=== PATIENT | female | born 1965 | race African-American/Black ===

== ENCOUNTER 2016-11-24 11:03 | Inpatient (IN) | payer OTHER ==
[~2016-11-24] VITALS: Ht 188 cm; Wt 153.5 kg
[~2016-11-24 11:03] MED LIST: ALBU2.5V5 NEB; ALBU8.5H6 INH; AMLO10TA4 PO; ASPI-252 PO; ASPI-482 PO; ASPI81TA2 PO; ATORVASTATIN CA80 MG PO; Albuterol Sulfate NEB; CARV3.12 PO; CIPR500T6 PO; CLOP75TA27 PO; DIPH25CA58 PO; FAMO20TA5 PO; FLUO20CA8 PO; FLUT1DIS3 IH; FURO-68 PO; FURO40TA4 PO; GABA-587 PO; GABA400C PO; GABA600T2 PO; HYDR-2672 PO; Hydrocodone/Acetaminophen PO; INSU100I17 SQ; INSU100I27 SQ; INSU100V31 SQ; INSU100V8 SQ; INSU500V SQ; Insulin Detemir SQ; Ipratropium/Albuterol Sulfate NEB; Isosorbide Mononitrate PO; LEVO500T38 PO; LIPITOR80 MG PO; LORA0.5T PO; LORA10CA PO; LORA10TA3 PO; LOSA25TA4 PO; METH-38 PO; METH750T2 PO; METR500T PO; MINE120C TP; NITR0.4T6 SL; OXYC-250 PO; OXYC1TAB9 PO; Oxycodone Hcl/Acetaminophen PO; PANT40TA3 PO; PANT40TA5 PO; POTA20TA12 PO; POTA20TA82 PO; PRED20TA PO; PROM118S2 PO; SENN-37 PO; SENN1TAB7 PO; SENN8.6T3 PO; TERB250T8 PO; ZOLP5TAB PO
[2016-11-24] MEDS ORDERED: MORPHINE SULFATE 4 MG/ML DISP.SYRIN. IV/SQ PRN (11:30)
--- NOTE | 2016-11-24 11:31 | PHYS DOC ---
Past Medical History Past Medical History: CAD, CHF, COPD, Depression, Diabetes-Type II, DVT, High Cholesterol, Hypertension, Other Additional Past Medical Histor: NEUROPATHY Past Surgical History: Angioplasty, , Other Additional Past Surgical Histo: CARDIAC STENTS X4, left great toe amputation, R great & 2nd toe amputation Alcohol Use: Occasionally Drug Use: Marijuana Adult General Chief Complaint Chief Complaint: CHEST PAIN HPI HPI Patient is a 51 year old female who presents with intermittent left-sided chest pressure over the past 3 days. States she has had constant chest pressure since waking this morning at 6:30 AM. Pain radiates to her left arm. She took a sublingual nitroglycerin prior to arrival helped with her pain, but her pain persists. States this is similar symptoms to when she had a heart cath in the past. She denies diaphoresis, palpitations, dyspnea, nausea or vomiting, fever or chills, cough, hemoptysis, leg pain or swelling, orthopnea, abdominal pain. Review of Systems Review of Systems Constitutional: Denies fever or chills [] Eyes: Denies change in visual acuity, redness, or eye pain [] HENT: Denies nasal congestion or sore throat [] Respiratory: Denies cough or shortness of breath [] Cardiovascular: No additional information not addressed in HPI [] GI: Denies abdominal pain, nausea, vomiting, bloody stools or diarrhea [] : Denies dysuria or hematuria [] Musculoskeletal: Denies back pain or joint pain [] Integument: Denies rash or skin lesions [] Neurologic: Denies headache, focal weakness or sensory changes [] Endocrine: Denies polyuria or polydipsia [] Current Medications Current Medications Current Medications Medications (Trade) Dose Ordered Sig/Justin Start Time Stop Time Status Last Admin Dose Admin Morphine Sulfate 4 mg PRN Q15MIN PRN 11/24/16 11:30 11/25/16 11:29 11/24/16 12:57 4 MG Allergies Allergies Allergies Coded Allergies Type Severity Reaction Last Updated Verified Penicillins Allergy Severe tongue swelling 04/13/15 Yes latex Allergy Severe Hives 04/13/15 Yes prochlorperazine Allergy Severe tongue swelling 04/13/15 Yes iodine Adverse Reaction Intermediate "shiver" 04/13/15 Yes Physical Exam Physical Exam Constitutional: Well developed, well nourished, no acute distress, non-toxic appearance. [] HENT: Normocephalic, atraumatic, bilateral external ears normal, oropharynx moist, nose normal. [] Eyes: PERRLA, EOMI. [] Neck: Normal range of motion, supple. [] Cardiovascular:Heart rate regular rhythm [] Lungs & Thorax: Bilateral breath sounds clear to auscultation [] Abdomen: Bowel sounds normal, soft, no tenderness. [] Skin: Warm, dry, no erythema, no rash. [] Back: Normal ROM. [] Extremities: No tenderness, ROM intact, no edema. [] Neurologic: Alert and oriented X 3, normal motor function, normal sensory function, no focal deficits noted. [] Psychologic: Affect normal, judgement normal, mood normal. [] Current Patient Data Vital Signs Vital Signs Date Time Temp Pulse Resp B/P Pulse Ox O2 Delivery O2 Flow Rate FiO2 11/24/16 11:13 97.7 56 16 132/63 99 Room Air 97.7 Lab Values Laboratory Tests Test 11/24/16 11:30 Urine Opiates Screen Neg (NEG) Urine Methadone Screen Neg (NEG) Urine Barbiturates Neg (NEG) Urine Phencyclidine Screen Neg (NEG) Urine Amphetamine/Methamphetamine Neg (NEG) Urine Benzodiazepines Screen Neg (NEG) Urine Cocaine Screen Pos (NEG) Urine Cannabinoids Screen Neg (NEG) Urine Ethyl Alcohol Neg (NEG) EKG EKG EKG as interpreted by me as normal sinus rhythm, rate 51, no ST-T changes, normal intervals, no ectopy Radiology/Procedures Radiology/Procedures Chest xray as interpreted by me with no acute cardiopulmonary disease process Course & Med Decision Making Course & Med Decision Making Pertinent Labs and Imaging studies reviewed. (See chart for details) UDS with cocaine+. Laboratory evaluation otherwise unremarkable. Discussed case with Dr. Bird, who will admit. Cardiology consult placed. Dragon Disclaimer Dragon Disclaimer This electronic medical record was generated, in whole or in part, using a voice recognition dictation system. Departure Departure Impression: Primary Impression: Chest pain Disposition: ADMITTED INPATIENT Condition: STABLE Referrals: TOSHIA VARGAS MD (PCP) Problem Qualifiers Primary Impression: Chest pain Chest pain type: unspecified Qualified Code: R07.9 - Chest pain, unspecified Kings DANIEL MD Nov 24, 2016 11:31
[2016-11-24 11:47] LABS: BARBITURATES NEG (NEG); BENZODIAZEPINES NEG (NEG); CANNABINOIDS NEG (NEG); COCAINE POS (NEG); METHADONE NEG (NEG); OPIATES NEG (NEG); PHENCYCLIDINE NEG (NEG)
[2016-11-24 11:49] LABS: ETHANOL, URINE NEG (NEG)
--- NOTE | 2016-11-24 12:00 | EKG ---
[facility] [address] [place] [address] Test Date: 2016-11-24 Test Time: 11:14:49 Pat Name: JAXSON BROOKS Department: Room: Gender: F [employer]: : 1965 Requested By: Kings DANIEL Order Number: [id number] Reading MD: Jia Enamorado Measurements Intervals [place] Rate: 51 P: 45 [place]: 138 QRS: 34 QRSD: 106 T: 82 QT: 456 QTc: 422 Interpretive Statements SINUS RHYTHM T ABNORMALITY IN HIGH LATERAL LEADS RI6.01 Compared to ECG 09/28/2015 11:00:39 No significant changes Electronically Signed On 11-24-2016 20:00:41 CDT by Jia Enamorado
--- NOTE | 2016-11-24 12:15 | RAD ---
EXAM: Chest, 2 views.. HISTORY: Chest pain. COMPARISON: 09/28/2015. FINDINGS: Frontal and lateral views of the chest are obtained. There is no infiltrate, effusion or pneumothorax. There is stable mild enlargement of the cardiac silhouette.. IMPRESSION: No acute pulmonary finding.
[2016-11-24 12:50] LABS: BASO # 0.1 x10^3/uL (0.0-0.2); BASO % 1 % (0-3); EOS % 4 % (0-3); HEMATOCRIT 39.4 % (36.0-47.0); HEMOGLOBIN 12.7 g/dL (12.0-15.5); LYMPH # 2.5 x10^3/uL (1.0-4.8); LYMPH % 33 % (24-48); MEAN CORPUSCULAR HEMOGLOBIN 27 pg (25-35); MEAN CORPUSCULAR HGB CONC 32 g/dL (31-37); MEAN CORPUSCULAR VOLUME 84 fL (79-100); MONO % 5 % (0-9); NEUT % 57 % (31-73); PLATELET COUNT 219 x10^3/uL (140-400); RED CELL DISTRIBUTION WIDTH 14.4 % (11.5-14.5); WHITE BLOOD COUNT 7.4 x10^3/uL (4.0-11.0)
[2016-11-24 12:56] LABS: CALCIUM 9.3 mg/dL (8.5-10.1); GFR 70.5; POTASSIUM 3.8 mmol/L (3.5-5.1)
[2016-11-24] MEDS ORDERED: ONDANSETRON PF 4 MG/2 ML VIAL. IV PRN (13:15)
[2016-11-24] MEDS ORDERED: FENTANYL PF 100 MCG/2 ML VIAL. IV PRN (13:15)
[2016-11-24] MEDS ORDERED: NITROGLYCERIN SUBLINGUAL 0.4 MG BOTTLE OF 25. SL PRN ×2 (13:15→15:30)
[2016-11-24] MEDS ORDERED: ACETAMINOPHEN 325 MG TABLET. PO PRN (13:15)
[2016-11-24 13:23] VITALS: BP 130/74
[2016-11-24] MEDS ORDERED: DIPHENHYDRAMINE HCL 25 MG CAPSULE PO ONE (13:45)
--- NOTE | 2016-11-24 14:49 | PDOC2 ---
SHERRELL SUTTON RESIDENTIAL APPRAISER 11/24/16 1449: CARDIAC CONSULT DATE OF CONSULT Date of Consult DATE: 11/24/16 TIME: 14:31 REASON FOR CONSULT Reason for Consult: Chest pain REFERRING PHYSICIAN Referring Physician: Dr. Zuñiga SOURCE Source: Chart review, Patient HISTORY OF PRESENT ILLNESS HISTORY OF PRESENT ILLNESS This is a 51 yo female, with a h/o CAD s/p PCI/stents, CHF, HTN, HLP, DVT, and DM, who presented with complaints of chest pressure. Patient reports pain began Thursday afternoon while she was watching television. Located under left breast. Describes as heaviness. Radiated down her left arm, which was associated with left hand numbness and tingling. Also c/o left neck, jaw, and back pain. Associated with SOA and diaphoresis. Denies any palpitations, dizziness, orthopnea, and nausea/vomiting. Chest pain was intermittent over the weekend. Seems to come and go; no specific exacerbating factors. Pain improved with nitro. Reports pain is similar to previously experienced with CA. Diagnosed with LLE DVT this past July- with Xarelto. No cardiac workup since 2014. PAST MEDICAL HISTORY Cardiovascular: CAD (s/p KATLYN to RCA and LCx), CHF, HTN, Hyperlipidemia Pulmonary: Asthma, COPD CENTRAL NERVOUS SYSTEM: Periperal neuropathy GI: GERD Hepatobiliary: No pertinent hx Psych: Anxiety, Addictions (cocaine ), Depression Musculoskeletal: Osteoarthritis Infectious disease: No pertinent hx ENT: No pertinent hx Renal/: No pertinent hx Endocrine: Diabetes PAST SURGICAL HISTORY Past Surgical History: Other (PCI/stents ) FAMILY HISTORY Family History: Diabetes, Stroke SOCIAL HISTORY Smoke: No ALCOHOL: occassional Drugs: Cocaine (denies ) Lives: with Family CURRENT MEDICATIONS CURRENT MEDICATIONS Current Medications Medications (Trade) Dose Ordered Sig/Justin Route PRN Reason Start Time Stop Time Status Last Admin Dose Admin Morphine Sulfate 4 mg PRN Q15MIN PRN IV/SQ PAIN GREATER THAN 3/10 11/24/16 11:30 11/25/16 11:29 11/24/16 12:57 Diphenhydramine HCl (Benadryl) 25 mg 1X ONCE PO 11/24/16 13:45 11/24/16 13:46 DC 11/24/16 13:12 ALLERGIES ALLERGIES: Coded Allergies: Penicillins (Verified Allergy, Severe, tongue swelling, 04/13/15) latex (Verified Allergy, Severe, Hives, 04/13/15) prochlorperazine (Verified Allergy, Severe, tongue swelling, 04/13/15) iodine (Verified Adverse Reaction, Intermediate, "shiver", 04/13/15) ROS Review of System 14 point ROS conducted with pertinent positives noted above in HPI PHYSICAL EXAM General: Alert, Oriented X3, Cooperative, No acute distress HEENT: Atraumatic, Mucous membr. moist/pink Lungs: Clear to auscultation, Normal air movement Heart: Regular rate, Normal S1, Normal S2, Other (left chest slightly tender upon palpation, distant heart tones ) Abdomen: Soft, No tenderness, Other (obese ) Extremities: No cyanosis, Normal pulses, Other (trace LE edema ) Skin: No breakdown, No significant lesion Neuro: Normal speech, Sensation intact Psych/Mental Status: Mental status NL, Mood NL MUSCULOSKELETAL: Osteoarthritic changes both hands VITALS VITALS Vital Signs Date Time Temp Pulse Resp B/P Pulse Ox O2 Delivery O2 Flow Rate FiO2 11/24/16 13:23 98.1 51 20 130/74 98 Room Air 98.1 LABS Lab: Laboratory Tests Test 11/24/16 11:30 11/24/16 12:35 Urine Opiates Screen Neg (NEG) Urine Methadone Screen Neg (NEG) Urine Barbiturates Neg (NEG) Urine Phencyclidine Screen Neg (NEG) Urine Amphetamine/Methamphetamine Neg (NEG) Urine Benzodiazepines Screen Neg (NEG) Urine Cocaine Screen Pos (NEG) Urine Cannabinoids Screen Neg (NEG) Urine Ethyl Alcohol Neg (NEG) White Blood Count 7.4x10^3/uL (4.0-11.0) Red Blood Count 4.70x10^6/uL (3.50-5.40) Hemoglobin 12.7g/dL (12.0-15.5) Hematocrit 39.4% (36.0-47.0) Mean Corpuscular Volume 84fL (79-100) Mean Corpuscular Hemoglobin 27pg (25-35) Mean Corpuscular Hemoglobin Concent 32g/dL (31-37) Red Cell Distribution Width 14.4% (11.5-14.5) Platelet Count 219x10^3/uL (140-400) Neutrophils (%) (Auto) 57% (31-73) Lymphocytes (%) (Auto) 33% (24-48) Monocytes (%) (Auto) 5% (0-9) Eosinophils (%) (Auto) 4% (0-3) Basophils (%) (Auto) 1% (0-3) Neutrophils # (Auto) 4.2x10^3uL (1.8-7.7) Lymphocytes # (Auto) 2.5x10^3/uL (1.0-4.8) Monocytes # (Auto) 0.4x10^3/uL (0.0-1.1) Eosinophils # (Auto) 0.3x10^3/uL (0.0-0.7) Basophils # (Auto) 0.1x10^3/uL (0.0-0.2) Sodium Level 143mmol/L (136-145) Potassium Level 3.8mmol/L (3.5-5.1) Chloride Level 104mmol/L (98-107) Carbon Dioxide Level 30mmol/L (21-32) Anion Gap 9 (6-14) Blood Urea Nitrogen 13mg/dL (7-20) Creatinine 1.0mg/dL (0.6-1.0) Estimated GFR (Cockcroft-Gault) 70.5 Glucose Level 156mg/dL (70-99) Calcium Level 9.3mg/dL (8.5-10.1) Troponin I Quantitative < 0.017ng/mL (0.000-0.055) ED-Ase-R-Type Natriuretic Peptide 176pg/mL (0-124) ECHOCARDIOGRAM ECHOCARDIOGRAM <Conclusion> Low normal LV function with suggestion of prior inferior/posterior infarct. No significant valvular abnormalities. DATE: 07/09/151950 STRESS TEST STRESS TEST Conclusion 1. The patient's EKG doesn't change with stress in a manner that is suggestive but not diagnostic of ischemia. 2. Nuclear imaging shows an area of partially reversible ischemia in the inferior lateral wall. 3. Ventricular systolic function is normal with an ejection fraction of 59%. 4. Moderate risk Lexiscan nuclear stress test. DATE: 10/27/141830 HEART CATH HEART CATH Conclusion 1. Severe two-vessel coronary artery disease 2. Successful PCI/drug eluting stents placement to the right coronary and left circumflex arteries 3. Diaphragmatic wall hypokinesis with ejection fraction estimated at 55% 4. No significant mitral regurgitation or aortic stenosis Recommendations 1. Aspirin 325 mg daily 2. Plavix 75 mg daily for preferably one year 3. Cardiovascular risk factor modification DATE: 11/28/14 1123 ASSESSMENT/PLAN ASSESSMENT/PLAN 1. Chest pain, with typical and atypical features initial trop negative- continue with series obtain echo UDS + for cocaine; possible vasospasms? NPO after MN- will plan for MPI in am unless troponin elevation or symptomatology changes noted overnight. 2. CAD s/p PCI/KATLYN in proximal Cx and OM1 at [facility] in 2012 s/p PCI/KATLYN RCA and LCx 10/2014 continue secondary prevention No BB with cocaine use and bradycardia 3. Hypertension, essential controlled with meds 4. Hyperlipidemia check lipids statin therapy 5. IDDM management per PCP 6. Morbid obesity lifestyle modification 7. Substance abuse UDS + cocaine- patient denies use. discussed/encouraged cessation 8. Noncompliance multiple failed appointment f/u Problems: MACRINA CORRAL MD 11/25/16 1440: CARDIAC CONSULT ALLERGIES ALLERGIES: Coded Allergies: Penicillins (Verified Allergy, Severe, tongue swelling, 04/13/15) latex (Verified Allergy, Severe, Hives, 04/13/15) prochlorperazine (Verified Allergy, Severe, tongue swelling, 04/13/15) iodine (Verified Adverse Reaction, Intermediate, "shiver", 04/13/15) ASSESSMENT/PLAN ASSESSMENT/PLAN Patient seen and examined 11/24/16. Agree with SAUSAGE MIXER's assessment and plan. Chest pain with atypical features. Myocardial infarction ruled out. Plan for Lexiscan nuclear stress test to rule out ischemic etiology. Thank you for your consultation. Problems: SHERRELL SUTTON APRN Nov 24, 2016 14:49 MACRINA CORRAL MD Nov 25, 2016 14:40
[2016-11-24] MEDS ORDERED: ALPR2TAB5 PO (15:02)
[2016-11-24] MEDS ORDERED: DICL100G7 TP (15:02)
[2016-11-24] MEDS ORDERED: ALPR1TAB6 PO (15:02)
[2016-11-24] MEDS ORDERED: OXYM30MI NS (15:02)
[2016-11-24] MEDS ORDERED: HYDR-2672 PO (15:02)
[2016-11-24] MEDS ORDERED: PANT40TA5 PO (15:02)
[2016-11-24] MEDS ORDERED: ERGO80004 PO (15:02)
[2016-11-24] MEDS ORDERED: FAMO20TA5 PO (15:02)
[2016-11-24] MEDS ORDERED: RIVA20TA2 PO (15:02)
[2016-11-24] MEDS ORDERED: INSU100I17 SQ (15:02)
[2016-11-24] MEDS ORDERED: AMIT25TA PO (15:02)
[2016-11-24] MEDS ORDERED: ALBUTEROL SULFATE 2.5 MG/3 ML NEBU. NEB PRN (15:30)
[2016-11-24] MEDS ORDERED: ALBUTEROL SULFATE 8GM INHALER. INH PRN (15:30)
[2016-11-24] MEDS ORDERED: INSU100I13 SQ ×2 (15:49)
[2016-11-24] MEDS ORDERED: LURA40TA PO (15:52)
[2016-11-24] MEDS ORDERED: FLUT16SP NS (15:53)
--- NOTE | 2016-11-24 15:56 | ACF ---
Admission Forms Criteria CARDIOLOGY GRG Clinical Indications for Admission to Inpatient Care ( Place 'X' for any and all applicable criteria): Hospital admission is needed for appropriate care of the patient because of ANY ONE of the following (1): [ ] I. Hemodynamic instability as indicated by ALL of the following (1)(2)(3) (4)(5) [ ]a) Vital signs or other findings not as expected for chronic patient condition or baseline [ ]b) Instability indicated by ANY ONE of the following: [ ]i) Hypotension [ ]ii) Symptomatic Tachycardia unresponsive to treatment ( e.g., analgesia, fluids, sedation as indicated) [ ]iii) Inadequate perfusion indicated by ANY ONE of the following: [ ] 1) Lactic acidosis (> 2 mmol/L) [ ] 2) New abnormal capillary refill (> 3 seconds) [ ] 3) Reduced urine output [ ] 4) New altered mental status [ ]iv) Orthostatic vital sign changes unresponsive to treatment (e.g., fluids) [ ]v) IV inotropic or vasopressor medication required to maintain adequate blood pressure or perfusion [ ] II. Severe heart failure as indicated by ANY ONE of the following(17)(18) [ ]a) Respiratory distress [ ]b) Hypotension [ ]c) Anasarca (refractory to outpatient therapy) [ ]d) Cardiac arrhythmias of immediate concern [ ]e) Myocardial ischemia [ ] III. Cardiac arrhythmias or findings of immediate concern indicated by ANY ONE of the following (19)(20): [ ] a) Heart rhythms that are inherently dangerous or unstable indicated by ANY ONE of the following (21)(22)(23): [ ] i) Resuscitated ventricular fibrillation or cardiac arrest [ ] ii) Ventricular escape rhythm [ ] iii) Sustained ventricular tachycardia (30 seconds or more of ventricular rhythm at greater than 100 beats per minute) [ ] iv) Nonsustained ventricular tachycardia and ANY ONE of the following: [ ] 1) Suspected cardiac ischemia as cause or consequence of ventricular tachycardia [ ] 2) In setting of acute myocarditis [ ] b) Unstable cardiac conduction defects indicated by ANY ONE of the following(23)(24)(25) [ ] i) Type II second-degree atrioventricular block [ ]ii) Third-degree atrioventricular block [ ]iii) New-onset left bundle branch block with suspected myocardial ischemia [ ]c) Any heart rhythm and ANY ONE of the following (21)(22)(26)(27) (28) [ ] i) Continuous long-term ECG monitoring needed (e.g., initiation of drug requiring monitoring for more than 24 hours) [ ] ii) Patient has automatic implanted cardioverter defibrillator that is repeatedly firing, malfunctioning, or in need of immediate adjustment of settings beyond the scope of ambulatory or observation care [ ]d) Heart rhythms of concern due to ANY ONE of the following: [ ] i) Hypotension [ ] ii) Respiratory distress [ ] iii) Association with other significant symptoms (e.g., bradycardia with syncope or ongoing dizziness, supraventricular tachycardia with chest pain (14)(15)(17) [ ] IV. Monitoring for cardiac contusion beyond the scope of observation care needed [A](30)(31)(32) [ ] V. Surgical or device complication (e.g., valve replacement complication , pacemaker dysfunction) (35)(41)(44)(45)(46) [ ] . Inpatient palliative care needed. [B](49) Also use Inpatient Palliative Care Criteria [ ] VII. Nonbacterial thrombotic (marantic) endocarditis (36)(43)(47)(48) [X] VIII. Cardiology condition, symptom, or finding for which emergency and observation care has failed or are not considered appropriate. [ ] IX. Acute valvular disease requiring inpatient as indicated by ANY ONE of the following (41) [ ]a) Acute valvular regurgitation (42) [ ]b) Noninfectious valvulitis (43) [ ]c) Obstructive valve thrombosis [ ]d) Paravalvular leak [ ]e) Other significant valvular disorder remaining after emergency or observation level of care (as appropriate) [ ]X. Pericardial disease requiring inpatient treatment as indicated by ANY ONE of the following (33)(34)(35)(36)(37) [ ]a) Suspected tamponade (38)(39)(40) [ ]b) Hemopericardium [ ]c) Other significant pericardial disorder remaining after emergency or observation level of care (as appropriate) [ ] XI. Cardiac ischemia beyond scope of emergency and observation care. [ ] XII. Hypertension requiring inpatient treatment as indicated by ANY ONE of the following (6)(7)(8) [ ]a) SBP greater than 220 mm Hg or DBP greater than 120 mmHg despite treatment [ ]b) SBP greater than 140 mm Hg or DBP greater than 100 mm Hg with evidence of acute end organ damage as indicated by ANY ONE of the following [ ] i) Encephalopathy [ ] ii) Acute renal failure as indicated by new onset of ANY ONE of the following (9)(10)(11)(12)(13) [ ]1) 3-fold rise in serum creatinine from baseline [ ]2) Serum creatinine greater than 4 mg/dL ( 354 micromoles/L) with acute rise greater than 0.5 mg/dL (44.2 micromoles/L) [ ]3) Reduction of more than 75% in estimated glomerular filtration rate from baseline [ ]4) Estimated glomerular filtration rate less than 35 mL/min/1.73m2 (0.59 mL/sec/1.73m2) in child up to 18 years of age [ ]5) Cessation of urine output indicated by ALL of the following [ ]A. Adequate volume status [ ]B. Inadequate urine output as indicated by ANY ONE of the following [ ]a. Urine output less than 0.3 mL/kg/hr for 24 hours [ ]b. Anuria (urine output less than 0.1 mL/kg/hr) for 12 hours [ ] iii) Aortic dissection [ ] iv) Myocardial Ischemia [ ] v) Left ventricular heart failure [ ]vi) Retinal Hemorrhage [ ]vii) Other significant finding [ ]c) Hypertension in child requiring inpatient treatment as indicated by ALL of the following(14)(15)(16) [ ] i) Outpatient treatment not effective, not available, or not appropriate [ ]ii) SBP or DBP greater than 95th percentile for age [ ]iii) Evidence of acute end organ damage as indicated by ANY ONE of the following [ ]1) Altered mental status [ ]2) Acute renal failure as indicated by new onset of ANY ONE of the following(9)(10)(11)(12)(13) [ ]A. 3-fold rise in serum creatinine from baseline [ ]B. Serum creatinine greater than 4 mg/dL (354 micromoles/L) with acute rise greater than 0.5 mg/dL (44.2 micromoles/L) [ ]C. Reduction of more than 75% in estimated glomerular filtration rate from baseline [ ]D. Estimated glomerular filtration rate less than 35 mL/min/1.73m2 (0.59 mL/sec/1.73m2) in child up to 18 years of age [ ]E. Cessation of urine output indicated by ALL of the following [ ]a. Adequate volume status [ ]b. Inadequate urine output as indicated by ANY ONE of the following [ ]i) Urine output less than 0.3 mL/kg/hr for 24 hours [ ]ii) Anuria ( urine output less than 0.1 mL/kg/hr) for 12 hours [ ]3) Severe headache [ ]4) Visual disturbance [ ]5) Retinal hemorrhage [ ]6) Other significant finding [ ]XIII. Complications of transplanted heart indicated by ANY ONE of the following(61): [ ]a) Acute graft rejection requiring inpatient management (eg, intravenous immunosuppression)(62)(63) [ ]b) Acute graft heart failure indicated by ANY ONE of the following(64): [ ]i) Hemodynamic instability [ ]ii) Cardiac arrhythmias of immediate concern [ ]iii) Pulmonary edema that is very severe (eg, mechanical ventilation needed, imminent or likely, need for 100% oxygen to keep oxygen saturation above 90%) [ ]iv) Pulmonary edema that is persistent as indicated by ALL of the following: [ ]1) New need for oxygen therapy to keep oxygen saturation above 90% (or increased FiO2 need from baseline) [ ]2) Has not improved sufficiently with emergency department or observation care IV diuretics or other heart failure treatments[E] [ ]v) Altered mental status that is severe or persistent [ ]vi) Increased creatinine (new on laboratory test) with reduction of more than 50% in estimated glomerular filtration rate from baseline [ ]vii) Progressively (ongoing) rising creatinine (known from past laboratory test) with reduction of more than 25% in estimated glomerular filtration rate from baseline [ ]viii) Acute renal failure [ ]ix) Acute peripheral ischemia (eg, examination shows pulseless, cool, mottled, or cyanotic extremity) [ ]x) Pulmonary artery catheter monitoring needed [ ]xi) Other sign or symptom of heart failure requiring inpatient treatment (ie, too severe or not responsive to outpatient and observation care treatment) [ ]c) Infection requiring inpatient management (eg, Hemodynamic instability, need for intravenous antimicrobial treatment)(66)(67)(68)(69)(70) [ ]d) Cardiac allograft vasculopathy requiring inpatient management ( eg evidence of cardiac ischemia)(71) [ ]e) Other complication of transplanted heart (eg, stroke, severe pulmonary hypertension, severe valvular dysfunction) requiring inpatient management(72) The original [facility] content created by [facility] has been revised. The portions of the content which have been revised are identified through the use of italic text or in bold, and [facility] has neither reviewed nor approved the modified material. All other unmodified content is copyright [facility]. Please see references footnoted in the original [facility] edition 2016 Admission Criteria Met?: Yes ASHLEY RIBEIRO Nov 24, 2016 15:56
[2016-11-24] MEDS: ALPRAZOLAM 1 MG TABLET PO SCH (16:00)
[2016-11-24] MEDS: LOSARTAN POTASSIUM 25 MG TABLET. PO SCH (16:00)
[2016-11-24] MEDS ORDERED: DEXTROSE 50% 25 GM / 50ML DISP.SYRIN. IV PRN (16:15)
[2016-11-24] MEDS ORDERED: ALPRAZOLAM 1 MG TABLET PO PRN (16:15)
[2016-11-24] MEDS: DICLOFENAC SODIUM 1% TOPICAL GEL 100GM TUBE. TP SCH ×2 (17:00→22:29)
[2016-11-24] MEDS: RIVAROXABAN 10 MG TABLET. PO SCH (17:00)
[2016-11-24] MEDS ORDERED: DIPHENHYDRAMINE HCL 25 MG CAPSULE PO SCH (17:00)
[2016-11-24] MEDS ORDERED: POTASSIUM CHLORIDE 20 MEQ TABLET.ER. PO SCH (17:00)
[2016-11-24] MEDS: FUROSEMIDE 40 MG TABLET PO SCH (17:28)
[2016-11-24] MEDS: HYDROCODONE/APAP 10/325 TABLET. PO PRN ×2 (17:30→21:45)
[2016-11-24] MEDS: INSULIN ASPART 300 UNITS/3 ML INSULN.PEN SQ SCH ×2 (17:45→17:46)
[2016-11-24 19:15] VITALS: BP 139/69
[2016-11-24] MEDS: BUDESONIDE 0.5 MG/2 ML NEBU. NEB SCH (19:19)
[2016-11-24] MEDS: ALBUTEROL SULFATE 2.5 MG/3 ML NEBU. NEB SCH (19:19)
[2016-11-24 20:32] VITALS: BP 139/69
[2016-11-24] MEDS ORDERED: AMITRIPTYLINE HCL 25 MG TABLET. ONE (20:40)
[2016-11-24] MEDS ORDERED: NON FORMULARY ITEM (Fluticasone/Salmeterol (Advair 250-50 Diskus) 1 INH) IH SCH (21:00)
[2016-11-24] MEDS ORDERED: ALPRAZOLAM 1 MG TABLET PO SCH (21:00)
[2016-11-24] MEDS: LURASIDONE 40 MG TABLET. PO SCH (21:00)
[2016-11-24] MEDS ORDERED: INSULIN DETEMIR 300 UNITS/3 ML INSULN.PEN. SQ SCH ×2 (21:00)
[2016-11-24] MEDS ORDERED: GABAPENTIN PO SCH (21:00)
[2016-11-24] MEDS ORDERED: AMITRIPTYLINE HCL 25 MG TABLET PO SCH (21:00)
[2016-11-24] MEDS ORDERED: ATORVASTATIN CALCIUM 40 MG TABLET. PO SCH (21:00)
[2016-11-24] MEDS: FAMOTIDINE 20 MG TABLET. PO SCH (21:45)
[2016-11-24] MEDS: GABAPENTIN 400 MG CAPSULE. PO SCH (21:46)
[2016-11-24] MEDS: METHOCARBAMOL 750 MG TABLET PO SCH (21:47)
[2016-11-24] MEDS: ATORVASTATIN CALCIUM 40 MG TABLET. PO SCH (21:47)
--- NOTE | 2016-11-24 21:58 | HP ---
ADMIT DATE: 11/24/2016 CHIEF COMPLAINT: Chest pain. HISTORY OF PRESENT ILLNESS: The patient is a pleasant middle-aged female, who states she has 4 previous cardiac stents. She presented to the ER with chest pain rated 7/10, has been occurring for several days. She thinks there is her heart. She tried increasing her home meds, but that is not working. I discussed the case with the ER physician. We are going to admit the patient and consult Cardiology. PAST MEDICAL HISTORY: Coronary artery disease with 4 stents, CHF, COPD, depression, diabetes, hyperlipidemia, hypertension, DVT, neuropathy, left greater toe amputation, right second toe amputation and marijuana use. ALLERGIES: PENICILLIN, IODINE, PROCHLORPERAZINE AND LATEX. FAMILY HISTORY: Coronary artery disease. SOCIAL HISTORY: She does not drink, smoke or take drugs. MEDICATIONS: Reviewed, please refer to the MRAD. REVIEW OF SYSTEMS: GENERAL: No history of weight change, weakness or fevers. SKIN: No bruising, hair changes or rashes. EYES: No blurred, double or loss of vision. NOSE AND THROAT: No history of nosebleeds, hoarseness or sore throat. HEART: She complains of chest pain. LUNGS: Denies cough, hemoptysis, wheezing or shortness of breath. GASTROINTESTINAL: Denies changes in appetite, nausea, vomiting, diarrhea or constipation. GENITOURINARY: No history of frequency, urgency, hesitancy or nocturia. NEUROLOGIC: Denies history of numbness, tingling, tremor or weakness. PSYCHIATRIC: No history of panic, anxiety or depression. ENDOCRINE: No history of heat or cold intolerance, polyuria or polydipsia. EXTREMITIES: Denies muscle weakness, joint pain, pain on walking or stiffness. PHYSICAL EXAMINATION: VITAL SIGNS: Temperature afebrile, pulse 68, respirations 18 and blood pressure 139/69. GENERAL: She is alert, cooperative. HEART: Normal S1, S2. LUNGS: Clear. ABDOMEN: Soft, positive bowel sounds, a little obese. EXTREMITIES: Trace edema. SKIN: No rashes. PSYCHIATRIC: She is stable. VASCULAR: Good capillary refill. ENDOCRINE: No thyromegaly. LYMPHATICS: No cervical nodes. HEMATOPOIETIC: No bruising. LABORATORY DATA: Hematology normal. Electrolytes normal other than glucose of 181. Troponin is 0. Drug screen positive for cocaine. ASSESSMENT AND PLAN: Chest pain in a middle-aged female, who has known coronary artery disease with 4 previous stents, she was also cocaine positive. The patient has been admitted. We will check serial enzymes, serial EKGs. Consult cardiology. Suspect she might need a stress test, but it is hard to say because she is cocaine positive, but not sure if she has advanced progression of her disease or is the cocaine cause ____. We will await further cardiac input. PROGNOSIS: Guarded. SIMIN PECK DO DR: RAEGAN/sanjeev JOB#: [id number] / [id number]
[2016-11-24] MEDS: DIPHENHYDRAMINE HCL 25 MG CAPSULE PO PRN (22:05)
[2016-11-24 22:50] VITALS: BP 127/55
[2016-11-25] MEDS: HYDROCODONE/APAP 10/325 TABLET. PO PRN ×5 (01:48→21:13)
[2016-11-25 02:40] VITALS: BP 125/65
[2016-11-25 03:13] LABS: CHOLESTEROL/HDL RATIO 2.7
[2016-11-25] MEDS: ALBUTEROL SULFATE 2.5 MG/3 ML NEBU. NEB SCH ×4 (07:42→20:41)
[2016-11-25] MEDS: BUDESONIDE 0.5 MG/2 ML NEBU. NEB SCH ×2 (07:42→20:41)
[2016-11-25 07:55] VITALS: BP 130/59
[2016-11-25] MEDS: INSULIN ASPART 300 UNITS/3 ML INSULN.PEN SQ SCH ×6 (08:00→17:25)
[2016-11-25] MEDS ORDERED: INSULIN DETEMIR 300 UNITS/3 ML INSULN.PEN. SQ SCH (08:00)
[2016-11-25] MEDS: INSULIN DETEMIR 300 UNITS/3 ML INSULN.PEN. SQ SCH (08:00)
[2016-11-25] MEDS ORDERED: REGADENOSON 0.4 MG/5 ML DISP.SYRIN. IV ONE (08:30)
[2016-11-25] MEDS: FLUTICASONE 50MCG/NASAL SPRAY 16GM BOTTLE. NS SCH (09:00)
[2016-11-25] MEDS: DICLOFENAC SODIUM 1% TOPICAL GEL 100GM TUBE. TP SCH ×4 (09:00→21:00)
[2016-11-25] MEDS ORDERED: RIVAROXABAN 10 MG TABLET. PO SCH (09:00)
[2016-11-25] MEDS ORDERED: ISOSORBIDE MONONITRATE ER 30 MG TAB.ER.24H PO SCH (09:00)
[2016-11-25 10:09] VITALS: BP 137/64
--- NOTE | 2016-11-25 10:54 | CARD ---
APPROVED REPORT EXAM: Two-dimensional and M-mode echocardiogram with Doppler and color Doppler. Other Information Quality : Good INDICATION Chest Pain 2D DIMENSIONS RVDd3.0 (2.9-3.5cm)Left Atrium(2D)3.9 (1.6-4.0cm) IVSd1.5 (0.7-1.1cm)Aortic Root(2D)3.2 (2.0-3.7cm) LVDd6.0 (3.9-5.9cm)LVOT Diameter2.3 (1.8-2.4cm) PWd1.5 (0.7-1.1cm)LVDs4.0 (2.5-4.0cm) FS (%) 27.0 %SV51.3 ml LVEF(%)55.0 (>50%) M-Mode DIMENSIONS LVDd6.17 (4.0-5.6cm)FS (%) 34 % LVDs4.10 (2.0-3.8cm)ESV(Teich)74.2 ml LVEF(%)61 (>50%) Aortic Valve AoV Peak Diomedes.167.5cm/sAoV VTI34.2cm AO Peak GR.11.2mmHgLVOT Peak Diomedes.138.2cm/s AO Mean GR.6mmHgAVA (VMAX)3.37cm2 GIN (VTI)3.70cm2 Mitral Valve MV E Uiraicoi87.5cm/sMV DECEL [id number] MV A Lhosajrh932.1cm/sE/A Ratio0.8 Tricuspid Valve TR P. Evvlcjvb399if/sRAP JIUSPLJT8nnHc TR Peak Gr.53rpAeLXOJ97zgAj Pulmonary Vein S1 Nynxsizt11.7cm/sD2 Skwcjuaj61.6cm/s PVa qzlsegsf140odvd LEFT VENTRICLE The left ventricle is normal size. There is moderate concentric left ventricular hypertrophy. The lef t ventricular systolic function is normal. The Ejection Fraction is 55-60%. There is normal LV segmen heriberto wall motion. Transmitral Doppler flow pattern is Grade I-abnormal relaxation pattern. RIGHT VENTRICLE The right ventricle is normal size. The right ventricular systolic function is normal. ATRIA The left atrium size is normal. The right atrium size is normal. The interatrial septum is intact wit h no evidence for an atrial septal defect or patent foramen ovale as noted on 2-D or Doppler imaging. AORTIC VALVE The aortic valve is normal in structure and function. Doppler and Color Flow revealed no significant aortic regurgitation. There is no significant aortic valvular stenosis. MITRAL VALVE The mitral valve is normal in structure and function. There is no evidence of mitral valve prolapse. There is no mitral valve stenosis. Doppler and Color-flow revealed trace mitral regurgitation. TRICUSPID VALVE The tricuspid valve is normal in structure and function. Doppler and Color Flow revealed trace tricus pid regurgitation. The PA pressure was estimated at 28 mmHg. There is no tricuspid valve stenosis. PULMONIC VALVE The pulmonary valve is normal in structure and function. Doppler and Color Flow revealed mild pulmoni c valvular regurgitation. There is no pulmonic valvular stenosis. GREAT VESSELS The aortic root is normal in size. The ascending aorta is normal in size. The IVC is normal in size a nd collapses >50% with inspiration. PERICARDIAL EFFUSION There is no evidence of significant pericardial effusion. Critical Notification Critical Value: No <Conclusion> The left ventricular systolic function is normal. The Ejection Fraction is 55-60%. There is normal LV segmental wall motion. Transmitral Doppler flow pattern is Grade I-abnormal relaxation pattern. Trace mitral regurgitation. Trace tricuspid regurgitation. The PA pressure was estimated at 28 mmHg. There is no evidence of significant pericardial effusion.
--- NOTE | 2016-11-25 11:10 | PDOC ---
SHERRELL SUTTON [employer] CONTR[employer] ROOM OPERATOR 11/25/16 1110: CARDIO Progress Notes Date and Time Date of Service 11/25/16 Time of Evaluation 0915 Subjective Subjective: No shortness of breath, No Palpitations, Other (mild pain under left breast- worse with movement ) Vitals Vitals Vital Signs Date Time Temp Pulse Resp B/P Pulse Ox O2 Delivery O2 Flow Rate FiO2 11/25/16 10:09 98.1 58 20 137/64 99 Nasal Cannula 2.0 98.1 Weight Weight [ ] Input and Output Intake and Output Intake and Output 11/25/16 07:00 Intake Total 720 ml Output Total 1600 ml Balance -880 ml Intake Oral 720 ml Output Urine Total 1600 ml Laboratory Labs Laboratory Tests Test 11/24/16 11:30 11/24/16 12:35 11/24/16 17:36 11/24/16 19:00 Urine Opiates Screen Neg (NEG) Urine Methadone Screen Neg (NEG) Urine Barbiturates Neg (NEG) Urine Phencyclidine Screen Neg (NEG) Urine Amphetamine/Methamphetamine Neg (NEG) Urine Benzodiazepines Screen Neg (NEG) Urine Cocaine Screen Pos (NEG) Urine Cannabinoids Screen Neg (NEG) Urine Ethyl Alcohol Neg (NEG) White Blood Count 7.4x10^3/uL (4.0-11.0) Red Blood Count 4.70x10^6/uL (3.50-5.40) Hemoglobin 12.7g/dL (12.0-15.5) Hematocrit 39.4% (36.0-47.0) Mean Corpuscular Volume 84fL (79-100) Mean Corpuscular Hemoglobin 27pg (25-35) Mean Corpuscular Hemoglobin Concent 32g/dL (31-37) Red Cell Distribution Width 14.4% (11.5-14.5) Platelet Count 219x10^3/uL (140-400) Neutrophils (%) (Auto) 57% (31-73) Lymphocytes (%) (Auto) 33% (24-48) Monocytes (%) (Auto) 5% (0-9) Eosinophils (%) (Auto) 4% (0-3) Basophils (%) (Auto) 1% (0-3) Neutrophils # (Auto) 4.2x10^3uL (1.8-7.7) Lymphocytes # (Auto) 2.5x10^3/uL (1.0-4.8) Monocytes # (Auto) 0.4x10^3/uL (0.0-1.1) Eosinophils # (Auto) 0.3x10^3/uL (0.0-0.7) Basophils # (Auto) 0.1x10^3/uL (0.0-0.2) Sodium Level 143mmol/L (136-145) Potassium Level 3.8mmol/L (3.5-5.1) Chloride Level 104mmol/L (98-107) Carbon Dioxide Level 30mmol/L (21-32) Anion Gap 9 (6-14) Blood Urea Nitrogen 13mg/dL (7-20) Creatinine 1.0mg/dL (0.6-1.0) Estimated GFR (Cockcroft-Gault) 70.5 Glucose Level 156mg/dL (70-99) Calcium Level 9.3mg/dL (8.5-10.1) Troponin I Quantitative < 0.017ng/mL (0.000-0.055) < 0.017ng/mL (0.000-0.055) BZ-Yqa-J-Type Natriuretic Peptide 176pg/mL (0-124) Glucose (Fingerstick) 181mg/dL (70-99) Test 11/24/16 20:50 11/25/16 00:55 11/25/16 10:08 Glucose (Fingerstick) 149mg/dL (70-99) 114mg/dL (70-99) Troponin I Quantitative < 0.017ng/mL (0.000-0.055) Triglycerides Level 110mg/dL (0-150) Cholesterol Level 112mg/dL (0-200) LDL Cholesterol, Calculated 49mg/dL (0-100) VLDL Cholesterol, Calculated 22mg/dL (0-40) HDL Cholesterol 41mg/dL (40-60) Cholesterol/HDL Ratio 2.7 Physical Exam HEENT: Neck Supple W Full Motion Chest: Symmetric LUNGS: Clear to Auscultation Heart: S1S2, RRR Abdomen: Soft N/T, Other (obese ) Extremities: 2+ Dorsalis Pedis, No Edema, No Calf Tenderness Neurology: alert, oriented, follow commands Assessment Assessment 1. Chest pain, with typical and atypical features troponin series normal- AMI ruled out echo with normal LV function; EF 55-60% 2-day MPI underway to r/o reversible ischemia 2. CAD s/p PCI/KATLYN in proximal Cx and OM1 at [facility] in 2012 s/p PCI/KATLYN RCA and LCx 10/2014 continue secondary prevention No BB with cocaine use and bradycardia 3. Hypertension, essential controlled with meds 4. Hyperlipidemia LDL 49 statin therapy 5. IDDM management per PCP 6. Morbid obesity lifestyle modification 7. Substance abuse UDS + cocaine- patient denies use. discussed/encouraged cessation 8. Noncompliance MACRINA CORRAL MD 11/25/16 1442: CARDIO Progress Notes Assessment Assessment Patient seen and examined. Agree with DIRECTIONAL BORE OPERATOR's assessment and plan. 2-D echo showed normal left ventricle systolic function without any wall motion abnormalities. Lexiscan nuclear stress test to rule out ischemia (2 day protocol) in progress. SHERRELL SUTTON APRN Nov 25, 2016 11:10 MACRINA CORRAL MD Nov 25, 2016 14:42
[2016-11-25] MEDS ORDERED: ALPRAZOLAM 1 MG TABLET ONE (11:26)
--- NOTE | 2016-11-25 11:28 | PDOC ---
PROGRESS NOTES Chief Complaint Chief Complaint Chest pain History of Present Illness History of Present Illness No acute events overnight. Patient is seen while sitting up in bed eating breakfast. Family present. I asked pt if she was OK with discussing her UDS with family present. She wants them to stay in the room. She states she is feeling okay but continues to have slight chest pain. She denies shortness of breath. UDS was positive for cocaine, patient states the last time she used was over a month prior, she further admits that other individuals in her house were using cocaine and she believes that is why her urine was positive. Told her she should avoid friends that use drugs and she agrees. Vitals Vitals Vital Signs Date Time Temp Pulse Resp B/P Pulse Ox O2 Delivery O2 Flow Rate FiO2 11/25/16 10:09 98.1 58 20 137/64 99 Nasal Cannula 2.0 98.1 Physical Exam General: Alert, Oriented X3, Cooperative, No acute distress Heart: Regular rate, No murmurs, Other (left chest slightly tender upon palpation, distant heart tones ) Lungs: Clear, Other (no wheezing) Abdomen: Soft, No tenderness, Other (obese ) Extremities: No cyanosis, Normal pulses, Other (trace LE edema ) Skin: No breakdown, No significant lesion Labs LABS Laboratory Tests Test 11/24/16 11:30 11/24/16 12:35 11/24/16 17:36 11/24/16 19:00 Urine Opiates Screen Neg (NEG) Urine Methadone Screen Neg (NEG) Urine Barbiturates Neg (NEG) Urine Phencyclidine Screen Neg (NEG) Urine Amphetamine/Methamphetamine Neg (NEG) Urine Benzodiazepines Screen Neg (NEG) Urine Cocaine Screen Pos (NEG) Urine Cannabinoids Screen Neg (NEG) Urine Ethyl Alcohol Neg (NEG) White Blood Count 7.4x10^3/uL (4.0-11.0) Red Blood Count 4.70x10^6/uL (3.50-5.40) Hemoglobin 12.7g/dL (12.0-15.5) Hematocrit 39.4% (36.0-47.0) Mean Corpuscular Volume 84fL (79-100) Mean Corpuscular Hemoglobin 27pg (25-35) Mean Corpuscular Hemoglobin Concent 32g/dL (31-37) Red Cell Distribution Width 14.4% (11.5-14.5) Platelet Count 219x10^3/uL (140-400) Neutrophils (%) (Auto) 57% (31-73) Lymphocytes (%) (Auto) 33% (24-48) Monocytes (%) (Auto) 5% (0-9) Eosinophils (%) (Auto) 4% (0-3) Basophils (%) (Auto) 1% (0-3) Neutrophils # (Auto) 4.2x10^3uL (1.8-7.7) Lymphocytes # (Auto) 2.5x10^3/uL (1.0-4.8) Monocytes # (Auto) 0.4x10^3/uL (0.0-1.1) Eosinophils # (Auto) 0.3x10^3/uL (0.0-0.7) Basophils # (Auto) 0.1x10^3/uL (0.0-0.2) Sodium Level 143mmol/L (136-145) Potassium Level 3.8mmol/L (3.5-5.1) Chloride Level 104mmol/L (98-107) Carbon Dioxide Level 30mmol/L (21-32) Anion Gap 9 (6-14) Blood Urea Nitrogen 13mg/dL (7-20) Creatinine 1.0mg/dL (0.6-1.0) Estimated GFR (Cockcroft-Gault) 70.5 Glucose Level 156mg/dL (70-99) Calcium Level 9.3mg/dL (8.5-10.1) Troponin I Quantitative < 0.017ng/mL (0.000-0.055) < 0.017ng/mL (0.000-0.055) TI-Xgb-C-Type Natriuretic Peptide 176pg/mL (0-124) Glucose (Fingerstick) 181mg/dL (70-99) Test 11/24/16 20:50 11/25/16 00:55 11/25/16 10:08 Glucose (Fingerstick) 149mg/dL (70-99) 114mg/dL (70-99) Troponin I Quantitative < 0.017ng/mL (0.000-0.055) Triglycerides Level 110mg/dL (0-150) Cholesterol Level 112mg/dL (0-200) LDL Cholesterol, Calculated 49mg/dL (0-100) VLDL Cholesterol, Calculated 22mg/dL (0-40) HDL Cholesterol 41mg/dL (40-60) Cholesterol/HDL Ratio 2.7 Review of Systems Review of Systems Mild chest pain continues. Denies shortness of breath. Denies fever and chills. Assessment and Plan Assessmemt and Plan Problems Medical Problems: (1) Chest pain Status: Acute ASSESSMENT: Chest pain - CAD vs. vasospasm CAD - 4 previous stents CHF COPD HTN Diabetes Substance abuse PLAN: Cardiology is following, their recommendations are appreciated MPI in progress, awaiting results Continue insulin regimen and monitoring blood glucose Continue to stress drug cessation PT/OT Continue to monitor daily labs Problems: Comment Review of Relevant I have reviewed the following items crista (where applicable) has been applied. Labs Laboratory Tests Test 11/24/16 11:30 11/24/16 12:35 11/24/16 17:36 11/24/16 19:00 Urine Opiates Screen Neg (NEG) Urine Methadone Screen Neg (NEG) Urine Barbiturates Neg (NEG) Urine Phencyclidine Screen Neg (NEG) Urine Amphetamine/Methamphetamine Neg (NEG) Urine Benzodiazepines Screen Neg (NEG) Urine Cocaine Screen Pos (NEG) Urine Cannabinoids Screen Neg (NEG) Urine Ethyl Alcohol Neg (NEG) White Blood Count 7.4x10^3/uL (4.0-11.0) Red Blood Count 4.70x10^6/uL (3.50-5.40) Hemoglobin 12.7g/dL (12.0-15.5) Hematocrit 39.4% (36.0-47.0) Mean Corpuscular Volume 84fL (79-100) Mean Corpuscular Hemoglobin 27pg (25-35) Mean Corpuscular Hemoglobin Concent 32g/dL (31-37) Red Cell Distribution Width 14.4% (11.5-14.5) Platelet Count 219x10^3/uL (140-400) Neutrophils (%) (Auto) 57% (31-73) Lymphocytes (%) (Auto) 33% (24-48) Monocytes (%) (Auto) 5% (0-9) Eosinophils (%) (Auto) 4% (0-3) Basophils (%) (Auto) 1% (0-3) Neutrophils # (Auto) 4.2x10^3uL (1.8-7.7) Lymphocytes # (Auto) 2.5x10^3/uL (1.0-4.8) Monocytes # (Auto) 0.4x10^3/uL (0.0-1.1) Eosinophils # (Auto) 0.3x10^3/uL (0.0-0.7) Basophils # (Auto) 0.1x10^3/uL (0.0-0.2) Sodium Level 143mmol/L (136-145) Potassium Level 3.8mmol/L (3.5-5.1) Chloride Level 104mmol/L (98-107) Carbon Dioxide Level 30mmol/L (21-32) Anion Gap 9 (6-14) Blood Urea Nitrogen 13mg/dL (7-20) Creatinine 1.0mg/dL (0.6-1.0) Estimated GFR (Cockcroft-Gault) 70.5 Glucose Level 156mg/dL (70-99) Calcium Level 9.3mg/dL (8.5-10.1) Troponin I Quantitative < 0.017ng/mL (0.000-0.055) < 0.017ng/mL (0.000-0.055) VG-Fzd-N-Type Natriuretic Peptide 176pg/mL (0-124) Glucose (Fingerstick) 181mg/dL (70-99) Test 11/24/16 20:50 11/25/16 00:55 11/25/16 10:08 Glucose (Fingerstick) 149mg/dL (70-99) 114mg/dL (70-99) Troponin I Quantitative < 0.017ng/mL (0.000-0.055) Triglycerides Level 110mg/dL (0-150) Cholesterol Level 112mg/dL (0-200) LDL Cholesterol, Calculated 49mg/dL (0-100) VLDL Cholesterol, Calculated 22mg/dL (0-40) HDL Cholesterol 41mg/dL (40-60) Cholesterol/HDL Ratio 2.7 Laboratory Tests Test 11/24/16 11:30 11/24/16 12:35 11/24/16 17:36 11/24/16 19:00 Urine Opiates Screen Neg (NEG) Urine Methadone Screen Neg (NEG) Urine Barbiturates Neg (NEG) Urine Phencyclidine Screen Neg (NEG) Urine Amphetamine/Methamphetamine Neg (NEG) Urine Benzodiazepines Screen Neg (NEG) Urine Cocaine Screen Pos (NEG) Urine Cannabinoids Screen Neg (NEG) Urine Ethyl Alcohol Neg (NEG) White Blood Count 7.4x10^3/uL (4.0-11.0) Red Blood Count 4.70x10^6/uL (3.50-5.40) Hemoglobin 12.7g/dL (12.0-15.5) Hematocrit 39.4% (36.0-47.0) Mean Corpuscular Volume 84fL (79-100) Mean Corpuscular Hemoglobin 27pg (25-35) Mean Corpuscular Hemoglobin Concent 32g/dL (31-37) Red Cell Distribution Width 14.4% (11.5-14.5) Platelet Count 219x10^3/uL (140-400) Neutrophils (%) (Auto) 57% (31-73) Lymphocytes (%) (Auto) 33% (24-48) Monocytes (%) (Auto) 5% (0-9) Eosinophils (%) (Auto) 4% (0-3) Basophils (%) (Auto) 1% (0-3) Neutrophils # (Auto) 4.2x10^3uL (1.8-7.7) Lymphocytes # (Auto) 2.5x10^3/uL (1.0-4.8) Monocytes # (Auto) 0.4x10^3/uL (0.0-1.1) Eosinophils # (Auto) 0.3x10^3/uL (0.0-0.7) Basophils # (Auto) 0.1x10^3/uL (0.0-0.2) Sodium Level 143mmol/L (136-145) Potassium Level 3.8mmol/L (3.5-5.1) Chloride Level 104mmol/L (98-107) Carbon Dioxide Level 30mmol/L (21-32) Anion Gap 9 (6-14) Blood Urea Nitrogen 13mg/dL (7-20) Creatinine 1.0mg/dL (0.6-1.0) Estimated GFR (Cockcroft-Gault) 70.5 Glucose Level 156mg/dL (70-99) Calcium Level 9.3mg/dL (8.5-10.1) Troponin I Quantitative < 0.017ng/mL (0.000-0.055) < 0.017ng/mL (0.000-0.055) WM-Uwt-F-Type Natriuretic Peptide 176pg/mL (0-124) Glucose (Fingerstick) 181mg/dL (70-99) Test 11/24/16 20:50 11/25/16 00:55 11/25/16 10:08 Glucose (Fingerstick) 149mg/dL (70-99) 114mg/dL (70-99) Troponin I Quantitative < 0.017ng/mL (0.000-0.055) Triglycerides Level 110mg/dL (0-150) Cholesterol Level 112mg/dL (0-200) LDL Cholesterol, Calculated 49mg/dL (0-100) VLDL Cholesterol, Calculated 22mg/dL (0-40) HDL Cholesterol 41mg/dL (40-60) Cholesterol/HDL Ratio 2.7 Medications Current Medications Morphine Sulfate 4 mg PRN Q15MIN PRN IV/SQ PAIN GREATER THAN 3/10 Last administered on 11/24/16 12:57; Start 11/24/16 at 11:30; Stop 11/25/16 at 11:29 Diphenhydramine HCl (Benadryl) 25 mg 1X ONCE PO Last administered on 13:12; Start 11/24/16 at 13:45; Stop 11/24/16 at 13:46; Status DC Ondansetron HCl (Zofran) 4 mg PRN Q8HRS PRN IV NAUSEA/VOMITING; Start 11/24/16 at 13:15; Stop 11/25/16 at 13:14 Fentanyl Citrate (Fentanyl 2ml Vial) 50 mcg PRN Q2HR PRN IV PAIN; Start at 13:15; Stop 11/25/16 at 13:14 Acetaminophen (Tylenol) 650 mg PRN Q4HRS PRN PO FEVER; Start 11/24/16 at 13:15 ; Stop 11/25/16 at 13:14 Nitroglycerin (Nitrostat) 0.4 mg PRN Q5MIN PRN SL CHEST PAIN; Start 11/24/16 at 13:15; Stop 11/24/16 at 16:46; Status DC Albuterol Sulfate (Ventolin Hfa) 2 puff PRN Q4HRS PRN INH SHORTNESS OF BREATH; Start 11/24/16 at 15:30; Stop 11/24/16 at 15:57; Status DC Albuterol Sulfate (Ventolin Neb Soln) 2.5 mg PRN Q4HRS PRN NEB SHORTNESS OF BREATH; Start 11/24/16 at 15:30 Alprazolam (Xanax) 1 mg DAILY PO ; Start 11/24/16 at 16:00 Amitriptyline HCl (Elavil) 25 mg QHS PO Last administered on 11/24/16 21:47; Start 11/24/16 at 21:00 Aspirin (Ecotrin) 325 mg DAILYWBKFT PO ; Start 11/25/16 at 08:00 Diclofenac Sodium (Voltaren) 4 trell QID TP Last administered on 11/24/16 22:29 ; Start 11/24/16 at 17:00 Diphenhydramine HCl (Benadryl) 25 mg QID PO ; Start 11/24/16 at 17:00; Stop at 17:00; Status DC Famotidine (Pepcid) 20 mg HS PO Last administered on 11/24/16 21:45; Start at 21:00 Furosemide (Lasix) 40 mg BID92 PO Last administered on 11/24/16 17:28; Start 11/24/16 at 16:00 Acetaminophen/ Hydrocodone Bitart (Lortab 10/325) 1 tab PRN Q4HRS PRN PO PAIN Last administered on 11/25/16 06:41; Start 11/24/16 at 15:30 Insulin Aspart (Novolog) 40 units TIDAC SQ Last administered on 11/25/16 10:17 ; Start 11/24/16 at 16:30 Losartan Potassium (Cozaar) 25 mg DAILY PO ; Start 11/24/16 at 16:00 Methocarbamol (Robaxin) 750 mg QHS PO Last administered on 11/24/16 21:47; Start 11/24/16 at 21:00 Nitroglycerin (Nitrostat) 0.4 mg PRN Q5MIN PRN SL CHEST PAIN; Start 11/24/16 at 15:30 Pantoprazole Sodium (Protonix) 40 mg DAILYAC PO ; Start 11/25/16 at 07:30 Alprazolam (Xanax) 2 mg QHS PO ; Start 11/24/16 at 21:00; Status Cancel Atorvastatin Calcium (Lipitor) 80 mg QHS PO ; Start 11/24/16 at 21:00; Status Cancel Non-Formulary Medication 1 inh BID IH ; Start 11/24/16 at 21:00; Stop 11/24/16 at 21:00; Status DC Non-Formulary Medication 2 tab TID PO ; Start 11/24/16 at 21:00; Status UNV Cetirizine HCl (Zyrtec) 10 mg DAILY PO ; Start 11/25/16 at 09:00 Potassium Chloride (Klor-Con) 20 meq BIDWMEALS PO ; Start 11/24/16 at 17:00; Status Cancel Rivaroxaban (Xarelto) 20 mg DAILY PO ; Start 11/25/16 at 09:00; Status Cancel Isosorbide Mononitrate (Imdur) 30 mg DAILY PO ; Start 11/25/16 at 09:00; Status Cancel Insulin Detemir (Levemir) 70 units DAILYWBKFT SQ ; Start 11/25/16 at 08:00; Status Cancel Insulin Detemir (Levemir) 70 units QHS SQ Last administered on 11/24/16 22:28 ; Start 11/24/16 at 21:00; Stop 11/25/16 at 10:49; Status DC Fluticasone Propionate (Flonase) 2 spray DAILY NS ; Start 11/25/16 at 09:00 Lurasidone HCl (Latuda) 40 mg QHS PO ; Start 11/24/16 at 21:00 Diphenhydramine HCl (Benadryl) 25 mg PRN BID PRN PO ITCHING Last administered on 11/24/16 22:05; Start 11/24/16 at 17:00 Insulin Aspart (Novolog) 0-5 UNITS TIDWMEALS SQ Last administered on 11/24/16 17:46; Start 11/24/16 at 17:00 Dextrose 12.5 gm PRN Q15MIN PRN IV SEE COMMENTS; Start 11/24/16 at 16:15 Albuterol Sulfate (Ventolin Neb Soln) 2.5 mg QID NEB Last administered on 07:42; Start 11/24/16 at 17:00 Budesonide (Pulmicort) 0.5 mg BID NEB Last administered on 11/25/16 07:42; Start 11/24/16 at 21:00 Rivaroxaban (Xarelto) 20 mg DAILYWSUP PO ; Start 11/24/16 at 17:00 Isosorbide Mononitrate (Imdur) 30 mg DAILY PO ; Start 11/25/16 at 09:00 Potassium Chloride (Klor-Con) 20 meq DAILYWBKFT PO ; Start 11/25/16 at 08:00 Insulin Detemir (Levemir) 70 units QHS SQ ; Start 11/24/16 at 21:00; Stop at 21:00; Status DC Insulin Detemir (Levemir) 70 units DAILYWBKFT SQ ; Start 11/25/16 at 08:00 Alprazolam (Xanax) 2 mg PRN QHS PRN PO ANXIETY / AGITATION; Start 11/24/16 at 16:15 Atorvastatin Calcium (Lipitor) 80 mg QHS PO Last administered on 11/24/16 21: 47; Start 11/24/16 at 21:00 Gabapentin (Neurontin) 800 mg TID PO Last administered on 11/24/16 21:46; Start 11/24/16 at 21:00 Amitriptyline HCl (Elavil) 25 mg STK-MED ONCE .ROUTE ; Start 11/24/16 at 20:40; Stop 11/24/16 at 20:41; Status DC Regadenoson (Lexiscan) 0.4 mg 1X ONCE IV Last administered on 11/25/16 09:06 ; Start 11/25/16 at 08:30; Stop 11/25/16 at 08:31; Status DC Active Scripts Active [Oxycodone Hcl/Acetaminophen] 1 TAB Tablet 1 Tab PO Q4HRS [Isosorbide Mononitrate] 30 MG Tab.er.24h 30 Mg PO DAILY 30 Days Levemir Flextouch (Insulin Detemir) 300 Units/3 Ml Insuln.pen 140 Units SQ QHS 30 Days Novolog Flexpen (Insulin Aspart) 100 Unit/1 Ml Insuln.pen 50 Unit SQ TIDWMEALS 30 Days Senna (Sennosides) 8.6 Mg Tablet 17.2 Mg PO PRN DAILY PRN 30 Days Ambien (Zolpidem Tartrate) 5 Mg Tablet 1 Tab PO QHS Ecotrin (Aspirin) 325 Mg Tablet. 325 Mg PO DAILYWBKFT 30 Days Reported Fluticasone Propionate Nasal [place] (Fluticasone Propionate) 16 Gm [place].susp 2 [place] NS DAILY Latuda (Lurasidone Hcl) 40 Mg Tablet 1 Tab PO QHS Lantus Solostar (Insulin Glargine,Hum.rec.anlog) 100 Unit/1 Ml Insuln.pen 70 Unit SQ DAILYWBKFT Lantus Solostar (Insulin Glargine,Hum.rec.anlog) 100 Unit/1 Ml Insuln.pen 70 Unit SQ QHS Voltaren (Diclofenac Sodium) 100 Gm Gel..gram. 4 Gm TP QID Nasal [place] (Oxymetazoline Hcl) 30 Ml Mist 30 Ml NS Xarelto (Rivaroxaban) 20 Mg Tablet 20 Mg PO DAILY Pantoprazole Sodium 40 Mg Tablet.dr 1 Tab PO DAILY Hydrocodone-Apap 10-325 (Hydrocodone Bit/Acetaminophen) 1 Each Tablet 1 Tab PO Q4-6HRS PRN Amitriptyline Hcl 25 Mg Tablet 1 Tab PO QHS Alprazolam 2 Mg Tablet 1 Tab PO HS Alprazolam 1 Mg Tablet 1 Tab PO DAILY Ergocalciferol (Ergocalciferol (Vitamin D2)) 8,000 Unit/1 Ml Drops 50,000 Unit PO Famotidine 20 Mg Tablet 20 Mg PO HS Novolog Flexpen (Insulin Aspart) 100 Unit/1 Ml Insuln.pen 40 Unit SQ Albuterol Sulfate Neb Soln (Albuterol Sulfate) 2.5 Mg/3 Ml Vial.neb 2.5 Mg NEB PRN Q4HRS PRN Eucerin Creme (Mineral Oil/White Petrolatum) 120 Gm Cream..g. 1 Trell TP BID Robaxin-750 (Methocarbamol) 750 Mg Tablet 750 Mg PO QHS NITROGLYCERIN SubLingual (Nitroglycerin) 0.4 Mg Tab.subl 0.4 Mg SL PRN Q5MIN PRN Gabapentin 600 Mg Tablet 2 Tab PO TID Potassium Chloride 20 Meq Tablet.er 20 Meq PO BID Losartan Potassium 25 Mg Tablet 25 Mg PO DAILY Claritin (Loratadine) 10 Mg Capsule 10 Mg PO DAILY Lasix (Furosemide) 40 Mg Tablet 40 Mg PO BID Advair 250-50 Diskus (Fluticasone/Salmeterol) 1 Each Disk.w.dev 1 Inh IH BID Benadryl (Diphenhydramine Hcl) 25 Mg Capsule 25 Mg PO QID Lipitor (Atorvastatin Calcium) 80 Mg Tablet 1 Tab PO QHS Albuterol Sulfate Hfa Inhaler (Albuterol Sulfate) 8.5 Gm Hfa.aer.ad 2 Puff INH PRN Q4HRS PRN Vitals/I & O Vital Sign - Last 24 Hours 11/24/16 11/24/16 11/24/16 11/24/16 11:41 12:56 12:57 13:23 Temp 98.1 98.1 Pulse 57 54 51 Resp 15 25 20 B/P 181/77 140/65 130/74 Pulse Ox 98 O2 Delivery Room Air Room Air Room Air Room Air 11/24/16 11/24/16 11/24/16 11/24/16 13:27 14:56 17:30 19:15 Temp 98.1 98.1 Pulse 68 Resp 18 16 22 B/P 139/69 Pulse Ox 99 O2 Delivery Room Air Room Air Room Air 11/24/16 11/24/16 11/24/16 11/24/16 19:21 19:24 20:00 21:45 Resp 20 Pulse Ox 100 100 100 O2 Delivery Nasal Cannula Nasal Cannula Nasal Cannula Room Air O2 Flow Rate 2.0 2.0 2.0 2.0 11/24/16 11/24/16 11/25/16 11/25/16 22:50 22:50 01:48 02:40 Temp 98.3 97.9 98.3 97.9 Pulse 54 52 Resp 18 20 20 20 B/P 127/55 125/65 Pulse Ox 98 98 100 O2 Delivery Nasal Cannula Nasal Cannula Nasal Cannula O2 Flow Rate 2.0 2.0 2.0 11/25/16 11/25/16 11/25/16 11/25/16 06:41 07:40 07:43 07:55 Temp 97.8 97.8 Pulse 52 Resp 20 20 B/P 130/59 Pulse Ox 100 99 97 99 O2 Delivery Nasal Cannula Nasal Cannula Nasal Cannula Nasal Cannula O2 Flow Rate 2.0 2.0 2.0 2.0 11/25/16 11/25/16 08:00 10:09 Temp 98.1 98.1 Pulse 58 Resp 20 B/P 137/64 Pulse Ox 99 O2 Delivery Nasal Cannula Nasal Cannula O2 Flow Rate 2.0 2.0 Intake and Output 11/24/16 11/24/16 11/25/16 15:00 23:00 07:00 Intake Total 600 ml 120 ml Output Total 800 ml 800 ml Balance -200 ml -680 ml SIMIN PECK III DO Nov 25, 2016 11:28
[2016-11-25] MEDS: GABAPENTIN 400 MG CAPSULE. PO SCH ×3 (11:31→21:12)
[2016-11-25] MEDS: POTASSIUM CHLORIDE 20 MEQ TABLET.ER. PO SCH (11:31)
[2016-11-25] MEDS: ASPIRIN ENTERIC COATED 325 MG TABLET.DR. PO SCH (11:31)
[2016-11-25] MEDS: FUROSEMIDE 40 MG TABLET PO SCH ×2 (11:32→14:33)
[2016-11-25] MEDS: ALPRAZOLAM 1 MG TABLET PO SCH (11:33)
[2016-11-25] MEDS: LOSARTAN POTASSIUM 25 MG TABLET. PO SCH (11:33)
[2016-11-25] MEDS: PANTOPRAZOLE 40 MG TABLET. PO SCH (11:33)
[2016-11-25] MEDS: CETIRIZINE HCL 10 MG TABLET. PO SCH (11:33)
[2016-11-25] MEDS: ISOSORBIDE MONONITRATE ER 30 MG TAB.ER.24H PO SCH (11:36)
[2016-11-25] MEDS: DIPHENHYDRAMINE HCL 25 MG CAPSULE PO PRN ×2 (12:15→21:13)
[2016-11-25] MEDS ORDERED: ALPRAZOLAM 1 MG TABLET PO PRN (13:30)
[2016-11-25 14:37] VITALS: BP 113/54
[2016-11-25] MEDS: RIVAROXABAN 10 MG TABLET. PO SCH (17:19)
[2016-11-25 19:54] VITALS: BP 115/55
[2016-11-25] MEDS ORDERED: AMITRIPTYLINE HCL 25 MG TABLET. PO SCH (21:00)
[2016-11-25] MEDS: LURASIDONE 40 MG TABLET. PO SCH (21:00)
[2016-11-25] MEDS: METHOCARBAMOL 750 MG TABLET PO SCH (21:11)
[2016-11-25] MEDS: ATORVASTATIN CALCIUM 40 MG TABLET. PO SCH (21:12)
[2016-11-25] MEDS: FAMOTIDINE 20 MG TABLET. PO SCH (21:12)
[2016-11-25 23:02] VITALS: BP 112/52
[2016-11-26] MEDS: HYDROCODONE/APAP 10/325 TABLET. PO PRN ×4 (01:20→13:23)
[2016-11-26 03:30] VITALS: BP 107/62
[2016-11-26 05:26] LABS: CALCIUM 9.1 mg/dL (8.5-10.1); CREATININE 1.2 mg/dL (0.6-1.0); GFR 57.1; POTASSIUM 4.1 mmol/L (3.5-5.1)
[2016-11-26 05:27] LABS: BASO % 1 % (0-3); EOS % 4 % (0-3); HEMOGLOBIN 10.8 g/dL (12.0-15.5); LYMPH # 2.1 x10^3/uL (1.0-4.8); LYMPH % 32 % (24-48); MEAN CORPUSCULAR HEMOGLOBIN 27 pg (25-35); MEAN CORPUSCULAR HGB CONC 32 g/dL (31-37); MEAN CORPUSCULAR VOLUME 85 fL (79-100); MONO % 10 % (0-9); NEUT % 53 % (31-73); PLATELET COUNT 203 x10^3/uL (140-400); RED BLOOD COUNT 4.03 x10^6/uL (3.50-5.40); RED CELL DISTRIBUTION WIDTH 14.4 % (11.5-14.5); WHITE BLOOD COUNT 6.4 x10^3/uL (4.0-11.0)
[2016-11-26 07:00] VITALS: BP 128/65
[2016-11-26] MEDS: ALBUTEROL SULFATE 2.5 MG/3 ML NEBU. NEB SCH (07:50)
[2016-11-26] MEDS: ISOSORBIDE MONONITRATE ER 30 MG TAB.ER.24H PO SCH (08:28)
[2016-11-26] MEDS: POTASSIUM CHLORIDE 20 MEQ TABLET.ER. PO SCH (08:28)
[2016-11-26] MEDS: GABAPENTIN 400 MG CAPSULE. PO SCH ×2 (08:28→14:24)
[2016-11-26] MEDS: ASPIRIN ENTERIC COATED 325 MG TABLET.DR. PO SCH (08:28)
[2016-11-26] MEDS: PANTOPRAZOLE 40 MG TABLET. PO SCH (08:28)
[2016-11-26] MEDS: LOSARTAN POTASSIUM 25 MG TABLET. PO SCH (08:29)
[2016-11-26] MEDS: CETIRIZINE HCL 10 MG TABLET. PO SCH (08:29)
[2016-11-26] MEDS: INSULIN ASPART 300 UNITS/3 ML INSULN.PEN SQ SCH ×4 (08:34→12:27)
[2016-11-26] MEDS: INSULIN DETEMIR 300 UNITS/3 ML INSULN.PEN. SQ SCH (08:36)
[2016-11-26] MEDS: BUDESONIDE 0.5 MG/2 ML NEBU. NEB SCH (09:00)
[2016-11-26] MEDS: DICLOFENAC SODIUM 1% TOPICAL GEL 100GM TUBE. TP SCH ×2 (09:00→13:00)
[2016-11-26] MEDS: FLUTICASONE 50MCG/NASAL SPRAY 16GM BOTTLE. NS SCH (09:00)
[2016-11-26] MEDS ORDERED: ALPRAZOLAM 1 MG TABLET PO SCH (09:00)
[2016-11-26] MEDS: FUROSEMIDE 40 MG TABLET PO SCH ×2 (09:28→14:24)
[2016-11-26 11:18] VITALS: BP 126/64
--- NOTE | 2016-11-26 11:24 | PDOC ---
SHERRELL SUTTON [employer] 11/26/16 1124: CARDIO Progress Notes Date and Time Date of Service 11/26/16 Time of Evaluation 1030 Subjective Subjective: No shortness of breath, No Palpitations, Other (pain under left breast resolved ) Vitals Vitals Vital Signs Date Time Temp Pulse Resp B/P Pulse Ox O2 Delivery O2 Flow Rate FiO2 11/26/16 11:18 97.6 70 17 126/64 97 Room Air 97.6 11/26/16 09:29 2.0 Weight Weight [ ] Input and Output Intake and Output Intake and Output 11/26/16 07:00 Intake Total 700 ml Output Total 1100 ml Balance -400 ml Intake Oral 700 ml Output Urine Total 1100 ml # Voids 3 Laboratory Labs Laboratory Tests Test 11/25/16 20:59 11/26/16 04:55 Glucose (Fingerstick) 179mg/dL (70-99) White Blood Count 6.4x10^3/uL (4.0-11.0) Red Blood Count 4.03x10^6/uL (3.50-5.40) Hemoglobin 10.8g/dL (12.0-15.5) Hematocrit 34.0% (36.0-47.0) Mean Corpuscular Volume 85fL (79-100) Mean Corpuscular Hemoglobin 27pg (25-35) Mean Corpuscular Hemoglobin Concent 32g/dL (31-37) Red Cell Distribution Width 14.4% (11.5-14.5) Platelet Count 203x10^3/uL (140-400) Neutrophils (%) (Auto) 53% (31-73) Lymphocytes (%) (Auto) 32% (24-48) Monocytes (%) (Auto) 10% (0-9) Eosinophils (%) (Auto) 4% (0-3) Basophils (%) (Auto) 1% (0-3) Neutrophils # (Auto) 3.4x10^3uL (1.8-7.7) Lymphocytes # (Auto) 2.1x10^3/uL (1.0-4.8) Monocytes # (Auto) 0.6x10^3/uL (0.0-1.1) Eosinophils # (Auto) 0.3x10^3/uL (0.0-0.7) Basophils # (Auto) 0.0x10^3/uL (0.0-0.2) Sodium Level 143mmol/L (136-145) Potassium Level 4.1mmol/L (3.5-5.1) Chloride Level 104mmol/L (98-107) Carbon Dioxide Level 34mmol/L (21-32) Anion Gap 5 (6-14) Blood Urea Nitrogen 16mg/dL (7-20) Creatinine 1.2mg/dL (0.6-1.0) Estimated GFR (Cockcroft-Gault) 57.1 Glucose Level 215mg/dL (70-99) Calcium Level 9.1mg/dL (8.5-10.1) Physical Exam HEENT: Neck Supple W Full Motion Chest: Symmetric LUNGS: Clear to Auscultation Heart: S1S2, RRR Abdomen: Soft N/T, Other (obese ) Extremities: 2+ Dorsalis Pedis, No Edema, No Calf Tenderness Neurology: alert, oriented, follow commands Assessment Assessment 1. Chest pain, atypical resting portion of MPI completed this morning may discharge from CV standpoint if no evidence of reversible ischemia noted 2. CAD s/p PCI/KATLYN in proximal Cx and OM1 at [facility] in 2012 s/p PCI/KATLYN RCA and LCx 10/2014 stable. continue secondary prevention 3. Hypertension, essential controlled continue with current therapy 4. Hyperlipidemia LDL 49 statin 5. IDDM management per PCP 6. Morbid obesity lifestyle modification 7. Substance abuse UDS + cocaine MACRINA CORRAL MD 11/26/16 1524: CARDIO Progress Notes Assessment Assessment Patient seen and examined. Agree with [employer]'s assessment and plan. Lexiscan nuclear stress test did not show any significant ischemia. Chest pain noncardiac. Okay for discharge from cardiac standpoint. SHERRELL SUTTON APRN Nov 26, 2016 11:24 MACRINA CORRAL MD Nov 26, 2016 15:24
--- NOTE | 2016-11-26 12:43 | PDOC ---
PROGRESS NOTES Chief Complaint Chief Complaint Chest pain History of Present Illness History of Present Illness No acute events overnight. Patient is doing well this morning and states that she feels much better. She does comment that she would like an ultrasound of her leg to assess clearance of a previous blood clot. She was placed on Xarelto 2-3 months prior and wishes to discontinue so she is able to have dental work. She was advised that following a first blood clot, most patients need to stay on anticoagulation for at least 6 months. Her MPI is in progress. Vitals Vitals Vital Signs Date Time Temp Pulse Resp B/P Pulse Ox O2 Delivery O2 Flow Rate FiO2 11/26/16 11:23 98 Nasal Cannula 2.0 11/26/16 11:18 97.6 70 17 126/64 97.6 Physical Exam General: Alert, Oriented X3, Cooperative, No acute distress Heart: Regular rate, No murmurs, Other (left chest slightly tender upon palpation, distant heart tones ) Lungs: Clear, Other (no wheezing) Abdomen: Soft, No tenderness, Other (obese ) Extremities: No cyanosis, Normal pulses, Other (trace LE edema ) Skin: No rashes, No significant lesion Labs LABS Laboratory Tests Test 11/25/16 20:59 11/26/16 04:55 Glucose (Fingerstick) 179mg/dL (70-99) White Blood Count 6.4x10^3/uL (4.0-11.0) Red Blood Count 4.03x10^6/uL (3.50-5.40) Hemoglobin 10.8g/dL (12.0-15.5) Hematocrit 34.0% (36.0-47.0) Mean Corpuscular Volume 85fL (79-100) Mean Corpuscular Hemoglobin 27pg (25-35) Mean Corpuscular Hemoglobin Concent 32g/dL (31-37) Red Cell Distribution Width 14.4% (11.5-14.5) Platelet Count 203x10^3/uL (140-400) Neutrophils (%) (Auto) 53% (31-73) Lymphocytes (%) (Auto) 32% (24-48) Monocytes (%) (Auto) 10% (0-9) Eosinophils (%) (Auto) 4% (0-3) Basophils (%) (Auto) 1% (0-3) Neutrophils # (Auto) 3.4x10^3uL (1.8-7.7) Lymphocytes # (Auto) 2.1x10^3/uL (1.0-4.8) Monocytes # (Auto) 0.6x10^3/uL (0.0-1.1) Eosinophils # (Auto) 0.3x10^3/uL (0.0-0.7) Basophils # (Auto) 0.0x10^3/uL (0.0-0.2) Sodium Level 143mmol/L (136-145) Potassium Level 4.1mmol/L (3.5-5.1) Chloride Level 104mmol/L (98-107) Carbon Dioxide Level 34mmol/L (21-32) Anion Gap 5 (6-14) Blood Urea Nitrogen 16mg/dL (7-20) Creatinine 1.2mg/dL (0.6-1.0) Estimated GFR (Cockcroft-Gault) 57.1 Glucose Level 215mg/dL (70-99) Calcium Level 9.1mg/dL (8.5-10.1) Review of Systems Review of Systems Denies current chest pain and shortness of breath. Denies fever and chills. Assessment and Plan Assessmemt and Plan Problems Medical Problems: (1) Chest pain Status: Acute ASSESSMENT: Chest pain - CAD vs. vasospasm CAD - 4 previous stents CHF COPD HTN Diabetes Substance abuse PLAN: LE Doppler to assess for clearance of prior blood clot Cardiology is following, their recommendations are appreciated MPI in progress, awaiting results, if negative cardiology clears for discharge Continue insulin regimen and monitoring blood glucose Continue to stress drug cessation PT/OT Continue to monitor daily labs Probable discharge today if MPI is negative. Problems: Comment Review of Relevant I have reviewed the following items crista (where applicable) has been applied. Labs Laboratory Tests Test 11/24/16 17:36 11/24/16 19:00 11/24/16 20:50 11/25/16 00:55 Glucose (Fingerstick) 181mg/dL (70-99) 149mg/dL (70-99) Troponin I Quantitative < 0.017ng/mL (0.000-0.055) < 0.017ng/mL (0.000-0.055) Triglycerides Level 110mg/dL (0-150) Cholesterol Level 112mg/dL (0-200) LDL Cholesterol, Calculated 49mg/dL (0-100) VLDL Cholesterol, Calculated 22mg/dL (0-40) HDL Cholesterol 41mg/dL (40-60) Cholesterol/HDL Ratio 2.7 Test 11/25/16 10:08 11/25/16 20:59 11/26/16 04:55 Glucose (Fingerstick) 114mg/dL (70-99) 179mg/dL (70-99) White Blood Count 6.4x10^3/uL (4.0-11.0) Red Blood Count 4.03x10^6/uL (3.50-5.40) Hemoglobin 10.8g/dL (12.0-15.5) Hematocrit 34.0% (36.0-47.0) Mean Corpuscular Volume 85fL (79-100) Mean Corpuscular Hemoglobin 27pg (25-35) Mean Corpuscular Hemoglobin Concent 32g/dL (31-37) Red Cell Distribution Width 14.4% (11.5-14.5) Platelet Count 203x10^3/uL (140-400) Neutrophils (%) (Auto) 53% (31-73) Lymphocytes (%) (Auto) 32% (24-48) Monocytes (%) (Auto) 10% (0-9) Eosinophils (%) (Auto) 4% (0-3) Basophils (%) (Auto) 1% (0-3) Neutrophils # (Auto) 3.4x10^3uL (1.8-7.7) Lymphocytes # (Auto) 2.1x10^3/uL (1.0-4.8) Monocytes # (Auto) 0.6x10^3/uL (0.0-1.1) Eosinophils # (Auto) 0.3x10^3/uL (0.0-0.7) Basophils # (Auto) 0.0x10^3/uL (0.0-0.2) Sodium Level 143mmol/L (136-145) Potassium Level 4.1mmol/L (3.5-5.1) Chloride Level 104mmol/L (98-107) Carbon Dioxide Level 34mmol/L (21-32) Anion Gap 5 (6-14) Blood Urea Nitrogen 16mg/dL (7-20) Creatinine 1.2mg/dL (0.6-1.0) Estimated GFR (Cockcroft-Gault) 57.1 Glucose Level 215mg/dL (70-99) Calcium Level 9.1mg/dL (8.5-10.1) Laboratory Tests Test 11/25/16 20:59 11/26/16 04:55 Glucose (Fingerstick) 179mg/dL (70-99) White Blood Count 6.4x10^3/uL (4.0-11.0) Red Blood Count 4.03x10^6/uL (3.50-5.40) Hemoglobin 10.8g/dL (12.0-15.5) Hematocrit 34.0% (36.0-47.0) Mean Corpuscular Volume 85fL (79-100) Mean Corpuscular Hemoglobin 27pg (25-35) Mean Corpuscular Hemoglobin Concent 32g/dL (31-37) Red Cell Distribution Width 14.4% (11.5-14.5) Platelet Count 203x10^3/uL (140-400) Neutrophils (%) (Auto) 53% (31-73) Lymphocytes (%) (Auto) 32% (24-48) Monocytes (%) (Auto) 10% (0-9) Eosinophils (%) (Auto) 4% (0-3) Basophils (%) (Auto) 1% (0-3) Neutrophils # (Auto) 3.4x10^3uL (1.8-7.7) Lymphocytes # (Auto) 2.1x10^3/uL (1.0-4.8) Monocytes # (Auto) 0.6x10^3/uL (0.0-1.1) Eosinophils # (Auto) 0.3x10^3/uL (0.0-0.7) Basophils # (Auto) 0.0x10^3/uL (0.0-0.2) Sodium Level 143mmol/L (136-145) Potassium Level 4.1mmol/L (3.5-5.1) Chloride Level 104mmol/L (98-107) Carbon Dioxide Level 34mmol/L (21-32) Anion Gap 5 (6-14) Blood Urea Nitrogen 16mg/dL (7-20) Creatinine 1.2mg/dL (0.6-1.0) Estimated GFR (Cockcroft-Gault) 57.1 Glucose Level 215mg/dL (70-99) Calcium Level 9.1mg/dL (8.5-10.1) Medications Current Medications Morphine Sulfate 4 mg PRN Q15MIN PRN IV/SQ PAIN GREATER THAN 3/10 Last administered on 11/24/16 12:57; Start 11/24/16 at 11:30; Stop 11/25/16 at 11:29 ; Status DC Diphenhydramine HCl (Benadryl) 25 mg 1X ONCE PO Last administered on 13:12; Start 11/24/16 at 13:45; Stop 11/24/16 at 13:46; Status DC Ondansetron HCl (Zofran) 4 mg PRN Q8HRS PRN IV NAUSEA/VOMITING; Start 11/24/16 at 13:15; Stop 11/25/16 at 13:14; Status DC Fentanyl Citrate (Fentanyl 2ml Vial) 50 mcg PRN Q2HR PRN IV PAIN; Start at 13:15; Stop 11/25/16 at 13:14; Status DC Acetaminophen (Tylenol) 650 mg PRN Q4HRS PRN PO FEVER; Start 11/24/16 at 13:15 ; Stop 11/25/16 at 13:14; Status DC Nitroglycerin (Nitrostat) 0.4 mg PRN Q5MIN PRN SL CHEST PAIN; Start 11/24/16 at 13:15; Stop 11/24/16 at 16:46; Status DC Albuterol Sulfate (Ventolin Hfa) 2 puff PRN Q4HRS PRN INH SHORTNESS OF BREATH; Start 11/24/16 at 15:30; Stop 11/24/16 at 15:57; Status DC Albuterol Sulfate (Ventolin Neb Soln) 2.5 mg PRN Q4HRS PRN NEB SHORTNESS OF BREATH; Start 11/24/16 at 15:30 Alprazolam (Xanax) 1 mg DAILY PO Last administered on 11/25/16 11:33; Start at 16:00; Stop 11/25/16 at 13:22; Status DC Amitriptyline HCl (Elavil) 25 mg QHS PO Last administered on 11/24/16 21:47; Start 11/24/16 at 21:00; Stop 11/25/16 at 13:28; Status DC Aspirin (Ecotrin) 325 mg DAILYWBKFT PO Last administered on 11/26/16 08:28; Start 11/25/16 at 08:00 Diclofenac Sodium (Voltaren) 4 trell QID TP Last administered on 11/24/16 22:29 ; Start 11/24/16 at 17:00 Diphenhydramine HCl (Benadryl) 25 mg QID PO ; Start 11/24/16 at 17:00; Stop at 17:00; Status DC Famotidine (Pepcid) 20 mg HS PO Last administered on 11/25/16 21:12; Start at 21:00 Furosemide (Lasix) 40 mg BID92 PO Last administered on 11/26/16 09:28; Start 11/24/16 at 16:00 Acetaminophen/ Hydrocodone Bitart (Lortab 10/325) 1 tab PRN Q4HRS PRN PO PAIN Last administered on 11/26/16 09:29; Start 11/24/16 at 15:30 Insulin Aspart (Novolog) 40 units TIDAC SQ Last administered on 11/26/16 12:26 ; Start 11/24/16 at 16:30 Losartan Potassium (Cozaar) 25 mg DAILY PO Last administered on 11/26/16 08:29 ; Start 11/24/16 at 16:00 Methocarbamol (Robaxin) 750 mg QHS PO Last administered on 11/25/16 21:11; Start 11/24/16 at 21:00 Nitroglycerin (Nitrostat) 0.4 mg PRN Q5MIN PRN SL CHEST PAIN; Start 11/24/16 at 15:30 Pantoprazole Sodium (Protonix) 40 mg DAILYAC PO Last administered on 11/26/16 08:28; Start 11/25/16 at 07:30 Alprazolam (Xanax) 2 mg QHS PO ; Start 11/24/16 at 21:00; Status Cancel Atorvastatin Calcium (Lipitor) 80 mg QHS PO ; Start 11/24/16 at 21:00; Status Cancel Non-Formulary Medication 1 inh BID IH ; Start 11/24/16 at 21:00; Stop 11/24/16 at 21:00; Status DC Non-Formulary Medication 2 tab TID PO ; Start 11/24/16 at 21:00; Status UNV Cetirizine HCl (Zyrtec) 10 mg DAILY PO Last administered on 11/26/16 08:29; Start 11/25/16 at 09:00 Potassium Chloride (Klor-Con) 20 meq BIDWMEALS PO ; Start 11/24/16 at 17:00; Status Cancel Rivaroxaban (Xarelto) 20 mg DAILY PO ; Start 11/25/16 at 09:00; Status Cancel Isosorbide Mononitrate (Imdur) 30 mg DAILY PO ; Start 11/25/16 at 09:00; Status Cancel Insulin Detemir (Levemir) 70 units DAILYWBKFT SQ ; Start 11/25/16 at 08:00; Status Cancel Insulin Detemir (Levemir) 70 units QHS SQ Last administered on 11/24/16 22:28 ; Start 11/24/16 at 21:00; Stop 11/25/16 at 10:49; Status DC Fluticasone Propionate (Flonase) 2 spray DAILY NS ; Start 11/25/16 at 09:00 Lurasidone HCl (Latuda) 40 mg QHS PO ; Start 11/24/16 at 21:00 Diphenhydramine HCl (Benadryl) 25 mg PRN BID PRN PO ITCHING Last administered on 11/25/16 21:13; Start 11/24/16 at 17:00 Insulin Aspart (Novolog) 0-5 UNITS TIDWMEALS SQ Last administered on 11/26/16 12:27; Start 11/24/16 at 17:00 Dextrose 12.5 gm PRN Q15MIN PRN IV SEE COMMENTS; Start 11/24/16 at 16:15 Albuterol Sulfate (Ventolin Neb Soln) 2.5 mg QID NEB Last administered on 07:50; Start 11/24/16 at 17:00 Budesonide (Pulmicort) 0.5 mg BID NEB Last administered on 11/25/16 20:41; Start 11/24/16 at 21:00 Rivaroxaban (Xarelto) 20 mg DAILYWSUP PO Last administered on 11/25/16 17:19; Start 11/24/16 at 17:00 Isosorbide Mononitrate (Imdur) 30 mg DAILY PO Last administered on 11/26/16 08 :28; Start 11/25/16 at 09:00 Potassium Chloride (Klor-Con) 20 meq DAILYWBKFT PO Last administered on 08:28; Start 11/25/16 at 08:00 Insulin Detemir (Levemir) 70 units QHS SQ ; Start 11/24/16 at 21:00; Stop at 21:00; Status DC Insulin Detemir (Levemir) 70 units DAILYWBKFT SQ Last administered on 08:36; Start 11/25/16 at 08:00 Alprazolam (Xanax) 2 mg PRN QHS PRN PO ANXIETY / AGITATION; Start 11/24/16 at 16:15; Stop 11/25/16 at 13:23; Status DC Atorvastatin Calcium (Lipitor) 80 mg QHS PO Last administered on 11/25/16 21: 12; Start 11/24/16 at 21:00 Gabapentin (Neurontin) 800 mg TID PO Last administered on 11/26/16 08:28; Start 11/24/16 at 21:00 Amitriptyline HCl (Elavil) 25 mg STK-MED ONCE .ROUTE ; Start 11/24/16 at 20:40; Stop 11/24/16 at 20:41; Status DC Regadenoson (Lexiscan) 0.4 mg 1X ONCE IV Last administered on 11/25/16 09:06 ; Start 11/25/16 at 08:30; Stop 11/25/16 at 08:31; Status DC Alprazolam (Xanax) 1 mg STK-MED ONCE .ROUTE ; Start 11/25/16 at 11:26; Stop at 11:27; Status DC Alprazolam (Xanax) 1 mg DAILY PO Last administered on 11/26/16 09:29; Start at 09:00 Alprazolam (Xanax) 2 mg PRN QHS PRN PO ANXIETY / AGITATION; Start 11/25/16 at 13:30 Amitriptyline HCl (Elavil) 25 mg QHS PO Last administered on 11/25/16t 21:12; Start 11/25/16 at 21:00 Active Scripts Active [Oxycodone Hcl/Acetaminophen] 1 TAB Tablet 1 Tab PO Q4HRS [Isosorbide Mononitrate] 30 MG Tab.er.24h 30 Mg PO DAILY 30 Days Levemir Flextouch (Insulin Detemir) 300 Units/3 Ml Insuln.pen 140 Units SQ QHS 30 Days Novolog Flexpen (Insulin Aspart) 100 Unit/1 Ml Insuln.pen 50 Unit SQ TIDWMEALS 30 Days Senna (Sennosides) 8.6 Mg Tablet 17.2 Mg PO PRN DAILY PRN 30 Days Ambien (Zolpidem Tartrate) 5 Mg Tablet 1 Tab PO QHS Ecotrin (Aspirin) 325 Mg Tablet.dr 325 Mg PO DAILYWBKFT 30 Days Reported Fluticasone Propionate Nasal [place] (Fluticasone Propionate) 16 Gm [place].susp 2 [place] NS DAILY Latuda (Lurasidone Hcl) 40 Mg Tablet 1 Tab PO QHS Lantus Solostar (Insulin Glargine,Hum.rec.anlog) 100 Unit/1 Ml Insuln.pen 70 Unit SQ DAILYWBKFT Lantus Solostar (Insulin Glargine,Hum.rec.anlog) 100 Unit/1 Ml Insuln.pen 70 Unit SQ QHS Voltaren (Diclofenac Sodium) 100 Gm Gel..gram. 4 Gm TP QID Nasal [place] (Oxymetazoline Hcl) 30 Ml Mist 30 Ml NS Xarelto (Rivaroxaban) 20 Mg Tablet 20 Mg PO DAILY Pantoprazole Sodium 40 Mg Tablet. 1 Tab PO DAILY Hydrocodone-Apap 10-325 (Hydrocodone Bit/Acetaminophen) 1 Each Tablet 1 Tab PO Q4-6HRS PRN Amitriptyline Hcl 25 Mg Tablet 1 Tab PO QHS Alprazolam 2 Mg Tablet 1 Tab PO HS Alprazolam 1 Mg Tablet 1 Tab PO DAILY Ergocalciferol (Ergocalciferol (Vitamin D2)) 8,000 Unit/1 Ml Drops 50,000 Unit PO Famotidine 20 Mg Tablet 20 Mg PO HS Novolog Flexpen (Insulin Aspart) 100 Unit/1 Ml Insuln.pen 40 Unit SQ Albuterol Sulfate Neb Soln (Albuterol Sulfate) 2.5 Mg/3 Ml Vial.neb 2.5 Mg NEB PRN Q4HRS PRN Eucerin Creme (Mineral Oil/White Petrolatum) 120 Gm Cream..g. 1 Trell TP BID Robaxin-750 (Methocarbamol) 750 Mg Tablet 750 Mg PO QHS NITROGLYCERIN SubLingual (Nitroglycerin) 0.4 Mg Tab.subl 0.4 Mg SL PRN Q5MIN PRN Gabapentin 600 Mg Tablet 2 Tab PO TID Potassium Chloride 20 Meq Tablet.er 20 Meq PO BID Losartan Potassium 25 Mg Tablet 25 Mg PO DAILY Claritin (Loratadine) 10 Mg Capsule 10 Mg PO DAILY Lasix (Furosemide) 40 Mg Tablet 40 Mg PO BID Advair 250-50 Diskus (Fluticasone/Salmeterol) 1 Each Disk.w.dev 1 Inh IH BID Benadryl (Diphenhydramine Hcl) 25 Mg Capsule 25 Mg PO QID Lipitor (Atorvastatin Calcium) 80 Mg Tablet 1 Tab PO QHS Albuterol Sulfate Hfa Inhaler (Albuterol Sulfate) 8.5 Gm Hfa.aer.ad 2 Puff INH PRN Q4HRS PRN Vitals/I & O Vital Sign - Last 24 Hours 11/25/16 11/25/16 11/25/16 11/25/16 14:37 16:24 19:54 20:20 Temp 97.4 98.7 97.4 98.7 Pulse 67 67 Resp 20 18 B/P 113/54 115/55 Pulse Ox 98 98 96 O2 Delivery Nasal Cannula Nasal Cannula Nasal Cannula Nasal Cannula O2 Flow Rate 2.0 2.0 2.0 2.0 11/25/16 11/25/16 11/25/16 11/26/16 20:41 21:13 23:02 01:20 Temp 98.4 98.4 Pulse 63 Resp 20 16 20 B/P 112/52 Pulse Ox 98 98 95 95 O2 Delivery Nasal Cannula Nasal Cannula Nasal Cannula Nasal Cannula O2 Flow Rate 2.0 2.0 2.0 2.0 11/26/16 11/26/16 11/26/16 11/26/16 03:30 05:29 06:30 07:00 Temp 97.4 97.5 97.4 97.5 Pulse 53 54 Resp 16 20 20 17 B/P 107/62 128/65 Pulse Ox 96 96 100 O2 Delivery Nasal Cannula Nasal Cannula Nasal Cannula O2 Flow Rate 2.0 2.0 11/26/16 11/26/16 11/26/16 11/26/16 07:51 08:00 08:28 08:29 Pulse 54 54 B/P 128/65 128/65 Pulse Ox 98 O2 Delivery Nasal Cannula Nasal Cannula O2 Flow Rate 2.0 2.0 11/26/16 11/26/16 11/26/16 11/26/16 09:29 10:28 11:18 11:23 Temp 97.6 97.6 Pulse 70 Resp 17 B/P 126/64 Pulse Ox 98 98 97 98 O2 Delivery Nasal Cannula Nasal Cannula Room Air Nasal Cannula O2 Flow Rate 2.0 2.0 2.0 Intake and Output 11/25/16 11/25/16 11/26/16 15:00 23:00 07:00 Intake Total 700 ml Output Total 1100 ml Balance -1100 ml 700 ml SIMIN EPCK III DO Nov 26, 2016 12:43
--- NOTE | 2016-11-26 13:58 | RAD ---
Indication leg pain. Grayscale color Doppler and spectral imaging was performed. Examination was targeted to the veins of the left lower extremity. The common femoral, femoral and popliteal vessels demonstrate normal flow compressibility and augmentation. No thrombus is seen. The visualized calf veins appeared unremarkable. Note was made of a fluid collection in the left popliteal space measuring approximately 5 cm in greatest dimension most compatible with a Andrade's cyst. IMPRESSION: Negative study for DVT. Andrade's cyst
[2016-11-26 14:48] VITALS: BP 126/70
--- NOTE | 2016-11-26 15:23 | RAD ---
APPROVED REPORT Test Type: Pharmacological Stress Nurse/Tech: jeff lozada Test Indications: chest pain Cardiac History: CAD, CHF, CARDIAC STENTS, HTN, SEE EHR Medications: SEE EHR Medical History: DIABETES, SEE EHR Resting ECG: SINUS SB Resting Heart Rate: 56 bpm Resting Blood Pressure: 115/59mmHg Pretest Chest Pain: No chest pain Nurse/Tech Notes LUNG SOUNDS CLEAR, S1S2 WNL. Consent: The procedure was explained to the patient in lay terms. Informed consent was witnessed. Vikash eout was entered into vivit. History and Stress Test performed by JACKELYN Landon Pharm. Details Pharmacologic stress testing was performed using 0.4mg per 5ml of regadenoson given intravenously ove r 7-10 seconds. Stress Symptoms NONE STATED. POST EXERCISE Reason for Termination: Infusion complete Max HR: 88 bpm Max Blood Pressure: 119/59mmHg Chest Pain: No. Arrhythmia: No. ST Change: No. INTERPRETATION Stress EKG Conclusion: Baseline EKG showed sinus rhythm. No ischemic changes at peak stress. No arr hythmias. Imaging Protocol IMAGE PROTOCOL: Stress Tc-99m/rest Tc-99m 2 days Rest: Stress: Viability: Radiopharm.Tc99m [id number] Sestamibi [id number] 34mCi Duration 10min. 10min. Img Date 11/26/2016 11/25/2016 Inj-Img [id number]. 60min. Rest Admin Site:IV - Left ForearmAdministrator:JACKELYN Landon Stress Admin Site: IV - Left ForearmAdministrator: JACKELYN Landon STRESS DATA End Diast. Vol.200.5mlAv. Heart Rate64.0bpm End Syst. Vol.84.5mlCO Index BSA0.0L/min Myocardial Nvoz554.0gEject. Gmwpmkyd79.0% Stress Rates Pk. Fill Rate2.18EDV/secLVtime Pk. Fill 255.97msec Pk. Empty Rate2.98ESV/secLVtime Pk. Kqvyp046.13msec 09/02 Pk. Fill0.98EDV/sec Stress Scores Regional WT0.00Summed WT6.00 Regional WM0.00Summed WM0.50 Study quality was good. Left Ventricular size was Normal at Rest and Stress. Lung uptake was Normal. Left Ventricular ejection fraction is 57%. The rest and stress images show normal perfusion, normal contraction and thickening. LV Perf. Quant 17 Seg. SSS7.50 17 Seg. SRS8.00 17 Seg. SDS2.00 Stress Defect Extent (% LAD)9.35Rest Defect Extent (% LAD)3.80Rev. Defect Extent (% LAD)0.00 Stress Defect Extent (% LCX) 8.15Rest Defect Extent (% LCX)13.80Rev. Defect Extent (% LCX)0.00 Stress Defect Extent (% RCA)35.55Rest Defect Extent (% RCA)22.20Rev. Defect Extent (% RCA)3.35 Stress Defect Extent (% PORFIRIO)15.65Rest Defect Extent (% PORFIRIO)12.00Rev. Defect Extent (% PORFIRIO)0.65 Conclusion 1. Regadenoson cardioisotope stress test did not show any evidence of ischemia or infarct. 2. Normal left ventricular systolic function with ejection fraction calculated at 57%. 3. Low risk for cardiac events.
== END 2016-11-26 16:45 | disposition home or self-care (01) | DRG 315 ==
LOC: ER 11:03 → 2 NORTH 11:30
PROVIDERS: ADMIT Internal Medicine; ATTEND Internal Medicine
DX: I27.81 Cor pulmonale (chronic) (principal); Z68.41 Body mass index [BMI] 40.0-44.9, adult; E11.40 Type 2 diabetes mellitus with diabetic neuropathy, unspecified; E66.01 Morbid (severe) obesity due to excess calories; E78.00 Pure hypercholesterolemia, unspecified; E78.5 Hyperlipidemia, unspecified; F14.10 Cocaine abuse, uncomplicated; I11.0 Hypertensive heart disease with heart failure; I25.10 Atherosclerotic heart disease of native coronary artery without angina pectoris; I50.9 Heart failure, unspecified; J44.9 Chronic obstructive pulmonary disease, unspecified; J45.909 Unspecified asthma, uncomplicated; K21.9 Gastro-esophageal reflux disease without esophagitis; Z79.4 Long term (current) use of insulin; Z82.3 Family history of stroke; Z82.49 Family history of ischemic heart disease and other diseases of the circulatory system; Z83.3 Family history of diabetes mellitus; Z91.19 Patient's noncompliance with other medical treatment and regimen; Z88.0 Allergy status to penicillin; Z88.8 Allergy status to other drugs, medicaments and biological substances; Z91.041 Radiographic dye allergy status; Z91.040 Latex allergy status; Z95.5 Presence of coronary angioplasty implant and graft; Z79.899 Other long term (current) drug therapy
CPT/HCPCS: 36415; 71020; 78452; 80048; 80061; 82947; 83880; 84484; 85027; 93005; 93017; 93306; 93971; 94250; 94640; 94760; 96374; 96375; 96376; A9500; G0481; J1815; J2270; J2785; Q0163; 99285-25

== ENCOUNTER 2016-12-08 07:35 | Inpatient (IN) | payer OTHER ==
[~2016-12-08] VITALS: Ht 182.9 cm; Wt 158.8 kg
[~2016-12-08 07:35] MED LIST changes: +ALPR1TAB6 PO; +ALPR2TAB5 PO; +AMIT25TA PO; +DICL100G7 TP; +ERGO80004 PO; +FLUT16SP NS; +INSU100I13 SQ; +LURA40TA PO; +OXYM30MI NS; +RIVA20TA2 PO
[2016-12-08] MEDS ORDERED: ASPIRIN CHEWABLE 81 MG TABLET. PO ONE (08:30)
--- NOTE | 2016-12-08 08:38 | RAD ---
Portable chest, 12/08/2016: History: Right-sided chest pain Comparison is made to a study from 11/24/2016. The heart is enlarged. The pulmonary vascularity is normal. No pulmonary infiltrates are seen. There is no evidence of pleural fluid. IMPRESSION: 1. Cardiomegaly. 2. No acute abnormality is detected.
--- NOTE | 2016-12-08 08:39 | EKG ---
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
[2016-12-08 08:59] LABS: BASO % 0 % (0-3); EOS % 3 % (0-3); HEMATOCRIT 34.9 % (36.0-47.0); HEMOGLOBIN 11.3 g/dL (12.0-15.5); LYMPH % 31 % (24-48); MEAN CORPUSCULAR HEMOGLOBIN 27 pg (25-35); MEAN CORPUSCULAR HGB CONC 32 g/dL (31-37); MEAN CORPUSCULAR VOLUME 83 fL (79-100); MONO % 9 % (0-9); NEUT % 57 % (31-73); PLATELET COUNT 213 x10^3/uL (140-400); RED BLOOD COUNT 4.18 x10^6/uL (3.50-5.40); RED CELL DISTRIBUTION WIDTH 14.3 % (11.5-14.5); WHITE BLOOD COUNT 6.5 x10^3/uL (4.0-11.0)
--- NOTE | 2016-12-08 09:06 | ED.ADGEN ---
Past Medical History Past Medical History: CAD, CHF, COPD, Depression, Diabetes-Type II, DVT, High Cholesterol, Hypertension, Other Additional Past Medical Histor: NEUROPATHY Past Surgical History: Angioplasty, , Other Additional Past Surgical Histo: CARDIAC STENTS X4, left great toe amputation, R great & 2nd toe amputation Additional Information: quit smoking 1.5 years ago Alcohol Use: Occasionally Drug Use: Marijuana Adult General Chief Complaint Chief Complaint: CHEST PAIN HPI HPI Patient is a 51 year old woman, history of obesity, hypertension, hyperlipidemia, type 2 diabetes mellitus, CAD status post stent placement, CHF, DVT lower extremity diagnosed in October of this year, currently on Xarelto, who presents the emergency department with a complaint of lower leg swelling, increasing shortness of breath, and chest pain underneath her left breast that began today. Patient is swelling in her legs and increasing shortness breath has been occurring over the past several days. She states that she has been compliant with her medications, including her diuretics. She denies any new injuries, any missed doses of medication, any sick contacts or exposures, any cough, any fevers, chills, any GI or complaints. States she is feeling slightly lightheaded as well with ambulation. Denies any weakness, numbness or tingling, any injuries. Review of Systems Review of Systems Constitutional: Denies fever or chills. [] Eyes: Denies change in visual acuity. [] HENT: Denies nasal congestion or sore throat. [] Respiratory: Denies cough, complaining of shortness of breath. [] Cardiovascular: Pain under the left breast, edema in the lower extremities. GI: Denies abdominal pain, nausea, vomiting, bloody stools or diarrhea. [] : Denies dysuria. [] Musculoskeletal: Denies back pain or joint pain. [] Integument: Denies rash. [] Neurologic: Denies headache, focal weakness or sensory changes. [] Endocrine: Denies polyuria or polydipsia. [] Lymphatic: Denies swollen glands. [] Psychiatric: Denies depression or anxiety. [] Current Medications Current Medications Current Medications Medications (Trade) Dose Ordered Sig/Justin Start Time Stop Time Status Last Admin Dose Admin Aspirin (Children'S Aspirin) 324 mg 1X ONCE 12/08/16 08:30 12/08/16 08:31 DC 12/08/16 09:03 324 MG Fentanyl Citrate (Fentanyl 2ml Vial) 25 mcg PRN Q15MIN PRN 12/08/16 08:15 12/09/16 08:14 12/08/16 13:05 25 MCG Nitroglycerin (Nitrostat) 0.4 mg PRN Q5MIN PRN 12/08/16 08:15 12/09/16 08:14 12/08/16 10:20 0.4 MG Allergies Allergies Allergies Coded Allergies Type Severity Reaction Last Updated Verified Penicillins Allergy Severe tongue swelling 04/13/15 Yes latex Allergy Severe Hives 04/13/15 Yes prochlorperazine Allergy Severe tongue swelling 04/13/15 Yes iodine Adverse Reaction Intermediate "shiver" 04/13/15 Yes Physical Exam Physical Exam Constitutional: Well developed, well nourished, no acute distress, non-toxic appearance. [] HENT: Normocephalic, atraumatic, bilateral external ears normal, oropharynx moist, no oral exudates, nose normal. [] Eyes: PERRLA, EOMI, conjunctiva normal, no discharge. [] Neck: Normal range of motion, no tenderness, supple, no stridor. [] Cardiovascular:Heart rate regular rhythm, no murmur, S1, S2, no rubs or gallops. [] Lungs & Thorax: Diminished breath sounds at bases bilaterally, no wheezing, no rhonchi, no rales. Abdomen: Bowel sounds normal, soft, no tenderness, no masses, no pulsatile masses. [] Skin: Warm, dry, no erythema, no rash. [] Back: No tenderness, no CVA tenderness. [] Extremities: No tenderness, no cyanosis, no clubbing, ROM intact, plus edema bilaterally in the lower extremities. Patient states that she has DVT in the left upper thigh, no abnormalities identified externally, no signs of cellulitis or other concerning findings. Neurologic: Alert and oriented X 3, normal motor function, normal sensory function, no focal deficits noted. [] Psychologic: Affect normal, judgement normal, mood normal. [] Current Patient Data Vital Signs Vital Signs Date Time Temp Pulse Resp B/P Pulse Ox O2 Delivery O2 Flow Rate FiO2 12/08/16 13:05 16 97 Nasal Cannula 1.0 12/08/16 12:51 55 149/72 12/08/16 07:45 98.7 98.7 Lab Values Laboratory Tests Test 12/08/16 08:45 White Blood Count 6.5x10^3/uL (4.0-11.0) Red Blood Count 4.18x10^6/uL (3.50-5.40) Hemoglobin 11.3g/dL (12.0-15.5) L Hematocrit 34.9% (36.0-47.0) L Mean Corpuscular Volume 83fL (79-100) Mean Corpuscular Hemoglobin 27pg (25-35) Mean Corpuscular Hemoglobin Concent 32g/dL (31-37) Red Cell Distribution Width 14.3% (11.5-14.5) Platelet Count 213x10^3/uL (140-400) Neutrophils (%) (Auto) 57% (31-73) Lymphocytes (%) (Auto) 31% (24-48) Monocytes (%) (Auto) 9% (0-9) Eosinophils (%) (Auto) 3% (0-3) Basophils (%) (Auto) 0% (0-3) Neutrophils # (Auto) 3.7x10^3uL (1.8-7.7) Lymphocytes # (Auto) 2.0x10^3/uL (1.0-4.8) Monocytes # (Auto) 0.6x10^3/uL (0.0-1.1) Eosinophils # (Auto) 0.2x10^3/uL (0.0-0.7) Basophils # (Auto) 0.0x10^3/uL (0.0-0.2) Prothrombin Time 15.4SEC (11.7-14.0) H Prothrombin Time INR 1.3 (0.8-1.1) H Sodium Level 141mmol/L (136-145) Potassium Level 4.2mmol/L (3.5-5.1) Chloride Level 104mmol/L (98-107) Carbon Dioxide Level 31mmol/L (21-32) Anion Gap 6 (6-14) Blood Urea Nitrogen 26mg/dL (7-20) H Creatinine 1.4mg/dL (0.6-1.0) H Estimated GFR (Cockcroft-Gault) 47.8 BUN/Creatinine Ratio 19 (6-20) Glucose Level 286mg/dL (70-99) H Calcium Level 9.0mg/dL (8.5-10.1) Total Bilirubin 0.3mg/dL (0.2-1.0) Aspartate Amino Transferase (AST) 8U/L (15-37) L Alanine Aminotransferase (ALT) 17U/L (14-59) Alkaline Phosphatase 60U/L (46-116) Troponin I Quantitative < 0.017ng/mL (0.000-0.055) RG-Ice-U-Type Natriuretic Peptide 28pg/mL (0-124) Total Protein 7.0g/dL (6.4-8.2) Albumin 3.4g/dL (3.4-5.0) Albumin/Globulin Ratio 0.9 (1.0-1.7) L Lipase 120U/L (73-393) Laboratory Tests 12/08/16 08:45 Laboratory Tests 12/08/16 08:45 EKG EKG EC: Sinus rhythm, heart rate 79 bpm, QTC of 451, [place] 142, QRS of 100, no ST elevations or depressions, mild baseline artifact noted, abnormal ECG, does not meet STEMI criteria. As interpreted by me. [] Radiology/Procedures Radiology/Procedures [] [facility] [address] [place] [address] IMAGING REPORT Signed PATIENT: JAXSON BROOKS ACCOUNT: [id number] : 1965 LOCATION: ER AGE: 51 SEX: F EXAM STATUS: PRE ER ORD. PHYSICIAN: IDALIA MOY DO REASON: CP PROCEDURE: PORTABLE CHEST 1V Portable chest, 12/08/2016: History: Right-sided chest pain Comparison is made to a study from 11/24/2016. The heart is enlarged. The pulmonary vascularity is normal. No pulmonary infiltrates are seen. There is no evidence of pleural fluid. IMPRESSION: 1. Cardiomegaly. 2. No acute abnormality is detected. DICTATED and SIGNED BY: SRINATH SALINAS MD DATE: 12/08/16 0835 CC: IDALIA MOY DO; FRANCA BLACKWOOD MD ~ Course & Med Decision Making Course & Med Decision Making Pertinent Labs and Imaging studies reviewed. (See chart for details) She was recently admitted and evaluated for chest pain at [facility] in October. With patient's recent history of DVT diagnosis, on Xarelto, with allergy to IV contrast, will proceed with a V/Q study to determine if PE is causing her symptoms today, along with laboratory studies and x-ray. Patient' s other laboratory studies were unremarkable, patient is resting comfortably awaiting V/Q results, some delay in obtaining study due to scheduling. VQ does not reveal any evidence of acutely concerning findings, no evidence of pulmonary emboli. I did discuss this with patient, although her laboratory studies and imaging not reveal any concerning findings, patient states that she still feels "terrible", although pain is resolved at this time. I did discuss findings as above with Dr. Bird of internal medicine, patient has a complicated history, and a extensive cardiac history, will admit to a medical telemetry bed for continued monitoring and evaluation with cardiology, return to the patient requires an inpatient stress test. Patient does have a history of cocaine use, denies use recently, UDS was added to the patient's studies. Patient was accepted to his service as a full admission to the medical telemetry floor, with cardiology consultation entered, bridge orders per discussion. Dragon Disclaimer Dragon Disclaimer This electronic medical record was generated, in whole or in part, using a voice recognition dictation system. Departure Impression: Primary Impression: Chest pain Disposition: ADMITTED INPATIENT Admitting Physician: Jona Rodriguez Condition: IMPROVED IDALIA MOY DO Dec 08, 2016 09:06
[2016-12-08] MEDS: NITROGLYCERIN SUBLINGUAL 0.4 MG BOTTLE OF 25. SL PRN ×3 (09:08→10:20)
[2016-12-08 09:12] LABS: CREATININE 1.4 mg/dL (0.6-1.0); GFR 47.8; POTASSIUM 4.2 mmol/L (3.5-5.1)
[2016-12-08 09:13] LABS: INR 1.3 (0.8-1.1); PROTHROMBIN TIME PATIENT 15.4 SEC (11.7-14.0)
[2016-12-08 09:15] LABS: ALBUMIN 3.4 g/dL (3.4-5.0); ALBUMIN/GLOBULIN RATIO 0.9 (1.0-1.7); TOTAL BILIRUBIN 0.3 mg/dL (0.2-1.0)
[2016-12-08] MEDS: FENTANYL PF 100 MCG/2 ML VIAL. IV PRN ×3 (10:27→13:05)
--- NOTE | 2016-12-08 14:11 | RAD ---
Ventilation/perfusion lung scan, 12/08/2016: History: Shortness of breath history of DVT The ventilation study was performed utilizing 16 mCi of xenon-133. Activity within the lungs is minimally heterogeneous. There is mild patchy retention of activity in both lungs on the washout phase suggesting some degree of obstructive pulmonary disease. Perfusion imaging was performed utilizing 5.5 mCi of technetium 99m MAA. A similar pattern of activity is present in the lungs. No segmental or unmatched perfusion defects are seen. IMPRESSION: There are no VQ findings to suggest pulmonary emboli.
[2016-12-08 16:28] VITALS: BP 146/67
[2016-12-08] MEDS ORDERED: FENTANYL PF 100 MCG/2 ML VIAL. IV PRN (16:45)
--- NOTE | 2016-12-08 17:46 | ACF ---
Admission Forms Criteria TELEMETRY CARE Telemetry Admission Guidelines (Place 'X' for any and all applicable criteria): Admission to telemetry [A] may be indicated for ANY ONE of the following(1)(2)(3 )(4)(5): [X]I. Cardiac disease, including ANY ONE of the following (9)(10)(11)(12)(13 ): [ ]a) Postacute SC [ ]b) Low-risk patients with ST-segment elevation SC who have undergone successful percutaneous coronary intervention [X]c) Unstable angina [ ]d) Suspected SC (until it is ruled out) [ ]e) Post cardiac surgery (first 48 to 72 hours unless complications occur) [ ]f) Acute arrhythmias (including significant tachycardia or bradycardia) [B] [ ]g) Firing of an implantable cardioverter defibrillator [C] [ ]h) Suspected pacemaker or implantable cardioverter defibrillator malfunction (10) [ ]i) New administration or adjustment of an antiarrhythmic drug [D ] [ ]j) Child admitted for acute congestive heart failure [ ]j) Long QT syndrome [ ]k) Advanced heart block (eg, second-degree Mobitz type II, third- degree heart block) [ ]l) Acute myocarditis or pericarditis [ ]m) Short-term (ambulatory or inpatient) monitoring after a cardiac procedure as indicated by ANY ONE of the following [E]: [ ]i) Electrophysiologic studies [ ]ii) Percutaneous coronary intervention with stent placement [ ]iii) Pacemaker placement with cardiac conduction defect [ ]iv) Implantable cardiac defibrillator placement [ ]II. Drug overdose or poisoning with substance that causes arrhythmias or QT prolongation (eg, phenothiazines, sympathomimetic agents, cyclic antidepressants, digitalis, antiarrhythmic drugs)(15) [ ]III. Short-term (ambulatory or inpatient) monitoring after therapeutic or diagnostic procedure requiring conscious sedation or anesthesia (eg, endoscopy, elective cardioversion) [ ]IV. Acute cerebrovascular even[F](18) [ ]V. Massive blood transfusion (eg, at least 10 units of packed red blood cells in 24 hours) [ ]. Variceal bleeding after endoscopy, sclerotherapy, or IV vasopressin [ ]VII. Uncorrected electrolyte abnormalities associated with an increased risk of dangerous arrhythmia [G]; examples include [ ]a) Hyperkalemia with attributable ECG changes [ ]b) Potassium greater than 6.5 mmol/L (mEq/L) in a patient without history of chronic renal disease [ ]c) Prolonged QT attributed to hypokalemia, hypomagnesemia, or hypocalcemia [ ]VIII.Unexplained syncope or other neurologic event suspected of being due to arrhythmia due to a finding that increases risk; examples include(19)(20)(21): [ ]a) High-risk ECG findings (eg, bifascicular block, bradycardia, abnormal QT interval, ventricular pre- excitation) [ ]b) History of previous syncope due to arrhythmia [ ]c) Abnormal ventricular function (eg, reduced ejection fraction ) [ ]d) Exertional or supine syncope [ ]e) Concerning syncope characteristics (eg, sudden loss of consciousness without prodrome) [ ]f) Family history of sudden [ ]g) Use of arrhythmogenic medication [ ]h) Suspected cardiac ischemia [ ]i) Known channelopathy (eg, long QT syndrome, Brugada syndrome, or catecholaminergic paroxysmal ventricular tachycardia) [ ]j) Known structural heart disease (eg, hypertrophic cardiomyopathy , severe valvular disease) [ ]k) Palpitations preceding syncope The original [employer] content created by [employer] has been revised. The portions of the content which have been revised are identified through the use of italic text or in bold, and [employer] has neither reviewed nor approved the modified material. All other unmodified content is copyright [employer]. Please see references footnoted in the original [employer] edition 2016 Admission Criteria Met?: Yes ASHLEY RIBEIRO Dec 08, 2016 17:46
[2016-12-08 19:35] VITALS: BP 124/73
[2016-12-08] MEDS ORDERED: ALBUTEROL SULFATE 8GM INHALER. INH PRN (20:00)
[2016-12-08] MEDS ORDERED: SENNOSIDES 8.6 MG TABLET PO PRN (20:00)
[2016-12-08] MEDS ORDERED: ALBUTEROL SULFATE 2.5 MG/3 ML NEBU. NEB PRN (20:00)
[2016-12-08] MEDS ORDERED: NITROGLYCERIN SUBLINGUAL 0.4 MG BOTTLE OF 25. SL PRN (20:00)
[2016-12-08] MEDS ORDERED: OXYCODONE/APAP 10/325 TABLET. PO SCH (20:30)
[2016-12-08] MEDS ORDERED: NON FORMULARY ITEM (Fluticasone/Salmeterol (Advair 250-50 Diskus) 1 INH) IH SCH (21:00)
[2016-12-08] MEDS ORDERED: FAMOTIDINE 20 MG TABLET. PO SCH (21:00)
[2016-12-08] MEDS ORDERED: ZOLPIDEM 5 MG TABLET. PO SCH (21:00)
[2016-12-08] MEDS ORDERED: AMITRIPTYLINE HCL 25 MG TABLET. PO SCH (21:00)
[2016-12-08] MEDS ORDERED: ALPRAZOLAM 1 MG TABLET PO SCH (21:00)
[2016-12-08] MEDS ORDERED: INSULIN DETEMIR 300 UNITS/3 ML INSULN.PEN. SQ SCH ×2 (21:00)
[2016-12-08] MEDS: DICLOFENAC SODIUM 1% TOPICAL GEL 100GM TUBE. TP SCH (21:00)
[2016-12-08] MEDS ORDERED: LURASIDONE 40 MG TABLET. PO SCH (21:00)
[2016-12-08] MEDS: BUDESONIDE 0.5 MG/2 ML NEBU. NEB SCH (21:00)
[2016-12-08] MEDS ORDERED: METHOCARBAMOL 750 MG TABLET PO SCH (21:00)
[2016-12-08] MEDS ORDERED: ATORVASTATIN CALCIUM 40 MG TABLET. PO SCH (21:00)
[2016-12-08] MEDS: MINERAL OIL/PETROLATUM TOPICAL CREAM 113GM JAR. TP SCH (21:14)
[2016-12-08] MEDS: DIPHENHYDRAMINE HCL 25 MG CAPSULE PO SCH (21:23)
[2016-12-08] MEDS: GABAPENTIN 400 MG CAPSULE. PO SCH (21:37)
[2016-12-08] MEDS: ALBUTEROL SULFATE 2.5 MG/3 ML NEBU. NEB SCH (23:15)
[2016-12-08 23:20] VITALS: BP 130/77
--- NOTE | 2016-12-09 00:11 | HP ---
ADMIT DATE: 12/08/2016 CHIEF COMPLAINT: Chest pain. HISTORY OF PRESENT ILLNESS: The patient is a pleasant 51-year-old female well known to our service. She has a lot of medical issues including morbid obesity. She presents today with chest pain that has been occurring off and on for a couple of days. She had some associated shortness of breath. It was left breast. We checked her for pulmonary embolism. The imaging was negative; however, to be safe we are going to admit the patient and consult Cardiology. PAST MEDICAL HISTORY: Known coronary artery disease, CHF, COPD, depression, diabetes, hyperlipidemia, previous DVTs, hypertension, neuropathy, , cardiac stents x 4, left first toe and right first and second toe amputations. ALLERGIES: PENICILLIN, LATEX, IODINE AND PHENERGAN. FAMILY HISTORY: Coronary artery disease. SOCIAL HISTORY: She does not drink, smoke or take drugs. MEDICATIONS: Reviewed, please refer to the MRAD. REVIEW OF SYSTEMS: GENERAL: No history of weight change, weakness or fevers. SKIN: No bruising, hair changes or rashes. EYES: No blurred, double or loss of vision. NOSE AND THROAT: No history of nosebleeds, hoarseness or sore throat. HEART: She complains of chest pain. LUNGS: Denies cough, hemoptysis, wheezing or shortness of breath. GASTROINTESTINAL: Denies changes in appetite, nausea, vomiting, diarrhea or constipation. GENITOURINARY: No history of frequency, urgency, hesitancy or nocturia. NEUROLOGIC: Denies history of numbness, tingling, tremor or weakness. PSYCHIATRIC: No history of panic, anxiety or depression. ENDOCRINE: No history of heat or cold intolerance, polyuria or polydipsia. EXTREMITIES: Denies muscle weakness, joint pain, pain on walking or stiffness. PHYSICAL EXAMINATION: VITAL SIGNS: Temperature afebrile, pulse 62, respirations 14, blood pressure 124/73. GENERAL: She is alert, cooperative. HEART: Normal S1, S2. LUNGS: Clear. ABDOMEN: Soft, positive bowel sounds, obese. EXTREMITIES: 2+ edema. SKIN: No rashes. PSYCHIATRIC: She is anxious. VASCULAR: Good capillary refill. ENDOCRINE: No thyromegaly. LYMPHATICS: No cervical nodes. HEMATOPOIETIC: No bruising. LABORATORY DATA: White count 6, hemoglobin 11, platelets 213. Electrolytes: Sodium 141, potassium 4.2, chloride 104, bicarbonate 31, BUN 26, creatinine 1.4, glucose 286. Troponin is 0. ASSESSMENT AND PLAN: Chest pain with known coronary artery disease. The patient has been admitted. We will check serial enzymes, serial EKGs. Consult Cardiology, cardiac monitoring, daily aspirin, resume home medicines. SIMIN PECK DO DR: RAEGAN/sanjeev JOB#: [id number] / [id number]
[2016-12-09 03:10] VITALS: BP 158/71
[2016-12-09] MEDS: HYDROCODONE/APAP 10/325 TABLET. PO PRN ×2 (06:18→12:09)
[2016-12-09] MEDS: ALBUTEROL SULFATE 2.5 MG/3 ML NEBU. NEB SCH (06:38)
[2016-12-09] MEDS: BUDESONIDE 0.5 MG/2 ML NEBU. NEB SCH (06:39)
[2016-12-09 07:00] VITALS: BP 145/65
[2016-12-09] MEDS ORDERED: PANTOPRAZOLE 40 MG TABLET.DR. PO SCH (07:30)
[2016-12-09] MEDS ORDERED: INSULIN DETEMIR 300 UNITS/3 ML INSULN.PEN. SQ SCH (08:00)
[2016-12-09] MEDS ORDERED: ASPIRIN ENTERIC COATED 325 MG TABLET.DR. PO SCH (08:00)
[2016-12-09] MEDS ORDERED: POTASSIUM CHLORIDE 20 MEQ TABLET.ER. PO SCH (08:00)
[2016-12-09] MEDS ORDERED: ALPRAZOLAM 1 MG TABLET PO SCH (09:00)
[2016-12-09] MEDS ORDERED: LOSARTAN POTASSIUM 25 MG TABLET. PO SCH (09:00)
[2016-12-09] MEDS ORDERED: ISOSORBIDE MONONITRATE ER 30 MG TAB.ER.24H PO SCH (09:00)
[2016-12-09] MEDS ORDERED: OXYCODONE/APAP 10/325 TABLET. PO SCH (09:00)
[2016-12-09] MEDS: DICLOFENAC SODIUM 1% TOPICAL GEL 100GM TUBE. TP SCH (09:00)
[2016-12-09] MEDS ORDERED: FLUTICASONE 50MCG/NASAL SPRAY 16GM BOTTLE. NS SCH (09:00)
[2016-12-09] MEDS ORDERED: FUROSEMIDE 40 MG TABLET. PO SCH (09:00)
[2016-12-09] MEDS ORDERED: CETIRIZINE HCL 10 MG TABLET. PO SCH (09:00)
[2016-12-09] MEDS: MINERAL OIL/PETROLATUM TOPICAL CREAM 113GM JAR. TP SCH (09:00)
[2016-12-09] MEDS: DIPHENHYDRAMINE HCL 25 MG CAPSULE PO SCH (09:14)
[2016-12-09] MEDS: GABAPENTIN 400 MG CAPSULE. PO SCH (09:14)
--- NOTE | 2016-12-09 09:18 | PDOC2 ---
CARDIAC CONSULT DATE OF CONSULT Date of Consult DATE: 12/09/16 TIME: 09:11 REASON FOR CONSULT Reason for Consult: Chest Pain REFERRING PHYSICIAN Referring Physician: Dr. Bird SOURCE Source: Chart review, Patient HISTORY OF PRESENT ILLNESS HISTORY OF PRESENT ILLNESS This is a 51 yo female who presented with complaints of lower extremity edema and chest pain. Pain began over the weekend. Located under her left breath. Describes as stabbing in nature. Comes and goes, lastly 5 mins in duration. No specific precipitating factors. Worse with certain movements and by applying pressure directly to the area. Improved with pain medications. Denies any associated dizziness, diaphoresis, palpitations, orthopnea, recent illness or nausea/vomiting. No further pain since admission. Reports LE edema also came over the weekend. Slept in her chair (which is unusual for her) with her feet dangling all weekend. Now that feet are up in bed, edema has resolved. Reports compliance with medications. PAST MEDICAL HISTORY Past Medical History Cardiovascular: CAD (s/p KATLYN to proximal Cx and OM1 at [facility] in 2012 and KATLYN to RCA and LCx 2014), CHF (diastolic), HTN, Hyperlipidemia Pulmonary: Asthma, COPD CENTRAL NERVOUS SYSTEM: Peripheral neuropathy GI: GERD Heme/Onc: DVT on Xarelto Hepatobiliary: No pertinent hx Psych: Anxiety, Addictions (cocaine ), Depression Musculoskeletal: Osteoarthritis Infectious disease: No pertinent hx ENT: No pertinent hx Renal/: No pertinent hx Endocrine: Diabetes PAST SURGICAL HISTORY Past Surgical History: Other (see PMH) FAMILY HISTORY Family History Diabetes, Stroke SOCIAL HISTORY Social History Smoke: No ALCOHOL: occassional Drugs: Cocaine (denies ) Lives: with Family CURRENT MEDICATIONS CURRENT MEDICATIONS Current Medications Medications (Trade) Dose Ordered Sig/Justin Route PRN Reason Start Time Stop Time Status Last Admin Dose Admin Fentanyl Citrate (Fentanyl 2ml Vial) 50 mcg PRN Q2HR PRN IV PAIN 12/08/16 16:45 12/08/16 18:06 Amitriptyline HCl (Elavil) 25 mg QHS PO 12/08/16 21:00 12/08/16 21:17 Diphenhydramine HCl (Benadryl) 25 mg QID PO 12/08/16 21:00 12/08/16 21:23 Alprazolam (Xanax) 2 mg QHS PO 12/08/16 21:00 12/08/16 21:15 Atorvastatin Calcium (Lipitor) 80 mg QHS PO 12/08/16 21:00 12/08/16 21:15 Famotidine (Pepcid) 20 mg HS PO 12/08/16 21:00 12/08/16 21:17 Acetaminophen/ Hydrocodone Bitart (Lortab 10/325) 1 tab PRN Q6HRS PRN PO PAIN 12/08/16 20:00 12/09/16 06:18 Methocarbamol (Robaxin) 750 mg QHS PO 12/08/16 21:00 12/08/16 21:22 Multi-Ingred Cream/Lotion/Oil/ Oint (Hydrocerin) 1 raz BID TP 12/08/16 21:00 12/08/16 21:14 Gabapentin (Neurontin) 1,200 mg TID PO 12/08/16 21:00 12/08/16 21:37 Oxycodone/ Acetaminophen (Percocet 10/325) 1 tab Q4HRS PO 12/08/16 20:30 12/08/16 21:41 DC 12/08/16 21:16 Insulin Detemir (Levemir) 70 units QHS SQ 12/08/16 21:00 12/08/16 21:22 Albuterol Sulfate (Ventolin Neb Soln) 2.5 mg Q6HRS NEB 12/09/16 00:00 12/09/16 06:38 Budesonide (Pulmicort) 0.5 mg RTBID NEB 12/08/16 21:00 12/09/16 06:39 ALLERGIES ALLERGIES: Coded Allergies: Penicillins (Verified Allergy, Severe, tongue swelling, 04/13/15) latex (Verified Allergy, Severe, Hives, 04/13/15) prochlorperazine (Verified Allergy, Severe, tongue swelling, 04/13/15) iodine (Verified Adverse Reaction, Intermediate, "shiver", 04/13/15) ROS Review of System 14 point ROS conducted with pertinent positives noted above in HPI PHYSICAL EXAM General: Alert, Oriented X3, Cooperative, No acute distress HEENT: Atraumatic, Mucous membr. moist/pink Lungs: Clear to auscultation, Normal air movement, Other (tenderness with palpation under left breast) Heart: Regular rate, Normal S1, Normal S2, No murmurs Abdomen: Soft Extremities: Normal pulses, Other (trace LE edema ) Skin: No breakdown, No significant lesion Neuro: Normal speech, Sensation intact Psych/Mental Status: Mental status NL, Mood NL MUSCULOSKELETAL: Osteoarthritic changes both hands VITALS VITALS Vital Signs Date Time Temp Pulse Resp B/P Pulse Ox O2 Delivery O2 Flow Rate FiO2 12/09/16 08:34 97 Room Air 1.0 12/09/16 07:00 97.4 58 18 145/65 97.4 LABS Lab: Laboratory Tests Test 12/08/16 17:18 12/08/16 20:56 12/09/16 08:35 Glucose (Fingerstick) 204mg/dL (70-99) 255mg/dL (70-99) 207mg/dL (70-99) ECHOCARDIOGRAM ECHOCARDIOGRAM <Conclusion> The left ventricular systolic function is normal. The Ejection Fraction is 55-60%. There is normal LV segmental wall motion. Transmitral Doppler flow pattern is Grade I-abnormal relaxation pattern. Trace mitral regurgitation. Trace tricuspid regurgitation. The PA pressure was estimated at 28 mmHg. There is no evidence of significant pericardial effusion. DATE: 11/25/16 1054 STRESS TEST STRESS TEST Conclusion 1. Regadenoson cardioisotope stress test did not show any evidence of ischemia or infarct. 2. Normal left ventricular systolic function with ejection fraction calculated at 57%. 3. Low risk for cardiac events. DATE: 11/26/16 1522 ASSESSMENT/PLAN ASSESSMENT/PLAN 1. Chest pain, atypical 2. LE edema 3. Chronic diastolic HF 4. CAD: PCI/KATLYN to proximal Cx and OM1 at [facility] in 2012 and PCI/KATLYN RCA and LCx 10/2014 5. Hypertension 6. Hyperlipidemia 7. IDDM 8. Morbid obesity 9. Substance abuse 10. Noncompliance Recommendations LE edema likely dependent secondary to prolonged sitting with feet dangling. Encouraged elevation Compensated from HF standpoint; no evidence of acute CHF Continue with routine oral diuresis. CP reproducible with palpation and most probably MSK in origin. Recent MPI with no evidence of reversible ischemia as above. Continue secondary prevention measures; no BB with bradycardia and h/o cocaine abuse May discharge from CV standpoint and f/u in our office in 4-6 weeks. Problems: SHERRELL SUTTON APRN Dec 09, 2016 09:18
[2016-12-09 10:30] VITALS: BP 145/65
[2016-12-09 12:24] LABS: BARBITURATES NEG (NEG); BENZODIAZEPINES NEG (NEG); CANNABINOIDS NEG (NEG); COCAINE NEG (NEG); ETHANOL, URINE NEG (NEG); METHADONE NEG (NEG); OPIATES NEG (NEG); PHENCYCLIDINE NEG (NEG)
[2016-12-09] MEDS ORDERED: RIVAROXABAN 10 MG TABLET. PO SCH (17:00)
== END 2016-12-09 12:55 | disposition home or self-care (01) | DRG 392 ==
LOC: ER 07:35 → 2 SOUTH 14:36
PROVIDERS: ADMIT Internal Medicine; ATTEND Internal Medicine
DX: K21.9 Gastro-esophageal reflux disease without esophagitis (principal); Z68.42 Body mass index [BMI] 45.0-49.9, adult; I50.32 Chronic diastolic (congestive) heart failure; R07.9 Chest pain, unspecified; E11.40 Type 2 diabetes mellitus with diabetic neuropathy, unspecified; E66.01 Morbid (severe) obesity due to excess calories; E78.00 Pure hypercholesterolemia, unspecified; E78.5 Hyperlipidemia, unspecified; I11.0 Hypertensive heart disease with heart failure; I25.10 Atherosclerotic heart disease of native coronary artery without angina pectoris; J44.9 Chronic obstructive pulmonary disease, unspecified; F12.90 Cannabis use, unspecified, uncomplicated; F32.9 Major depressive disorder, single episode, unspecified; F41.9 Anxiety disorder, unspecified; M19.90 Unspecified osteoarthritis, unspecified site; Z95.5 Presence of coronary angioplasty implant and graft; Z91.19 Patient's noncompliance with other medical treatment and regimen; Z86.718 Personal history of other venous thrombosis and embolism; Z83.3 Family history of diabetes mellitus; Z82.49 Family history of ischemic heart disease and other diseases of the circulatory system; Z82.3 Family history of stroke; Z79.4 Long term (current) use of insulin; Z91.040 Latex allergy status; Z91.041 Radiographic dye allergy status; Z88.8 Allergy status to other drugs, medicaments and biological substances; Z88.0 Allergy status to penicillin; Z89.412 Acquired absence of left great toe; Z89.411 Acquired absence of right great toe; Z87.891 Personal history of nicotine dependence
CPT/HCPCS: 36415; 71010; 78582; 80053; 82947; 83690; 83880; 84484; 85027; 85610; 93005; 94640; 96374; 96376; A9540; A9558; G0481; J1815; J3010; Q0163; 99285-25

== ENCOUNTER 2017-02-05 14:47 | Observation (INO) | payer OTHER ==
[~2017-02-05] VITALS: Ht 182.9 cm; Wt 131.3 kg
[~2017-02-05 14:47] MED LIST changes: +ASPI-630 PO; -ASPI81TA2 PO; -CLOP75TA27 PO; +CLOP75TA57 PO; +DICL100G18 TP; -DICL100G7 TP; -HYDR-2672 PO; +HYDR-2766 PO; -LEVO500T38 PO; +LEVO500T59 PO; +NITR0.4T22 SL; -NITR0.4T6 SL; -OXYC-250 PO; +OXYC-328 PO; +SENN-79 PO; -SENN8.6T3 PO
--- NOTE | 2017-02-05 14:56 | PHYS DOC ---
Past Medical History Past Medical History: CAD, CHF, COPD, Depression, Diabetes-Type II, DVT, High Cholesterol, Hypertension, Other Additional Past Medical Histor: NEUROPATHY Past Surgical History: Angioplasty, , Other Additional Past Surgical Histo: CARDIAC STENTS X4, left great toe amputation, R great & 2nd toe amputation Alcohol Use: Occasionally Drug Use: Marijuana Adult General Chief Complaint Chief Complaint: CHEST PAIN HPI HPI Patient is a 51 year old female who presents with history of obesity, hypertension, hyperlipidemia, type 2 diabetes mellitus, CAD status post stent placement, CHF, DVT lower extremity diagnosed in October of this year, who currently stopped taking Xarelto last week, who presents the emergency department with a complaint of lower leg pain, increasing shortness of breath, and chest pain that she describes as pressure underneath her sternum that radiates her back. She states nothing makes the pain better or worse. She denies any nausea or vomiting. She states the symptoms been going on for the last 3 days. They're constant however sometimes they do go away. Review of Systems Review of Systems Constitutional: Denies fever or chills [] Eyes: Denies change in visual acuity, redness, or eye pain [] HENT: Denies nasal congestion or sore throat [] Respiratory: Denies cough, positive for shortness of breath [] Cardiovascular: No additional information not addressed in HPI [] GI: Denies abdominal pain, nausea, vomiting, bloody stools or diarrhea [] : Denies dysuria or hematuria [] Musculoskeletal: Denies back pain or joint pain [] Integument: Denies rash or skin lesions [] Neurologic: Denies headache, focal weakness or sensory changes [] Endocrine: Denies polyuria or polydipsia [] Current Medications Current Medications Current Medications Medications (Trade) Dose Ordered Sig/Justin Start Time Stop Time Status Last Admin Dose Admin Albuterol Sulfate (Ventolin Neb Soln) 2.5 mg 1X ONCE 02/05/17 16:30 02/05/17 16:31 Cancel Fentanyl Citrate (Fentanyl 2ml Vial) 100 mcg STK-MED ONCE 02/05/17 17:05 02/05/17 17:06 DC Methylprednisolone Sodium Succinate (SOLU-Medrol 125MG VIAL) 125 mg 1X ONCE 02/05/17 16:30 02/05/17 16:31 Cancel Morphine Sulfate 2 mg PRN Q2HR PRN 02/05/17 18:30 02/06/17 18:29 Ondansetron HCl (Zofran) 4 mg PRN Q8HRS PRN 02/05/17 18:30 02/06/17 18:29 Allergies Allergies Allergies Coded Allergies Type Severity Reaction Last Updated Verified Penicillins Allergy Severe tongue swelling 04/13/15 Yes latex Allergy Severe Hives 04/13/15 Yes prochlorperazine Allergy Severe tongue swelling 04/13/15 Yes iodine Adverse Reaction Intermediate "shiver" 04/13/15 Yes Physical Exam Physical Exam Constitutional: Well developed, well nourished, no acute distress, non-toxic appearance. [] HENT: Normocephalic, atraumatic, bilateral external ears normal, oropharynx moist, no oral exudates, nose normal. [] Eyes: PERRLA, EOMI, conjunctiva normal, no discharge. [] Neck: Normal range of motion, no tenderness, supple, no stridor. [] Cardiovascular:Heart rate regular rhythm, no murmur [] Lungs & Thorax: Bilateral breath sounds clear to auscultation [] Abdomen: Bowel sounds normal, soft, no tenderness, no masses, no pulsatile masses. [] Skin: Warm, dry, no erythema, no rash. [] Back: No tenderness, no CVA tenderness. [] Extremities: No tenderness, no cyanosis, no clubbing, ROM intact, no edema. [] Neurologic: Alert and oriented X 3, normal motor function, normal sensory function, no focal deficits noted. [] Psychologic: Affect normal, judgement normal, mood normal. [] Current Patient Data Vital Signs Vital Signs Date Time Temp Pulse Resp B/P (MAP) Pulse Ox O2 Delivery O2 Flow Rate FiO2 02/05/17 17:22 59 20 153/111 (125) 98 Nasal Cannula 2.0 02/05/17 14:54 98.3 98.3 Lab Values Laboratory Tests Test 02/05/17 15:05 White Blood Count 7.4 x10^3/uL (4.0-11.0) Red Blood Count 4.41 x10^6/uL (3.50-5.40) Hemoglobin 12.1 g/dL (12.0-15.5) Hematocrit 36.9 % (36.0-47.0) Mean Corpuscular Volume 84 fL (79-100) Mean Corpuscular Hemoglobin 27 pg (25-35) Mean Corpuscular Hemoglobin Concent 33 g/dL (31-37) Red Cell Distribution Width 14.3 % (11.5-14.5) Platelet Count 183 x10^3/uL (140-400) Neutrophils (%) (Auto) 58 % (31-73) Lymphocytes (%) (Auto) 34 % (24-48) Monocytes (%) (Auto) 5 % (0-9) Eosinophils (%) (Auto) 2 % (0-3) Basophils (%) (Auto) 1 % (0-3) Neutrophils # (Auto) 4.3 x10^3uL (1.8-7.7) Lymphocytes # (Auto) 2.5 x10^3/uL (1.0-4.8) Monocytes # (Auto) 0.4 x10^3/uL (0.0-1.1) Eosinophils # (Auto) 0.1 x10^3/uL (0.0-0.7) Basophils # (Auto) 0.1 x10^3/uL (0.0-0.2) Prothrombin Time 12.9 SEC (11.7-14.0) Prothrombin Time INR 1.0 (0.8-1.1) D-Dimer (Soha) 0.31 ug/mlFEU (0.00-0.50) Sodium Level 141 mmol/L (136-145) Potassium Level 4.0 mmol/L (3.5-5.1) Chloride Level 104 mmol/L (98-107) Carbon Dioxide Level 30 mmol/L (21-32) Anion Gap 7 (6-14) Blood Urea Nitrogen 16 mg/dL (7-20) Creatinine 1.2 mg/dL (0.6-1.0) H Estimated GFR (Cockcroft-Gault) 57.1 Glucose Level 308 mg/dL (70-99) H Calcium Level 9.2 mg/dL (8.5-10.1) Magnesium Level 1.8 mg/dL (1.8-2.4) Total Bilirubin 0.3 mg/dL (0.2-1.0) Direct Bilirubin 0.1 mg/dL (0.0-0.2) Aspartate Amino Transferase (AST) 13 U/L (15-37) L Alanine Aminotransferase (ALT) 18 U/L (14-59) Alkaline Phosphatase 56 U/L (46-116) Creatine Kinase 91 U/L (26-192) Creatine Kinase MB (Mass) 0.9 ng/mL (0.0-3.6) Creatine Kinase MB Relative Index 1.0 % (0-4) Troponin I Quantitative 0.020 ng/mL (0.000-0.055) JT-Jsr-D-Type Natriuretic Peptide 141 pg/mL (0-124) H Total Protein 7.1 g/dL (6.4-8.2) Albumin 3.4 g/dL (3.4-5.0) Lipase 101 U/L (73-393) Thyroid Stimulating Hormone (TSH) 0.715 uIU/mL (0.358-3.74) Serum Test, Qualitative Negative (NEG) Laboratory Tests 02/05/17 15:05 Laboratory Tests 02/05/17 15:05 EKG EKG EKG shows sinus rhythm [address] elevations, there are T-wave inversions in leads 1, aVL, normal axis, QTC 452 ms, as interpreted by me. Radiology/Procedures Radiology/Procedures [address] [id number] IMAGING REPORT Signed PATIENT: JAXSON BROOKS ACCOUNT: [id number] : 1965 LOCATION: ER AGE: 51 SEX: F EXAM STATUS: REG ER ORD. PHYSICIAN: ASHLYN VERDIN MD REASON: pain PROCEDURE: VENOUS LOWER EXTREMITY RIGHT Right lower extremity venous ultrasound, 02/05/2017 : History: Right leg pain Duplex evaluation including grayscale, color flow and spectral Doppler analysis was performed. The femoral and popliteal veins show no filling defects to suggest DVT. The visualized deep veins in the right calf are unremarkable. IMPRESSION: There is no sonographic evidence of deep vein thrombosis in the right lower extremity DICTATED and SIGNED BY: SRINATH SALINAS MD DATE: 02/05/17 6345 CC: ASHLYN VERDIN MD; FRANCA BLACKWOOD MD ~ [address] [id number] IMAGING REPORT Signed PATIENT: JAXSON BROOKS ACCOUNT: [id number] : 1965 LOCATION: ER AGE: 51 SEX: F EXAM STATUS: REG ER ORD. PHYSICIAN: ASHLYN VERDIN MD REASON: chest pain PROCEDURE: PORTABLE CHEST 1V Portable chest, 02/05/2017: History: Chest pain, shortness of breath, previous stents Comparison is made to a study from 12/08/2016. The heart is mildly enlarged. The pulmonary vascularity is normal. No pulmonary infiltrates are seen. There is no evidence of pleural fluid. Mild spurring is present in the spine. IMPRESSION: 1. Mild cardiomegaly. 2. No acute abnormality is detected. DICTATED and SIGNED BY: SRINATH SALINAS MD DATE: 02/05/17 1544 CC: ASHLYN VERDIN MD; FRANCA BLACKWOOD MD ~ Impressions: Chest pain Course & Med Decision Making Course & Med Decision Making Pertinent Labs and Imaging studies reviewed. (See chart for details) Labs do not show any acute abnormalities or EKG is nonacute. Ultrasound the right lower extremities shows no DVT. We will add on CT angios since her pain does go to her back and to rule out dissection. Patient is being admitted to Dr. Rodriguez. Interim orders are written. Patient's in stable condition at this time. She is allergic to contrast but states she's had prep before and had a contrast study, 125 Solu-Medrol, 50 mg Benadryl, 40 mg Pepcid IV have been ordered so she can get her CT scan. Dragon Disclaimer Dragon Disclaimer This electronic medical record was generated, in whole or in part, using a voice recognition dictation system. Departure Departure Impression: Primary Impression: Chest pain Disposition: ADMITTED INPATIENT Admitting Physician: Jona Rodriguez Condition: STABLE Referrals: FRANCA BLACKWOOD MD (PCP) Problem Qualifiers Primary Impression: Chest pain Chest pain type: unspecified Qualified Codes: R07.9 - Chest pain, unspecified ASHLYN VERDIN MD Feb 05, 2017 14:56
[2017-02-05] MEDS ORDERED: MORPHINE SULFATE 4 MG/ML DISP.SYRIN. IV/SQ PRN ×2 (15:00→16:00)
[2017-02-05 15:18] LABS: BASO # 0.1 x10^3/uL (0.0-0.2); BASO % 1 % (0-3); EOS % 2 % (0-3); HEMATOCRIT 36.9 % (36.0-47.0); HEMOGLOBIN 12.1 g/dL (12.0-15.5); LYMPH # 2.5 x10^3/uL (1.0-4.8); LYMPH % 34 % (24-48); MEAN CORPUSCULAR HEMOGLOBIN 27 pg (25-35); MEAN CORPUSCULAR HGB CONC 33 g/dL (31-37); MEAN CORPUSCULAR VOLUME 84 fL (79-100); MONO % 5 % (0-9); NEUT % 58 % (31-73); PLATELET COUNT 183 x10^3/uL (140-400); RED BLOOD COUNT 4.41 x10^6/uL (3.50-5.40); RED CELL DISTRIBUTION WIDTH 14.3 % (11.5-14.5); WHITE BLOOD COUNT 7.4 x10^3/uL (4.0-11.0)
[2017-02-05 15:31] LABS: PROTHROMBIN TIME PATIENT 12.9 SEC (11.7-14.0)
--- NOTE | 2017-02-05 15:47 | RAD ---
Portable chest, 02/05/2017: History: Chest pain, shortness of breath, previous stents Comparison is made to a study from 12/08/2016. The heart is mildly enlarged. The pulmonary vascularity is normal. No pulmonary infiltrates are seen. There is no evidence of pleural fluid. Mild spurring is present in the spine. IMPRESSION: 1. Mild cardiomegaly. 2. No acute abnormality is detected.
[2017-02-05 15:53] LABS: NEG OBC SER NEG; POS OBC SER POS
[2017-02-05 15:58] LABS: CALCIUM 9.2 mg/dL (8.5-10.1); CREATININE 1.2 mg/dL (0.6-1.0); GFR 57.1
[2017-02-05 16:04] LABS: ALBUMIN 3.4 g/dL (3.4-5.0); DIRECT BILIRUBIN 0.1 mg/dL (0.0-0.2); MAGNESIUM 1.8 mg/dL (1.8-2.4); TOTAL BILIRUBIN 0.3 mg/dL (0.2-1.0); TOTAL PROTEIN 7.1 g/dL (6.4-8.2)
[2017-02-05 16:25] LABS: CKMB MASS 0.9 ng/mL (0.0-3.6)
--- NOTE | 2017-02-05 16:25 | EKG ---
[facility] [address] [place] [address] Test Date: 2017-02-05 Test Time: 14:56:43 Pat Name: JAXSON BROOKS Department: Room: Gender: F [employer]: : 1965 Requested By: ASHLYN VERDIN Order Number: [id number] Reading MD: Jia Enamorado Measurements Intervals Webb Rate: 75 P: 52 CA: 136 QRS: 23 QRSD: 102 T: 124 QT: 402 QTc: 452 Interpretive Statements SINUS RHYTHM ST & T ABNORMALITY, CONSIDER HIGH LATERAL ISCHEMIA ABNORMAL ECG Electronically Signed On 02-07-2017 19:07:08 CDT by Jia Enamorado
[2017-02-05] MEDS ORDERED: methylPREDNISolone SOD SUCC PF 125 MG/2 ML VIAL. IV ONE ×2 (16:30→18:45)
[2017-02-05] MEDS ORDERED: ALBUTEROL SULFATE 2.5 MG/3 ML NEBU. NEB ONE (16:30)
--- NOTE | 2017-02-05 16:39 | RAD ---
Right lower extremity venous ultrasound, 02/05/2017 : History: Right leg pain Duplex evaluation including grayscale, color flow and spectral Doppler analysis was performed. The femoral and popliteal veins show no filling defects to suggest DVT. The visualized deep veins in the right calf are unremarkable. IMPRESSION: There is no sonographic evidence of deep vein thrombosis in the right lower extremity
[2017-02-05] MEDS ORDERED: fentaNYL PF VIAL 100 MCG/2 ML VIAL ONE (17:05)
[2017-02-05] MEDS: fentaNYL PF VIAL 100 MCG/2 ML VIAL IV PRN ×2 (17:08→20:17)
[2017-02-05] MEDS ORDERED: ONDANSETRON PF 4 MG/2 ML VIAL. IV PRN (18:30)
[2017-02-05] MEDS ORDERED: MORPHINE SULFATE 2 MG/ML DISP.SYRIN. IV PRN (18:30)
[2017-02-05] MEDS ORDERED: IOHEXOL 350 MG/ML 100 ML VIAL. IV ONE (18:45)
[2017-02-05] MEDS ORDERED: FAMOTIDINE 20 MG/2 ML VIAL IVP ONE (18:45)
[2017-02-05] MEDS ORDERED: diphenhydrAMINE 50 MG/ML VIAL IVP ONE (18:45)
[2017-02-05] MEDS ORDERED: CONTRAST GIVEN MC PRN (18:45)
--- NOTE | 2017-02-05 19:33 | ACF ---
Admission Forms Criteria TELEMETRY CARE Telemetry Admission Guidelines (Place 'X' for any and all applicable criteria): Admission to telemetry [A] may be indicated for ANY ONE of the following(1)(2)(3 )(4)(5): [X]I. Cardiac disease, including ANY ONE of the following (9)(10)(11)(12)(13 ): [ ]a) Postacute DE [ ]b) Low-risk patients with ST-segment elevation DE who have undergone successful percutaneous coronary intervention [ ]c) Unstable angina [X]d) Suspected DE (until it is ruled out) [ ]e) Post cardiac surgery (first 48 to 72 hours unless complications occur) [ ]f) Acute arrhythmias (including significant tachycardia or bradycardia) [B] [ ]g) Firing of an implantable cardioverter defibrillator [C] [ ]h) Suspected pacemaker or implantable cardioverter defibrillator malfunction (10) [ ]i) New administration or adjustment of an antiarrhythmic drug [D ] [ ]j) Child admitted for acute congestive heart failure [ ]j) Long QT syndrome [ ]k) Advanced heart block (eg, second-degree Mobitz type II, third- degree heart block) [ ]l) Acute myocarditis or pericarditis [ ]m) Short-term (ambulatory or inpatient) monitoring after a cardiac procedure as indicated by ANY ONE of the following [E]: [ ]i) Electrophysiologic studies [ ]ii) Percutaneous coronary intervention with stent placement [ ]iii) Pacemaker placement with cardiac conduction defect [ ]iv) Implantable cardiac defibrillator placement [ ]II. Drug overdose or poisoning with substance that causes arrhythmias or QT prolongation (eg, phenothiazines, sympathomimetic agents, cyclic antidepressants, digitalis, antiarrhythmic drugs)(15) [ ]III. Short-term (ambulatory or inpatient) monitoring after therapeutic or diagnostic procedure requiring conscious sedation or anesthesia (eg, endoscopy, elective cardioversion) [ ]IV. Acute cerebrovascular even[F](18) [ ]V. Massive blood transfusion (eg, at least 10 units of packed red blood cells in 24 hours) [ ]. Variceal bleeding after endoscopy, sclerotherapy, or IV vasopressin [ ]VII. Uncorrected electrolyte abnormalities associated with an increased risk of dangerous arrhythmia [G]; examples include [ ]a) Hyperkalemia with attributable ECG changes [ ]b) Potassium greater than 6.5 mmol/L (mEq/L) in a patient without history of chronic renal disease [ ]c) Prolonged QT attributed to hypokalemia, hypomagnesemia, or hypocalcemia [ ]VIII.Unexplained syncope or other neurologic event suspected of being due to arrhythmia due to a finding that increases risk; examples include(19)(20)(21): [ ]a) High-risk ECG findings (eg, bifascicular block, bradycardia, abnormal QT interval, ventricular pre- excitation) [ ]b) History of previous syncope due to arrhythmia [ ]c) Abnormal ventricular function (eg, reduced ejection fraction ) [ ]d) Exertional or supine syncope [ ]e) Concerning syncope characteristics (eg, sudden loss of consciousness without prodrome) [ ]f) Family history of sudden [ ]g) Use of arrhythmogenic medication [ ]h) Suspected cardiac ischemia [ ]i) Known channelopathy (eg, long QT syndrome, Brugada syndrome, or catecholaminergic paroxysmal ventricular tachycardia) [ ]j) Known structural heart disease (eg, hypertrophic cardiomyopathy , severe valvular disease) [ ]k) Palpitations preceding syncope The original [employer] content created by [employer] has been revised. The portions of the content which have been revised are identified through the use of italic text or in bold, and [employer] has neither reviewed nor approved the modified material. All other unmodified content is copyright [employer]. Please see references footnoted in the original [employer] edition 2016 Admission Criteria Met?: Yes JERARDO HARDY Feb 05, 2017 19:33
--- NOTE | 2017-02-05 20:19 | RAD ---
CTA of the chest and abdomen and pelvis with and without contrast HISTORY: Chest pain. Dissection. TECHNIQUE: Noncontrast helical CT scanning of the chest and abdomen and pelvis was performed. After IV infusion of 70 cc of Omnipaque 300, helical CT scanning of the chest and abdomen and pelvis was performed. Multiplanar 2-D MIP reconstructions were generated. PQRS compliance Statement One or more of the following individualized dose reduction techniques were utilized for this study: 1. Automated exposure control 2. Adjustment of the mA and/or kV according to patient size 3. Use of iterative reconstruction technique COMPARISON: CT of the chest dated August 18, [address] study of the abdomen and pelvis dated December 13, 2014. CTA OF THE CHEST: No focal aneurysmal dilatation or intimal flap or dissection of the thoracic aorta is seen. The heart size is mildly enlarged. Calcified atheromatous disease of the coronary arteries is seen. No pericardial effusion is seen. No large stress lymphadenopathy is seen. The pulmonary arteries are not opacified in this study. No lung infiltrate or lung mass is seen. No pleural effusion or pneumothorax is evident. The proximal bronchial tree is patent. No osteolytic process is seen. IMPRESSION: No acute abnormality of the chest is noted. No thoracic aortic dissection is evident. CTA OF THE ABDOMEN AND PELVIS: No intimal flap or dissection or focal aneurysmal dilatation of the abdominal aorta is seen. Normal enhancement of the celiac artery and superior mesenteric artery and inferior mesenteric artery and both main renal arteries is seen. Normal enhancement of the iliac arteries is seen bilaterally. No enlarged abdominal or pelvic lymphadenopathy is seen. No uterine mass is seen. No dominant ovarian cyst or mass is evident. Urinary bladder wall is smooth. The appendix is normal. No obstructive bowel pattern is evident. No free air or free fluid or inflammatory change is seen. There is diffuse wall thickening of the stomach most likely due to incomplete distention since no GI contrast was administered. Certainly, gastritis cannot be excluded. The liver and spleen and pancreas and gallbladder are normal. No extra hepatic biliary ductal dilatation is seen. No adrenal mass is evident. Both kidneys are functioning. There is a left renal hypodense nodule measuring 31 mm. This could be seen on the previous studies but is better visualized today with IV contrast. It is slightly greater in size. It measures 60 Hounsfield units. This may represent a hyperdense cyst but recommend renal sonography for confirmation. No hydronephrosis or hydroureter is seen. The urinary bladder wall is smooth. No osteolytic process is seen. IMPRESSION: No abdominal aortic aneurysm or dissection is seen. Left renal nodule. Recommend outpatient renal sonography for further evaluation. Diffuse wall thickening of the stomach most likely due to incomplete distention. Gastritis cannot be excluded. Electronically signed by: Kevin Ng MD (02/05/2017 8:16 PM)
[2017-02-05 20:35] VITALS: BP 152/66
[2017-02-05] MEDS ORDERED: NITROGLYCERIN SUBLINGUAL 0.4 MG BOTTLE OF 25. SL PRN (21:45)
[2017-02-05] MEDS ORDERED: ALBUTEROL SULFATE 8GM INHALER. INH PRN (21:45)
[2017-02-05] MEDS ORDERED: SENNOSIDES 8.6 MG TABLET PO PRN (21:45)
[2017-02-05] MEDS ORDERED: ALBUTEROL SULFATE 2.5 MG/3 ML NEBU. NEB PRN (21:45)
[2017-02-05] MEDS ORDERED: FAMOTIDINE 20 MG TABLET. PO SCH (22:00)
[2017-02-05] MEDS ORDERED: LURASIDONE 40 MG TABLET. PO SCH (22:00)
[2017-02-05] MEDS ORDERED: ZOLPIDEM 5 MG TABLET. PO SCH ×2 (22:00)
[2017-02-05] MEDS ORDERED: ATORVASTATIN CALCIUM 40 MG TABLET. PO SCH (22:00)
[2017-02-05] MEDS ORDERED: INSULIN GLARGINE HUM REC ANLOG 70 UNIT SQ SCH (22:00)
[2017-02-05] MEDS ORDERED: METHOCARBAMOL 750 MG TABLET PO SCH (22:00)
[2017-02-05] MEDS ORDERED: AMITRIPTYLINE HCL 25 MG TABLET. PO SCH (22:00)
[2017-02-05 22:48] VITALS: BP 137/58
[2017-02-05] MEDS: HYDROcodone/APAP 10/325 1 TAB TABLET PO PRN (22:49)
[2017-02-05] MEDS: POTASSIUM CHLORIDE 20 MEQ TABLET.ER. PO SCH (22:50)
[2017-02-05] MEDS: diphenhydrAMINE HCL 25 MG CAPSULE PO SCH (22:50)
[2017-02-05] MEDS: GABAPENTIN 300 MG CAPSULE. PO SCH (22:51)
[2017-02-05] MEDS: INSULIN DETEMIR 300 UNITS/3 ML INSULN.PEN. SQ SCH (22:56)
--- NOTE | 2017-02-05 23:52 | PDOC1 ---
History and Physical Past Medical History Cardiovascular: CAD, CHF, HTN, Hyperlipidemia Pulmonary: Asthma, COPD CENTRAL NERVOUS SYSTEM: Periperal neuropathy GI: GERD Heme/Onc: No pertinent hx Hepatobiliary: No pertinent hx Psych: Anxiety, Addictions, Depression Rheumatologic: No pertinent hx Infectious disease: No pertinent hx Renal/: No pertinent hx Endocrine: Diabetes Past Surgical History Past Surgical History: Other Family History Family History: Diabetes, Stroke Social History ALCOHOL: occassional Drugs: Cocaine Current Problem List Problem List Problems Medical Problems: (1) Chest pain Status: Acute Current Medications Current Medications Current Medications Medications (Trade) Dose Ordered Sig/Justin Start Time Stop Time Status Last Admin Dose Admin Acetaminophen/ Hydrocodone Bitart (Lortab 10/325) 1 tab PRN Q6HRS PRN 02/05/17 21:45 02/05/17 22:49 1 TAB Albuterol Sulfate (Ventolin Hfa) 2 puff PRN Q4HRS PRN 02/05/17 21:45 UNV Albuterol Sulfate (Ventolin Neb Soln) 2.5 mg RTQID 02/06/17 08:00 Alprazolam (Xanax) 1 mg DAILY 02/06/17 09:00 Amitriptyline HCl (Elavil) 25 mg QHS 02/05/17 22:00 02/05/17 22:50 25 MG Aspirin (Ecotrin) 325 mg DAILYWBKFT 02/06/17 08:00 Atorvastatin Calcium (Lipitor) 80 mg QHS 02/05/17 22:00 02/05/17 22:50 80 MG Budesonide (Pulmicort) 0.5 mg RTBID 02/06/17 08:00 Cetirizine HCl (ZyrTEC) 10 mg DAILY 02/06/17 09:00 Diclofenac Sodium (Voltaren) 4 raz QID 02/06/17 09:00 Diphenhydramine HCl (Benadryl) 25 mg QID 02/05/17 22:00 02/05/17 22:50 25 MG Famotidine (Pepcid) 20 mg HS 02/05/17 22:00 02/05/17 22:50 20 MG Fentanyl Citrate (Fentanyl 2ml Vial) 100 mcg STK-MED ONCE 02/05/17 17:05 02/05/17 17:06 DC Fluticasone Propionate (Flonase) 2 spray DAILY 02/06/17 09:00 Furosemide (Lasix) 40 mg [id number] 02/06/17 09:00 Gabapentin (Neurontin) 1,200 mg TID 02/05/17 23:00 02/05/17 22:51 1,200 MG Info (Anti-Coagulation Monitoring By Pharmacy) 1 each PRN DAILY PRN 02/05/17 22:15 Info (Do NOT chart on this entry -- for MONITORING) 1 each PRN DAILY PRN 02/05/17 18:45 02/07/17 18:44 Insulin Aspart (NovoLOG) 50 units TIDWMEALS 02/06/17 08:00 Insulin Detemir (Levemir) 70 units BID 02/05/17 23:00 02/05/17 22:56 70 UNITS Iohexol (Omnipaque 350 Mg/ml) 100 ml 1X ONCE 02/05/17 18:45 02/05/17 18:46 DC 02/05/17 19:12 100 ML Isosorbide Mononitrate (Imdur) 30 mg DAILY 02/06/17 09:00 Losartan Potassium (Cozaar) 25 mg DAILY 02/06/17 09:00 Lurasidone HCl (Latuda) 40 mg QHS 02/05/17 22:00 Methocarbamol (Robaxin) 750 mg QHS 02/05/17 22:00 02/05/17 22:50 750 MG Methylprednisolone Sodium Succinate (SOLU-Medrol 125MG VIAL) 125 mg 1X ONCE 02/05/17 18:45 02/05/17 18:46 DC 02/05/17 18:46 125 MG Morphine Sulfate 2 mg PRN Q2HR PRN 02/05/17 18:30 02/06/17 18:29 Multi-Ingred Cream/Lotion/Oil/ Oint (Hydrocerin) 1 raz BID 02/06/17 09:00 Nitroglycerin (Nitrostat) 0.4 mg PRN Q5MIN PRN 02/05/17 21:45 Non-Formulary Medication 70 unit QHS 02/05/17 22:00 02/05/17 22:04 DC Ondansetron HCl (Zofran) 4 mg PRN Q8HRS PRN 02/05/17 18:30 02/06/17 18:29 Pantoprazole Sodium (Protonix) 40 mg DAILYAC 02/06/17 07:30 Potassium Chloride (Klor-Con) 20 meq BID 02/05/17 22:00 02/05/17 22:50 20 MEQ Rivaroxaban (Xarelto) 20 mg DAILYWBKFT 02/06/17 08:00 Sennosides (Senna) 17.2 mg PRN DAILY PRN 02/05/17 21:45 Zolpidem Tartrate (Ambien) 5 mg QHS 02/05/17 22:00 02/05/17 22:51 5 MG Allergies Allergies Allergies Coded Allergies Type Severity Reaction Last Updated Verified Penicillins Allergy Severe tongue swelling 04/13/15 Yes latex Allergy Severe Hives 04/13/15 Yes prochlorperazine Allergy Severe tongue swelling 04/13/15 Yes iodine Adverse Reaction Intermediate "shiver" 04/13/15 Yes ROS Review of System CONSTITUTIONAL: No fever or chills EYES: No recent changes SKIN: No rash or itching CARDIOVASCULAR: chest pain, no syncope, palpitations, or edema RESPIRATORY: No SOB or cough GASTROINTESTINAL: No nausea, vomiting or abdominal pain NEUROLOGICAL: No headaches or weakness ENDOCRINE: No cold or heat intolerance GENITOURINARY: No urgency or frequency of urination MUSCULOSKELETAL: No back pain or joint pain LYMPHATICS: No enlarged lymph nodes PSYCHIATRIC: No anxiety or depression Physical Exam Physical Exam GEN.: No apparent distress. Alert and oriented. HEENT: Head is normocephalic, atraumatic NECK: Supple. LUNGS: Clear to auscultation. HEART: RRR, S1, S2 present. Peripheral pulses intact ABDOMEN: Soft, nontender. Positive bowel sounds. EXTREMITIES: Without any cyanosis. NEUROLOGIC: Normal speech, normal tone PSYCHIATRIC: Normal affect, normal mood. SKIN: No ulcerations Vitals Vitals Vital Signs Date Time Temp Pulse Resp B/P (MAP) Pulse Ox O2 Delivery O2 Flow Rate FiO2 02/05/17 23:35 Room Air 02/05/17 22:49 97 2.0 02/05/17 22:48 96.6 50 18 137/58 (84) 96.6 Labs Labs Laboratory Tests Test 02/05/17 15:05 02/05/17 21:07 White Blood Count 7.4 x10^3/uL (4.0-11.0) Red Blood Count 4.41 x10^6/uL (3.50-5.40) Hemoglobin 12.1 g/dL (12.0-15.5) Hematocrit 36.9 % (36.0-47.0) Mean Corpuscular Volume 84 fL (79-100) Mean Corpuscular Hemoglobin 27 pg (25-35) Mean Corpuscular Hemoglobin Concent 33 g/dL (31-37) Red Cell Distribution Width 14.3 % (11.5-14.5) Platelet Count 183 x10^3/uL (140-400) Neutrophils (%) (Auto) 58 % (31-73) Lymphocytes (%) (Auto) 34 % (24-48) Monocytes (%) (Auto) 5 % (0-9) Eosinophils (%) (Auto) 2 % (0-3) Basophils (%) (Auto) 1 % (0-3) Neutrophils # (Auto) 4.3 x10^3uL (1.8-7.7) Lymphocytes # (Auto) 2.5 x10^3/uL (1.0-4.8) Monocytes # (Auto) 0.4 x10^3/uL (0.0-1.1) Eosinophils # (Auto) 0.1 x10^3/uL (0.0-0.7) Basophils # (Auto) 0.1 x10^3/uL (0.0-0.2) Prothrombin Time 12.9 SEC (11.7-14.0) Prothromb Time International Ratio 1.0 (0.8-1.1) D-Dimer (Soha) 0.31 ug/mlFEU (0.00-0.50) Sodium Level 141 mmol/L (136-145) Potassium Level 4.0 mmol/L (3.5-5.1) Chloride Level 104 mmol/L (98-107) Carbon Dioxide Level 30 mmol/L (21-32) Anion Gap 7 (6-14) Blood Urea Nitrogen 16 mg/dL (7-20) Creatinine 1.2 mg/dL (0.6-1.0) Estimated GFR (Cockcroft-Gault) 57.1 Glucose Level 308 mg/dL (70-99) Calcium Level 9.2 mg/dL (8.5-10.1) Magnesium Level 1.8 mg/dL (1.8-2.4) Total Bilirubin 0.3 mg/dL (0.2-1.0) Direct Bilirubin 0.1 mg/dL (0.0-0.2) Aspartate Amino Transf (AST/SGOT) 13 U/L (15-37) Alanine Aminotransferase (ALT/SGPT) 18 U/L (14-59) Alkaline Phosphatase 56 U/L (46-116) Creatine Kinase 91 U/L (26-192) Creatine Kinase MB (Mass) 0.9 ng/mL (0.0-3.6) Creatine Kinase MB Relative Index 1.0 % (0-4) Troponin I Quantitative 0.020 ng/mL (0.000-0.055) WC-Knp-M-Type Natriuretic Peptide 141 pg/mL (0-124) Total Protein 7.1 g/dL (6.4-8.2) Albumin 3.4 g/dL (3.4-5.0) Lipase 101 U/L (73-393) Thyroid Stimulating Hormone (TSH) 0.715 uIU/mL (0.358-3.74) Serum Test, Qualitative Negative (NEG) Glucose (Fingerstick) 303 mg/dL (70-99) Laboratory Tests Test 02/05/17 15:05 02/05/17 21:07 White Blood Count 7.4 x10^3/uL (4.0-11.0) Red Blood Count 4.41 x10^6/uL (3.50-5.40) Hemoglobin 12.1 g/dL (12.0-15.5) Hematocrit 36.9 % (36.0-47.0) Mean Corpuscular Volume 84 fL (79-100) Mean Corpuscular Hemoglobin 27 pg (25-35) Mean Corpuscular Hemoglobin Concent 33 g/dL (31-37) Red Cell Distribution Width 14.3 % (11.5-14.5) Platelet Count 183 x10^3/uL (140-400) Neutrophils (%) (Auto) 58 % (31-73) Lymphocytes (%) (Auto) 34 % (24-48) Monocytes (%) (Auto) 5 % (0-9) Eosinophils (%) (Auto) 2 % (0-3) Basophils (%) (Auto) 1 % (0-3) Neutrophils # (Auto) 4.3 x10^3uL (1.8-7.7) Lymphocytes # (Auto) 2.5 x10^3/uL (1.0-4.8) Monocytes # (Auto) 0.4 x10^3/uL (0.0-1.1) Eosinophils # (Auto) 0.1 x10^3/uL (0.0-0.7) Basophils # (Auto) 0.1 x10^3/uL (0.0-0.2) Prothrombin Time 12.9 SEC (11.7-14.0) Prothromb Time International Ratio 1.0 (0.8-1.1) D-Dimer (Soha) 0.31 ug/mlFEU (0.00-0.50) Sodium Level 141 mmol/L (136-145) Potassium Level 4.0 mmol/L (3.5-5.1) Chloride Level 104 mmol/L (98-107) Carbon Dioxide Level 30 mmol/L (21-32) Anion Gap 7 (6-14) Blood Urea Nitrogen 16 mg/dL (7-20) Creatinine 1.2 mg/dL (0.6-1.0) Estimated GFR (Cockcroft-Gault) 57.1 Glucose Level 308 mg/dL (70-99) Calcium Level 9.2 mg/dL (8.5-10.1) Magnesium Level 1.8 mg/dL (1.8-2.4) Total Bilirubin 0.3 mg/dL (0.2-1.0) Direct Bilirubin 0.1 mg/dL (0.0-0.2) Aspartate Amino Transf (AST/SGOT) 13 U/L (15-37) Alanine Aminotransferase (ALT/SGPT) 18 U/L (14-59) Alkaline Phosphatase 56 U/L (46-116) Creatine Kinase 91 U/L (26-192) Creatine Kinase MB (Mass) 0.9 ng/mL (0.0-3.6) Creatine Kinase MB Relative Index 1.0 % (0-4) Troponin I Quantitative 0.020 ng/mL (0.000-0.055) MQ-Uhb-N-Type Natriuretic Peptide 141 pg/mL (0-124) Total Protein 7.1 g/dL (6.4-8.2) Albumin 3.4 g/dL (3.4-5.0) Lipase 101 U/L (73-393) Thyroid Stimulating Hormone (TSH) 0.715 uIU/mL (0.358-3.74) Serum Test, Qualitative Negative (NEG) Glucose (Fingerstick) 303 mg/dL (70-99) VTE Prophylaxis Ordered VTE Prophylaxis Devices: Yes VTE Pharmacological Prophylaxi: Yes LYSSA BRUSH MD Feb 05, 2017 23:52
[2017-02-06] MEDS: ANTI-COAG MONITOR BY PHARMACY. MC PRN ×2 (01:37→13:30)
--- NOTE | 2017-02-06 02:03 | HP ---
ADMIT DATE: 02/05/2017 CHIEF COMPLAINT: Chest pain. HISTORY OF PRESENT ILLNESS: A 51-year-old female patient with several comorbid conditions such as coronary artery disease, COPD, depression, type 2 diabetes mellitus, presented to the ER with complaints of chest pain. She has the chest pain for the last couple of days, but slowly progressively getting worse. It is just below her rib cage and flank radiating to back. The pain is intractable in nature. Denies any nausea, vomiting or radiation to any jaw pain or claudications. The patient was taking nearly 33 medications and she was diagnosed with PE in the past. For that, she took Xarelto for nearly 6 months and recently stopped taking it. PAST MEDICAL HISTORY: Coronary artery disease, CHF, COPD, depression, type 2 diabetes mellitus, DVT, hyperlipidemia, hypertension, neuropathy, angioplasty, , cardiac stents placed and left great toe amputation and right second toe amputation. PERSONAL HISTORY: No smoking, no alcohol. Occasionally takes marijuana. FAMILY HISTORY: Hypertension. REVIEW OF SYSTEMS AND PHYSICAL EXAMINATION: Please see my electronic H and P. LABORATORY FINDINGS: CBC within normal limits. Chemistry, first set of troponin 0.020 and proBNP 141, creatinine 1.2 and GFR 57, glucose 308, sodium 141, potassium is 4.0. D-dimer 0.31. IMAGING STUDIES: CT of the chest, abdomen and pelvis showed no acute aortic dissection, a left renal nodule noted, incidental finding. Lower extremity ultrasound, no sonographic evidence of DVT. Chest x-ray, mild cardiomegaly. EKG, personally reviewed, normal sinus rhythm without any ST-T wave changes, T-wave inversions in lead I and aVL. ASSESSMENT: 1. Chest pain. 2. Hypertension. 3. Hyperglycemia. 4. Morbid obesity. 5. History of peripheral artery disease. 6. History of coronary artery disease. 7. Polypharmacy. 8. Renal nodule. PLAN: 1. The patient, given her several comorbid conditions and acute symptoms, has been admitted to the hospital. We will get 2 more sets of troponin to rule out ACS. 2. Continue supplemental oxygen on an as needed basis. 3. Pain control with IV morphine. 4. Sliding scale insulin for hyperglycemia. 5. Home medications reviewed and reconciled. 6. Ultrasound of the renal to rule out any malignancy. The patient needs outpatient followup. 7. Cardiology consultation for further recommendations for ACS, possible stress test. 8. Protonix for questionable GERD or gastritis. LYSSA BRUSH MD DR: АНДРЕЙ/sanjeev JOB#: [id number] / [id number] ML
[2017-02-06 03:00] VITALS: BP 147/60
[2017-02-06] MEDS: HYDROcodone/APAP 10/325 1 TAB TABLET PO PRN ×3 (04:46→17:24)
[2017-02-06 06:39] LABS: BASO % 0 % (0-3); EOS % 0 % (0-3); HEMATOCRIT 36.9 % (36.0-47.0); HEMOGLOBIN 11.9 g/dL (12.0-15.5); LYMPH # 0.9 x10^3/uL (1.0-4.8); LYMPH % 12 % (24-48); MEAN CORPUSCULAR HEMOGLOBIN 27 pg (25-35); MEAN CORPUSCULAR HGB CONC 32 g/dL (31-37); MEAN CORPUSCULAR VOLUME 84 fL (79-100); MONO % 1 % (0-9); NEUT % 86 % (31-73); PLATELET COUNT 174 x10^3/uL (140-400); RED BLOOD COUNT 4.41 x10^6/uL (3.50-5.40); RED CELL DISTRIBUTION WIDTH 14.5 % (11.5-14.5)
[2017-02-06 06:45] LABS: CALCIUM 9.1 mg/dL (8.5-10.1); CREATININE 1.2 mg/dL (0.6-1.0); GFR 57.1; POTASSIUM 4.7 mmol/L (3.5-5.1)
[2017-02-06 07:00] VITALS: BP 156/85
[2017-02-06 07:27] LABS: PLT ESTIMATE ADEQUATE (ADEQUATE)
[2017-02-06] MEDS ORDERED: PANTOPRAZOLE 40 MG TABLET.DR. PO SCH ×2 (07:30)
[2017-02-06] MEDS: ALBUTEROL SULFATE 2.5 MG/3 ML NEBU. NEB SCH ×3 (07:47→16:25)
[2017-02-06] MEDS ORDERED: INSULIN ASPART 300 UNITS/3 ML INSULN.PEN SQ SCH (08:00)
[2017-02-06] MEDS ORDERED: ASPIRIN ENTERIC COATED 325 MG TABLET.DR. PO SCH (08:00)
[2017-02-06] MEDS ORDERED: RIVAROXABAN 10 MG TABLET. PO SCH (08:00)
[2017-02-06] MEDS ORDERED: BUDESONIDE 0.5 MG/2 ML NEBU. NEB SCH (08:00)
[2017-02-06] MEDS ORDERED: ISOSORBIDE MONONITRATE ER 30 MG TAB.ER.24H PO SCH (09:00)
[2017-02-06] MEDS ORDERED: LOSARTAN POTASSIUM 25 MG TABLET. PO SCH (09:00)
[2017-02-06] MEDS ORDERED: CETIRIZINE HCL 10 MG TABLET. PO SCH (09:00)
[2017-02-06] MEDS ORDERED: NON FORMULARY ITEM (Fluticasone/Salmeterol (Advair 250-50 Diskus) 1 INH) IH SCH (09:00)
[2017-02-06] MEDS ORDERED: ALPRAZolam 1 MG TABLET PO SCH (09:00)
[2017-02-06] MEDS ORDERED: MINERAL OIL/PETROLATUM TOPICAL CREAM 113GM JAR. TP SCH (09:00)
[2017-02-06] MEDS ORDERED: FLUTICASONE 50MCG/NASAL SPRAY 16GM BOTTLE. NS SCH (09:00)
[2017-02-06] MEDS: diphenhydrAMINE HCL 25 MG CAPSULE PO SCH ×3 (09:30→17:00)
[2017-02-06] MEDS: FUROSEMIDE 40 MG TABLET. PO SCH ×2 (09:32→17:25)
[2017-02-06] MEDS: POTASSIUM CHLORIDE 20 MEQ TABLET.ER. PO SCH (09:32)
[2017-02-06] MEDS: GABAPENTIN 300 MG CAPSULE. PO SCH ×2 (09:32→14:30)
[2017-02-06] MEDS: DICLOFENAC SODIUM 1% TOPICAL GEL 100GM TUBE. TP SCH ×3 (09:34→16:50)
[2017-02-06] MEDS: INSULIN ASPART 300 UNITS/3 ML INSULN.PEN SQ SCH ×3 (09:42→17:00)
[2017-02-06] MEDS: INSULIN DETEMIR 300 UNITS/3 ML INSULN.PEN. SQ SCH (10:22)
[2017-02-06 10:49] VITALS: BP 162/67
--- NOTE | 2017-02-06 11:04 | RAD ---
Renal ultrasound, 02/06/2017: History: Abnormal CT The right kidney measures 14.0 cm in length while the left kidney measures 14.2 cm. There is a 2.7 cm parapelvic renal cyst on the left. This corresponds in location to the lesion seen on the recent CTA study. No other renal mass is evident. There is no evidence of hydronephrosis. The partially filled urinary bladder is unremarkable. IMPRESSION: 1. Left renal cyst. 2. The kidneys are otherwise unremarkable.
[2017-02-06 15:00] VITALS: BP 124/62
[2017-02-06] MEDS ORDERED: METR500T PO (17:24)
[2017-02-06] MEDS ORDERED: HYDR-971 PO (17:41)
[2017-02-06] MEDS ORDERED: INSULIN GLARGINE HUM REC ANLOG 70 UNIT SQ SCH (21:00)
--- NOTE | 2017-02-07 05:26 | DS ---
DATE OF DISCHARGE: 02/06/2017 CHIEF COMPLAINT: Chest pain. HOSPITAL COURSE: The patient is a 51-year-old morbidly obese -[place] woman with past medical history of CAD, COPD and depression, who presented to the Emergency Room with chest pain for a couple of days. She had been previously admitted to the hospital in 10/2016 and had a complete cardiac workup including a stress test and echo and had been found negative in all testing. Nevertheless, she was admitted and ACS was ruled out with serial enzymes. The pain was attributed to reflux disease for which she is actually on both H2 blockers and PPI. As pain was significantly improved, the patient was discharged on 02/06/2017. The patient relates that she actually has stopped her Xarelto because of planned dental visit for a cavity. She, however, states that her appointment will not be until 02/27/2017. She was therefore advised to restart her Xarelto and stop it on 02/21/2017. To assure that no abscess will form prior to surgery, a prescription for Flagyl was given as SHE IS ALLERGIC TO PENICILLIN. PHYSICAL EXAMINATION: VITAL SIGNS: From today show a blood pressure of 124/62, heart rate at 55, respiratory rate at 17. She is afebrile. GENERAL: This is a 51-year-old morbidly obese -[place] woman, alert and oriented, in no acute distress. HEENT: Shows no scleral icterus. NECK: Supple. LUNGS: Clear to auscultation bilaterally. HEART: Has regular rate and rhythm. ABDOMEN: Obese. Positive bowel sounds. EXTREMITIES: Show no edema. DISCHARGE DIAGNOSES: Chest pain, reflux disease. DISCHARGE DISPOSITION: To home. DISCHARGE CONDITION: Improved. DISCHARGE MEDICATIONS: Please refer to MAR. DISCHARGE INSTRUCTIONS: The patient will follow up with her PCP on Thursday as previously arranged. IAN BUTLER MD DR: PEGGY/nts JOB#: [id number] / [id number] FRANCA Leo MD
== END 2017-02-06 18:20 | disposition home or self-care (01) ==
LOC: ER 14:47 → 5 NORTH 17:00
PROVIDERS: ADMIT Internal Medicine; ATTEND Internal Medicine
DX: R07.9 Chest pain, unspecified (principal); K21.9 Gastro-esophageal reflux disease without esophagitis; E11.65 Type 2 diabetes mellitus with hyperglycemia; E66.01 Morbid (severe) obesity due to excess calories; E78.00 Pure hypercholesterolemia, unspecified; E78.5 Hyperlipidemia, unspecified; F32.9 Major depressive disorder, single episode, unspecified; I50.9 Heart failure, unspecified; I11.0 Hypertensive heart disease with heart failure; I25.10 Atherosclerotic heart disease of native coronary artery without angina pectoris; J44.9 Chronic obstructive pulmonary disease, unspecified; Z79.01 Long term (current) use of anticoagulants; Z82.3 Family history of stroke; Z82.49 Family history of ischemic heart disease and other diseases of the circulatory system; Z83.3 Family history of diabetes mellitus; Z86.711 Personal history of pulmonary embolism; Z88.0 Allergy status to penicillin; Z95.5 Presence of coronary angioplasty implant and graft
CPT/HCPCS: 36415; 71010; 71275; 74174; 76770; 80048; 80076; 82553; 82962; 83690; 83735; 83880; 84443; 84484; 84703; 85007; 85027; 85379; 85610; 93005; 93971; 94250; 94640; 94760; 96372; 96374; 96375; 96376; 99285; G0378; J1200; J1815; J2270; J2930; J3010; Q0163; Q9967; S0028; G0379

== ENCOUNTER 2017-02-23 11:48 | Emergency (ER) | payer OTHER ==
[~2017-02-23] VITALS: Ht 182.9 cm; Wt 149.7 kg
[~2017-02-23 11:48] MED LIST changes: +HYDR-971 PO
[2017-02-23] MEDS ORDERED: IV NORMAL SALINE 1000ML BAG 1,000 ML IV SCH (13:05)
[2017-02-23] MEDS ORDERED: MORPHINE SULFATE 4 MG/ML DISP.SYRIN. IV/SQ PRN (13:15)
[2017-02-23] MEDS ORDERED: ONDANSETRON PF 4 MG/2 ML VIAL. IV ONE (13:15)
[2017-02-23 13:27] LABS: BASO # 0.1 x10^3/uL (0.0-0.2); BASO % 1 % (0-3); EOS % 2 % (0-3); HEMATOCRIT 37.1 % (36.0-47.0); HEMOGLOBIN 12.1 g/dL (12.0-15.5); LYMPH # 2.1 x10^3/uL (1.0-4.8); LYMPH % 29 % (24-48); MEAN CORPUSCULAR HEMOGLOBIN 27 pg (25-35); MEAN CORPUSCULAR HGB CONC 33 g/dL (31-37); MEAN CORPUSCULAR VOLUME 84 fL (79-100); MONO % 6 % (0-9); NEUT % 62 % (31-73); PLATELET COUNT 199 x10^3/uL (140-400); RED BLOOD COUNT 4.42 x10^6/uL (3.50-5.40); RED CELL DISTRIBUTION WIDTH 14.5 % (11.5-14.5); WHITE BLOOD COUNT 7.1 x10^3/uL (4.0-11.0)
[2017-02-23 13:40] LABS: CREATININE 1.2 mg/dL (0.6-1.0); GFR 57.1
[2017-02-23 13:42] LABS: INR 1.2 (0.8-1.1); PROTHROMBIN TIME PATIENT 14.4 SEC (11.7-14.0)
[2017-02-23 13:47] LABS: ALBUMIN 3.4 g/dL (3.4-5.0); DIRECT BILIRUBIN 0.1 mg/dL (0.0-0.2); TOTAL BILIRUBIN 0.4 mg/dL (0.2-1.0); TOTAL PROTEIN 6.7 g/dL (6.4-8.2)
[2017-02-23 13:51] LABS: CKMB MASS 0.5 ng/mL (0.0-3.6); CREATINE KINASE 65 U/L (26-192)
--- NOTE | 2017-02-23 14:03 | PHYS DOC ---
Past Medical History Past Medical History: CAD, CHF, Depression, Diabetes-Type II, DVT, High Cholesterol, Hypertension, Other Additional Past Medical Histor: NEUROPATHY Past Surgical History: Angioplasty, , Other Additional Past Surgical Histo: CARDIAC STENTS X4, left great toe amputation, R great & 2nd toe amputation Alcohol Use: Occasionally Drug Use: Marijuana Adult General Chief Complaint Chief Complaint: ABDOMINAL PAIN HPI HPI Patient is a 51 year old female who presents with history of obesity, hypertension, hyperlipidemia, type 2 diabetes mellitus, CAD status post stent placement, CHF, DVT lower extremity diagnosed in October of this year, he's been complaining about abdominal discomfort for the last 6 weeks. She states it comes on when she eats pasta specifically and other foods as well. She describes it as a diffuse abdominal pain but more in the suprapubic area and it resolves after about 30 minutes. She states she's been eating less because of this. She does have some loose stool she states his been going on for 6 weeks as well as about 3 loose stools a day. She states she's been diagnosed with GERD in the past but this is not her GERD symptoms. She states she is unsure she's lost any weight and she's not been weighing herself. She states she's never seen a GI doctor. Review of Systems Review of Systems Constitutional: Denies fever or chills [] Eyes: Denies change in visual acuity, redness, or eye pain [] HENT: Denies nasal congestion or sore throat [] Respiratory: Denies cough or shortness of breath [] Cardiovascular: No additional information not addressed in HPI [] GI: Denies nausea, vomiting, bloody stools, positive for intermittent diarrhea and abdominal pain, : Denies dysuria or hematuria [] Musculoskeletal: Denies back pain or joint pain [] Integument: Denies rash or skin lesions [] Neurologic: Denies headache, focal weakness or sensory changes [] Endocrine: Denies polyuria or polydipsia [] Current Medications Current Medications Current Medications Medications (Trade) Dose Ordered Sig/Justin Start Time Stop Time Status Last Admin Dose Admin Info (Do NOT chart on this entry -- for MONITORING) 1 each PRN DAILY PRN 02/23/17 14:30 02/25/17 14:29 Iohexol (Omnipaque 300 Mg/ml) 75 ml 1X ONCE 02/23/17 14:15 02/23/17 14:16 DC Morphine Sulfate 4 mg PRN Q15MIN PRN 02/23/17 13:15 02/24/17 13:14 02/23/17 14:12 4 MG Ondansetron HCl (Zofran) 4 mg 1X ONCE 02/23/17 13:15 02/23/17 13:16 DC 02/23/17 14:11 4 MG Sodium Chloride 1,000 ml @ 1,000 mls/hr Q1H 02/23/17 13:05 02/23/17 14:04 DC 02/23/17 14:09 1,000 MLS/HR Allergies Allergies Allergies Coded Allergies Type Severity Reaction Last Updated Verified Penicillins Allergy Severe tongue swelling 04/13/15 Yes latex Allergy Severe Hives 04/13/15 Yes prochlorperazine Allergy Severe tongue swelling 04/13/15 Yes iodine Adverse Reaction Intermediate "shiver" 04/13/15 Yes Physical Exam Physical Exam Constitutional: Well developed, well nourished, no acute distress, non-toxic appearance. [] HENT: Normocephalic, atraumatic, bilateral external ears normal, oropharynx moist, no oral exudates, nose normal. [] Eyes: PERRLA, EOMI, conjunctiva normal, no discharge. [] Neck: Normal range of motion, no tenderness, supple, no stridor. [] Cardiovascular:Heart rate regular rhythm, no murmur [] Lungs & Thorax: Bilateral breath sounds clear to auscultation [] Abdomen: Bowel sounds normal, soft, no tenderness, no masses, no pulsatile masses. [] Skin: Warm, dry, no erythema, no rash. [] Back: No tenderness, no CVA tenderness. [] Extremities: No tenderness, no cyanosis, no clubbing, ROM intact, no edema. [] Neurologic: Alert and oriented X 3, normal motor function, normal sensory function, no focal deficits noted. [] Psychologic: Affect normal, judgement normal, mood normal. [] Current Patient Data Vital Signs Vital Signs Date Time Temp Pulse Resp B/P (MAP) Pulse Ox O2 Delivery O2 Flow Rate FiO2 02/23/17 14:12 20 99 Room Air 02/23/17 11:53 97.3 62 155/74 (101) 97.3 Lab Values Laboratory Tests Test 02/23/17 13:16 White Blood Count 7.1 x10^3/uL (4.0-11.0) Red Blood Count 4.42 x10^6/uL (3.50-5.40) Hemoglobin 12.1 g/dL (12.0-15.5) Hematocrit 37.1 % (36.0-47.0) Mean Corpuscular Volume 84 fL (79-100) Mean Corpuscular Hemoglobin 27 pg (25-35) Mean Corpuscular Hemoglobin Concent 33 g/dL (31-37) Red Cell Distribution Width 14.5 % (11.5-14.5) Platelet Count 199 x10^3/uL (140-400) Neutrophils (%) (Auto) 62 % (31-73) Lymphocytes (%) (Auto) 29 % (24-48) Monocytes (%) (Auto) 6 % (0-9) Eosinophils (%) (Auto) 2 % (0-3) Basophils (%) (Auto) 1 % (0-3) Neutrophils # (Auto) 4.4 x10^3uL (1.8-7.7) Lymphocytes # (Auto) 2.1 x10^3/uL (1.0-4.8) Monocytes # (Auto) 0.4 x10^3/uL (0.0-1.1) Eosinophils # (Auto) 0.1 x10^3/uL (0.0-0.7) Basophils # (Auto) 0.1 x10^3/uL (0.0-0.2) Prothrombin Time 14.4 SEC (11.7-14.0) H Prothrombin Time INR 1.2 (0.8-1.1) H PTT 29 SEC (24-38) Sodium Level 141 mmol/L (136-145) Potassium Level 4.0 mmol/L (3.5-5.1) Chloride Level 103 mmol/L (98-107) Carbon Dioxide Level 31 mmol/L (21-32) Anion Gap 7 (6-14) Blood Urea Nitrogen 16 mg/dL (7-20) Creatinine 1.2 mg/dL (0.6-1.0) H Estimated GFR (Cockcroft-Gault) 57.1 Glucose Level 353 mg/dL (70-99) H Calcium Level 9.0 mg/dL (8.5-10.1) Total Bilirubin 0.4 mg/dL (0.2-1.0) Direct Bilirubin 0.1 mg/dL (0.0-0.2) Aspartate Amino Transferase (AST) 12 U/L (15-37) L Alanine Aminotransferase (ALT) 18 U/L (14-59) Alkaline Phosphatase 56 U/L (46-116) Creatine Kinase 65 U/L (26-192) Creatine Kinase MB (Mass) 0.5 ng/mL (0.0-3.6) Creatine Kinase MB Relative Index % (0-4) Troponin I Quantitative < 0.017 ng/mL (0.000-0.055) Total Protein 6.7 g/dL (6.4-8.2) Albumin 3.4 g/dL (3.4-5.0) Lipase 97 U/L (73-393) Laboratory Tests 02/23/17 13:16 Laboratory Tests 02/23/17 13:16 EKG EKG EKG shows sinus rhythm rate of [address] elevations or T-wave inversions, normal axis, QTC 430 ms, as interpreted by me. Radiology/Procedures Radiology/Procedures [] Course & Med Decision Making Course & Med Decision Making Pertinent Labs and Imaging studies reviewed. (See chart for details) She is in a CT scan within the last 10 days of her chest abdomen pelvis did not show any acute abnormalities. Her symptoms are suspicious for gluten allergy or and sensitivity. She is instructed to keep track of her diet and try to avoid gluten. She is to follow-up with Dr. Verma. Is also being discharged with Bentyl as struck to it. Return precautions given she is agreeable and being discharged in stable condition this time. Dragon Disclaimer Dragon Disclaimer This electronic medical record was generated, in whole or in part, using a voice recognition dictation system. Departure Departure Impression: Primary Impression: Abdominal pain Disposition: 01 HOME, SELF-CARE Referrals: FRANCA BLACKWOOD MD (PCP) BRIGIDO HILL MD Patient Instructions: Abdominal Pain Additional Instructions: You had a CAT scan of your abdomen pelvis within the last 10 days it did not show any abnormalities. Your blood work here also did not show any acute abnormalities. Your being discharged home and he should try to avoid gluten or wheat products. You can also take Bentyl as directed for abdominal pain. You will need to follow-up with Dr. Verma. Please call his office and schedule appointment. If your pain gets worse, it's become severe, you have fevers, uncontrolled diarrhea or other concerns please return back to emergency department. Scripts Dicyclomine Hcl (BENTYL) 10 Mg Capsule 10 MG PO QID Y for PAIN, #20 TAB Prov: ASHLYN VERDIN MD 02/23/17 Problem Qualifiers Primary Impression: Abdominal pain Abdominal location: generalized Qualified Codes: R10.84 - Generalized abdominal pain ASHLYN VERDIN MD Feb 23, 2017 14:03
--- NOTE | 2017-02-23 14:08 | EKG ---
[address] [place] [address] Test Date: 2017-02-23 Test Time: 14:04:17 Pat Name: JAXSON BROOKS Department: Room: Gender: F Cylinder Checker: : 1965 Requested By: ASHLYN VERDIN Order Number: [id number] Reading MD: Jia Enamorado Measurements Intervals [place] Rate: 51 P: 53 OR: 144 QRS: 36 QRSD: 106 T: 88 QT: 472 QTc: 437 Interpretive Statements SINUS RHYTHM NORMAL EKG Electronically Signed On 02-23-2017 21:09:29 CDT by Jia Enamorado
[2017-02-23] MEDS ORDERED: IOHEXOL 300 MG/ML 75 ML VIAL IV ONE (14:15)
[2017-02-23] MEDS ORDERED: CONTRAST GIVEN MC PRN (14:30)
[2017-02-23 15:22] VITALS: BP 155/74
[2017-02-23] MEDS ORDERED: DICY10CA53 PO (15:36)
[2017-02-23] MEDS ORDERED: DICYCLOMINE HCL 10 MG CAPSULE PO ONE (16:00)
== END 2017-02-23 15:55 | disposition home or self-care (01) ==
LOC: ER 11:48
DX: R10.84 Generalized abdominal pain (principal); E66.9 Obesity, unspecified; E78.00 Pure hypercholesterolemia, unspecified; F32.9 Major depressive disorder, single episode, unspecified; I11.0 Hypertensive heart disease with heart failure; I25.10 Atherosclerotic heart disease of native coronary artery without angina pectoris; K21.9 Gastro-esophageal reflux disease without esophagitis; Z95.5 Presence of coronary angioplasty implant and graft; G62.9 Polyneuropathy, unspecified; I50.9 Heart failure, unspecified; E11.40 Type 2 diabetes mellitus with diabetic neuropathy, unspecified; E78.5 Hyperlipidemia, unspecified; F12.10 Cannabis abuse, uncomplicated; Z68.41 Body mass index [BMI] 40.0-44.9, adult; Z89.412 Acquired absence of left great toe; Z89.422 Acquired absence of other left toe(s); Z89.421 Acquired absence of other right toe(s); Z86.718 Personal history of other venous thrombosis and embolism; Z88.0 Allergy status to penicillin; Z91.040 Latex allergy status; Z88.8 Allergy status to other drugs, medicaments and biological substances; Z91.041 Radiographic dye allergy status
CPT/HCPCS: 36415; 80048; 80076; 82553; 83690; 84484; 85027; 85610; 85730; 93005; 96361; 96374; 96375; 99285; J2270; J2405; J7030

== ENCOUNTER 2017-06-06 12:40 | Inpatient (IN) | payer OTHER ==
[~2017-06-06] VITALS: Ht 182.9 cm; Wt 153.0 kg
[~2017-06-06 12:40] MED LIST changes: +DICY10CA53 PO
--- NOTE | 2017-06-06 12:43 | PHYS DOC ---
Past Medical History Past Medical History: CAD, CHF, Depression, Diabetes-Type II, DVT, High Cholesterol, Hypertension, Other Additional Past Medical Histor: NEUROPATHY Past Surgical History: Angioplasty, , Other Additional Past Surgical Histo: CARDIAC STENTS X4, left great toe amputation, R great & 2nd toe amputation Alcohol Use: Occasionally Drug Use: Marijuana Adult General Chief Complaint Chief Complaint: CHEST PAIN HPI HPI Patient is a 51 year old -Prydein[place] female who presents with chest pain. She states it started last night this been constant and she states it's a pressure sensation "like an elephant sitting on my chest". She states it goes down her left arm. She has a past history of cardiac stents, congestive heart failure, depression, DVT and is on Xeralto, hypertension and dyslipidemia. She states nothing she does makes the pain/pressure sensation better. She also feel short of breath. She tried to help bilateral breathing treatments this morning and it hasn't helped. She does take 81 mg aspirin daily. Review of Systems Review of Systems Constitutional: Denies fever or chills [] Eyes: Denies change in visual acuity, redness, or eye pain [] HENT: Denies nasal congestion or sore throat [] Respiratory: Denies cough or shortness of breath [] Cardiovascular: No additional information not addressed in HPI [] GI: Denies abdominal pain, nausea, vomiting, bloody stools or diarrhea [] : Denies dysuria or hematuria [] Musculoskeletal: Denies back pain or joint pain [] Integument: Denies rash or skin lesions [] Neurologic: Denies headache, focal weakness or sensory changes [] Endocrine: Denies polyuria or polydipsia [] Current Medications Current Medications Current Medications Medications (Trade) Dose Ordered Sig/[facility] Start Time Stop Time Status Last Admin Dose Admin Albuterol/ Ipratropium (Duoneb) 3 ml 1X ONCE 06/06/17 13:45 06/06/17 13:46 DC 06/06/17 13:52 3 ML Fentanyl Citrate (Fentanyl 2ml Vial) 25 mcg PRN Q15MIN PRN 06/06/17 13:30 06/07/17 13:29 06/06/17 14:17 25 MCG Nitroglycerin (Nitrostat) 0.4 mg PRN Q5MIN PRN 06/06/17 12:45 06/07/17 12:44 06/06/17 14:17 0.4 MG Allergies Allergies Allergies Coded Allergies Type Severity Reaction Last Updated Verified Penicillins Allergy Severe tongue swelling, HIVES, ANGIOEDEMA 06/06/17 Yes latex Allergy Severe Hives, N/V 06/06/17 Yes prochlorperazine Allergy Severe tongue swelling, ANGIOEDEMA 06/06/17 Yes iodine Allergy Intermediate "shiver", N/V 06/06/17 Yes doxycycline Allergy Unknown ITCHING 06/06/17 Yes Physical Exam Physical Exam Constitutional: Well developed, well nourished, no acute distress, non-toxic appearance. [] HENT: Normocephalic, atraumatic, bilateral external ears normal, oropharynx moist, no oral exudates, nose normal. [] Eyes: PERRLA, EOMI, conjunctiva normal, no discharge. [] Neck: Normal range of motion, no tenderness, supple, no stridor. [] Cardiovascular:Heart rate regular rhythm, no murmur [] Lungs & Thorax: Bilateral breath sounds clear to auscultation [] Abdomen: Bowel sounds normal, soft, no tenderness, no masses, no pulsatile masses. [] Skin: Warm, dry, no erythema, no rash. [] Back: No tenderness, no CVA tenderness. [] Extremities: No tenderness, no cyanosis, no clubbing, ROM intact, no edema. [] Neurologic: Alert and oriented X 3, normal motor function, normal sensory function, no focal deficits noted. [] Psychologic: Affect normal, judgement normal, mood normal. [] Current Patient Data Vital Signs Vital Signs Date Time Temp Pulse Resp B/P (MAP) Pulse Ox O2 Delivery O2 Flow Rate FiO2 06/06/17 14:17 18 94 Room Air 06/06/17 14:17 68 149/80 06/06/17 12:45 98.5 98.5 Lab Values Laboratory Tests Test 06/06/17 13:23 White Blood Count 7.3 x10^3/uL (4.0-11.0) Red Blood Count 4.17 x10^6/uL (3.50-5.40) Hemoglobin 11.3 g/dL (12.0-15.5) L Hematocrit 35.1 % (36.0-47.0) L Mean Corpuscular Volume 84 fL (79-100) Mean Corpuscular Hemoglobin 27 pg (25-35) Mean Corpuscular Hemoglobin Concent 32 g/dL (31-37) Red Cell Distribution Width 14.2 % (11.5-14.5) Platelet Count 218 x10^3/uL (140-400) Neutrophils (%) (Auto) 60 % (31-73) Lymphocytes (%) (Auto) 30 % (24-48) Monocytes (%) (Auto) 8 % (0-9) Eosinophils (%) (Auto) 2 % (0-3) Basophils (%) (Auto) 0 % (0-3) Neutrophils # (Auto) 4.4 x10^3uL (1.8-7.7) Lymphocytes # (Auto) 2.2 x10^3/uL (1.0-4.8) Monocytes # (Auto) 0.6 x10^3/uL (0.0-1.1) Eosinophils # (Auto) 0.2 x10^3/uL (0.0-0.7) Basophils # (Auto) 0.0 x10^3/uL (0.0-0.2) Sodium Level 142 mmol/L (136-145) Potassium Level 3.9 mmol/L (3.5-5.1) Chloride Level 105 mmol/L (98-107) Carbon Dioxide Level 31 mmol/L (21-32) Anion Gap 6 (6-14) Blood Urea Nitrogen 12 mg/dL (7-20) Creatinine 1.2 mg/dL (0.6-1.0) H Estimated GFR (Cockcroft-Gault) 57.1 Glucose Level 229 mg/dL (70-99) H Calcium Level 8.7 mg/dL (8.5-10.1) Magnesium Level 1.8 mg/dL (1.8-2.4) Total Bilirubin 0.3 mg/dL (0.2-1.0) Direct Bilirubin < 0.1 mg/dL (0.0-0.2) Aspartate Amino Transferase (AST) 8 U/L (15-37) L Alanine Aminotransferase (ALT) 18 U/L (14-59) Alkaline Phosphatase 63 U/L (46-116) Creatine Kinase 87 U/L (26-192) Creatine Kinase MB (Mass) 0.5 ng/mL (0.0-3.6) Creatine Kinase MB Relative Index 0.6 % (0-4) Troponin I Quantitative < 0.017 ng/mL (0.000-0.055) WG-Xhc-E-Type Natriuretic Peptide 144 pg/mL (0-124) H Total Protein 6.8 g/dL (6.4-8.2) Albumin 3.0 g/dL (3.4-5.0) L Lipase 135 U/L (73-393) Laboratory Tests 06/06/17 13:23 Laboratory Tests 06/06/17 13:23 EKG EKG EKG shows sinus rhythm with rate [address] elevations or concerning T-wave inversions, right axis deviation noted, QTC 463 ms, as interpreted by me. Radiology/Procedures Radiology/Procedures [facility] [address] [place] [address] IMAGING REPORT Signed PATIENT: JAXSON BROOKS ACCOUNT: [id number] : 1965 LOCATION: ER AGE: 51 SEX: F EXAM STATUS: PRE ER ORD. PHYSICIAN: ASHLYN VERDIN MD REASON: chest pain PROCEDURE: PORTABLE CHEST 1V Portable chest, 06/06/2017: History: Chest pain Comparison is made to a study from 02/05/2017. The heart is mildly enlarged. The pulmonary vascularity is at the upper limits of normal. No pulmonary infiltrates are seen. There is no evidence of pleural fluid. Moderate spurring is present in the spine. IMPRESSION: Mild cardiomegaly DICTATED and SIGNED BY: SRINATH SALINAS MD DATE: 06/06/17 1258 CC: ASHLYN VERDIN MD; FRANCA BLACKWOOD MD ~ Impressions: Chest pain COPD Congestive heart failure Depression Hypertension Coronary artery disease Dyslipidemia Course & Med Decision Making Course & Med Decision Making Pertinent Labs and Imaging studies reviewed. (See chart for details) Patient's labs, chest x-ray, EKG are nonacute. Her discomfort improved after a DuoNeb. We'll admit for rule out. Interim orders to the hospitalist has been written with her approval and consult for cardiology is been placed. Patient is anticoagulated on Xeralto, I do not believe she has a PE or other concerning symptoms. She is in stable condition at this time. Dragon Disclaimer Dragon Disclaimer This electronic medical record was generated, in whole or in part, using a voice recognition dictation system. Departure Departure Impression: Primary Impression: Chest pain Disposition: ADMITTED INPATIENT Admitting Physician: Negro Mena Condition: STABLE Referrals: FRANCA BLACKWOOD MD (PCP) Problem Qualifiers Primary Impression: Chest pain Chest pain type: other chest pain Qualified Codes: R07.89 - Other chest pain ASHLYN VERDIN MD Jun 06, 2017 12:43
--- NOTE | 2017-06-06 13:01 | RAD ---
Portable chest, 06/06/2017: History: Chest pain Comparison is made to a study from 02/05/2017. The heart is mildly enlarged. The pulmonary vascularity is at the upper limits of normal. No pulmonary infiltrates are seen. There is no evidence of pleural fluid. Moderate spurring is present in the spine. IMPRESSION: Mild cardiomegaly
[2017-06-06] MEDS: fentaNYL PF VIAL 100 MCG/2 ML VIAL IV PRN ×2 (13:24→14:17)
[2017-06-06] MEDS: NITROGLYCERIN SUBLINGUAL 0.4 MG BOTTLE OF 25. SL PRN ×2 (13:25→14:17)
[2017-06-06 13:31] LABS: BASO % 0 % (0-3); EOS % 2 % (0-3); HEMATOCRIT 35.1 % (36.0-47.0); HEMOGLOBIN 11.3 g/dL (12.0-15.5); LYMPH # 2.2 x10^3/uL (1.0-4.8); LYMPH % 30 % (24-48); MEAN CORPUSCULAR HEMOGLOBIN 27 pg (25-35); MEAN CORPUSCULAR HGB CONC 32 g/dL (31-37); MEAN CORPUSCULAR VOLUME 84 fL (79-100); MONO % 8 % (0-9); NEUT % 60 % (31-73); PLATELET COUNT 218 x10^3/uL (140-400); RED BLOOD COUNT 4.17 x10^6/uL (3.50-5.40); RED CELL DISTRIBUTION WIDTH 14.2 % (11.5-14.5); WHITE BLOOD COUNT 7.3 x10^3/uL (4.0-11.0)
[2017-06-06] MEDS ORDERED: IPRATRPIUM/ALBUTEROL 0.5/2.5MG 3 ML NEBU. NEB ONE (13:45)
[2017-06-06 13:51] LABS: ANION GAP 6 (6-14); BLOOD UREA NITROGEN 12 mg/dL (7-20); CALCIUM 8.7 mg/dL (8.5-10.1); CARBON DIOXIDE 31 mmol/L (21-32); CHLORIDE 105 mmol/L (98-107); CREATININE 1.2 mg/dL (0.6-1.0); GFR 57.1; GLUCOSE 229 mg/dL (70-99); POTASSIUM 3.9 mmol/L (3.5-5.1); SODIUM 142 mmol/L (136-145)
[2017-06-06 13:56] LABS: ALK PHOS 63 U/L (46-116); ALT (SGPT) 18 U/L (14-59); AST (SGOT) 8 U/L (15-37); DIRECT BILIRUBIN < 0.1 mg/dL (0.0-0.2); MAGNESIUM 1.8 mg/dL (1.8-2.4); TOTAL BILIRUBIN 0.3 mg/dL (0.2-1.0); TOTAL PROTEIN 6.8 g/dL (6.4-8.2)
[2017-06-06 14:03] LABS: CKMB MASS 0.5 ng/mL (0.0-3.6)
[2017-06-06] MEDS ORDERED: ONDANSETRON PF 4 MG/2 ML VIAL. IV PRN ×2 (16:15→17:30)
[2017-06-06] MEDS ORDERED: ASPIRIN 325 MG TABLET PO ONE (16:15)
[2017-06-06] MEDS ORDERED: hydrALAZINE 20 MG/ML VIAL. IVP PRN (17:30)
[2017-06-06] MEDS ORDERED: SENNOSIDES 8.6 MG TABLET PO PRN (17:30)
[2017-06-06] MEDS ORDERED: traMADol 50 MG TABLET PO PRN (17:30)
[2017-06-06] MEDS ORDERED: ACETAMINOPHEN 325 MG TABLET. PO PRN (17:30)
[2017-06-06] MEDS ORDERED: PNEUMOCOCCAL VAX SCREEN BY RX. MC PRN (17:30)
[2017-06-06] MEDS ORDERED: DOCUSATE SODIUM 100 MG CAPSULE. PO PRN (17:30)
[2017-06-06] MEDS ORDERED: NITROGLYCERIN SUBLINGUAL 0.4 MG BOTTLE OF 25. SL PRN (17:30)
[2017-06-06] MEDS ORDERED: HYDROcodone/APAP 5/325MG 1 TAB TABLET PO PRN (17:30)
[2017-06-06] MEDS ORDERED: MORPHINE SULFATE 2 MG/ML DISP.SYRIN. IV PRN (17:30)
[2017-06-06] MEDS ORDERED: ALBUTEROL SULFATE 8GM INHALER. INH PRN (17:30)
[2017-06-06] MEDS ORDERED: INFLUENZA VAX SCREEN BY RX. MC PRN (17:30)
--- NOTE | 2017-06-06 17:37 | PDOC1 ---
History and Physical Date of Admission Date of Admission 06/06/17 Identification/Chief Complaint Chief Complaint chest pain Problems: Source Source: Chart review, Patient History of Present Illness History of Present Illness HPI HPI Patient is a 51 year old -Tajik female who presents with chest pain since last night. Pt had h/o cath 2 times last time was 2014 with stents. She said she was lying in bed last night, with substernal chest pain, heavy, radiating to right shoulder, with diaphoresis, sob, and nausea, no vomiting. denies fever, chills, cough. has 2 days diarrhea, loose , 2 times daily. pt was here 10/2016, MPI neg. echo ok. came here again 01/2017 for same chest pain, nothing was done. in ER, CE, EKG no acute change. Past Medical History Cardiovascular: CAD, CHF, HTN, Hyperlipidemia Pulmonary: Asthma, COPD CENTRAL NERVOUS SYSTEM: Periperal neuropathy GI: GERD Heme/Onc: No pertinent hx Hepatobiliary: No pertinent hx Psych: Anxiety, Addictions, Depression Rheumatologic: No pertinent hx Infectious disease: No pertinent hx Renal/: No pertinent hx Endocrine: Diabetes Past Surgical History Past Surgical History: Other Family History Family History: Diabetes, Stroke Social History Smoke: No ALCOHOL: occassional Drugs: Cocaine Current Problem List Problem List Problems Medical Problems: (1) Chest pain Status: Acute Current Medications Current Medications Current Medications Medications (Trade) Dose Ordered Sig/[facility] Start Time Stop Time Status Last Admin Dose Admin Albuterol/ Ipratropium (Duoneb) 3 ml 1X ONCE 06/06/17 13:45 06/06/17 13:46 DC 06/06/17 13:52 3 ML Aspirin (Orlin Aspirin) 325 mg 1X ONCE 06/06/17 16:15 06/06/17 16:18 DC 06/06/17 16:37 325 MG Fentanyl Citrate (Fentanyl 2ml Vial) 25 mcg PRN Q15MIN PRN 06/06/17 13:30 06/07/17 13:29 06/06/17 14:17 25 MCG Info (Do NOT chart on this placeholder) 1 each PRN 1X PRN 06/06/17 17:30 UNV Nitroglycerin (Nitrostat) 0.4 mg PRN Q5MIN PRN 06/06/17 12:45 06/07/17 12:44 06/06/17 14:17 0.4 MG Ondansetron HCl (Zofran) 4 mg PRN Q8HRS PRN 06/06/17 16:15 06/07/17 16:14 Pneumococcal Polyvalent Vaccine (Do NOT chart on this placeholder) 1 each PRN 1X PRN 06/06/17 17:30 UNV Allergies Allergies Allergies Coded Allergies Type Severity Reaction Last Updated Verified Penicillins Allergy Severe tongue swelling, HIVES, ANGIOEDEMA 06/06/17 Yes latex Allergy Severe Hives, N/V 06/06/17 Yes prochlorperazine Allergy Severe tongue swelling, ANGIOEDEMA 06/06/17 Yes doxycycline Allergy Intermediate ITCHING 06/06/17 Yes gluten Allergy Intermediate 06/06/17 Yes iodine Allergy Intermediate "shiver", N/V 06/06/17 Yes ROS Review of System CONSTITUTIONAL: No fever or chills EYES: No recent changes SKIN: No rash or itching CARDIOVASCULAR: No chest pain, syncope, palpitations, or edema RESPIRATORY: No SOB or cough GASTROINTESTINAL: No nausea, vomiting or abdominal pain NEUROLOGICAL: No headaches or weakness ENDOCRINE: No cold or heat intolerance GENITOURINARY: No urgency or frequency of urination MUSCULOSKELETAL: No back pain or joint pain LYMPHATICS: No enlarged lymph nodes PSYCHIATRIC: No anxiety or depression Physical Exam Physical Exam GEN.: No apparent distress. Alert and oriented. HEENT: Head is normocephalic, atraumatic NECK: Supple. LUNGS: Clear to auscultation. HEART: RRR, S1, S2 present. Peripheral pulses intact ABDOMEN: Soft, nontender. Positive bowel sounds. EXTREMITIES: Without any cyanosis. NEUROLOGIC: Normal speech, normal tone PSYCHIATRIC: Normal affect, normal mood. SKIN: No ulcerations Vitals Vitals Vital Signs Date Time Temp Pulse Resp B/P (MAP) Pulse Ox O2 Delivery O2 Flow Rate FiO2 06/06/17 16:16 55 153/63 (93) 96 Room Air 06/06/17 15:19 17 06/06/17 12:45 98.5 98.5 Labs Labs Laboratory Tests Test 06/06/17 13:23 White Blood Count 7.3 x10^3/uL (4.0-11.0) Red Blood Count 4.17 x10^6/uL (3.50-5.40) Hemoglobin 11.3 g/dL (12.0-15.5) Hematocrit 35.1 % (36.0-47.0) Mean Corpuscular Volume 84 fL (79-100) Mean Corpuscular Hemoglobin 27 pg (25-35) Mean Corpuscular Hemoglobin Concent 32 g/dL (31-37) Red Cell Distribution Width 14.2 % (11.5-14.5) Platelet Count 218 x10^3/uL (140-400) Neutrophils (%) (Auto) 60 % (31-73) Lymphocytes (%) (Auto) 30 % (24-48) Monocytes (%) (Auto) 8 % (0-9) Eosinophils (%) (Auto) 2 % (0-3) Basophils (%) (Auto) 0 % (0-3) Neutrophils # (Auto) 4.4 x10^3uL (1.8-7.7) Lymphocytes # (Auto) 2.2 x10^3/uL (1.0-4.8) Monocytes # (Auto) 0.6 x10^3/uL (0.0-1.1) Eosinophils # (Auto) 0.2 x10^3/uL (0.0-0.7) Basophils # (Auto) 0.0 x10^3/uL (0.0-0.2) Sodium Level 142 mmol/L (136-145) Potassium Level 3.9 mmol/L (3.5-5.1) Chloride Level 105 mmol/L (98-107) Carbon Dioxide Level 31 mmol/L (21-32) Anion Gap 6 (6-14) Blood Urea Nitrogen 12 mg/dL (7-20) Creatinine 1.2 mg/dL (0.6-1.0) Estimated GFR (Cockcroft-Gault) 57.1 Glucose Level 229 mg/dL (70-99) Calcium Level 8.7 mg/dL (8.5-10.1) Magnesium Level 1.8 mg/dL (1.8-2.4) Total Bilirubin 0.3 mg/dL (0.2-1.0) Direct Bilirubin < 0.1 mg/dL (0.0-0.2) Aspartate Amino Transf (AST/SGOT) 8 U/L (15-37) Alanine Aminotransferase (ALT/SGPT) 18 U/L (14-59) Alkaline Phosphatase 63 U/L (46-116) Creatine Kinase 87 U/L (26-192) Creatine Kinase MB (Mass) 0.5 ng/mL (0.0-3.6) Creatine Kinase MB Relative Index 0.6 % (0-4) Troponin I Quantitative < 0.017 ng/mL (0.000-0.055) NZ-Vft-G-Type Natriuretic Peptide 144 pg/mL (0-124) Total Protein 6.8 g/dL (6.4-8.2) Albumin 3.0 g/dL (3.4-5.0) Lipase 135 U/L (73-393) Laboratory Tests Test 06/06/17 13:23 White Blood Count 7.3 x10^3/uL (4.0-11.0) Red Blood Count 4.17 x10^6/uL (3.50-5.40) Hemoglobin 11.3 g/dL (12.0-15.5) Hematocrit 35.1 % (36.0-47.0) Mean Corpuscular Volume 84 fL (79-100) Mean Corpuscular Hemoglobin 27 pg (25-35) Mean Corpuscular Hemoglobin Concent 32 g/dL (31-37) Red Cell Distribution Width 14.2 % (11.5-14.5) Platelet Count 218 x10^3/uL (140-400) Neutrophils (%) (Auto) 60 % (31-73) Lymphocytes (%) (Auto) 30 % (24-48) Monocytes (%) (Auto) 8 % (0-9) Eosinophils (%) (Auto) 2 % (0-3) Basophils (%) (Auto) 0 % (0-3) Neutrophils # (Auto) 4.4 x10^3uL (1.8-7.7) Lymphocytes # (Auto) 2.2 x10^3/uL (1.0-4.8) Monocytes # (Auto) 0.6 x10^3/uL (0.0-1.1) Eosinophils # (Auto) 0.2 x10^3/uL (0.0-0.7) Basophils # (Auto) 0.0 x10^3/uL (0.0-0.2) Sodium Level 142 mmol/L (136-145) Potassium Level 3.9 mmol/L (3.5-5.1) Chloride Level 105 mmol/L (98-107) Carbon Dioxide Level 31 mmol/L (21-32) Anion Gap 6 (6-14) Blood Urea Nitrogen 12 mg/dL (7-20) Creatinine 1.2 mg/dL (0.6-1.0) Estimated GFR (Cockcroft-Gault) 57.1 Glucose Level 229 mg/dL (70-99) Calcium Level 8.7 mg/dL (8.5-10.1) Magnesium Level 1.8 mg/dL (1.8-2.4) Total Bilirubin 0.3 mg/dL (0.2-1.0) Direct Bilirubin < 0.1 mg/dL (0.0-0.2) Aspartate Amino Transf (AST/SGOT) 8 U/L (15-37) Alanine Aminotransferase (ALT/SGPT) 18 U/L (14-59) Alkaline Phosphatase 63 U/L (46-116) Creatine Kinase 87 U/L (26-192) Creatine Kinase MB (Mass) 0.5 ng/mL (0.0-3.6) Creatine Kinase MB Relative Index 0.6 % (0-4) Troponin I Quantitative < 0.017 ng/mL (0.000-0.055) WB-Ktg-T-Type Natriuretic Peptide 144 pg/mL (0-124) Total Protein 6.8 g/dL (6.4-8.2) Albumin 3.0 g/dL (3.4-5.0) Lipase 135 U/L (73-393) VTE Prophylaxis Ordered VTE Prophylaxis Devices: Yes VTE Pharmacological Prophylaxi: No Assessment/Plan Assessment/Plan chest pain, need to rule out unstable angina, could 2/2 anxiety h/o CAD with pci GERD H/O MILD diastolic CHF, STABLE htn dm2 on insulin h/o DVT on xarelto htn hld morbid obesity BMI 44 left great toe amputation, R great & 2nd toe amputation h/o drug abuse with cocaine, marijuana ckd3 mild malnutrition leg neuropathy plan: card consult cycle CE drug tox cont home meds, need verity on high dose insulin, SSI on xarelto nitro prn KAREN VELASQUEZ MD Jun 06, 2017 17:37
[2017-06-06] MEDS ORDERED: ALBUTEROL SULFATE 2.5 MG/3 ML NEBU. NEB PRN (17:45)
[2017-06-06] MEDS ORDERED: DEXTROSE 50% 25 GM / 50ML DISP.SYRIN. IV PRN (17:45)
[2017-06-06] MEDS ORDERED: LURASIDONE 40 MG TABLET. PO SCH (18:00)
[2017-06-06] MEDS ORDERED: INSULIN ASPART 300 UNITS/3 ML INSULN.PEN SQ SCH (18:00)
[2017-06-06] MEDS ORDERED: RIVAROXABAN 10 MG TABLET. PO SCH (18:00)
[2017-06-06] MEDS ORDERED: FLU VACC QS2017-18 (36MOS+)/PF 0.5 ML SYRINGE. VAX IM ONE (18:00)
[2017-06-06] MEDS ORDERED: PNEUMOC CONJ VACC 23-VALENT 0.5 ML VIAL. VAX IM ONE (18:00)
[2017-06-06] MEDS ORDERED: ASPI-630 PO (18:02)
--- NOTE | 2017-06-06 18:03 | CONS ---
DATE OF CONSULTATION: 06/06/2017 REASON FOR CONSULTATION: Chest pain. HISTORY OF PRESENT ILLNESS: The patient is a pleasant 51-year-old woman who comes into the Emergency Department with chest pain. She reports that she had some chest pain yesterday evening prior to presentation and prior to that, she had been having some dyspnea. Her dyspnea did not resolve with her inhalers. She does have a prior history of coronary artery disease and states that this pain is similar to when she had her previous stents placed. She denies any stigmata of palpitations or syncope. She has not been hospitalized for any chest pain issues in the last month. She was admitted to the hospital in 11/2016 with similar complaints and at which time she had a normal stress test and was discharged in a stable condition. She usually follows with Dr. Veras of Cardiology. PAST MEDICAL HISTORY: 1. Coronary artery disease status post PCI to the proximal circumflex and obtuse marginal vessel in 2012 and KATLYN to the RCA and left circumflex in 2014. 2. Diastolic heart failure. 3. Hypertension. 4. Dyslipidemia. 5. Morbid obesity. 6. Asthma. 7. COPD. 8. GERD. 9. DVT, on Xarelto. PAST SURGICAL HISTORY: None. FAMILY HISTORY: Diabetes and stroke. SOCIAL HISTORY: No alcohol, tobacco or illicit drug use. CURRENT CARDIOVASCULAR MEDICATIONS: See medication administration record. ALLERGIES: IODINE, LATEX, PENICILLIN AND PROCHLORPERAZINE. REVIEW OF SYSTEMS: Negative for 10 out of 14 systems reviewed, unless otherwise mentioned above in HPI. PHYSICAL EXAMINATION: GENERAL: She is alert and oriented, no acute distress. HEAD AND NECK: Unremarkable. LUNGS: Mild end-expiratory wheezing. HEART: Regular rate and rhythm without any murmurs, rubs or gallops. ABDOMEN: Obese, nontender, nondistended. EXTREMITIES: No significant clubbing, cyanosis or edema. 2+ radial and dorsalis pedis pulses. SKIN: No breakdown. NEUROLOGIC: No focal deficits. PSYCHIATRIC: Normal mood and affect. MUSCULOSKELETAL: No significant trauma. DIAGNOSTIC STUDIES: Normal troponin. Echocardiogram dated 10/2016 and a stress test dated 10/2016 reveals normal LV function without any significant valvular abnormalities with preserved perfusion and no ischemia. IMPRESSION: 1. Recurrent atypical chest pain concerning for possible underlying restenosis. 2. Chronic diastolic heart failure, currently compensated. 3. Coronary artery disease. 4. Hypertension. RECOMMENDATIONS: 1. At this present time, given her recurrent admissions to the hospital with repeat chest pain, we will pursue a cardiac catheterization in light of her significant underlying high pretest probability. 2. Continue home medications. 3. check utox to rule out cocaine use, positive this past year. Thank you for this consultation. KARTHIKEYAN COREA MD DR: MICHAEL/sanjeev JOB#: [id number] / [id number]
[2017-06-06] MEDS: INSULIN ASPART 300 UNITS/3 ML INSULN.PEN SQ SCH (18:13)
[2017-06-06] MEDS: HYDROcodone/APAP 7.5/325MG 1 TAB TABLET PO PRN (18:14)
[2017-06-06] MEDS ORDERED: ALPR2TAB5 PO (18:21)
[2017-06-06] MEDS ORDERED: INSU100I13 SQ (18:27)
[2017-06-06] MEDS ORDERED: METH-38 PO (18:31)
[2017-06-06] MEDS ORDERED: LANS30CA PO (18:31)
[2017-06-06] MEDS ORDERED: IPRA3AMP NEB (18:38)
[2017-06-06] MEDS ORDERED: DIPH1TAB PO (18:38)
[2017-06-06] MEDS ORDERED: FAMO20TA5 PO (18:38)
[2017-06-06] MEDS ORDERED: SENN8.6T99 PO (18:38)
[2017-06-06] MEDS ORDERED: PROM6.25 PO (18:38)
[2017-06-06] MEDS ORDERED: FLUO20CA16 PO (18:38)
[2017-06-06] MEDS ORDERED: DIPH25CA58 PO (18:38)
[2017-06-06] MEDS ORDERED: OXYC-328 PO (18:40)
[2017-06-06] MEDS ORDERED: TICA90TA PO (18:40)
[2017-06-06] MEDS ORDERED: OXYC5CAP PO (18:41)
[2017-06-06 19:15] VITALS: BP 167/72
[2017-06-06] MEDS: BUDESONIDE 0.5 MG/2 ML NEBU. NEB SCH (19:15)
[2017-06-06] MEDS: ALBUTEROL SULFATE 2.5 MG/3 ML NEBU. NEB SCH (19:15)
[2017-06-06] MEDS: DICLOFENAC SODIUM 1% TOPICAL GEL 100GM TUBE. TP SCH (21:00)
[2017-06-06] MEDS ORDERED: NON FORMULARY ITEM (Fluticasone/Salmeterol (Advair 250-50 Diskus) 1 INH) IH SCH (21:00)
[2017-06-06] MEDS ORDERED: METHOCARBAMOL 750 MG TABLET PO SCH (21:00)
[2017-06-06] MEDS ORDERED: INSULIN DETEMIR 300 UNITS/3 ML INSULN.PEN. SQ SCH ×2 (21:00)
[2017-06-06] MEDS ORDERED: AMITRIPTYLINE HCL 25 MG TABLET. PO SCH (21:00)
[2017-06-06] MEDS: ZOLPIDEM 5 MG TABLET. PO SCH (22:26)
[2017-06-06] MEDS: GABAPENTIN 300 MG CAPSULE. PO SCH (22:27)
[2017-06-06] MEDS: DICYCLOMINE HCL 10 MG CAPSULE PO PRN (22:27)
[2017-06-06] MEDS: ATORVASTATIN CALCIUM 40 MG TABLET. PO SCH (22:27)
[2017-06-06] MEDS: METHOCARBAMOL 750 MG TABLET PO SCH (22:29)
[2017-06-06] MEDS: INSULIN DETEMIR 300 UNITS/3 ML INSULN.PEN. SQ SCH (22:41)
[2017-06-06 23:05] VITALS: BP 97/61
[2017-06-07] MEDS: HYDROcodone/APAP 7.5/325MG 1 TAB TABLET PO PRN ×4 (00:05→21:12)
[2017-06-07] MEDS: diphenhydrAMINE HCL 25 MG CAPSULE PO SCH ×4 (00:05→20:29)
[2017-06-07 03:45] VITALS: BP 126/69
[2017-06-07 06:09] LABS: BASO % 1 % (0-3); EOS % 2 % (0-3); HEMATOCRIT 33.6 % (36.0-47.0); HEMOGLOBIN 10.9 g/dL (12.0-15.5); LYMPH # 2.5 x10^3/uL (1.0-4.8); LYMPH % 35 % (24-48); MEAN CORPUSCULAR HEMOGLOBIN 27 pg (25-35); MEAN CORPUSCULAR HGB CONC 32 g/dL (31-37); MEAN CORPUSCULAR VOLUME 85 fL (79-100); MONO % 9 % (0-9); NEUT % 54 % (31-73); PLATELET COUNT 212 x10^3/uL (140-400); RED BLOOD COUNT 3.98 x10^6/uL (3.50-5.40); RED CELL DISTRIBUTION WIDTH 14.5 % (11.5-14.5); WHITE BLOOD COUNT 7.1 x10^3/uL (4.0-11.0)
[2017-06-07 06:32] LABS: CALCIUM 8.9 mg/dL (8.5-10.1); CREATININE 1.1 mg/dL (0.6-1.0); GFR 63.1; POTASSIUM 3.7 mmol/L (3.5-5.1)
[2017-06-07] MEDS: BUDESONIDE 0.5 MG/2 ML NEBU. NEB SCH ×2 (07:36→19:11)
[2017-06-07] MEDS: ALBUTEROL SULFATE 2.5 MG/3 ML NEBU. NEB SCH (07:36)
[2017-06-07 07:50] VITALS: BP 128/59
[2017-06-07] MEDS: FLUoxetine HCL 20 MG CAPSULE PO SCH (08:00)
[2017-06-07] MEDS ORDERED: INSULIN ASPART 300 UNITS/3 ML INSULN.PEN SQ SCH (08:00)
--- NOTE | 2017-06-07 08:34 | PDOC ---
Provider Note Provider Note No events overnight. plan for cath tomorrow. thanks KARTHIKEYAN COREA MD Jun 07, 2017 08:34
[2017-06-07] MEDS: CETIRIZINE HCL 10 MG TABLET. PO SCH (08:43)
[2017-06-07] MEDS: GABAPENTIN 300 MG CAPSULE. PO SCH ×2 (08:44→20:31)
[2017-06-07] MEDS: DICYCLOMINE HCL 10 MG CAPSULE PO PRN ×2 (08:44→20:29)
[2017-06-07] MEDS: FUROSEMIDE 40 MG TABLET. PO SCH ×2 (08:44→13:29)
[2017-06-07] MEDS: POTASSIUM CHLORIDE 20 MEQ TABLET.ER. PO SCH ×2 (08:44→17:40)
[2017-06-07] MEDS: LOSARTAN POTASSIUM 25 MG TABLET. PO SCH (08:45)
[2017-06-07] MEDS: PANTOPRAZOLE 40 MG TABLET.DR. PO SCH (08:45)
[2017-06-07] MEDS: ASPIRIN ENTERIC COATED 325 MG TABLET.DR. PO SCH (08:45)
[2017-06-07] MEDS: INSULIN ASPART 300 UNITS/3 ML INSULN.PEN SQ SCH ×6 (08:50→17:43)
[2017-06-07] MEDS: FLUTICASONE 50MCG/NASAL SPRAY 16GM BOTTLE. NS SCH (08:51)
[2017-06-07] MEDS: FAMOTIDINE 20 MG TABLET. PO SCH (08:52)
[2017-06-07] MEDS: ALPRAZolam 1 MG TABLET PO SCH (08:52)
[2017-06-07] MEDS: DICLOFENAC SODIUM 1% TOPICAL GEL 100GM TUBE. TP SCH ×4 (08:52→20:32)
[2017-06-07] MEDS ORDERED: NON FORMULARY ITEM (Lansoprazole 1 CAP) PO SCH (09:00)
[2017-06-07] MEDS ORDERED: ASPIRIN CHEWABLE 81 MG TABLET. PO SCH (09:00)
[2017-06-07 11:00] VITALS: BP 124/62
[2017-06-07] MEDS: PROMETHAZINE 6.25 MG/5 ML SYRUP. PO SCH ×3 (11:46→20:30)
--- NOTE | 2017-06-07 12:13 | EKG ---
[facility] [address] [place] [address] Test Date: 2017-06-06 Test Time: 12:50:19 Pat Name: JAXSON BROOKS Department: Room: Gender: F Patient Access Associate: : 1965 Requested By: ASHLYN VERDIN Order Number: [id number] Reading MD: Measurements Intervals [place] Rate: 64 P: 90 NV: 108 QRS: 110 QRSD: 138 T: 140 QT: 444 QTc: 463 Interpretive Statements SINUS RHYTHM RIGHTWARD AXIS LOW LIMB LEAD VOLTAGE NON SPECIFIC INTRAVENTRICULAR BLOCK ABNORMAL ECG RI6.01 No previous ECG available for comparison
[2017-06-07] MEDS: IPRATRPIUM/ALBUTEROL 0.5/2.5MG 3 ML NEBU. NEB SCH ×3 (12:43→19:11)
--- NOTE | 2017-06-07 13:57 | PDOC ---
PROGRESS NOTES Chief Complaint Chief Complaint chest pain, need to rule out unstable angina, could 2/2 anxiety h/o CAD with pci GERD H/O MILD diastolic CHF, STABLE htn dm2 on insulin h/o DVT on xarelto htn hld morbid obesity BMI 44 left great toe amputation, R great & 2nd toe amputation h/o drug abuse with cocaine, marijuana ckd3 mild malnutrition leg neuropathy bronchitis plan: card consulted, cath tmr cycle CE neg drug tox, pt refused cont home meds, need verity on high dose insulin, SSI on xarelto, hold for tmr cath nitro prn add doxy for now, on duoneb, albuterol History of Present Illness History of Present Illness ROS: NO fever, chills, sob cont chest pain, better CE neg c/o cough with sputum x2 days, require abx refused to give urine sample for urine drug Vitals Vitals Vital Signs Date Time Temp Pulse Resp B/P (MAP) Pulse Ox O2 Delivery O2 Flow Rate FiO2 06/07/17 13:29 Room Air 06/07/17 11:00 98.2 58 20 124/62 (82) 98 98.2 Physical Exam General: Alert, Oriented X3, Cooperative Heart: Regular rate, Normal S1, Normal S2 Lungs: Clear, Other Abdomen: Normal bowel sounds, Soft Extremities: No clubbing, No cyanosis Skin: No rashes, No breakdown Labs LABS Laboratory Tests Test 06/06/17 17:36 06/06/17 21:48 06/06/17 22:00 06/07/17 05:00 Glucose (Fingerstick) 188 mg/dL (70-99) 186 mg/dL (70-99) Troponin I Quantitative < 0.017 ng/mL (0.000-0.055) < 0.017 ng/mL (0.000-0.055) White Blood Count 7.1 x10^3/uL (4.0-11.0) Red Blood Count 3.98 x10^6/uL (3.50-5.40) Hemoglobin 10.9 g/dL (12.0-15.5) Hematocrit 33.6 % (36.0-47.0) Mean Corpuscular Volume 85 fL (79-100) Mean Corpuscular Hemoglobin 27 pg (25-35) Mean Corpuscular Hemoglobin Concent 32 g/dL (31-37) Red Cell Distribution Width 14.5 % (11.5-14.5) Platelet Count 212 x10^3/uL (140-400) Neutrophils (%) (Auto) 54 % (31-73) Lymphocytes (%) (Auto) 35 % (24-48) Monocytes (%) (Auto) 9 % (0-9) Eosinophils (%) (Auto) 2 % (0-3) Basophils (%) (Auto) 1 % (0-3) Neutrophils # (Auto) 3.8 x10^3uL (1.8-7.7) Lymphocytes # (Auto) 2.5 x10^3/uL (1.0-4.8) Monocytes # (Auto) 0.6 x10^3/uL (0.0-1.1) Eosinophils # (Auto) 0.2 x10^3/uL (0.0-0.7) Basophils # (Auto) 0.0 x10^3/uL (0.0-0.2) Sodium Level 142 mmol/L (136-145) Potassium Level 3.7 mmol/L (3.5-5.1) Chloride Level 103 mmol/L (98-107) Carbon Dioxide Level 30 mmol/L (21-32) Anion Gap 9 (6-14) Blood Urea Nitrogen 15 mg/dL (7-20) Creatinine 1.1 mg/dL (0.6-1.0) Estimated GFR (Cockcroft-Gault) 63.1 Glucose Level 174 mg/dL (70-99) Calcium Level 8.9 mg/dL (8.5-10.1) Test 06/07/17 07:55 06/07/17 11:42 Glucose (Fingerstick) 171 mg/dL (70-99) 222 mg/dL (70-99) Assessment and Plan Assessmemt and Plan Problems Medical Problems: (1) Chest pain Status: Acute Problems: Comment Review of Relevant I have reviewed the following items crista (where applicable) has been applied. Labs Laboratory Tests Test 06/06/17 13:23 06/06/17 17:36 06/06/17 21:48 06/06/17 22:00 White Blood Count 7.3 x10^3/uL (4.0-11.0) Red Blood Count 4.17 x10^6/uL (3.50-5.40) Hemoglobin 11.3 g/dL (12.0-15.5) Hematocrit 35.1 % (36.0-47.0) Mean Corpuscular Volume 84 fL (79-100) Mean Corpuscular Hemoglobin 27 pg (25-35) Mean Corpuscular Hemoglobin Concent 32 g/dL (31-37) Red Cell Distribution Width 14.2 % (11.5-14.5) Platelet Count 218 x10^3/uL (140-400) Neutrophils (%) (Auto) 60 % (31-73) Lymphocytes (%) (Auto) 30 % (24-48) Monocytes (%) (Auto) 8 % (0-9) Eosinophils (%) (Auto) 2 % (0-3) Basophils (%) (Auto) 0 % (0-3) Neutrophils # (Auto) 4.4 x10^3uL (1.8-7.7) Lymphocytes # (Auto) 2.2 x10^3/uL (1.0-4.8) Monocytes # (Auto) 0.6 x10^3/uL (0.0-1.1) Eosinophils # (Auto) 0.2 x10^3/uL (0.0-0.7) Basophils # (Auto) 0.0 x10^3/uL (0.0-0.2) Sodium Level 142 mmol/L (136-145) Potassium Level 3.9 mmol/L (3.5-5.1) Chloride Level 105 mmol/L (98-107) Carbon Dioxide Level 31 mmol/L (21-32) Anion Gap 6 (6-14) Blood Urea Nitrogen 12 mg/dL (7-20) Creatinine 1.2 mg/dL (0.6-1.0) Estimated GFR (Cockcroft-Gault) 57.1 Glucose Level 229 mg/dL (70-99) Calcium Level 8.7 mg/dL (8.5-10.1) Magnesium Level 1.8 mg/dL (1.8-2.4) Total Bilirubin 0.3 mg/dL (0.2-1.0) Direct Bilirubin < 0.1 mg/dL (0.0-0.2) Aspartate Amino Transf (AST/SGOT) 8 U/L (15-37) Alanine Aminotransferase (ALT/SGPT) 18 U/L (14-59) Alkaline Phosphatase 63 U/L (46-116) Creatine Kinase 87 U/L (26-192) Creatine Kinase MB (Mass) 0.5 ng/mL (0.0-3.6) Creatine Kinase MB Relative Index 0.6 % (0-4) Troponin I Quantitative < 0.017 ng/mL (0.000-0.055) < 0.017 ng/mL (0.000-0.055) GP-Hww-U-Type Natriuretic Peptide 144 pg/mL (0-124) Total Protein 6.8 g/dL (6.4-8.2) Albumin 3.0 g/dL (3.4-5.0) Lipase 135 U/L (73-393) Glucose (Fingerstick) 188 mg/dL (70-99) 186 mg/dL (70-99) Test 06/07/17 05:00 06/07/17 07:55 06/07/17 11:42 White Blood Count 7.1 x10^3/uL (4.0-11.0) Red Blood Count 3.98 x10^6/uL (3.50-5.40) Hemoglobin 10.9 g/dL (12.0-15.5) Hematocrit 33.6 % (36.0-47.0) Mean Corpuscular Volume 85 fL (79-100) Mean Corpuscular Hemoglobin 27 pg (25-35) Mean Corpuscular Hemoglobin Concent 32 g/dL (31-37) Red Cell Distribution Width 14.5 % (11.5-14.5) Platelet Count 212 x10^3/uL (140-400) Neutrophils (%) (Auto) 54 % (31-73) Lymphocytes (%) (Auto) 35 % (24-48) Monocytes (%) (Auto) 9 % (0-9) Eosinophils (%) (Auto) 2 % (0-3) Basophils (%) (Auto) 1 % (0-3) Neutrophils # (Auto) 3.8 x10^3uL (1.8-7.7) Lymphocytes # (Auto) 2.5 x10^3/uL (1.0-4.8) Monocytes # (Auto) 0.6 x10^3/uL (0.0-1.1) Eosinophils # (Auto) 0.2 x10^3/uL (0.0-0.7) Basophils # (Auto) 0.0 x10^3/uL (0.0-0.2) Sodium Level 142 mmol/L (136-145) Potassium Level 3.7 mmol/L (3.5-5.1) Chloride Level 103 mmol/L (98-107) Carbon Dioxide Level 30 mmol/L (21-32) Anion Gap 9 (6-14) Blood Urea Nitrogen 15 mg/dL (7-20) Creatinine 1.1 mg/dL (0.6-1.0) Estimated GFR (Cockcroft-Gault) 63.1 Glucose Level 174 mg/dL (70-99) Calcium Level 8.9 mg/dL (8.5-10.1) Troponin I Quantitative < 0.017 ng/mL (0.000-0.055) Glucose (Fingerstick) 171 mg/dL (70-99) 222 mg/dL (70-99) Laboratory Tests Test 06/06/17 17:36 06/06/17 21:48 06/06/17 22:00 06/07/17 05:00 Glucose (Fingerstick) 188 mg/dL (70-99) 186 mg/dL (70-99) Troponin I Quantitative < 0.017 ng/mL (0.000-0.055) < 0.017 ng/mL (0.000-0.055) White Blood Count 7.1 x10^3/uL (4.0-11.0) Red Blood Count 3.98 x10^6/uL (3.50-5.40) Hemoglobin 10.9 g/dL (12.0-15.5) Hematocrit 33.6 % (36.0-47.0) Mean Corpuscular Volume 85 fL (79-100) Mean Corpuscular Hemoglobin 27 pg (25-35) Mean Corpuscular Hemoglobin Concent 32 g/dL (31-37) Red Cell Distribution Width 14.5 % (11.5-14.5) Platelet Count 212 x10^3/uL (140-400) Neutrophils (%) (Auto) 54 % (31-73) Lymphocytes (%) (Auto) 35 % (24-48) Monocytes (%) (Auto) 9 % (0-9) Eosinophils (%) (Auto) 2 % (0-3) Basophils (%) (Auto) 1 % (0-3) Neutrophils # (Auto) 3.8 x10^3uL (1.8-7.7) Lymphocytes # (Auto) 2.5 x10^3/uL (1.0-4.8) Monocytes # (Auto) 0.6 x10^3/uL (0.0-1.1) Eosinophils # (Auto) 0.2 x10^3/uL (0.0-0.7) Basophils # (Auto) 0.0 x10^3/uL (0.0-0.2) Sodium Level 142 mmol/L (136-145) Potassium Level 3.7 mmol/L (3.5-5.1) Chloride Level 103 mmol/L (98-107) Carbon Dioxide Level 30 mmol/L (21-32) Anion Gap 9 (6-14) Blood Urea Nitrogen 15 mg/dL (7-20) Creatinine 1.1 mg/dL (0.6-1.0) Estimated GFR (Cockcroft-Gault) 63.1 Glucose Level 174 mg/dL (70-99) Calcium Level 8.9 mg/dL (8.5-10.1) Test 06/07/17 07:55 06/07/17 11:42 Glucose (Fingerstick) 171 mg/dL (70-99) 222 mg/dL (70-99) Medications Current Medications Nitroglycerin (Nitrostat) 0.4 mg PRN Q5MIN PRN SL CP RATING > 1/10 Last administered on 06/06/17 14:17; Start 06/06/17 at 12:45; Stop 06/07/17 at 12:44 ; Status DC Fentanyl Citrate (Fentanyl 2ml Vial) 25 mcg PRN Q15MIN PRN IV PAIN GREATER THAN 3/10 Last administered on 06/06/17 14:17; Start 06/06/17 at 13:30; Stop 06/07/17 at 13:29; Status DC Albuterol/ Ipratropium (Duoneb) 3 ml 1X ONCE NEB Last administered on 13:52; Start 06/06/17 at 13:45; Stop 06/06/17 at 13:46; Status DC Ondansetron HCl (Zofran) 4 mg PRN Q8HRS PRN IV NAUSEA/VOMITING; Start 06/06/17 at 16:15; Stop 06/07/17 at 16:14 Aspirin (Orlin Aspirin) 325 mg 1X ONCE PO Last administered on 06/06/17 16:37 ; Start 06/06/17 at 16:15; Stop 06/06/17 at 16:18; Status DC Info (Do NOT chart on this placeholder) 1 each PRN 1X PRN MC SEE COMMENTS; Start 06/06/17 at 17:30; Status UNV Pneumococcal Polyvalent Vaccine (Do NOT chart on this placeholder) 1 each PRN 1X PRN MC SEE COMMENTS; Start 06/06/17 at 17:30; Status UNV Influenza Virus Vaccine Quadrival (Fluarix Quad [id number] Syringe) 0.5 ml ONCE ONCE VAX IM ; Start 06/06/17 at 18:00; Stop 06/06/17 at 18:01; Status DC Pneumococcal Polyvalent Vaccine (Pneumovax 23) 0.5 ml ONCE ONCE VAX IM ; Start 06/06/17 at 18:00; Stop 06/06/17 at 18:01; Status DC Albuterol Sulfate (Ventolin Hfa) 2 puff PRN Q4HRS PRN INH SHORTNESS OF BREATH; Start 06/06/17 at 17:30; Status UNV Alprazolam (Xanax) 1 mg DAILY PO ; Start 06/07/17 at 09:00 Amitriptyline HCl (Elavil) 25 mg QHS PO ; Start 06/06/17 at 21:00; Stop at 21:00; Status DC Aspirin (Ecotrin) 325 mg DAILYWBKFT PO Last administered on 06/07/17 08:45; Start 06/07/17 at 08:00 Diclofenac Sodium (Voltaren) 1 raz QID TP ; Start 06/06/17 at 21:00 Dicyclomine HCl (Bentyl) 10 mg QID PRN PO PAIN Last administered on 06/07/17 08:44; Start 06/06/17 at 17:30 Fluticasone Propionate (Flonase) 2 spray DAILY NS ; Start 06/07/17 at 09:00 Furosemide (Lasix) 40 mg BID92 PO Last administered on 06/07/17 13:29; Start 06/07/17 at 09:00 Acetaminophen/ Hydrocodone Bitart (Lortab 5/325) 1 tab PRN Q8HRS PRN PO PAIN; Start 06/06/17 at 17:30; Stop 06/06/17 at 17:39; Status DC Insulin Aspart (NovoLOG) 40 units TIDWMEALS SQ ; Start 06/06/17 at 18:00; Status Cancel Insulin Aspart (NovoLOG) 50 units TIDWMEALS SQ ; Start 06/07/17 at 08:00; Stop 06/07/17 at 08:00; Status DC Losartan Potassium (Cozaar) 25 mg DAILY PO Last administered on 06/07/17 08:45 ; Start 06/07/17 at 09:00 Lurasidone HCl (Latuda) 40 mg DAILYWSUP PO ; Start 06/06/17 at 18:00; Stop 06/06 at 19:06; Status DC Methocarbamol (Robaxin) 750 mg QHS PO ; Start 06/06/17 at 21:00; Status Cancel Nitroglycerin (Nitrostat) 0.4 mg PRN Q5MIN PRN SL CHEST PAIN; Start 06/06/17 at 17:30 Pantoprazole Sodium (Protonix) 40 mg DAILYAC PO Last administered on 06/07/17 08:45; Start 06/07/17 at 07:30 Sennosides (Senna) 17.2 mg PRN DAILY PRN PO CONSTIPATION; Start 06/06/17 at 17: 30 Zolpidem Tartrate (Ambien) 5 mg QHS PO Last administered on 06/06/17 22:26; Start 06/06/17 at 21:00 Atorvastatin Calcium (Lipitor) 80 mg QHS PO Last administered on 06/06/17 22: 27; Start 06/06/17 at 21:00 Non-Formulary Medication 1 inh BID IH ; Start 06/06/17 at 21:00; Status UNV Gabapentin (Neurontin) 600 mg BID PO Last administered on 06/07/17 08:44; Start 06/06/17 at 21:00 Insulin Detemir (Levemir) 70 units QHS SQ ; Start 06/06/17 at 21:00; Stop at 21:00; Status DC Cetirizine HCl (ZyrTEC) 10 mg DAILY PO Last administered on 06/07/17 08:43; Start 06/07/17 at 09:00 Potassium Chloride (Klor-Con) 20 meq BIDWMEALS PO Last administered on 08:44; Start 06/07/17 at 08:00 Rivaroxaban (Xarelto) 20 mg DAILYWSUP PO ; Start 06/06/17 at 18:00; Stop at 06:45; Status DC Insulin Aspart (NovoLOG) 30 units TIDWMEALS SQ Last administered on 06/07/17 11:49; Start 06/06/17 at 18:00 Insulin Detemir (Levemir) 50 units QHS SQ ; Start 06/06/17 at 21:00; Stop at 21:00; Status DC Acetaminophen (Tylenol) 650 mg PRN Q6HRS PRN PO FEVER; Start 06/06/17 at 17:30 Ondansetron HCl (Zofran) 4 mg PRN Q6HRS PRN IV NAUSEA/VOMITING; Start 06/06/17 at 17:30 Morphine Sulfate 2 mg PRN Q2HR PRN IV PAIN; Start 06/06/17 at 17:30 Tramadol HCl (Ultram) 50 mg PRN Q6HRS PRN PO PAIN; Start 06/06/17 at 17:30 Hydralazine HCl (Apresoline) 10 mg PRN Q4HRS PRN IVP ELEVATED BP, SEE COMMENTS ; Start 06/06/17 at 17:30 Docusate Sodium (Colace) 100 mg PRN DAILY PRN PO CONSTIPATION; Start 06/06/17 at 17:30 Insulin Aspart (NovoLOG) 0-9 UNITS TIDWMEALS SQ Last administered on 06/07/17 11:50; Start 06/07/17 at 08:00 Dextrose (Dextrose 50%-Water Syringe) 12.5 gm PRN Q15MIN PRN IV SEE COMMENTS; Start 06/06/17 at 17:45 Acetaminophen/ Hydrocodone Bitart (Lortab 7.5/325) 1 tab PRN Q6HRS PRN PO PAIN Last administered on 06/07/17 13:29; Start 06/06/17 at 17:45 Budesonide (Pulmicort) 0.5 mg RTBID NEB Last administered on 06/07/17 07:36; Start 06/06/17 at 20:00 Albuterol Sulfate (Ventolin Neb Soln) 2.5 mg RTQID NEB Last administered on 07:36; Start 06/06/17 at 20:00; Stop 06/07/17 at 10:29; Status DC Albuterol Sulfate (Ventolin Neb Soln) 2.5 mg PRN Q6HRS PRN NEB SHORTNESS OF BREATH; Start 06/06/17 at 17:45 Aspirin (Children'S Aspirin) 81 mg DAILY PO ; Start 06/07/17 at 09:00; Status UNV Diphenhydramine HCl (Benadryl) 25 mg TID PO Last administered on 06/07/17 13: 29; Start 06/06/17 at 21:00 Famotidine (Pepcid) 20 mg DAILY PO ; Start 06/07/17 at 09:00 Fluoxetine HCl (PROzac) 40 mg DAILYWBKFT PO ; Start 06/07/17 at 08:00 Methocarbamol (Robaxin) 1,500 mg QHS PO Last administered on 06/06/17 22:29; Start 06/06/17 at 21:00 Insulin Detemir (Levemir) 60 units QHS SQ Last administered on 06/06/17 22:41 ; Start 06/06/17 at 21:00 Non-Formulary Medication 1 cap DAILY PO ; Start 06/07/17 at 09:00; Status UNV Albuterol/ Ipratropium (Duoneb) 3 ml RTQID NEB Last administered on 06/07/17 12:43; Start 06/07/17 at 12:00 Levofloxacin (Levaquin) 500 mg DAILY06 PO Last administered on 06/07/17 11:46 ; Start 06/07/17 at 11:00 Promethazine HCl (Phenergan) 6.25 mg QID PO Last administered on 06/07/17 11: 46; Start 06/07/17 at 13:00 Active Scripts Active Ambien (Zolpidem Tartrate) 5 Mg Tablet 1 Tab PO QHS Reported Oxycodone Hcl 5 Mg Capsule 1 Cap PO PRN TID PRN Percocet 10-325 Mg Tablet (Oxycodone/Acetaminophen) 1 Each Tablet 1 Tab PO PRN Q6HRS PRN Senokot (Sennosides) 8.6 Mg Tablet 1 Tab PO DAILY Prozac (Fluoxetine Hcl) 20 Mg Capsule 2 Cap PO DAILYWBKFT Famotidine 20 Mg Tablet 20 Mg PO DAILY Duoneb 0.5-3(2.5) Mg/3 Ml (Albuterol/Ipratropium) 3 Ml Ampul.neb 3 Ml NEB QID Lomotil Tablet (Diphenoxylate Hcl/Atropine) 1 Each Tablet 2 Tab PO QID Benadryl (Diphenhydramine Hcl) 25 Mg Capsule 1 Cap PO TID Promethazine Hcl 6.25 Mg/5 Ml Syrup 5 Ml PO QID Lansoprazole 30 Mg Capsule.dr 1 Cap PO DAILY Robaxin-750 (Methocarbamol) 750 Mg Tablet 2 Tab PO QHS Lantus Solostar (Insulin Glargine,Hum.rec.anlog) 100 Unit/1 Ml Insuln.pen 60 Unit SQ QHS Alprazolam 2 Mg Tablet 1 Tab PO BID Aspirin 81 Mg Tab.chew 1 Tab PO DAILY [place] 5-325 Tablet (Acetaminophen/Hydrocodone Bitart) 1 Each Tablet 1 Tab PO PRN Q8HRS PRN Fluticasone Propionate Nasal [place] (Fluticasone Propionate) 16 Gm [place].susp 2 [place] NS DAILY Xarelto (Rivaroxaban) 20 Mg Tablet 20 Mg PO DAILY Ergocalciferol (Ergocalciferol (Vitamin D2)) 8,000 Unit/1 Ml Drops 50,000 Unit PO Novolog Flexpen (Insulin Aspart) 100 Unit/1 Ml Insuln.pen 40 Unit SQ TIDWMEALS Albuterol Sulfate Neb Soln (Albuterol Sulfate) 2.5 Mg/3 Ml Vial.neb 2.5 Mg NEB PRN Q4HRS PRN Robaxin-750 (Methocarbamol) 750 Mg Tablet 750 Mg PO QHS NITROGLYCERIN SubLingual (Nitroglycerin) 0.4 Mg Tab.subl 0.4 Mg SL PRN Q5MIN PRN Gabapentin 600 Mg Tablet 2 Tab PO TID Potassium Chloride 20 Meq Tablet.er 20 Meq PO BID Losartan Potassium 25 Mg Tablet 25 Mg PO DAILY Claritin (Loratadine) 10 Mg Capsule 10 Mg PO DAILY Lasix (Furosemide) 40 Mg Tablet 40 Mg PO BID Advair 250-50 Diskus (Fluticasone/Salmeterol) 1 Each Disk.w.dev 1 Inh IH BID Lipitor (Atorvastatin Calcium) 80 Mg Tablet 1 Tab PO QHS Albuterol Sulfate Hfa Inhaler (Albuterol Sulfate) 8.5 Gm Hfa.aer.ad 2 Puff INH PRN Q4HRS PRN Vitals/I & O Vital Sign - Last 24 Hours 06/06/17 06/06/17 06/06/17 06/06/17 14:14 14:17 14:17 15:19 Pulse 56 68 52 Resp 17 18 17 B/P (MAP) 149/80 (103) 149/80 191/104 (133) Pulse Ox 95 94 96 O2 Delivery Room Air Room Air Room Air 06/06/17 06/06/17 06/06/17 06/06/17 16:16 18:14 19:14 19:15 Temp 98.5 98.5 Pulse 55 59 Resp 16 18 B/P (MAP) 153/63 (93) 167/72 (103) Pulse Ox 96 95 O2 Delivery Room Air Room Air Room Air Room Air 06/06/17 06/06/17 06/06/17 06/06/17 19:16 19:20 20:00 23:05 Temp 98.4 98.4 Pulse 53 Resp 20 22 B/P (MAP) 97/61 (73) Pulse Ox 98 98 95 O2 Delivery Room Air Room Air Room Air 06/07/17 06/07/17 06/07/17 06/07/17 00:05 03:45 06:08 07:08 Temp 98.4 98.4 Pulse 48 Resp 18 17 18 B/P (MAP) 126/69 (88) Pulse Ox 98 94 94 O2 Delivery Room Air Room Air Room Air Room Air 06/07/17 06/07/17 06/07/17 06/07/17 07:36 07:50 08:00 08:45 Temp 98.4 98.4 Pulse 54 54 Resp 20 B/P (MAP) 128/59 (82) 128/59 Pulse Ox 97 97 O2 Delivery Room Air Room Air Room Air 06/07/17 06/07/17 06/07/17 11:00 12:43 13:29 Temp 98.2 98.2 Pulse 58 Resp 20 B/P (MAP) 124/62 (82) Pulse Ox 98 O2 Delivery Room Air Room Air Room Air Intake and Output 06/07/17 06/07/17 06/08/17 15:00 23:00 07:00 Intake Total 720 ml Balance 720 ml KAREN VELASQUEZ MD Jun 07, 2017 13:57
[2017-06-07 15:06] VITALS: BP 135/63
[2017-06-07 19:00] VITALS: BP 128/61
[2017-06-07] MEDS: ATORVASTATIN CALCIUM 40 MG TABLET. PO SCH (20:29)
[2017-06-07] MEDS: ZOLPIDEM 5 MG TABLET. PO SCH (20:29)
[2017-06-07] MEDS: METHOCARBAMOL 750 MG TABLET PO SCH (20:30)
[2017-06-07] MEDS: INSULIN DETEMIR 300 UNITS/3 ML INSULN.PEN. SQ SCH (20:31)
[2017-06-07 22:45] VITALS: BP 126/56
[2017-06-08 02:45] VITALS: BP 134/53
[2017-06-08] MEDS: HYDROcodone/APAP 7.5/325MG 1 TAB TABLET PO PRN ×4 (02:56→21:53)
[2017-06-08 04:43] LABS: BASO % 1 % (0-3); EOS % 2 % (0-3); HEMATOCRIT 34.7 % (36.0-47.0); HEMOGLOBIN 11.1 g/dL (12.0-15.5); LYMPH # 2.5 x10^3/uL (1.0-4.8); LYMPH % 32 % (24-48); MEAN CORPUSCULAR HEMOGLOBIN 27 pg (25-35); MEAN CORPUSCULAR HGB CONC 32 g/dL (31-37); MEAN CORPUSCULAR VOLUME 85 fL (79-100); MONO % 9 % (0-9); NEUT % 57 % (31-73); PLATELET COUNT 219 x10^3/uL (140-400); RED BLOOD COUNT 4.08 x10^6/uL (3.50-5.40); RED CELL DISTRIBUTION WIDTH 14.4 % (11.5-14.5); WHITE BLOOD COUNT 7.9 x10^3/uL (4.0-11.0)
[2017-06-08 05:15] LABS: CREATININE 1.1 mg/dL (0.6-1.0); GFR 63.1; POTASSIUM 4.5 mmol/L (3.5-5.1)
[2017-06-08 07:00] VITALS: BP 174/72
[2017-06-08] MEDS: BUDESONIDE 0.5 MG/2 ML NEBU. NEB SCH ×2 (07:27→20:00)
[2017-06-08] MEDS: IPRATRPIUM/ALBUTEROL 0.5/2.5MG 3 ML NEBU. NEB SCH ×4 (07:27→20:00)
[2017-06-08] MEDS: FLUoxetine HCL 20 MG CAPSULE PO SCH (08:00)
[2017-06-08] MEDS: INSULIN ASPART 300 UNITS/3 ML INSULN.PEN SQ SCH ×7 (08:00→17:30)
[2017-06-08] MEDS: PROMETHAZINE 6.25 MG/5 ML SYRUP. PO SCH ×4 (09:00→21:42)
[2017-06-08] MEDS: DICLOFENAC SODIUM 1% TOPICAL GEL 100GM TUBE. TP SCH ×2 (09:00→12:46)
[2017-06-08] MEDS: ASPIRIN ENTERIC COATED 325 MG TABLET.DR. PO SCH (09:27)
[2017-06-08] MEDS: GABAPENTIN 300 MG CAPSULE. PO SCH ×2 (10:42→21:41)
[2017-06-08] MEDS: FLUTICASONE 50MCG/NASAL SPRAY 16GM BOTTLE. NS SCH (10:42)
[2017-06-08] MEDS: diphenhydrAMINE HCL 25 MG CAPSULE PO SCH ×3 (10:42→21:40)
[2017-06-08] MEDS: CETIRIZINE HCL 10 MG TABLET. PO SCH (10:43)
[2017-06-08] MEDS: LOSARTAN POTASSIUM 25 MG TABLET. PO SCH (10:44)
[2017-06-08] MEDS: FAMOTIDINE 20 MG TABLET. PO SCH (10:45)
[2017-06-08] MEDS: FUROSEMIDE 40 MG TABLET. PO SCH ×2 (10:45→14:43)
[2017-06-08] MEDS: ALPRAZolam 1 MG TABLET PO SCH (10:45)
[2017-06-08] MEDS: POTASSIUM CHLORIDE 20 MEQ TABLET.ER. PO SCH ×2 (10:45→17:27)
[2017-06-08] MEDS: PANTOPRAZOLE 40 MG TABLET.DR. PO SCH (10:46)
[2017-06-08 11:00] VITALS: BP 148/77
[2017-06-08] MEDS ORDERED: DIPHENOXYLATE/ATROPINE TABLET. PO SCH (13:00)
[2017-06-08 14:30] VITALS: BP 139/52
--- NOTE | 2017-06-08 14:35 | PDOC ---
PROGRESS NOTES Chief Complaint Chief Complaint chest pain, need to rule out unstable angina, could 2/2 anxiety h/o CAD with pci GERD H/O MILD diastolic CHF, STABLE htn dm2 on insulin h/o DVT on xarelto htn hld morbid obesity BMI 44 left great toe amputation, R great & 2nd toe amputation h/o drug abuse with cocaine, marijuana ckd3 mild malnutrition leg neuropathy bronchitis plan: card consulted, cath tmr cycle CE neg drug tox, pt refused cont home meds, need verity on high dose insulin, SSI on xarelto, hold for tmr cath nitro prn add doxy for now, on duoneb, albuterol History of Present Illness History of Present Illness ROS: NO fever, chills, sob cont chest pain, better CE neg c/o cough with sputum x2 days, require abx refused to give urine sample for urine drug Vitals Vitals Vital Signs Date Time Temp Pulse Resp B/P (MAP) Pulse Ox O2 Delivery O2 Flow Rate FiO2 06/08/17 14:30 98.8 65 18 139/52 (81) 95 Room Air 98.8 Physical Exam General: Alert, Oriented X3, Cooperative Heart: Regular rate, Normal S1, Normal S2 Lungs: Clear, Other Abdomen: Normal bowel sounds, Soft Extremities: No clubbing, No cyanosis Skin: No rashes, No breakdown Labs LABS Laboratory Tests Test 06/07/17 16:40 06/07/17 20:26 06/08/17 03:55 06/08/17 07:06 Glucose (Fingerstick) 142 mg/dL (70-99) 112 mg/dL (70-99) 169 mg/dL (70-99) White Blood Count 7.9 x10^3/uL (4.0-11.0) Red Blood Count 4.08 x10^6/uL (3.50-5.40) Hemoglobin 11.1 g/dL (12.0-15.5) Hematocrit 34.7 % (36.0-47.0) Mean Corpuscular Volume 85 fL (79-100) Mean Corpuscular Hemoglobin 27 pg (25-35) Mean Corpuscular Hemoglobin Concent 32 g/dL (31-37) Red Cell Distribution Width 14.4 % (11.5-14.5) Platelet Count 219 x10^3/uL (140-400) Neutrophils (%) (Auto) 57 % (31-73) Lymphocytes (%) (Auto) 32 % (24-48) Monocytes (%) (Auto) 9 % (0-9) Eosinophils (%) (Auto) 2 % (0-3) Basophils (%) (Auto) 1 % (0-3) Neutrophils # (Auto) 4.5 x10^3uL (1.8-7.7) Lymphocytes # (Auto) 2.5 x10^3/uL (1.0-4.8) Monocytes # (Auto) 0.7 x10^3/uL (0.0-1.1) Eosinophils # (Auto) 0.2 x10^3/uL (0.0-0.7) Basophils # (Auto) 0.0 x10^3/uL (0.0-0.2) Sodium Level 141 mmol/L (136-145) Potassium Level 4.5 mmol/L (3.5-5.1) Chloride Level 104 mmol/L (98-107) Carbon Dioxide Level 29 mmol/L (21-32) Anion Gap 8 (6-14) Blood Urea Nitrogen 17 mg/dL (7-20) Creatinine 1.1 mg/dL (0.6-1.0) Estimated GFR (Cockcroft-Gault) 63.1 Glucose Level 136 mg/dL (70-99) Calcium Level 9.0 mg/dL (8.5-10.1) Test 06/08/17 09:54 Glucose (Fingerstick) 170 mg/dL (70-99) Assessment and Plan Assessmemt and Plan Problems Medical Problems: (1) Chest pain Status: Acute Problems: Comment Review of Relevant I have reviewed the following items crista (where applicable) has been applied. Labs Laboratory Tests Test 06/06/17 17:36 06/06/17 21:48 06/06/17 22:00 06/07/17 05:00 Glucose (Fingerstick) 188 mg/dL (70-99) 186 mg/dL (70-99) Troponin I Quantitative < 0.017 ng/mL (0.000-0.055) < 0.017 ng/mL (0.000-0.055) White Blood Count 7.1 x10^3/uL (4.0-11.0) Red Blood Count 3.98 x10^6/uL (3.50-5.40) Hemoglobin 10.9 g/dL (12.0-15.5) Hematocrit 33.6 % (36.0-47.0) Mean Corpuscular Volume 85 fL (79-100) Mean Corpuscular Hemoglobin 27 pg (25-35) Mean Corpuscular Hemoglobin Concent 32 g/dL (31-37) Red Cell Distribution Width 14.5 % (11.5-14.5) Platelet Count 212 x10^3/uL (140-400) Neutrophils (%) (Auto) 54 % (31-73) Lymphocytes (%) (Auto) 35 % (24-48) Monocytes (%) (Auto) 9 % (0-9) Eosinophils (%) (Auto) 2 % (0-3) Basophils (%) (Auto) 1 % (0-3) Neutrophils # (Auto) 3.8 x10^3uL (1.8-7.7) Lymphocytes # (Auto) 2.5 x10^3/uL (1.0-4.8) Monocytes # (Auto) 0.6 x10^3/uL (0.0-1.1) Eosinophils # (Auto) 0.2 x10^3/uL (0.0-0.7) Basophils # (Auto) 0.0 x10^3/uL (0.0-0.2) Sodium Level 142 mmol/L (136-145) Potassium Level 3.7 mmol/L (3.5-5.1) Chloride Level 103 mmol/L (98-107) Carbon Dioxide Level 30 mmol/L (21-32) Anion Gap 9 (6-14) Blood Urea Nitrogen 15 mg/dL (7-20) Creatinine 1.1 mg/dL (0.6-1.0) Estimated GFR (Cockcroft-Gault) 63.1 Glucose Level 174 mg/dL (70-99) Calcium Level 8.9 mg/dL (8.5-10.1) Test 06/07/17 07:55 06/07/17 11:42 06/07/17 16:40 06/07/17 20:26 Glucose (Fingerstick) 171 mg/dL (70-99) 222 mg/dL (70-99) 142 mg/dL (70-99) 112 mg/dL (70-99) Test 06/08/17 03:55 06/08/17 07:06 06/08/17 09:54 White Blood Count 7.9 x10^3/uL (4.0-11.0) Red Blood Count 4.08 x10^6/uL (3.50-5.40) Hemoglobin 11.1 g/dL (12.0-15.5) Hematocrit 34.7 % (36.0-47.0) Mean Corpuscular Volume 85 fL (79-100) Mean Corpuscular Hemoglobin 27 pg (25-35) Mean Corpuscular Hemoglobin Concent 32 g/dL (31-37) Red Cell Distribution Width 14.4 % (11.5-14.5) Platelet Count 219 x10^3/uL (140-400) Neutrophils (%) (Auto) 57 % (31-73) Lymphocytes (%) (Auto) 32 % (24-48) Monocytes (%) (Auto) 9 % (0-9) Eosinophils (%) (Auto) 2 % (0-3) Basophils (%) (Auto) 1 % (0-3) Neutrophils # (Auto) 4.5 x10^3uL (1.8-7.7) Lymphocytes # (Auto) 2.5 x10^3/uL (1.0-4.8) Monocytes # (Auto) 0.7 x10^3/uL (0.0-1.1) Eosinophils # (Auto) 0.2 x10^3/uL (0.0-0.7) Basophils # (Auto) 0.0 x10^3/uL (0.0-0.2) Sodium Level 141 mmol/L (136-145) Potassium Level 4.5 mmol/L (3.5-5.1) Chloride Level 104 mmol/L (98-107) Carbon Dioxide Level 29 mmol/L (21-32) Anion Gap 8 (6-14) Blood Urea Nitrogen 17 mg/dL (7-20) Creatinine 1.1 mg/dL (0.6-1.0) Estimated GFR (Cockcroft-Gault) 63.1 Glucose Level 136 mg/dL (70-99) Calcium Level 9.0 mg/dL (8.5-10.1) Glucose (Fingerstick) 169 mg/dL (70-99) 170 mg/dL (70-99) Laboratory Tests Test 06/07/17 16:40 06/07/17 20:26 06/08/17 03:55 06/08/17 07:06 Glucose (Fingerstick) 142 mg/dL (70-99) 112 mg/dL (70-99) 169 mg/dL (70-99) White Blood Count 7.9 x10^3/uL (4.0-11.0) Red Blood Count 4.08 x10^6/uL (3.50-5.40) Hemoglobin 11.1 g/dL (12.0-15.5) Hematocrit 34.7 % (36.0-47.0) Mean Corpuscular Volume 85 fL (79-100) Mean Corpuscular Hemoglobin 27 pg (25-35) Mean Corpuscular Hemoglobin Concent 32 g/dL (31-37) Red Cell Distribution Width 14.4 % (11.5-14.5) Platelet Count 219 x10^3/uL (140-400) Neutrophils (%) (Auto) 57 % (31-73) Lymphocytes (%) (Auto) 32 % (24-48) Monocytes (%) (Auto) 9 % (0-9) Eosinophils (%) (Auto) 2 % (0-3) Basophils (%) (Auto) 1 % (0-3) Neutrophils # (Auto) 4.5 x10^3uL (1.8-7.7) Lymphocytes # (Auto) 2.5 x10^3/uL (1.0-4.8) Monocytes # (Auto) 0.7 x10^3/uL (0.0-1.1) Eosinophils # (Auto) 0.2 x10^3/uL (0.0-0.7) Basophils # (Auto) 0.0 x10^3/uL (0.0-0.2) Sodium Level 141 mmol/L (136-145) Potassium Level 4.5 mmol/L (3.5-5.1) Chloride Level 104 mmol/L (98-107) Carbon Dioxide Level 29 mmol/L (21-32) Anion Gap 8 (6-14) Blood Urea Nitrogen 17 mg/dL (7-20) Creatinine 1.1 mg/dL (0.6-1.0) Estimated GFR (Cockcroft-Gault) 63.1 Glucose Level 136 mg/dL (70-99) Calcium Level 9.0 mg/dL (8.5-10.1) Test 06/08/17 09:54 Glucose (Fingerstick) 170 mg/dL (70-99) Medications Current Medications Nitroglycerin (Nitrostat) 0.4 mg PRN Q5MIN PRN SL CP RATING > 1/10 Last administered on 06/06/17 14:17; Start 06/06/17 at 12:45; Stop 06/07/17 at 12:44 ; Status DC Fentanyl Citrate (Fentanyl 2ml Vial) 25 mcg PRN Q15MIN PRN IV PAIN GREATER THAN 3/10 Last administered on 06/06/17 14:17; Start 06/06/17 at 13:30; Stop 06/07/17 at 13:29; Status DC Albuterol/ Ipratropium (Duoneb) 3 ml 1X ONCE NEB Last administered on 13:52; Start 06/06/17 at 13:45; Stop 06/06/17 at 13:46; Status DC Ondansetron HCl (Zofran) 4 mg PRN Q8HRS PRN IV NAUSEA/VOMITING; Start 06/06/17 at 16:15; Stop 06/07/17 at 16:14; Status DC Aspirin (Orlin Aspirin) 325 mg 1X ONCE PO Last administered on 06/06/17 16:37 ; Start 06/06/17 at 16:15; Stop 06/06/17 at 16:18; Status DC Info (Do NOT chart on this placeholder) 1 each PRN 1X PRN MC SEE COMMENTS; Start 06/06/17 at 17:30; Status UNV Pneumococcal Polyvalent Vaccine (Do NOT chart on this placeholder) 1 each PRN 1X PRN MC SEE COMMENTS; Start 06/06/17 at 17:30; Status UNV Influenza Virus Vaccine Quadrival (Fluarix Quad [id number] Syringe) 0.5 ml ONCE ONCE VAX IM ; Start 06/06/17 at 18:00; Stop 06/06/17 at 18:01; Status DC Pneumococcal Polyvalent Vaccine (Pneumovax 23) 0.5 ml ONCE ONCE VAX IM ; Start 06/06/17 at 18:00; Stop 06/06/17 at 18:01; Status DC Albuterol Sulfate (Ventolin Hfa) 2 puff PRN Q4HRS PRN INH SHORTNESS OF BREATH; Start 06/06/17 at 17:30; Status UNV Alprazolam (Xanax) 1 mg DAILY PO Last administered on 06/08/17 10:45; Start 06/07/17 at 09:00 Amitriptyline HCl (Elavil) 25 mg QHS PO ; Start 06/06/17 at 21:00; Stop at 21:00; Status DC Aspirin (Ecotrin) 325 mg DAILYWBKFT PO Last administered on 06/08/17 09:27; Start 06/07/17 at 08:00 Diclofenac Sodium (Voltaren) 1 raz QID TP ; Start 06/06/17 at 21:00; Stop at 14:16; Status DC Dicyclomine HCl (Bentyl) 10 mg QID PRN PO PAIN Last administered on 06/07/17 20:29; Start 06/06/17 at 17:30 Fluticasone Propionate (Flonase) 2 spray DAILY NS ; Start 06/07/17 at 09:00 Furosemide (Lasix) 40 mg BID92 PO Last administered on 06/08/17 10:45; Start 06/07/17 at 09:00 Acetaminophen/ Hydrocodone Bitart (Lortab 5/325) 1 tab PRN Q8HRS PRN PO PAIN; Start 06/06/17 at 17:30; Stop 06/06/17 at 17:39; Status DC Insulin Aspart (NovoLOG) 40 units TIDWMEALS SQ ; Start 06/06/17 at 18:00; Status Cancel Insulin Aspart (NovoLOG) 50 units TIDWMEALS SQ ; Start 06/07/17 at 08:00; Stop 06/07/17 at 08:00; Status DC Losartan Potassium (Cozaar) 25 mg DAILY PO Last administered on 06/08/17 10:44 ; Start 06/07/17 at 09:00 Lurasidone HCl (Latuda) 40 mg DAILYWSUP PO ; Start 06/06/17 at 18:00; Stop 06/06 at 19:06; Status DC Methocarbamol (Robaxin) 750 mg QHS PO ; Start 06/06/17 at 21:00; Status Cancel Nitroglycerin (Nitrostat) 0.4 mg PRN Q5MIN PRN SL CHEST PAIN; Start 06/06/17 at 17:30 Pantoprazole Sodium (Protonix) 40 mg DAILYAC PO Last administered on 06/08/17 10:46; Start 06/07/17 at 07:30 Sennosides (Senna) 17.2 mg PRN DAILY PRN PO CONSTIPATION; Start 06/06/17 at 17: 30 Zolpidem Tartrate (Ambien) 5 mg QHS PO Last administered on 06/07/17 20:29; Start 06/06/17 at 21:00 Atorvastatin Calcium (Lipitor) 80 mg QHS PO Last administered on 06/07/17 20: 29; Start 06/06/17 at 21:00 Non-Formulary Medication 1 inh BID IH ; Start 06/06/17 at 21:00; Status UNV Gabapentin (Neurontin) 600 mg BID PO Last administered on 06/08/17 10:42; Start 06/06/17 at 21:00 Insulin Detemir (Levemir) 70 units QHS SQ ; Start 06/06/17 at 21:00; Stop at 21:00; Status DC Cetirizine HCl (ZyrTEC) 10 mg DAILY PO Last administered on 06/08/17 10:43; Start 06/07/17 at 09:00 Potassium Chloride (Klor-Con) 20 meq BIDWMEALS PO Last administered on 10:45; Start 06/07/17 at 08:00 Rivaroxaban (Xarelto) 20 mg DAILYWSUP PO ; Start 06/06/17 at 18:00; Stop at 06:45; Status DC Insulin Aspart (NovoLOG) 30 units TIDWMEALS SQ Last administered on 06/08/17 12:52; Start 06/06/17 at 18:00 Insulin Detemir (Levemir) 50 units QHS SQ ; Start 06/06/17 at 21:00; Stop at 21:00; Status DC Acetaminophen (Tylenol) 650 mg PRN Q6HRS PRN PO FEVER; Start 06/06/17 at 17:30 Ondansetron HCl (Zofran) 4 mg PRN Q6HRS PRN IV NAUSEA/VOMITING; Start 06/06/17 at 17:30 Morphine Sulfate 2 mg PRN Q2HR PRN IV PAIN; Start 06/06/17 at 17:30 Tramadol HCl (Ultram) 50 mg PRN Q6HRS PRN PO PAIN; Start 06/06/17 at 17:30 Hydralazine HCl (Apresoline) 10 mg PRN Q4HRS PRN IVP ELEVATED BP, SEE COMMENTS ; Start 06/06/17 at 17:30 Docusate Sodium (Colace) 100 mg PRN DAILY PRN PO CONSTIPATION; Start 06/06/17 at 17:30 Insulin Aspart (NovoLOG) 0-9 UNITS TIDWMEALS SQ Last administered on 06/08/17 12:53; Start 06/07/17 at 08:00 Dextrose (Dextrose 50%-Water Syringe) 12.5 gm PRN Q15MIN PRN IV SEE COMMENTS; Start 06/06/17 at 17:45 Acetaminophen/ Hydrocodone Bitart (Lortab 7.5/325) 1 tab PRN Q6HRS PRN PO PAIN Last administered on 06/08/17 09:27; Start 06/06/17 at 17:45 Budesonide (Pulmicort) 0.5 mg RTBID NEB Last administered on 06/08/17 07:27; Start 06/06/17 at 20:00 Albuterol Sulfate (Ventolin Neb Soln) 2.5 mg RTQID NEB Last administered on 07:36; Start 06/06/17 at 20:00; Stop 06/07/17 at 10:29; Status DC Albuterol Sulfate (Ventolin Neb Soln) 2.5 mg PRN Q6HRS PRN NEB SHORTNESS OF BREATH; Start 06/06/17 at 17:45 Aspirin (Children'S Aspirin) 81 mg DAILY PO ; Start 06/07/17 at 09:00; Status UNV Diphenhydramine HCl (Benadryl) 25 mg TID PO Last administered on 06/08/17 10: 42; Start 06/06/17 at 21:00 Famotidine (Pepcid) 20 mg DAILY PO Last administered on 06/08/17 10:45; Start 06/07/17 at 09:00 Fluoxetine HCl (PROzac) 40 mg DAILYWBKFT PO ; Start 06/07/17 at 08:00 Methocarbamol (Robaxin) 1,500 mg QHS PO Last administered on 06/07/17 20:30; Start 06/06/17 at 21:00 Insulin Detemir (Levemir) 60 units QHS SQ Last administered on 06/07/17 20:31 ; Start 06/06/17 at 21:00 Non-Formulary Medication 1 cap DAILY PO ; Start 06/07/17 at 09:00; Status UNV Albuterol/ Ipratropium (Duoneb) 3 ml RTQID NEB Last administered on 06/08/17 07:27; Start 06/07/17 at 12:00 Levofloxacin (Levaquin) 500 mg DAILY06 PO Last administered on 06/08/17 10:43 ; Start 06/07/17 at 11:00 Promethazine HCl (Phenergan) 6.25 mg QID PO Last administered on 06/07/17 20: 30; Start 06/07/17 at 13:00 Diphenoxylate HCl/ Atropine (Lomotil) 2 tab QID PO ; Start 06/08/17 at 13:00; Stop 06/08/17 at 14:16; Status DC Active Scripts Active Ambien (Zolpidem Tartrate) 5 Mg Tablet 1 Tab PO QHS Reported Oxycodone Hcl 5 Mg Capsule 1 Cap PO PRN TID PRN Percocet 10-325 Mg Tablet (Oxycodone/Acetaminophen) 1 Each Tablet 1 Tab PO PRN Q6HRS PRN Senokot (Sennosides) 8.6 Mg Tablet 1 Tab PO DAILY Prozac (Fluoxetine Hcl) 20 Mg Capsule 2 Cap PO DAILYWBKFT Famotidine 20 Mg Tablet 20 Mg PO DAILY Duoneb 0.5-3(2.5) Mg/3 Ml (Albuterol/Ipratropium) 3 Ml Ampul.neb 3 Ml NEB QID Lomotil Tablet (Diphenoxylate Hcl/Atropine) 1 Each Tablet 2 Tab PO QID Benadryl (Diphenhydramine Hcl) 25 Mg Capsule 1 Cap PO TID Promethazine Hcl 6.25 Mg/5 Ml Syrup 5 Ml PO QID Lansoprazole 30 Mg Capsule.dr 1 Cap PO DAILY Robaxin-750 (Methocarbamol) 750 Mg Tablet 2 Tab PO QHS Lantus Solostar (Insulin Glargine,Hum.rec.anlog) 100 Unit/1 Ml Insuln.pen 60 Unit SQ QHS Alprazolam 2 Mg Tablet 1 Tab PO BID Aspirin 81 Mg Tab.chew 1 Tab PO DAILY [place] 5-325 Tablet (Acetaminophen/Hydrocodone Bitart) 1 Each Tablet 1 Tab PO PRN Q8HRS PRN Fluticasone Propionate Nasal [place] (Fluticasone Propionate) 16 Gm [place].susp 2 [place] NS DAILY Xarelto (Rivaroxaban) 20 Mg Tablet 20 Mg PO DAILY Ergocalciferol (Ergocalciferol (Vitamin D2)) 8,000 Unit/1 Ml Drops 50,000 Unit PO Novolog Flexpen (Insulin Aspart) 100 Unit/1 Ml Insuln.pen 40 Unit SQ TIDWMEALS Albuterol Sulfate Neb Soln (Albuterol Sulfate) 2.5 Mg/3 Ml Vial.neb 2.5 Mg NEB PRN Q4HRS PRN Robaxin-750 (Methocarbamol) 750 Mg Tablet 750 Mg PO QHS NITROGLYCERIN SubLingual (Nitroglycerin) 0.4 Mg Tab.subl 0.4 Mg SL PRN Q5MIN PRN Gabapentin 600 Mg Tablet 2 Tab PO TID Potassium Chloride 20 Meq Tablet.er 20 Meq PO BID Losartan Potassium 25 Mg Tablet 25 Mg PO DAILY Claritin (Loratadine) 10 Mg Capsule 10 Mg PO DAILY Lasix (Furosemide) 40 Mg Tablet 40 Mg PO BID Advair 250-50 Diskus (Fluticasone/Salmeterol) 1 Each Disk.w.dev 1 Inh IH BID Lipitor (Atorvastatin Calcium) 80 Mg Tablet 1 Tab PO QHS Albuterol Sulfate Hfa Inhaler (Albuterol Sulfate) 8.5 Gm Hfa.aer.ad 2 Puff INH PRN Q4HRS PRN Vitals/I & O Vital Sign - Last 24 Hours 06/07/17 06/07/17 06/07/17 06/07/17 14:45 15:06 16:23 19:00 Temp 98.2 98.4 98.2 98.4 Pulse 62 61 Resp 20 18 B/P (MAP) 135/63 (87) 128/61 (83) Pulse Ox 98 96 96 95 O2 Delivery Room Air Room Air Room Air 06/07/17 06/07/17 06/07/17 06/08/17 19:44 21:12 22:45 02:45 Temp 98.6 98.4 98.6 98.4 Pulse 66 58 Resp 20 18 18 B/P (MAP) 126/56 (79) 134/53 (80) Pulse Ox 95 95 O2 Delivery Room Air Room Air Room Air Room Air 06/08/17 06/08/17 06/08/17 06/08/17 02:56 07:00 07:27 08:00 Temp 98.5 98.5 Pulse 87 Resp 18 18 B/P (MAP) 174/72 (106) Pulse Ox 95 97 O2 Delivery Room Air Room Air Room Air Room Air 06/08/17 06/08/17 06/08/17 06/08/17 09:27 10:27 10:44 11:00 Temp 98.5 98.5 Pulse 72 56 Resp 18 16 18 B/P (MAP) 179/74 148/77 (100) Pulse Ox 96 O2 Delivery Room Air Room Air Room Air 06/08/17 14:30 Temp 98.8 98.8 Pulse 65 Resp 18 B/P (MAP) 139/52 (81) Pulse Ox 95 O2 Delivery Room Air KAREN VELASQUEZ MD Jun 08, 2017 14:35
[2017-06-08] MEDS ORDERED: predniSONE 20 MG TABLET PO SCH (17:00)
[2017-06-08] MEDS: predniSONE 20 MG TABLET PO SCH (18:43)
[2017-06-08 19:10] VITALS: BP 121/63
[2017-06-08] MEDS ORDERED: FAMOTIDINE 20 MG TABLET. PO ONE (21:00)
[2017-06-08] MEDS: ZOLPIDEM 5 MG TABLET. PO SCH (21:39)
[2017-06-08] MEDS: DICYCLOMINE HCL 10 MG CAPSULE PO PRN (21:39)
[2017-06-08] MEDS: ATORVASTATIN CALCIUM 40 MG TABLET. PO SCH (21:41)
[2017-06-08] MEDS: METHOCARBAMOL 750 MG TABLET PO SCH (21:41)
[2017-06-08] MEDS: INSULIN DETEMIR 300 UNITS/3 ML INSULN.PEN. SQ SCH (21:46)
[2017-06-08 22:50] VITALS: BP 142/75
[2017-06-09] VITALS (13 sets, daily range): BP systolic 121–170; BP diastolic 63–92
[2017-06-09] MEDS: predniSONE 20 MG TABLET PO SCH ×2 (00:56→05:38)
[2017-06-09] MEDS: HYDROcodone/APAP 7.5/325MG 1 TAB TABLET PO PRN ×3 (04:14→23:10)
[2017-06-09] MEDS ORDERED: FAMOTIDINE 20 MG TABLET. PO PRN (06:00)
[2017-06-09] MEDS ORDERED: HEPARIN for ARTERIAL LINE 1,500 ML ONE (07:16)
[2017-06-09] MEDS ORDERED: LIDOCAINE 2% 20 ML VIAL. ONE (07:16)
[2017-06-09] MEDS ORDERED: IODIXANOL 320 MG/ML 100 ML VIAL. ONE (07:17)
[2017-06-09] MEDS: BUDESONIDE 0.5 MG/2 ML NEBU. NEB SCH ×2 (07:24→20:12)
[2017-06-09] MEDS: IPRATRPIUM/ALBUTEROL 0.5/2.5MG 3 ML NEBU. NEB SCH ×4 (07:24→20:12)
[2017-06-09] MEDS: FLUoxetine HCL 20 MG CAPSULE PO SCH ×2 (08:00→08:07)
[2017-06-09] MEDS: PANTOPRAZOLE 40 MG TABLET.DR. PO SCH (08:06)
[2017-06-09] MEDS: LOSARTAN POTASSIUM 25 MG TABLET. PO SCH (08:07)
[2017-06-09] MEDS: diphenhydrAMINE HCL 25 MG CAPSULE PO SCH ×3 (08:07→20:41)
[2017-06-09] MEDS: ASPIRIN ENTERIC COATED 325 MG TABLET.DR. PO SCH (08:07)
[2017-06-09] MEDS ORDERED: MIDAZOLAM HCL/PF 2 MG/2 ML VIAL. ONE ×2 (08:21→08:54)
[2017-06-09] MEDS ORDERED: HEPARIN for IV BOLUS 10,000 UNIT/10 ML VIAL. ONE (08:21)
[2017-06-09] MEDS ORDERED: NITROGLYCERIN 200 MCG/2 ML SYRINGE FOR CATH/VASC LAB. ONE (08:21)
[2017-06-09] MEDS ORDERED: VERAPAMIL 5 MG/2 ML VIAL. ONE (08:21)
[2017-06-09] MEDS ORDERED: fentaNYL PF VIAL 100 MCG/2 ML VIAL ONE ×2 (08:21→08:54)
--- NOTE | 2017-06-09 08:33 | PDOC ---
MODERATE SEDATION ASSESSMENT RISKS/ALTERNATIVES Risks/Alternatives Risks and alternatives of this type of sedation and procedure discussed with: RISK/ALTERNATIVES: Patient H & P ON CHART H & P H & P on chart and reviewed for co-morbid conditions and appropriate labs. H&P ON CHART: Yes STATUS PREG STATUS ASSESSED: N/A MEDS/ALLERGIES REVIEWED Meds/Allergies Reviewed Medications and Allergies including time and route of recently administered narcotics and sedatives. MEDS/ALLERGIES REVIEWED: Yes ASA RATING ASA RATING: II AIRWAY ASSESSMENT Airway Assessment Airway patency, oral function limitations, presence of caps, crowns, dentures, partials, and ability to extend neck assessed. AIRWAY ASSESSMENT: Yes MALLAMPATI SCORE MALLAMPATI SCORE: II PRE-SEDATION ASSESSMENT PRE-SEDATION ASSESSMENT: Yes KARTHIKEYAN COREA MD Jun 09, 2017 08:33
[2017-06-09] MEDS: CETIRIZINE HCL 10 MG TABLET. PO SCH (09:00)
[2017-06-09] MEDS: FLUTICASONE 50MCG/NASAL SPRAY 16GM BOTTLE. NS SCH (09:00)
[2017-06-09] MEDS ORDERED: IOHEXOL 300 MG/ML 100ML VIAL. ONE (09:10)
[2017-06-09] MEDS ORDERED: TIROFIBAN 12.5MG -0.9% NS 250 ML IV ONE (09:10)
[2017-06-09] MEDS ORDERED: CLOPIDOGREL BISULFATE 75 MG TABLET ONE (09:23)
[2017-06-09] MEDS ORDERED: MIDAZOLAM HCL/PF 2 MG/2 ML VIAL. IV ONE (09:30)
[2017-06-09] MEDS ORDERED: TIROFIBAN 12.5MG -0.9% NS 250 ML IV PRN (09:30)
[2017-06-09] MEDS ORDERED: LIDOCAINE 2% 20 ML VIAL. IJ ONE (09:30)
[2017-06-09] MEDS ORDERED: CLOPIDOGREL BISULFATE 75 MG TABLET PO ONE (09:30)
[2017-06-09] MEDS ORDERED: HEPARIN for IV BOLUS 10,000 UNIT/10 ML VIAL. IART ONE (09:30)
[2017-06-09] MEDS ORDERED: NITROGLYCERIN 200 MCG/2 ML SYRINGE FOR CATH/VASC LAB. IART ONE ×2 (09:30)
[2017-06-09] MEDS ORDERED: HEPARIN for IV BOLUS 10,000 UNIT/10 ML VIAL. IV ONE (09:30)
[2017-06-09] MEDS ORDERED: fentaNYL PF VIAL 100 MCG/2 ML VIAL IV ONE (09:30)
[2017-06-09] MEDS ORDERED: IOHEXOL 300 MG/ML 100ML VIAL. IART ONE (09:30)
[2017-06-09] MEDS ORDERED: VERAPAMIL 5 MG/2 ML VIAL. IART ONE (09:30)
[2017-06-09] MEDS ORDERED: IV NORMAL SALINE 1000ML BAG 1,000 ML IV ONE (09:45)
[2017-06-09] MEDS ORDERED: CONTRAST GIVEN MC PRN (09:45)
[2017-06-09] MEDS: GABAPENTIN 300 MG CAPSULE. PO SCH ×2 (10:36→20:40)
[2017-06-09] MEDS: ALPRAZolam 1 MG TABLET PO SCH (10:36)
[2017-06-09] MEDS: POTASSIUM CHLORIDE 20 MEQ TABLET.ER. PO SCH ×2 (10:36→17:00)
[2017-06-09] MEDS: FUROSEMIDE 40 MG TABLET. PO SCH ×2 (10:36→14:39)
[2017-06-09] MEDS: PROMETHAZINE 6.25 MG/5 ML SYRUP. PO SCH (10:37)
[2017-06-09] MEDS: INSULIN ASPART 300 UNITS/3 ML INSULN.PEN SQ SCH ×6 (10:41→17:39)
--- NOTE | 2017-06-09 12:36 | CARD ---
APPROVED REPORT Procedure(s) performed: Coros, LV,iFR RCA, KATLYN-PTCA dRCA, KATLYN mRCA Moderate Sedation: 74 min HISTORY The patient is a 51 year-old female with a history of : previous NH, previous CHF, diabetes mellitus with treatment, coronary artery disease, tobacco history() , hypertension, dyslipidemia. INDICATION The indication(s) include : unstable angina . PROCEDURE NARRATIVE The patient was brought electively to the cardiac catheterization lab. A timeout was performed confi rming the patient's name, date of , procedure, and site of procedure. All necessary personnel w ere wearing the appropriate protective equipment and radiation monitor devices. After explaining the risks and benefits of the procedure and alternatives, informed consent was obtained. (See nursing no solomon for medications administered). The right wrist was sterilely prepped and draped in the usual fas hion. The right wrist was infiltrated with 1 mL of 2% lidocaine for subcutaneous anesthesia. A 6 Fr [employer] Terumo glide sheath was inserted into the right radial artery without difficulty. Right and lef t coronary angiography was performed using a 6Fr TIG 4.0 catheter. HEMODYNAMICS: LVEDP 8 mm Hg No gradient on LV to aortic pullback. CORONARY ANGIOGRAPHY: LM: Large caliber vessel with normal angiographic appearance. LAD: Large caliber vessel with mild luminal irregularities. There is a patent proximal stent. D1: Moderate caliber vessel with normal angiographic appearance. LCx: Non-dominant vessel with a patent proximal stent. The distal vessel has mild luminal irregularit ies. OM1: Moderate caliber vessel with mild luminal irregularities. RCA: Large caliber dominant vessel with a patent proximal stent, mid 50% and distal 70% stenosis. RPDA is a small to moderate caliber vessel with normal angiographic appearance. INTERVENTIONAL TECHNIQUE: Heparin and tirofiban were used for anti-coagulation. Through a 6 [place] JR4 guide catheter a [employer] IFR wire was advanced to the distal RCA. After appropriate normalization there was significant press ure drop across the distal RCA stenosis and on pullback there was significant drop across the mid RCA stenosis. Therefore decision was made to perform PCI. The distal lesion was angioplastied with a 2.5 x 12 mm balloon and then stented with a 2.5 x 18 mm drug-eluting stent. The mid lesion was angioplas tied with a 2.5 mm balloon and then stented with a 2.5 x 15 mm drug-eluting stent. Post PCI angiograp hy revealed excellent stent expansion without any evidence of guider wire-related complications with BEVERLY-3 flow in the vessel. Left ventricular end diastolic pressure was obtained with a pigtail angela ter and pullback was performed. All catheter exchanges and advancements were performed over a guidew thad. At case completion the right radial sheath was removed and a Terumo radial band was applied wit h 15 ml of air. The patient tolerated the procedure well and there were no immediate complications. The patient received 600 mg of Plavix at case completion. Conclusion 1. Three-vessel coronary artery disease with patent stents in the LAD and left circumflex. 2. Patent stent noted in the proximal RCA with 2 notable lesions in the mid and distal RCA. 3. Successful PCI of the mid and distal RCA lesions with implantation of a 2.5 x 15 mm and 2.5 x 18 m m Xience drug-eluting stents. Recommendations ASA 81mg daily, Plavix 75mg daily and Xarelto 20mg daily for 1 month, then transition to [id number] d aily and Xarelto 20mg daily for 11 months. Cardiac rehab Aggressive medical therapy and risk factor modification.
--- NOTE | 2017-06-09 14:35 | PDOC ---
PROGRESS NOTES Chief Complaint Chief Complaint chest pain, 2/2 unstable angina 2/2 PCI with 2 stents at RCA h/o CAD with pci GERD H/O MILD diastolic CHF, STABLE htn dm2 on insulin h/o DVT on xarelto htn hld morbid obesity BMI 44 left great toe amputation, R great & 2nd toe amputation h/o drug abuse with cocaine, marijuana ckd3 mild malnutrition leg neuropathy bronchitis plan: card consulted cycle CE neg drug tox, pt refused cont home meds, need verity on high dose insulin, SSI on xarelto, cont asa, plavix x1 month. nitro prn add doxy for now, on duoneb, albuterol History of Present Illness History of Present Illness ROS: NO fever, chills, sob cont chest pain, better CE neg c/o cough with sputum x2 days, require abx refused to give urine sample for urine drug Vitals Vitals Vital Signs Date Time Temp Pulse Resp B/P (MAP) Pulse Ox O2 Delivery O2 Flow Rate FiO2 06/09/17 10:57 98.3 98 19 155/78 (103) 95 Room Air 98.3 06/09/17 09:54 2.0 Physical Exam General: Alert, Oriented X3, Cooperative Heart: Regular rate, Normal S1, Normal S2 Lungs: Clear, Other Abdomen: Normal bowel sounds, Soft Extremities: No clubbing, No cyanosis Skin: No rashes, No breakdown Labs LABS Laboratory Tests Test 06/08/17 16:13 06/08/17 21:04 06/09/17 07:59 06/09/17 11:48 Glucose (Fingerstick) 92 mg/dL (70-99) 116 mg/dL (70-99) 316 mg/dL (70-99) 371 mg/dL (70-99) Assessment and Plan Assessmemt and Plan Problems Medical Problems: (1) Chest pain Status: Acute Problems: Comment Review of Relevant I have reviewed the following items crista (where applicable) has been applied. Labs Laboratory Tests Test 06/07/17 16:40 06/07/17 20:26 06/08/17 03:55 06/08/17 07:06 Glucose (Fingerstick) 142 mg/dL (70-99) 112 mg/dL (70-99) 169 mg/dL (70-99) White Blood Count 7.9 x10^3/uL (4.0-11.0) Red Blood Count 4.08 x10^6/uL (3.50-5.40) Hemoglobin 11.1 g/dL (12.0-15.5) Hematocrit 34.7 % (36.0-47.0) Mean Corpuscular Volume 85 fL (79-100) Mean Corpuscular Hemoglobin 27 pg (25-35) Mean Corpuscular Hemoglobin Concent 32 g/dL (31-37) Red Cell Distribution Width 14.4 % (11.5-14.5) Platelet Count 219 x10^3/uL (140-400) Neutrophils (%) (Auto) 57 % (31-73) Lymphocytes (%) (Auto) 32 % (24-48) Monocytes (%) (Auto) 9 % (0-9) Eosinophils (%) (Auto) 2 % (0-3) Basophils (%) (Auto) 1 % (0-3) Neutrophils # (Auto) 4.5 x10^3uL (1.8-7.7) Lymphocytes # (Auto) 2.5 x10^3/uL (1.0-4.8) Monocytes # (Auto) 0.7 x10^3/uL (0.0-1.1) Eosinophils # (Auto) 0.2 x10^3/uL (0.0-0.7) Basophils # (Auto) 0.0 x10^3/uL (0.0-0.2) Sodium Level 141 mmol/L (136-145) Potassium Level 4.5 mmol/L (3.5-5.1) Chloride Level 104 mmol/L (98-107) Carbon Dioxide Level 29 mmol/L (21-32) Anion Gap 8 (6-14) Blood Urea Nitrogen 17 mg/dL (7-20) Creatinine 1.1 mg/dL (0.6-1.0) Estimated GFR (Cockcroft-Gault) 63.1 Glucose Level 136 mg/dL (70-99) Calcium Level 9.0 mg/dL (8.5-10.1) Test 06/08/17 09:54 06/08/17 16:13 06/08/17 21:04 06/09/17 07:59 Glucose (Fingerstick) 170 mg/dL (70-99) 92 mg/dL (70-99) 116 mg/dL (70-99) 316 mg/dL (70-99) Test 06/09/17 11:48 Glucose (Fingerstick) 371 mg/dL (70-99) Laboratory Tests Test 06/08/17 16:13 06/08/17 21:04 06/09/17 07:59 06/09/17 11:48 Glucose (Fingerstick) 92 mg/dL (70-99) 116 mg/dL (70-99) 316 mg/dL (70-99) 371 mg/dL (70-99) Medications Current Medications Nitroglycerin (Nitrostat) 0.4 mg PRN Q5MIN PRN SL CP RATING > 1/10 Last administered on 06/06/17 14:17; Start 06/06/17 at 12:45; Stop 06/07/17 at 12:44 ; Status DC Fentanyl Citrate (Fentanyl 2ml Vial) 25 mcg PRN Q15MIN PRN IV PAIN GREATER THAN 3/10 Last administered on 06/06/17 14:17; Start 06/06/17 at 13:30; Stop 06/07/17 at 13:29; Status DC Albuterol/ Ipratropium (Duoneb) 3 ml 1X ONCE NEB Last administered on 13:52; Start 06/06/17 at 13:45; Stop 06/06/17 at 13:46; Status DC Ondansetron HCl (Zofran) 4 mg PRN Q8HRS PRN IV NAUSEA/VOMITING; Start 06/06/17 at 16:15; Stop 06/07/17 at 16:14; Status DC Aspirin (Orlin Aspirin) 325 mg 1X ONCE PO Last administered on 06/06/17 16:37 ; Start 06/06/17 at 16:15; Stop 06/06/17 at 16:18; Status DC Info (Do NOT chart on this placeholder) 1 each PRN 1X PRN MC SEE COMMENTS; Start 06/06/17 at 17:30; Status UNV Pneumococcal Polyvalent Vaccine (Do NOT chart on this placeholder) 1 each PRN 1X PRN MC SEE COMMENTS; Start 06/06/17 at 17:30; Status UNV Influenza Virus Vaccine Quadrival (Fluarix Quad [id number] Syringe) 0.5 ml ONCE ONCE VAX IM ; Start 06/06/17 at 18:00; Stop 06/06/17 at 18:01; Status DC Pneumococcal Polyvalent Vaccine (Pneumovax 23) 0.5 ml ONCE ONCE VAX IM ; Start 06/06/17 at 18:00; Stop 06/06/17 at 18:01; Status DC Albuterol Sulfate (Ventolin Hfa) 2 puff PRN Q4HRS PRN INH SHORTNESS OF BREATH; Start 06/06/17 at 17:30; Status UNV Alprazolam (Xanax) 1 mg DAILY PO Last administered on 06/09/17 10:36; Start 06/07/17 at 09:00 Amitriptyline HCl (Elavil) 25 mg QHS PO ; Start 06/06/17 at 21:00; Stop at 21:00; Status DC Aspirin (Ecotrin) 325 mg DAILYWBKFT PO Last administered on 06/09/17 08:07; Start 06/07/17 at 08:00 Diclofenac Sodium (Voltaren) 1 raz QID TP ; Start 06/06/17 at 21:00; Stop at 14:16; Status DC Dicyclomine HCl (Bentyl) 10 mg QID PRN PO PAIN Last administered on 06/08/17 21:39; Start 06/06/17 at 17:30 Fluticasone Propionate (Flonase) 2 spray DAILY NS ; Start 06/07/17 at 09:00 Furosemide (Lasix) 40 mg BID92 PO Last administered on 06/09/17 10:36; Start 06/07/17 at 09:00 Acetaminophen/ Hydrocodone Bitart (Lortab 5/325) 1 tab PRN Q8HRS PRN PO PAIN; Start 06/06/17 at 17:30; Stop 06/06/17 at 17:39; Status DC Insulin Aspart (NovoLOG) 40 units TIDWMEALS SQ ; Start 06/06/17 at 18:00; Status Cancel Insulin Aspart (NovoLOG) 50 units TIDWMEALS SQ ; Start 06/07/17 at 08:00; Stop 06/07/17 at 08:00; Status DC Losartan Potassium (Cozaar) 25 mg DAILY PO Last administered on 06/09/17 08: 07; Start 06/07/17 at 09:00 Lurasidone HCl (Latuda) 40 mg DAILYWSUP PO ; Start 06/06/17 at 18:00; Stop 06/06 at 19:06; Status DC Methocarbamol (Robaxin) 750 mg QHS PO ; Start 06/06/17 at 21:00; Status Cancel Nitroglycerin (Nitrostat) 0.4 mg PRN Q5MIN PRN SL CHEST PAIN; Start 06/06/17 at 17:30 Pantoprazole Sodium (Protonix) 40 mg DAILYAC PO Last administered on 08:06; Start 06/07/17 at 07:30 Sennosides (Senna) 17.2 mg PRN DAILY PRN PO CONSTIPATION; Start 06/06/17 at 17: 30 Zolpidem Tartrate (Ambien) 5 mg QHS PO Last administered on 06/08/17 21:39; Start 06/06/17 at 21:00 Atorvastatin Calcium (Lipitor) 80 mg QHS PO Last administered on 06/08/17 21: 41; Start 06/06/17 at 21:00 Non-Formulary Medication 1 inh BID IH ; Start 06/06/17 at 21:00; Status UNV Gabapentin (Neurontin) 600 mg BID PO Last administered on 06/09/17 10:36; Start 06/06/17 at 21:00 Insulin Detemir (Levemir) 70 units QHS SQ ; Start 06/06/17 at 21:00; Stop at 21:00; Status DC Cetirizine HCl (ZyrTEC) 10 mg DAILY PO Last administered on 06/08/17 10:43; Start 06/07/17 at 09:00 Potassium Chloride (Klor-Con) 20 meq BIDWMEALS PO Last administered on 10:36; Start 06/07/17 at 08:00 Rivaroxaban (Xarelto) 20 mg DAILYWSUP PO ; Start 06/06/17 at 18:00; Stop at 06:45; Status DC Insulin Aspart (NovoLOG) 30 units TIDWMEALS SQ Last administered on 06/09/17 12:50; Start 06/06/17 at 18:00 Insulin Detemir (Levemir) 50 units QHS SQ ; Start 06/06/17 at 21:00; Stop at 21:00; Status DC Acetaminophen (Tylenol) 650 mg PRN Q6HRS PRN PO FEVER; Start 06/06/17 at 17:30 Ondansetron HCl (Zofran) 4 mg PRN Q6HRS PRN IV NAUSEA/VOMITING; Start 06/06/17 at 17:30 Morphine Sulfate 2 mg PRN Q2HR PRN IV PAIN; Start 06/06/17 at 17:30 Tramadol HCl (Ultram) 50 mg PRN Q6HRS PRN PO PAIN; Start 06/06/17 at 17:30 Hydralazine HCl (Apresoline) 10 mg PRN Q4HRS PRN IVP ELEVATED BP, SEE COMMENTS ; Start 06/06/17 at 17:30 Docusate Sodium (Colace) 100 mg PRN DAILY PRN PO CONSTIPATION; Start 06/06/17 at 17:30 Insulin Aspart (NovoLOG) 0-9 UNITS TIDWMEALS SQ Last administered on 12:52; Start 06/07/17 at 08:00 Dextrose (Dextrose 50%-Water Syringe) 12.5 gm PRN Q15MIN PRN IV SEE COMMENTS; Start 06/06/17 at 17:45 Acetaminophen/ Hydrocodone Bitart (Lortab 7.5/325) 1 tab PRN Q6HRS PRN PO PAIN Last administered on 06/09/17 04:14; Start 06/06/17 at 17:45 Budesonide (Pulmicort) 0.5 mg RTBID NEB Last administered on 06/09/17 07:24; Start 06/06/17 at 20:00 Albuterol Sulfate (Ventolin Neb Soln) 2.5 mg RTQID NEB Last administered on 07:36; Start 06/06/17 at 20:00; Stop 06/07/17 at 10:29; Status DC Albuterol Sulfate (Ventolin Neb Soln) 2.5 mg PRN Q6HRS PRN NEB SHORTNESS OF BREATH; Start 06/06/17 at 17:45 Aspirin (Children'S Aspirin) 81 mg DAILY PO ; Start 06/07/17 at 09:00; Status UNV Diphenhydramine HCl (Benadryl) 25 mg TID PO Last administered on 06/09/17 08: 07; Start 06/06/17 at 21:00 Famotidine (Pepcid) 20 mg DAILY PO Last administered on 06/08/17 10:45; Start 06/07/17 at 09:00; Stop 06/08/17 at 15:13; Status DC Fluoxetine HCl (PROzac) 40 mg DAILYWBKFT PO ; Start 06/07/17 at 08:00; Stop 06/16 at 08:13; Status DC Methocarbamol (Robaxin) 1,500 mg QHS PO Last administered on 06/08/17 21:41; Start 06/06/17 at 21:00 Insulin Detemir (Levemir) 60 units QHS SQ Last administered on 06/07/17 20:31 ; Start 06/06/17 at 21:00; Stop 06/08/17 at 14:37; Status DC Non-Formulary Medication 1 cap DAILY PO ; Start 06/07/17 at 09:00; Status UNV Albuterol/ Ipratropium (Duoneb) 3 ml RTQID NEB Last administered on 06/09/17 07:24; Start 06/07/17 at 12:00 Levofloxacin (Levaquin) 500 mg DAILY06 PO Last administered on 06/09/17 05:38 ; Start 06/07/17 at 11:00 Promethazine HCl (Phenergan) 6.25 mg QID PO Last administered on 06/09/17 10: 37; Start 06/07/17 at 13:00; Stop 06/09/17 at 11:52; Status DC Diphenoxylate HCl/ Atropine (Lomotil) 2 tab QID PO ; Start 06/08/17 at 13:00; Stop 06/08/17 at 14:16; Status DC Insulin Detemir (Levemir) 40 units QHS SQ Last administered on 06/08/17 21:46 ; Start 06/08/17 at 21:00 Prednisone (Prednisone) 50 mg Q6H PO ; Start 06/08/17 at 17:00; Stop 06/08/17 at 17:17; Status DC Famotidine (Pepcid) 20 mg 1X ONCE PO Last administered on 10/10/17at 00:56; Start 06/08/17 at 21:00; Stop 06/08/17 at 21:01; Status DC Famotidine (Pepcid) 20 mg OC PROC PRN PO PRE-PROCEDURE Last administered on 08:06; Start 06/09/17 at 06:00; Stop 06/10/17 at 05:59 Prednisone (Prednisone) 50 mg Q6H PO Last administered on 06/09/17 05:38; Start 06/08/17 at 19:00; Stop 06/09/17 at 07:01; Status DC Heparin Sodium/ Sodium Chloride 1,500 ml @ As Directed STK-MED ONCE .ROUTE ; Start 06/09/17 at 07:16; Stop 06/09/17 at 07:17; Status DC Lidocaine HCl 20 ml STK-MED ONCE .ROUTE ; Start 06/09/17 at 07:16; Stop at 07:17; Status DC Iodixanol (Visipaque 320) 100 ml STK-MED ONCE .ROUTE ; Start 06/09/17 at 07:17 ; Stop 06/09/17 at 07:18; Status DC Midazolam HCl (Versed) 2 mg STK-MED ONCE .ROUTE ; Start 06/09/17 at 08:21; Stop 06/09/17 at 08:22; Status DC Fentanyl Citrate (Fentanyl 2ml Vial) 100 mcg STK-MED ONCE .ROUTE ; Start at 08:21; Stop 06/09/17 at 08:22; Status DC Heparin Sodium (Porcine) (Heparin Sodium) 10,000 unit STK-MED ONCE .ROUTE ; Start 06/09/17 at 08:21; Stop 06/09/17 at 08:22; Status DC Verapamil HCl (Verapamil) 5 mg STK-MED ONCE .ROUTE ; Start 06/09/17 at 08:21; Stop 06/09/17 at 08:22; Status DC Nitroglycerin (Nitroglycerin) 200 mcg STK-MED ONCE .ROUTE ; Start 06/09/17 at 08:21; Stop 06/09/17 at 08:22; Status DC Midazolam HCl (Versed) 2 mg STK-MED ONCE .ROUTE ; Start 06/09/17 at 08:54; Stop 06/09/17 at 08:55; Status DC Fentanyl Citrate (Fentanyl 2ml Vial) 100 mcg STK-MED ONCE .ROUTE ; Start at 08:54; Stop 06/09/17 at 08:55; Status DC Iohexol (Omnipaque 300 Mg/ml) 100 ml STK-MED ONCE .ROUTE ; Start 06/09/17 at 09 :10; Stop 06/09/17 at 09:11; Status DC Tirofiban/Sodium Chloride 250 ml @ As Directed STK-MED ONCE IV ; Start at 09:10; Stop 06/09/17 at 09:11; Status DC Clopidogrel Bisulfate (Plavix) 75 mg STK-MED ONCE .ROUTE ; Start 06/09/17 at 09 :23; Stop 06/09/17 at 09:24; Status DC Nitroglycerin (Nitroglycerin) 200 mcg 1X ONCE IART Last administered on 09:51; Start 06/09/17 at 09:30; Stop 06/09/17 at 09:33; Status DC Verapamil HCl (Verapamil) 2.5 mg 1X ONCE IART Last administered on 06/09/17 09:52; Start 06/09/17 at 09:30; Stop 06/09/17 at 09:33; Status DC Heparin Sodium (Porcine) (Heparin Sodium) 2,500 unit 1X ONCE IART Last administered on 06/09/17 09:53; Start 06/09/17 at 09:30; Stop 06/09/17 at 09 :33; Status DC Heparin Sodium/ Sodium Chloride 1,000 unit 1X ONCE IART Last administered on 06/09/17 09:50; Start 06/09/17 at 09:30; Stop 06/09/17 at 09:33; Status DC Midazolam HCl (Versed) 3 mg 1X ONCE IV Last administered on 06/09/17 09:52; Start 06/09/17 at 09:30; Stop 06/09/17 at 09:33; Status DC Fentanyl Citrate (Fentanyl 2ml Vial) 150 mcg 1X ONCE IV Last administered on 06/09/17 09:52; Start 06/09/17 at 09:30; Stop 06/09/17 at 09:33; Status DC Iohexol (Omnipaque 300 Mg/ml) 100 ml 1X ONCE IART Last administered on 09:50; Start 06/09/17 at 09:30; Stop 06/09/17 at 09:33; Status DC Clopidogrel Bisulfate (Plavix) 600 mg 1X ONCE PO Last administered on 09:51; Start 06/09/17 at 09:30; Stop 06/09/17 at 09:33; Status DC Heparin Sodium (Porcine) (Heparin Sodium) 7,000 unit 1X ONCE IV Last administered on 06/09/17 09:53; Start 06/09/17 at 09:30; Stop 06/09/17 at 09 :33; Status DC Lidocaine HCl 1 ml 1X ONCE IJ Last administered on 06/09/17 09:50; Start at 09:30; Stop 06/09/17 at 09:33; Status DC Tirofiban/Sodium Chloride 250 ml @ 0 mls/hr CONT PRN IV PER PROTOCOL Last administered on 06/09/17 09:30; Start 06/09/17 at 09:30 Nitroglycerin (Nitroglycerin) 150 mcg 1X ONCE IART Last administered on 09:51; Start 06/09/17 at 09:30; Stop 06/09/17 at 09:33; Status DC Info (Do NOT chart on this entry -- for MONITORING) 1 each PRN DAILY PRN MC SEE COMMENTS; Start 06/09/17 at 09:45; Stop 06/11/17 at 09:44 Sodium Chloride 1,000 ml @ 100 mls/hr 1X ONCE IV Last administered on 09:45; Start 06/09/17 at 09:45; Stop 06/09/17 at 19:44 Promethazine HCl/ Codeine (Phenergan With Codeine) 5 ml PRN Q6HRS PRN PO COUGH ; Start 06/09/17 at 12:00 Active Scripts Active Ambien (Zolpidem Tartrate) 5 Mg Tablet 1 Tab PO QHS Reported Oxycodone Hcl 5 Mg Capsule 1 Cap PO PRN TID PRN Percocet 10-325 Mg Tablet (Oxycodone/Acetaminophen) 1 Each Tablet 1 Tab PO PRN Q6HRS PRN Senokot (Sennosides) 8.6 Mg Tablet 1 Tab PO DAILY Famotidine 20 Mg Tablet 20 Mg PO DAILY Duoneb 0.5-3(2.5) Mg/3 Ml (Albuterol/Ipratropium) 3 Ml Ampul.neb 3 Ml NEB QID Lomotil Tablet (Diphenoxylate Hcl/Atropine) 1 Each Tablet 2 Tab PO QID Benadryl (Diphenhydramine Hcl) 25 Mg Capsule 1 Cap PO TID Promethazine Hcl 6.25 Mg/5 Ml Syrup 5 Ml PO QID Lansoprazole 30 Mg Capsule.dr 1 Cap PO DAILY Robaxin-750 (Methocarbamol) 750 Mg Tablet 2 Tab PO QHS Lantus Solostar (Insulin Glargine,Hum.rec.anlog) 100 Unit/1 Ml Insuln.pen 60 Unit SQ QHS Alprazolam 2 Mg Tablet 1 Tab PO BID Aspirin 81 Mg Tab.chew 1 Tab PO DAILY [place] 5-325 Tablet (Acetaminophen/Hydrocodone Bitart) 1 Each Tablet 1 Tab PO PRN Q8HRS PRN Fluticasone Propionate Nasal [place] (Fluticasone Propionate) 16 Gm [place].susp 2 [place] NS DAILY Xarelto (Rivaroxaban) 20 Mg Tablet 20 Mg PO DAILY Ergocalciferol (Ergocalciferol (Vitamin D2)) 8,000 Unit/1 Ml Drops 50,000 Unit PO Novolog Flexpen (Insulin Aspart) 100 Unit/1 Ml Insuln.pen 40 Unit SQ TIDWMEALS Albuterol Sulfate Neb Soln (Albuterol Sulfate) 2.5 Mg/3 Ml Vial.neb 2.5 Mg NEB PRN Q4HRS PRN Robaxin-750 (Methocarbamol) 750 Mg Tablet 750 Mg PO QHS NITROGLYCERIN SubLingual (Nitroglycerin) 0.4 Mg Tab.subl 0.4 Mg SL PRN Q5MIN PRN Gabapentin 600 Mg Tablet 2 Tab PO TID Potassium Chloride 20 Meq Tablet.er 20 Meq PO BID Losartan Potassium 25 Mg Tablet 25 Mg PO DAILY Claritin (Loratadine) 10 Mg Capsule 10 Mg PO DAILY Lasix (Furosemide) 40 Mg Tablet 40 Mg PO BID Advair 250-50 Diskus (Fluticasone/Salmeterol) 1 Each Disk.w.dev 1 Inh IH BID Lipitor (Atorvastatin Calcium) 80 Mg Tablet 1 Tab PO QHS Albuterol Sulfate Hfa Inhaler (Albuterol Sulfate) 8.5 Gm Hfa.aer.ad 2 Puff INH PRN Q4HRS PRN Vitals/I & O Vital Sign - Last 24 Hours 06/08/17 06/08/17 06/08/17 06/08/17 15:48 16:48 17:11 19:10 Temp 98.6 98.6 Pulse 74 Resp 16 18 B/P (MAP) 121/63 (82) Pulse Ox 97 95 O2 Delivery Room Air Room Air Room Air 06/08/17 06/08/17 06/09/17 06/09/17 20:00 22:50 02:40 07:00 Temp 98.6 98.2 97.9 98.6 98.2 97.9 Pulse 55 61 71 Resp 18 18 20 B/P (MAP) 142/75 (97) 135/69 (91) 121/85 (97) Pulse Ox 95 92 92 O2 Delivery Room Air Room Air Room Air Room Air 06/09/17 06/09/17 06/09/17 06/09/17 07:26 08:00 08:07 09:52 Pulse 61 74 B/P (MAP) 135/69 Pulse Ox 60 O2 Delivery Room Air Room Air 06/09/17 06/09/17 06/09/17 06/09/17 09:52 09:54 10:00 10:15 Pulse 72 72 72 Resp 14 15 B/P (MAP) 144/80 (101) 161/92 (115) Pulse Ox 94 94 O2 Delivery Nasal Cannula Nasal Cannula Room Air Room Air O2 Flow Rate 2.0 2.0 06/09/17 06/09/17 06/09/17 10:30 10:45 10:57 Temp 98.3 98.3 Pulse 72 72 98 Resp 19 B/P (MAP) 170/80 (110) 155/78 (103) 155/78 (103) Pulse Ox 95 O2 Delivery Room Air Room Air Room Air KAREN VELASQUEZ MD Jun 09, 2017 14:35
[2017-06-09] MEDS: METHOCARBAMOL 750 MG TABLET PO SCH (20:41)
[2017-06-09] MEDS: ATORVASTATIN CALCIUM 40 MG TABLET. PO SCH (20:41)
[2017-06-09] MEDS: ZOLPIDEM 5 MG TABLET. PO SCH (20:41)
[2017-06-09] MEDS: INSULIN DETEMIR 300 UNITS/3 ML INSULN.PEN. SQ SCH (20:45)
[2017-06-09] MEDS: PROMETH/CODEINE 6.25/10MG 5 ML SYRUP. PO PRN (23:12)
[2017-06-10 03:00] VITALS: BP 104/65
[2017-06-10] MEDS: HYDROcodone/APAP 7.5/325MG 1 TAB TABLET PO PRN (05:26)
[2017-06-10] MEDS: PROMETH/CODEINE 6.25/10MG 5 ML SYRUP. PO PRN (05:26)
[2017-06-10 07:00] VITALS: BP 134/70
[2017-06-10] MEDS: BUDESONIDE 0.5 MG/2 ML NEBU. NEB SCH (07:31)
[2017-06-10] MEDS: IPRATRPIUM/ALBUTEROL 0.5/2.5MG 3 ML NEBU. NEB SCH ×2 (07:31→11:26)
[2017-06-10] MEDS ORDERED: ASPIRIN ENTERIC COATED 81 MG TABLET.DR. PO SCH (08:00)
[2017-06-10] MEDS ORDERED: CLOPIDOGREL BISULFATE 75 MG TABLET PO SCH (08:00)
[2017-06-10] MEDS: PANTOPRAZOLE 40 MG TABLET.DR. PO SCH (08:56)
[2017-06-10] MEDS: FUROSEMIDE 40 MG TABLET. PO SCH (08:57)
[2017-06-10] MEDS: POTASSIUM CHLORIDE 20 MEQ TABLET.ER. PO SCH (08:57)
[2017-06-10] MEDS: CETIRIZINE HCL 10 MG TABLET. PO SCH (08:57)
[2017-06-10] MEDS: diphenhydrAMINE HCL 25 MG CAPSULE PO SCH (08:57)
[2017-06-10] MEDS: GABAPENTIN 300 MG CAPSULE. PO SCH (08:58)
[2017-06-10] MEDS: LOSARTAN POTASSIUM 25 MG TABLET. PO SCH (08:58)
[2017-06-10] MEDS: ALPRAZolam 1 MG TABLET PO SCH (08:58)
[2017-06-10] MEDS: FLUTICASONE 50MCG/NASAL SPRAY 16GM BOTTLE. NS SCH (09:00)
[2017-06-10] MEDS: INSULIN ASPART 300 UNITS/3 ML INSULN.PEN SQ SCH ×4 (09:12→12:00)
[2017-06-10 11:00] VITALS: BP 140/72
[2017-06-10] MEDS ORDERED: LEVO500T59 PO (12:12)
[2017-06-10] MEDS ORDERED: CLOP75TA PO (12:12)
[2017-06-10] MEDS ORDERED: PROM118S2 PO (12:12)
--- NOTE | 2017-06-10 14:07 | PDOC3 ---
Discharge Summary [facility] Date of Admission: Jun 06, 2017 Discharge Date: Jun 10, 2017 Admitting Diagnosis chest pain, 2/2 unstable angina 2/2 PCI with 2 stents at RCA h/o CAD with pci GERD H/O MILD diastolic CHF, STABLE htn dm2 on insulin h/o DVT on xarelto htn hld morbid obesity BMI 44 left great toe amputation, R great & 2nd toe amputation h/o drug abuse with cocaine, marijuana ckd3 mild malnutrition leg neuropathy bronchitis Problems: Final Diagnosis CONSULTS card Procedures cath with PCI Brief Hospital Course Patient is a 51 year old -[place] female who presents with chest pain since last night. Pt had h/o cath 2 times last time was 2014 with stents. She said she was lying in bed last night, with substernal chest pain, heavy, radiating to right shoulder, with diaphoresis, sob, and nausea, no vomiting. denies fever, chills, cough. has 2 days diarrhea, loose , 2 times daily. pt was here 10/2016, MPI neg. echo ok. came here again 01/2017 for same chest pain , nothing was done. in ER, CE, EKG no acute change. given pt has been here frequently, card did cath and placed a stent at RCA. pt has no chest pain. dc home with asa, plavix, and xarelto x1m ,then off asa. dc time 35min General: Alert, Oriented X3, Cooperative Heart: Regular rate, Normal S1, Normal S2 Lungs: Clear, Other Abdomen: Normal bowel sounds, Soft Extremities: No clubbing, No cyanosis Skin: No rashes, No breakdown Patient History: Cancer confirmed (situation) 32 MOTHER (uterine CA) FH: CHF (congestive heart failure) 32 MOTHER grandmother FH: stroke 32 MOTHER FH: uterine cancer Family history: Diabetes mellitus (situation) 32 MOTHER Problems: Disposition home CONDITION AT DISCHARGE: Improved Diet regular, cardiac Scheduled Alprazolam (Alprazolam), 1 TAB PO BID, (Reported) Aspirin (Aspirin), 1 TAB PO DAILY, (Reported) Atorvastatin Calcium (Lipitor), 1 TAB PO QHS, (Reported) Clopidogrel Bisulfate (Clopidogrel), 75 MG PO DAILYWBKFT Diphenhydramine Hcl (Benadryl), 1 CAP PO TID, (Reported) Diphenoxylate Hcl/Atropine (Lomotil Tablet), 2 TAB PO QID, (Reported) Famotidine (Famotidine), 20 MG PO DAILY, (Reported) Fluticasone Propionate (Fluticasone Propionate Nasal [place]), 2 SPRAY NS DAILY, ( Reported) Fluticasone/Salmeterol (Advair 250-50 Diskus), 1 INH IH BID, (Reported) Furosemide (Lasix), 40 MG PO BID, (Reported) Gabapentin (Gabapentin), 2 TAB PO TID, (Reported) Insulin Aspart (Novolog Flexpen), 40 UNIT SQ TIDWMEALS, (Reported) Insulin Glargine,Hum.rec.anlog (Lantus Solostar), 60 UNIT SQ QHS, (Reported) Ipratropium/Albuterol Sulfate (Duoneb 0.5-3(2.5) Mg/3 Ml), 3 ML NEB QID, ( Reported) Lansoprazole (Lansoprazole), 1 CAP PO DAILY, (Reported) Levofloxacin (Levaquin), 500 MG PO DAILY06 Loratadine (Claritin), 10 MG PO DAILY, (Reported) Losartan Potassium (Losartan Potassium), 25 MG PO DAILY, (Reported) Methocarbamol (Robaxin-750), 750 MG PO QHS, (Reported) Methocarbamol (Robaxin-750), 2 TAB PO QHS, (Reported) Potassium Chloride (Potassium Chloride), 20 MEQ PO BID, (Reported) Promethazine Hcl (Promethazine Hcl), 5 ML PO QID, (Reported) Rivaroxaban (Xarelto), 20 MG PO DAILY, (Reported) Sennosides (Senokot), 1 TAB PO DAILY, (Reported) Zolpidem Tartrate (Ambien), 1 TAB PO QHS Scheduled PRN Albuterol Sulfate (Albuterol Sulfate Hfa Inhaler), 2 PUFF INH PRN Q4HRS PRN for SHORTNESS OF BREATH, (Reported) Albuterol Sulfate (Albuterol Sulfate Neb Soln), 2.5 MG NEB PRN Q4HRS PRN for SHORTNESS OF BREATH, (Reported) Hydrocodone/Apap 5-325 ([place] 5-325 Tablet), 1 TAB PO PRN Q8HRS PRN for PAIN, ( Reported) Nitroglycerin (NITROGLYCERIN SubLingual), 0.4 MG SL PRN Q5MIN PRN for CHEST PAIN , (Reported) Oxycodone Hcl (Oxycodone Hcl), 1 CAP PO PRN TID PRN for PAIN, (Reported) Oxycodone/Apap 10-325 (Percocet 10-325 Mg Tablet), 1 TAB PO PRN Q6HRS PRN for PAIN, (Reported) Promethazine Hcl/Codeine (Promethazine-Codeine Syrup), 5 ML PO PRN Q6HRS PRN for COUGH Miscellaneous Medications Ergocalciferol (Vitamin D2) (Ergocalciferol), 50,000 UNIT PO, (Reported) Discontinued Medications Fluoxetine Hcl (Prozac), 2 CAP PO DAILYWBKFT, (Reported) Follow Up card in 2 weeks KAREN VELASQUEZ MD Jun 10, 2017 14:07
[2017-06-10] MEDS ORDERED: INSULIN DETEMIR 300 UNITS/3 ML INSULN.PEN. SQ SCH (21:00)
== END 2017-06-10 12:50 | disposition home or self-care (01) | DRG 247 ==
LOC: ER 12:40 → 2 SOUTH 15:45
PROVIDERS: ADMIT Internal Medicine; ATTEND Internal Medicine
PROC: 027035Z Dilation of Coronary Artery, One Artery with Two Drug-eluting Intraluminal Devices, Percutaneous Approach (ICD-10-PCS; principal; 2017-06-09)
PROC: 4A023N7 Measurement of Cardiac Sampling and Pressure, Left Heart, Percutaneous Approach (ICD-10-PCS; 2017-06-09)
PROC: B2151ZZ Fluoroscopy of Left Heart using Low Osmolar Contrast (ICD-10-PCS; 2017-06-09)
PROC: B2111ZZ Fluoroscopy of Multiple Coronary Arteries using Low Osmolar Contrast (ICD-10-PCS; 2017-06-09)
DX: I25.110 Atherosclerotic heart disease of native coronary artery with unstable angina pectoris (principal); I13.0 Hypertensive heart and chronic kidney disease with heart failure and stage 1 through stage 4 chronic kidney disease, or unspecified chronic kidney disease; E11.22 Type 2 diabetes mellitus with diabetic chronic kidney disease; I50.32 Chronic diastolic (congestive) heart failure; E44.1 Mild protein-calorie malnutrition; Z68.41 Body mass index [BMI] 40.0-44.9, adult; J44.0 Chronic obstructive pulmonary disease with (acute) lower respiratory infection; E66.01 Morbid (severe) obesity due to excess calories; E78.00 Pure hypercholesterolemia, unspecified; E78.5 Hyperlipidemia, unspecified; G57.90 Unspecified mononeuropathy of unspecified lower limb; F32.9 Major depressive disorder, single episode, unspecified; J44.9 Chronic obstructive pulmonary disease, unspecified; F41.9 Anxiety disorder, unspecified; E11.42 Type 2 diabetes mellitus with diabetic polyneuropathy; K21.9 Gastro-esophageal reflux disease without esophagitis; N18.3 Chronic kidney disease, stage 3 (moderate); I25.2 Old myocardial infarction; Z79.4 Long term (current) use of insulin; Z86.718 Personal history of other venous thrombosis and embolism; Z89.411 Acquired absence of right great toe; Z89.412 Acquired absence of left great toe; Z95.5 Presence of coronary angioplasty implant and graft; Z80.49 Family history of malignant neoplasm of other genital organs; Z82.3 Family history of stroke; Z83.3 Family history of diabetes mellitus; Z88.0 Allergy status to penicillin; Z88.8 Allergy status to other drugs, medicaments and biological substances; Z91.040 Latex allergy status; J40 Bronchitis, not specified as acute or chronic
CPT/HCPCS: 36415; 71010; 80048; 80076; 82553; 82962; 83690; 83735; 83880; 84484; 85025; 90686; 90732; 92928; 93005; 93458; 93571; 94250; 94640; 94760; 96374; 96376; 99152; 99153; C1725; C1769; C1877; C1887; C1892; J1644; J1815; J2250; J3010; J3490; J7030; J7512; J7613; J7620; J7626; Q0163; Q9967; 99285-25; J2001; J3246

== ENCOUNTER 2017-07-17 11:45 | Inpatient (IN) | payer OTHER ==
[~2017-07-17] VITALS: Ht 182.9 cm; Wt 159.2 kg
[~2017-07-17 11:45] MED LIST changes: +CLOP75TA PO; +DIPH1TAB PO; +FLUO20CA16 PO; +IPRA3AMP NEB; +LANS30CA PO; +OXYC5CAP PO; +PROM6.25 PO; +SENN8.6T99 PO; +TICA90TA PO
[2017-07-17] MEDS ORDERED: ASPIRIN CHEWABLE 81 MG TABLET. PO ONE (12:15)
[2017-07-17 12:33] LABS: CALCIUM 9.6 mg/dL (8.5-10.1); CREATININE 1.1 mg/dL (0.6-1.0); GFR 63.1; POTASSIUM 4.1 mmol/L (3.5-5.1)
[2017-07-17 12:35] LABS: BASO % 0 % (0-3); EOS % 2 % (0-3); HEMATOCRIT 35.7 % (36.0-47.0); HEMOGLOBIN 11.7 g/dL (12.0-15.5); LYMPH # 2.2 x10^3/uL (1.0-4.8); LYMPH % 36 % (24-48); MEAN CORPUSCULAR HEMOGLOBIN 27 pg (25-35); MEAN CORPUSCULAR HGB CONC 33 g/dL (31-37); MEAN CORPUSCULAR VOLUME 84 fL (79-100); MONO % 8 % (0-9); NEUT % 53 % (31-73); PLATELET COUNT 209 x10^3/uL (140-400); RED BLOOD COUNT 4.27 x10^6/uL (3.50-5.40); RED CELL DISTRIBUTION WIDTH 14.5 % (11.5-14.5); WHITE BLOOD COUNT 6.1 x10^3/uL (4.0-11.0)
--- NOTE | 2017-07-17 12:35 | RAD ---
Portable chest, 07/17/2017: History: Chest pain Comparison is made to a study from 06/06/2017. The heart is mildly enlarged. The pulmonary vascularity is normal. No pulmonary infiltrates are seen. There is no evidence of pleural fluid. Moderate spurs are present in the spine. IMPRESSION: 1. Mild cardiomegaly. 2. No acute abnormality is detected.
[2017-07-17 12:39] LABS: ALBUMIN 3.6 g/dL (3.4-5.0); ALBUMIN/GLOBULIN RATIO 0.9 (1.0-1.7); TOTAL BILIRUBIN 0.3 mg/dL (0.2-1.0); TOTAL PROTEIN 7.4 g/dL (6.4-8.2)
[2017-07-17] MEDS ORDERED: NITROGLYCERIN OINT 1 GM PACKET. TP ONE (12:45)
--- NOTE | 2017-07-17 12:48 | EKG ---
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
--- NOTE | 2017-07-17 12:49 | PHYS DOC ---
Past Medical History Past Medical History: CAD, CHF, Depression, Diabetes-Type II, DVT, High Cholesterol, Hypertension, Other Additional Past Medical Histor: NEUROPATHY Past Surgical History: Angioplasty, , Other Additional Past Surgical Histo: CARDIAC STENTS X4, left great toe amputation, R great & 2nd toe amputation Alcohol Use: None Drug Use: Marijuana Adult General Chief Complaint Chief Complaint: CHEST PAIN HPI HPI 51-year-old female with a history of coronary artery disease and 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 Patient states she had mid chest pressure today prior to arrival associated with shortness of breath sweating and nausea and vomiting. Patient now feels improved and is asymptomatic at rest. No productive cough or fever. Pain is not worse with palpation or movement. Denies pleuritic pain. No other complaints Review of Systems Review of Systems Constitutional: Denies fever or chills [] Eyes: Denies change in visual acuity, redness, or eye pain [] HENT: Denies nasal congestion or sore throat [] Respiratory: Denies cough or shortness of breath [] Cardiovascular: No additional information not addressed in HPI [] GI: Denies abdominal pain, nausea, vomiting, bloody stools or diarrhea [] : Denies dysuria or hematuria [] Musculoskeletal: Denies back pain or joint pain [] Integument: Denies rash or skin lesions [] Neurologic: Denies headache, focal weakness or sensory changes [] Endocrine: Denies polyuria or polydipsia [] All other systems were reviewed and found to be within normal limits, except as documented in this note. Current Medications Current Medications Current Medications Medications (Trade) Dose Ordered Sig/Justin Start Time Stop Time Status Last Admin Dose Admin Aspirin (Children'S Aspirin) 324 mg 1X ONCE 07/17/17 12:15 07/17/17 12:19 DC 07/17/17 12:36 324 MG Nitroglycerin (Nitro-Bid Oint) 1 inch 1X ONCE 07/17/17 12:45 07/17/17 12:46 DC 07/17/17 12:48 1 INCH Allergies Allergies Allergies Coded Allergies Type Severity Reaction Last Updated Verified Penicillins Allergy Severe tongue swelling, HIVES, ANGIOEDEMA 06/06/17 Yes latex Allergy Severe Hives, N/V 06/06/17 Yes prochlorperazine Allergy Severe tongue swelling, ANGIOEDEMA 06/06/17 Yes doxycycline Allergy Intermediate ITCHING 06/06/17 Yes iodine Allergy Intermediate "shiver", N/V 06/06/17 Yes Physical Exam Physical Exam Well-appearing patient no acute distress alert and communicative cooperative and appropriate nontender chest wall no skin changes clear lungs regular rate and rhythm no tachycardia benign abdomen normal extremities nonfocal neuro Constitutional: Well developed, well nourished, no acute distress, non-toxic appearance. [] HENT: Normocephalic, atraumatic, bilateral external ears normal, oropharynx moist, no oral exudates, nose normal. [] Eyes: PERRLA, EOMI, conjunctiva normal, no discharge. [] Neck: Normal range of motion, no tenderness, supple, no stridor. [] Cardiovascular:Heart rate regular rhythm, no murmur [] Lungs & Thorax: Bilateral breath sounds clear to auscultation [] Abdomen: Bowel sounds normal, soft, no tenderness, no masses, no pulsatile masses. [] Skin: Warm, dry, no erythema, no rash. [] Back: No tenderness, no CVA tenderness. [] Extremities: No tenderness, no cyanosis, no clubbing, ROM intact, no edema. [] Neurologic: Alert and oriented X 3, normal motor function, normal sensory function, no focal deficits noted. [] Psychologic: Affect normal, judgement normal, mood normal. [] Current Patient Data Vital Signs Vital Signs Date Time Temp Pulse Resp B/P (MAP) Pulse Ox O2 Delivery O2 Flow Rate FiO2 07/17/17 13:30 52 20 154/67 (96) 100 Room Air 07/17/17 11:50 98.6 98.6 Lab Values Laboratory Tests Test 07/17/17 12:00 White Blood Count 6.1 x10^3/uL (4.0-11.0) Red Blood Count 4.27 x10^6/uL (3.50-5.40) Hemoglobin 11.7 g/dL (12.0-15.5) L Hematocrit 35.7 % (36.0-47.0) L Mean Corpuscular Volume 84 fL (79-100) Mean Corpuscular Hemoglobin 27 pg (25-35) Mean Corpuscular Hemoglobin Concent 33 g/dL (31-37) Red Cell Distribution Width 14.5 % (11.5-14.5) Platelet Count 209 x10^3/uL (140-400) Neutrophils (%) (Auto) 53 % (31-73) Lymphocytes (%) (Auto) 36 % (24-48) Monocytes (%) (Auto) 8 % (0-9) Eosinophils (%) (Auto) 2 % (0-3) Basophils (%) (Auto) 0 % (0-3) Neutrophils # (Auto) 3.2 x10^3uL (1.8-7.7) Lymphocytes # (Auto) 2.2 x10^3/uL (1.0-4.8) Monocytes # (Auto) 0.5 x10^3/uL (0.0-1.1) Eosinophils # (Auto) 0.1 x10^3/uL (0.0-0.7) Basophils # (Auto) 0.0 x10^3/uL (0.0-0.2) Sodium Level 143 mmol/L (136-145) Potassium Level 4.1 mmol/L (3.5-5.1) Chloride Level 105 mmol/L (98-107) Carbon Dioxide Level 30 mmol/L (21-32) Anion Gap 8 (6-14) Blood Urea Nitrogen 17 mg/dL (7-20) Creatinine 1.1 mg/dL (0.6-1.0) H Estimated GFR (Cockcroft-Gault) 63.1 BUN/Creatinine Ratio 15 (6-20) Glucose Level 127 mg/dL (70-99) H Calcium Level 9.6 mg/dL (8.5-10.1) Total Bilirubin 0.3 mg/dL (0.2-1.0) Aspartate Amino Transferase (AST) 11 U/L (15-37) L Alanine Aminotransferase (ALT) 17 U/L (14-59) Alkaline Phosphatase 56 U/L (46-116) Troponin I Quantitative < 0.017 ng/mL (0.000-0.055) Total Protein 7.4 g/dL (6.4-8.2) Albumin 3.6 g/dL (3.4-5.0) Albumin/Globulin Ratio 0.9 (1.0-1.7) L Laboratory Tests 07/17/17 12:00 Laboratory Tests 07/17/17 12:00 EKG EKG [] Radiology/Procedures Radiology/Procedures [] Course & Med Decision Making Course & Med Decision Making Pertinent Labs and Imaging studies reviewed. (See chart for details) Signs and symptoms consistent with chest pain a possible cardiac etiology in a 51-year-old obese female with an extensive cardiac history. She stable and well- appearing in the ED. Aspirin given. Full workup pending. Anticipate a telemetry admission for full cardiac evaluation and monitoring. [] Dragon Disclaimer Dragon Disclaimer This electronic medical record was generated, in whole or in part, using a voice recognition dictation system. Departure Departure Impression: Primary Impression: Chest pain Disposition: 09 ADMITTED INPATIENT Admitting Physician: Other Condition: STABLE (Tiera Calderón) Referrals: FRANCA BLACKWOOD MD (PCP) ROBEL KERN MD Jul 17, 2017 12:49
[2017-07-17] MEDS ORDERED: ONDANSETRON PF 4 MG/2 ML VIAL. IV PRN (14:45)
[2017-07-17 16:03] VITALS: BP 131/71
[2017-07-17 16:04] VITALS: BP 131/71
[2017-07-17] MEDS ORDERED: HYDR-2762 PO (16:29)
[2017-07-17] MEDS ORDERED: DICY10CA3 PO (16:29)
[2017-07-17] MEDS ORDERED: LURA40TA PO (16:29)
[2017-07-17] MEDS ORDERED: PANT40TA5 PO (16:29)
[2017-07-17] MEDS ORDERED: ISOS60TA2 PO (16:29)
[2017-07-17] MEDS ORDERED: HYDR453. TP (16:29)
[2017-07-17] MEDS ORDERED: AMIT25TA PO (16:29)
[2017-07-17] MEDS ORDERED: RANO10002 PO (16:29)
[2017-07-17] MEDS ORDERED: GABA-587 PO (16:29)
[2017-07-17 19:00] VITALS: BP 121/55
[2017-07-17] MEDS ORDERED: ALBUTEROL SULFATE 2.5 MG/3 ML NEBU. NEB PRN (19:15)
[2017-07-17] MEDS ORDERED: DEXTROSE 50% 25 GM / 50ML DISP.SYRIN. IV PRN (19:15)
[2017-07-17] MEDS ORDERED: NITROGLYCERIN SUBLINGUAL 0.4 MG BOTTLE OF 25. SL PRN (19:15)
[2017-07-17] MEDS ORDERED: ANTI-COAG MONITOR BY PHARMACY. MC PRN (19:30)
[2017-07-17] MEDS ORDERED: RIVAROXABAN 10 MG TABLET. PO SCH (19:30)
[2017-07-17] MEDS: ALPRAZolam 1 MG TABLET PO SCH (20:34)
[2017-07-17] MEDS: DICYCLOMINE HCL 10 MG CAPSULE PO SCH (20:35)
[2017-07-17] MEDS: GABAPENTIN 400 MG CAPSULE. PO SCH (20:35)
[2017-07-17] MEDS: HYDROcodone/APAP 7.5/325MG 1 TAB TABLET PO PRN (20:37)
[2017-07-17] MEDS: HYDROCORTISONE 1% TOPICAL CREAM 30GM TUBE. TP SCH (20:38)
[2017-07-17] MEDS ORDERED: NON FORMULARY ITEM (Fluticasone/Salmeterol (Advair 250-50 Diskus) 1 INH) IH SCH (21:00)
[2017-07-17] MEDS: BUDESONIDE 0.5 MG/2 ML NEBU. NEB SCH (21:00)
[2017-07-17] MEDS ORDERED: LURASIDONE 40 MG TABLET. PO SCH (21:00)
[2017-07-17] MEDS ORDERED: ATORVASTATIN CALCIUM 40 MG TABLET. PO SCH (21:00)
[2017-07-17] MEDS ORDERED: AMITRIPTYLINE HCL 25 MG TABLET. PO SCH (21:00)
[2017-07-17] MEDS ORDERED: INSULIN DETEMIR 300 UNITS/3 ML INSULN.PEN. SQ SCH (21:00)
[2017-07-17] MEDS: IPRATRPIUM/ALBUTEROL 0.5/2.5MG 3 ML NEBU. NEB SCH (21:00)
[2017-07-17] MEDS: diphenhydrAMINE HCL 25 MG CAPSULE PO PRN (21:04)
[2017-07-17] MEDS: RANOLAZINE 500 MG TAB.ER.12H PO SCH (21:05)
--- NOTE | 2017-07-17 22:15 | HP ---
ADMIT DATE: 07/17/2017 CHIEF COMPLAINT: Chest pain. HISTORY OF PRESENT ILLNESS: The patient is a 51-year-old morbidly obese -Faro[place] woman with significant heart history, stent placement x 2 in the past 4 weeks. She is typically followed by Dr. Veras at . She relates that she started having chest pain in her left chest radiating down into her left arm. She locates it below her breast. It is different from her typical anginal pain, which is more central and substernal. She, however, did experience some shortness of breath as well as some nausea, vomited once and started feeling better afterwards. She denies any shortness of breath, cough or fever ongoing. She relates that pain is worse when she moves her left arm. Not so much when she takes a deep breath. In the Emergency Room, labs were essentially benign. EKG did not show any acute changes, but with history, she was admitted for rule out ACS. PAST MEDICAL HISTORY: CAD status post multiple stent placements, most recently 2 caths with 1 stent each in the past month, previous 3 stents; CHF; diabetes type 2; hypertension; hypercholesterolemia; diabetic neuropathy; history of DVT; bilateral partial toe amputations. FAMILY HISTORY: Positive for heart disease, diabetes, hypertension in mother. SOCIAL HISTORY: Lives with her son. Denies tobacco, uses marijuana occasionally. ALLERGIES: PENICILLIN, DOXYCYCLINE, IODINE, LATEX, PROCHLORPERAZINE. MEDICATIONS: MAR reconciled with home medications. REVIEW OF SYSTEMS: Positive as per HPI. She also relates that she has vaginal itching with brownish discharge for a few days and a rash around her mouth, which is painful and with lip swelling, especially in the mornings. Rest of organ system review is negative. PHYSICAL EXAMINATION: VITAL SIGNS: Show a blood pressure of 121/55, heart rate of 54, respiratory rate at 17. She is afebrile. GENERAL: This is a morbidly obese -Faroese woman, alert and oriented, in no acute distress. HEENT: Shows no scleral icterus. Oral mucosa is pink and moist. Dentition is poor. NECK: Supple. LUNGS: Clear to auscultation. HEART: Has regular rate and rhythm. ABDOMEN: Obese, positive bowel sounds. EXTREMITIES: Show edema around the ankles bilaterally. SKIN: Has mild chronic venous stasis changes bilaterally. LABORATORY DATA: CBC with a WBC of 6.1, hemoglobin 11.7, platelets of 209. Chemistries with a BUN and creatinine of 17 and 1.1, normal electrolytes, normal LFTs, albumin at 3.6, glucose at 127 and 161. Initial troponin is negative. IMAGING STUDIES: Chest x-ray with mild cardiomegaly, no acute abnormality detected. ASSESSMENT AND PLAN: The patient is a 51-year-old -F[place] woman admitted with atypical chest pain. She, however, has a significant personal history. We will therefore admit her for rule out acute coronary syndrome by serial enzymes and EKG. Cardiology consult will be obtained in the morning if needed. We will continue her home medications for coronary artery disease/secondary prevention. Blood pressure currently is very well controlled. Diabetes likewise will be monitored. Home medications will be continued. Her complaint of vaginal symptoms is consistent with bacterial vaginosis. Unfortunately, unable to do a proper exam. We will place her on empiric Flagyl for this. She has a rash around her mouth, I do not think is infectious. We will start her on vitamin B complex. IAN BUTLER MD DR: PEGGY/nts JOB#: [id number] / [id number] ML
[2017-07-17] MEDS: metroNIDAZOLE 500 MG TABLET PO SCH (22:16)
[2017-07-17 23:00] VITALS: BP 130/50
[2017-07-18] MEDS: HYDROcodone/APAP 7.5/325MG 1 TAB TABLET PO PRN ×2 (02:49→08:47)
[2017-07-18 02:59] VITALS: BP 139/58
[2017-07-18 07:00] VITALS: BP 140/65
[2017-07-18] MEDS ORDERED: PANTOPRAZOLE 40 MG TABLET.DR. PO SCH (07:30)
[2017-07-18] MEDS: BUDESONIDE 0.5 MG/2 ML NEBU. NEB SCH (07:56)
[2017-07-18] MEDS: IPRATRPIUM/ALBUTEROL 0.5/2.5MG 3 ML NEBU. NEB SCH ×2 (07:56→11:51)
[2017-07-18] MEDS ORDERED: CLOPIDOGREL BISULFATE 75 MG TABLET PO SCH (08:00)
[2017-07-18] MEDS ORDERED: POTASSIUM CHLORIDE 20 MEQ TABLET.ER. PO SCH (08:00)
[2017-07-18] MEDS: ALPRAZolam 1 MG TABLET PO SCH (08:32)
[2017-07-18] MEDS: DICYCLOMINE HCL 10 MG CAPSULE PO SCH (08:33)
[2017-07-18] MEDS: GABAPENTIN 400 MG CAPSULE. PO SCH (08:33)
[2017-07-18] MEDS: RANOLAZINE 500 MG TAB.ER.12H PO SCH ×2 (08:34→08:54)
[2017-07-18] MEDS: metroNIDAZOLE 500 MG TABLET PO SCH (08:37)
[2017-07-18] MEDS: HYDROCORTISONE 1% TOPICAL CREAM 30GM TUBE. TP SCH (08:37)
[2017-07-18] MEDS: diphenhydrAMINE HCL 25 MG CAPSULE PO PRN (08:46)
[2017-07-18] MEDS: INSULIN ASPART 300 UNITS/3 ML INSULN.PEN SQ SCH ×4 (08:50→12:43)
[2017-07-18] MEDS ORDERED: LOSARTAN POTASSIUM 25 MG TABLET. PO SCH (09:00)
[2017-07-18] MEDS ORDERED: VITAMIN B12,B9,B6 COMPLEX 1 TABLET. PO SCH (09:00)
[2017-07-18] MEDS ORDERED: NON FORMULARY ITEM (Lansoprazole 1 CAP) PO SCH (09:00)
[2017-07-18] MEDS ORDERED: FLUTICASONE 50MCG/NASAL SPRAY 16GM BOTTLE. NS SCH (09:00)
[2017-07-18] MEDS ORDERED: FUROSEMIDE 40 MG TABLET. PO SCH (09:00)
[2017-07-18] MEDS ORDERED: CETIRIZINE HCL 10 MG TABLET. PO SCH (09:00)
[2017-07-18] MEDS ORDERED: ISOSORBIDE MONONITRATE ER 30 MG TAB.ER.24H PO SCH (09:00)
[2017-07-18] MEDS ORDERED: ASPIRIN CHEWABLE 81 MG TABLET. PO SCH (09:00)
[2017-07-18] MEDS ORDERED: FAMOTIDINE 20 MG TABLET. PO SCH (09:00)
[2017-07-18 11:24] VITALS: BP 96/54
--- NOTE | 2017-07-18 19:41 | DS ---
DATE OF DISCHARGE: 07/18/2017 CHIEF COMPLAINT: Chest wall pain. HOSPITAL COURSE: The patient is a 51-year-old morbidly obese woman with significant heart history including a recent stent placement, who presented to the Emergency Room with chest pain on her left. This was deemed initially to be chest wall pain, but given her recent history, she was admitted for rule out ACS. This was accomplished by serial enzymes and EKGs. She requested narcotics for her chest wall pain as well as pain wrapping around her middle abdomen like a belt which she had chronically. She does receive narcotics from her PCP and I referred her back to her for narcotic scripts. PHYSICAL EXAMINATION: VITAL SIGNS: Blood pressure of 139/58, heart rate of 53, respiratory rate at 18. No fever. GENERAL: Morbidly obese, alert and oriented, in no acute distress. LUNGS: Clear. HEART: Regular rate and rhythm. ABDOMEN: Positive bowel sounds, obese. EXTREMITIES: No edema. DISCHARGE DIAGNOSES: Chest wall pain. DISCHARGE DISPOSITION: To home. DISCHARGE CONDITION: Improved. DISCHARGE MEDICATIONS: Please refer to MAR. DISCHARGE INSTRUCTIONS: The patient will follow up with Dr. Franca Smiley as previously arranged. IAN BUTLER MD DR: UR/nts JOB#: [id number] / [id number] FRANCA Leo MD MTDD
== END 2017-07-18 14:00 | disposition home or self-care (01) | DRG 313 ==
LOC: ER 11:45 → 5 SOUTH 14:34
PROVIDERS: ADMIT Internal Medicine Hematology & Oncology; ATTEND Internal Medicine Hematology & Oncology
DX: R07.89 Other chest pain (principal); I25.119 Atherosclerotic heart disease of native coronary artery with unspecified angina pectoris; G62.9 Polyneuropathy, unspecified; E11.40 Type 2 diabetes mellitus with diabetic neuropathy, unspecified; E66.01 Morbid (severe) obesity due to excess calories; I50.9 Heart failure, unspecified; I11.0 Hypertensive heart disease with heart failure; Z68.42 Body mass index [BMI] 45.0-49.9, adult; F32.9 Major depressive disorder, single episode, unspecified; E78.00 Pure hypercholesterolemia, unspecified; N76.0 Acute vaginitis; Z82.49 Family history of ischemic heart disease and other diseases of the circulatory system; Z83.3 Family history of diabetes mellitus; Z86.718 Personal history of other venous thrombosis and embolism; Z89.412 Acquired absence of left great toe; Z89.411 Acquired absence of right great toe; Z95.5 Presence of coronary angioplasty implant and graft; Z88.0 Allergy status to penicillin; Z88.1 Allergy status to other antibiotic agents; Z91.041 Radiographic dye allergy status; Z91.040 Latex allergy status; Z98.891 History of uterine scar from previous surgery; Z79.899 Other long term (current) drug therapy
CPT/HCPCS: 36415; 71010; 80053; 82962; 84484; 85025; 93005; 94640; 94760; J1815; J7620; J7626; Q0163; 99285-25

== ENCOUNTER 2017-08-14 13:29 | Emergency (ER) | payer OTHER ==
[~2017-08-14] VITALS: Ht 182.9 cm; Wt 149.7 kg
[~2017-08-14 13:29] MED LIST changes: +DICY10CA3 PO; +HYDR-2762 PO; +HYDR453. TP; +ISOS60TA2 PO; +RANO10002 PO
[2017-08-14 13:30] VITALS: BP 156/80
[2017-08-14] MEDS ORDERED: ERYT1OIN6 OP (13:49)
[2017-08-14] MEDS ORDERED: TRAM-48 PO (13:49)
[2017-08-14] MEDS ORDERED: CLIN150C14 PO (13:49)
--- NOTE | 2017-08-14 13:50 | PHYS DOC ---
Past Medical History Past Medical History: CAD, CHF, Depression, Diabetes-Type II, DVT, High Cholesterol, Hypertension, Other Additional Past Medical Histor: NEUROPATHY Past Surgical History: Angioplasty, , Other Additional Past Surgical Histo: CARDIAC STENTS X4, left great toe amputation, R great & 2nd toe amputation Alcohol Use: None Drug Use: Marijuana Adult General Chief Complaint Chief Complaint: DENTAL PROBLEM HPI HPI Patient is a 51 year old female with history of hypertension, high cholesterol , diabetes type 2, who presents with right lower gum dental pain and swelling that began 2 days ago. Patient denies any fever or trismus. She is also complaining of a stye to the right lower eyelid that she noted yesterday. Patient denies any vision loss. She states she has an appointment with her dentist sometime next week. Review of Systems Review of Systems Constitutional: Denies fever or chills [] Eyes: Stye to the right lower eyelid. Denies change in visual acuity, redness, or eye pain [] HENT: right lower gum dental pain and swelling Musculoskeletal: Denies back pain or joint pain [] Integument: Denies rash or skin lesions [] Neurologic: Denies headache, focal weakness or sensory changes [] All other systems were reviewed and found to be within normal limits, except as documented in this note. Allergies Allergies Allergies Coded Allergies Type Severity Reaction Last Updated Verified Penicillins Allergy Severe tongue swelling, HIVES, ANGIOEDEMA 06/06/17 Yes latex Allergy Severe Hives, N/V 06/06/17 Yes prochlorperazine Allergy Severe tongue swelling, ANGIOEDEMA 06/06/17 Yes doxycycline Allergy Intermediate ITCHING 06/06/17 Yes iodine Allergy Intermediate "shiver", N/V 06/06/17 Yes Physical Exam Physical Exam Constitutional: Well developed, well nourished, no acute distress, non-toxic appearance. [] HENT: Normocephalic, atraumatic, bilateral external ears normal, oropharynx moist, no oral exudates, nose normal. [] Swelling noted on the right lower exterior jaw consistent with a small abscess. Patient is missing most of her molars on the right lower gum. Most of her teeth are decayed. Eyes: PERRLA, EOMI, conjunctiva normal, no discharge. Small external stye noted on the right mid lower eyelid. Skin: Warm, dry, no erythema, no rash. [] Back: No tenderness, no CVA tenderness. [] Extremities: No tenderness, no cyanosis, no clubbing, ROM intact, no edema. [] Neurologic: Alert and oriented X 3, normal motor function, normal sensory function, no focal deficits noted. [] Psychologic: Affect normal, judgement normal, mood normal. [] Current Patient Data Vital Signs Vital Signs Date Time Temp Pulse Resp B/P (MAP) Pulse Ox O2 Delivery O2 Flow Rate FiO2 08/14/17 13:30 98.7 72 16 96 Room Air 98.7 EKG EKG [] Radiology/Procedures Radiology/Procedures [] Course & Med Decision Making Course & Med Decision Making Pertinent Labs and Imaging studies reviewed. (See chart for details) Patient is a dental abscess. We'll be discharged with clindamycin and 14 tablets of Ultram as needed for pain. She was also discharged with erythromycin for the stye on the right lower eyelid. Warm compresses recommended to the area. Follow-up with dentist as well as commander internal affairs in 1-2 weeks. Dragon Disclaimer Dragon Disclaimer This electronic medical record was generated, in whole or in part, using a voice recognition dictation system. Departure Departure Impression: Primary Impression: Sty, external Additional Impressions: Dentalgia Dental abscess Disposition: 01 HOME, SELF-CARE Condition: STABLE Referrals: FRANCA BLACKWOOD MD (PCP) follow up in one week AG GUZMAN MD follow up in one week Patient Instructions: Dental Abscess, Sty Additional Instructions: You were seen for dental abscess as well as a stye to the right lower eyelid. Apply warm compresses to the stye two to three times days. Use the prescribed medications as ordered. Follow-up with your dentist as well as the provided commander internal affairs or your own eye doctor or primary care doctor in 1-2 weeks. Scripts Tramadol Hcl (ULTRAM) 50 Mg Tablet 1 TAB PO Q6HRS, #14 TAB Prov: INDIO ROMERO APRN 08/14/17 Clindamycin Hcl (CLINDAMYCIN HCL) 150 Mg Capsule 3 CAP PO TID, #90 CAP Prov: INDIO ROMERO TYPISTS SUPERVISOR 08/14/17 Erythromycin Base (Erythromycin) 1 Gm Oint...g. 1 APPLIC OP Q4HRS W/A, #1 MISC apply to the right eye for 7 days Prov: MUTUNGA,INDIO TYPISTS SUPERVISOR 08/14/17 Problem Qualifiers Primary Impression: Sty, external Laterality: right Eyelid: lower Qualified Codes: H00.012 - Hordeolum externum right lower eyelid INDIO ROMERO APRN Aug 14, 2017 13:50
== END 2017-08-14 13:56 | disposition home or self-care (01) ==
LOC: ER 13:29
DX: H00.012 Hordeolum externum right lower eyelid (principal); K04.7 Periapical abscess without sinus; I25.10 Atherosclerotic heart disease of native coronary artery without angina pectoris; I11.0 Hypertensive heart disease with heart failure; I50.9 Heart failure, unspecified; F32.9 Major depressive disorder, single episode, unspecified; E11.40 Type 2 diabetes mellitus with diabetic neuropathy, unspecified; E78.00 Pure hypercholesterolemia, unspecified; F12.10 Cannabis abuse, uncomplicated; Z89.412 Acquired absence of left great toe; Z89.411 Acquired absence of right great toe; Z88.0 Allergy status to penicillin; Z95.5 Presence of coronary angioplasty implant and graft; Z86.718 Personal history of other venous thrombosis and embolism; Z88.8 Allergy status to other drugs, medicaments and biological substances; Z91.040 Latex allergy status; Z88.1 Allergy status to other antibiotic agents; Z91.041 Radiographic dye allergy status
CPT/HCPCS: 99283

== ENCOUNTER 2017-10-03 09:15 | Emergency (ER) | payer OTHER ==
[2017-10-03] MEDS: ONDANSETRON PF 4 MG/2 ML VIAL. IV ×2 (09:50)
[2017-10-03] MEDS: fentaNYL PF VIAL 100 MCG/2 ML VIAL IV ×2 (09:53)
[2017-10-03] MEDS: FAMOTIDINE 20 MG/2 ML VIAL IVP ×2 (09:55)
[2017-10-03 09:59] LABS: ADD MAN DIFF? NO
[2017-10-03 10:12] LABS: ANION GAP 9 (6-14); BLOOD UREA NITROGEN 15 mg/dL (7-20); BUN/CREATININE RATIO 14 (6-20); CALCIUM 8.6 mg/dL (8.5-10.1); CARBON DIOXIDE 27 mmol/L (21-32); CHLORIDE 103 mmol/L (98-107); CREATININE 1.1 mg/dL (0.6-1.0); GFR 62.9; GLUCOSE 379 mg/dL (70-99); POTASSIUM 3.9 mmol/L (3.5-5.1); SODIUM 139 mmol/L (136-145)
[2017-10-03 10:17] LABS: ALBUMIN 2.9 g/dL (3.4-5.0); ALBUMIN/GLOBULIN RATIO 0.8 (1.0-1.7); ALK PHOS 55 U/L (46-116); ALT (SGPT) 13 U/L (14-59); AST (SGOT) 11 U/L (15-37); LIPASE 112 U/L (73-393); TOTAL BILIRUBIN 0.3 mg/dL (0.2-1.0); TOTAL PROTEIN 6.5 g/dL (6.4-8.2)
[2017-10-03 10:23] LABS: BASO % 0 % (0-3); EOS # 0.2 x10^3/uL (0.0-0.7); EOS % 3 % (0-3); HEMATOCRIT 35.1 % (36.0-47.0); HEMOGLOBIN 11.3 g/dL (12.0-15.5); LYMPH # 1.8 x10^3/uL (1.0-4.8); LYMPH % 30 % (24-48); MEAN CORPUSCULAR HEMOGLOBIN 28 pg (25-35); MEAN CORPUSCULAR HGB CONC 32 g/dL (31-37); MEAN CORPUSCULAR VOLUME 85 fL (79-100); MONO # 0.4 x10^3/uL (0.0-1.1); MONO % 7 % (0-9); NEUT # 3.7 x10^3uL (1.8-7.7); NEUT % 60 % (31-73); PLATELET COUNT 204 x10^3/uL (140-400); RED BLOOD COUNT 4.11 x10^6/uL (3.50-5.40); RED CELL DISTRIBUTION WIDTH 14.6 % (11.5-14.5); WHITE BLOOD COUNT 6.2 x10^3/uL (4.0-11.0)
[2017-10-03] MEDS: HYDROmorphone 2 MG/ML VIAL IV ×2 (11:05)
[2017-10-03] MEDS: diphenhydrAMINE 50 MG/ML VIAL IVP ×2 (11:06)
== END 2017-10-03 12:36 | disposition home or self-care (01) ==
LOC: ER 09:15
DX: R10.10 Upper abdominal pain, unspecified (principal); I25.10 Atherosclerotic heart disease of native coronary artery without angina pectoris; I11.0 Hypertensive heart disease with heart failure; I50.9 Heart failure, unspecified; F32.9 Major depressive disorder, single episode, unspecified; E11.40 Type 2 diabetes mellitus with diabetic neuropathy, unspecified; E78.00 Pure hypercholesterolemia, unspecified; F12.10 Cannabis abuse, uncomplicated; Z86.718 Personal history of other venous thrombosis and embolism; Z95.5 Presence of coronary angioplasty implant and graft; Z89.412 Acquired absence of left great toe; Z89.411 Acquired absence of right great toe; Z88.0 Allergy status to penicillin; Z91.040 Latex allergy status; Z91.041 Radiographic dye allergy status; Z88.1 Allergy status to other antibiotic agents; Z88.8 Allergy status to other drugs, medicaments and biological substances
CPT/HCPCS: 36415; 74176; 80053; 83690; 85025; 93971; 96374; 96375; 99285-25; J1170; J1200; J2405; J3010; S0028

== ENCOUNTER 2017-10-07 14:09 | Emergency (ER) | payer OTHER ==
[2017-10-07] MEDS ORDERED: CONTRAST GIVEN MC ×2 (15:00)
[2017-10-07] MEDS: IOHEXOL 300 MG/ML 100ML VIAL. IV ×2 (15:00)
[2017-10-07 15:13] LABS: ADD MAN DIFF? NO
[2017-10-07 15:16] LABS: BASO % 1 % (0-3); EOS # 0.1 x10^3/uL (0.0-0.7); EOS % 2 % (0-3); HEMATOCRIT 36.3 % (36.0-47.0); HEMOGLOBIN 11.7 g/dL (12.0-15.5); LYMPH # 0.9 x10^3/uL (1.0-4.8); LYMPH % 21 % (24-48); MEAN CORPUSCULAR HEMOGLOBIN 27 pg (25-35); MEAN CORPUSCULAR HGB CONC 32 g/dL (31-37); MEAN CORPUSCULAR VOLUME 85 fL (79-100); MONO # 0.7 x10^3/uL (0.0-1.1); MONO % 15 % (0-9); NEUT # 2.7 x10^3uL (1.8-7.7); NEUT % 62 % (31-73); PLATELET COUNT 191 x10^3/uL (140-400); RED BLOOD COUNT 4.29 x10^6/uL (3.50-5.40); RED CELL DISTRIBUTION WIDTH 14.7 % (11.5-14.5); WHITE BLOOD COUNT 4.4 x10^3/uL (4.0-11.0)
[2017-10-07] MEDS: diphenhydrAMINE 50 MG/ML VIAL IVP ×2 (15:21)
[2017-10-07] MEDS: methylPREDNISolone SOD SUCC PF 125 MG/2 ML VIAL. IV ×4 (15:21→18:45)
[2017-10-07] MEDS: FAMOTIDINE 20 MG/2 ML VIAL IVP ×2 (15:21)
[2017-10-07] MEDS: IPRATRPIUM/ALBUTEROL 0.5/2.5MG 3 ML NEBU. NEB ×4 (15:37→18:47)
[2017-10-07 15:39] LABS: TROPONINI < 0.017 ng/mL (0.000-0.055)
[2017-10-07 15:56] LABS: AGAP ISTAT 16 mmol/L (6-14); BUN ISTAT 12 mg/dL (8-26); CHLORIDE ISTAT 104 mmol/L (98-110); CREATININE ISTAT 1.1 mg/dL (0.5-1.4); GLUCOSE ISTAT 298 mg/dL (70-99); HEMATOCRIT ISTAT 35 % (36-40); HEMOGLOBIN ISTAT 11.9 g/dL (12-15); SODIUM ISTAT 141 mmol/L (135-145); TOT CO2 ISTAT 25 mmol/L (23-32)
== END 2017-10-07 19:20 | disposition home or self-care (01) ==
LOC: ER 14:09
DX: R07.81 Pleurodynia (principal); J06.9 Acute upper respiratory infection, unspecified; E11.65 Type 2 diabetes mellitus with hyperglycemia; E78.00 Pure hypercholesterolemia, unspecified; I25.10 Atherosclerotic heart disease of native coronary artery without angina pectoris; I11.0 Hypertensive heart disease with heart failure; I50.9 Heart failure, unspecified; E11.40 Type 2 diabetes mellitus with diabetic neuropathy, unspecified; E66.01 Morbid (severe) obesity due to excess calories; F12.10 Cannabis abuse, uncomplicated; Z95.5 Presence of coronary angioplasty implant and graft; Z88.0 Allergy status to penicillin; Z86.718 Personal history of other venous thrombosis and embolism; Z88.8 Allergy status to other drugs, medicaments and biological substances; Z88.1 Allergy status to other antibiotic agents; Z91.041 Radiographic dye allergy status; Z91.040 Latex allergy status; Z68.41 Body mass index [BMI] 40.0-44.9, adult
CPT/HCPCS: 36415; 71046; 71275; 80047; 84484; 85025; 93005; 94640; 96374; 96375; 99285-25; J1200; J2930; J7620; Q9967; S0028

== ENCOUNTER 2019-04-16 10:06 | Inpatient (IN) | payer OTHER ==
[~2019-04-16] VITALS: Ht 182.9 cm; Wt 164.7 kg
[~2019-04-16 10:06] MED LIST changes: +ASPI-612 PO; +AZIT250T6 PO; +CARV6.2511 PO; +CIPR250T30 PO; +CLIN150C14 PO; +ERGO500027 PO; +ERGO800010 PO; -ERGO80004 PO; +ERYT1OIN6 OP; -GABA-587 PO; +GABA-689 PO; -GABA400C PO; -GABA600T2 PO; +GABA600T7 PO; +GABA800T5 PO; +HYDR-2761 PO; -HYDR-2762 PO; +HYDR-2765 PO; -HYDR-2766 PO; +HYDR-2769 PO; +HYDR-3164 PO; -HYDR-971 PO; +INSU100I11 SQ; -IPRA3AMP NEB; +IPRA3AMP29 NEB; +ISOS30TA4 PO; -LOSA25TA4 PO; +LOSA25TA54 PO; -OXYC-328 PO; +OXYC-411 PO; +OXYC1TAB22 PO; -OXYC1TAB9 PO; -PANT40TA3 PO; -PANT40TA5 PO; +PANT40TA77 PO; +POLY17PO29 PO; -PROM118S2 PO; +PROM118S5 PO; +PROM12.58 PO; -PROM6.25 PO; +PROM6.257 PO; +SENN-161 PO; -SENN-79 PO; +SENN-80 PO; -SENN1TAB7 PO; +TERB250T11 PO; -TERB250T8 PO; +TRAM-48 PO
[2019-04-16] MEDS ORDERED: NITROGLYCERIN SUBLINGUAL 0.4 MG BOTTLE OF 25. SL PRN ×2 (11:00→15:45)
[2019-04-16 11:03] LABS: BASO % 0 % (0-3); EOS # 0.1 x10^3/uL (0.0-0.7); EOS % 2 % (0-3); HEMATOCRIT 32.3 % (36.0-47.0); HEMOGLOBIN 10.7 g/dL (12.0-15.5); LYMPH # 1.3 x10^3/uL (1.0-4.8); LYMPH % 36 % (24-48); MEAN CORPUSCULAR HEMOGLOBIN 27 pg (25-35); MEAN CORPUSCULAR HGB CONC 33 g/dL (31-37); MEAN CORPUSCULAR VOLUME 83 fL (79-100); MONO # 0.7 x10^3/uL (0.0-1.1); MONO % 19 % (0-9); NEUT # 1.6 x10^3/uL (1.8-7.7); NEUT % 44 % (31-73); PLATELET COUNT 176 x10^3/uL (140-400); RED BLOOD COUNT 3.92 x10^6/uL (3.50-5.40); RED CELL DISTRIBUTION WIDTH 14.7 % (11.5-14.5); WHITE BLOOD COUNT 3.6 x10^3/uL (4.0-11.0)
--- NOTE | 2019-04-16 11:03 | RAD ---
CHEST AP ONLY History: Chest pain Comparison: October 07, 2018 Findings: Single view of the chest is submitted. Pericardial cardiac silhouette is enlarged although unchanged. There is no new lobar consolidation, pleural fluid, pneumothorax. There is again degree of cephalization, overall similar in appearance. There is some relative fullness of the left hilar region. Impression: 1. There is no significant infiltrate. 2. There is again enlargement of the pericardial cardiac silhouette. 3. There is some fullness of left hilar region, underlying lymphadenopathy not excluded by radiograph. Electronically signed by: Abner Truong MD (04/16/2019 11:00 AM) [facility]
[2019-04-16 11:16] LABS: CALCIUM 8.9 mg/dL (8.5-10.1); GFR 31.4; POTASSIUM 4.4 mmol/L (3.5-5.1)
[2019-04-16 11:23] LABS: ALBUMIN 3.3 g/dL (3.4-5.0); ALBUMIN/GLOBULIN RATIO 0.9 (1.0-1.7); TOTAL BILIRUBIN 0.4 mg/dL (0.2-1.0); TOTAL PROTEIN 6.8 g/dL (6.4-8.2)
--- NOTE | 2019-04-16 11:35 | PHYS DOC ---
Past Medical History Past Medical History: CAD, CHF, Depression, Diabetes-Type II, DVT, High Cholesterol, Hypertension, Other Additional Past Medical Histor: NEUROPATHY Past Surgical History: Angioplasty, , Other Additional Past Surgical Histo: CARDIAC STENTS X5, left great toe amputation, R great & 2nd toe amputation Alcohol Use: Occasionally Drug Use: Marijuana Social History Narrative: pt denies 04/16/19 Adult General Chief Complaint Chief Complaint: SHORTNESS OF BREATH HPI HPI Patient is a 53 year old female with history of congestive heart failure, COPD presents with progressive shortness breath over the past 3 days, and increased peripheral edema. Patient reports orthopnea and dyspnea on exertion. Reports substernal chest tightness worse with deep breathing. Patient states pressure radiates to her back and neck. Denies nausea vomiting. Does report diarrhea, diffuse body aches. Patient also states she is under a lot of stress due to the recent passing of a family member scheduled later today. Patient's quality engineer medical device is Dr. Veras. [] Review of Systems Review of Systems View symptoms as per history of present illness. All other review symptoms are negative All other systems were reviewed and found to be within normal limits, except as documented in this note. Current Medications Current Medications Current Medications Medications (Trade) Dose Ordered Sig/Justin Start Time Stop Time Status Last Admin Dose Admin Lorazepam (Ativan Inj) 1 mg 1X ONCE 04/16/19 11:45 04/16/19 11:46 DC 04/16/19 11:53 1 MG Nitroglycerin (Nitrostat) 0.4 mg PRN Q5MIN PRN 04/16/19 11:00 04/16/19 11:14 0.4 MG Allergies Allergies Allergies Coded Allergies Type Severity Reaction Last Updated Verified Penicillins Allergy Severe tongue swelling, HIVES, ANGIOEDEMA 06/06/17 Yes latex Allergy Severe Hives, N/V 06/06/17 Yes prochlorperazine Allergy Severe tongue swelling, ANGIOEDEMA 06/06/17 Yes Iodinated Contrast- Oral and IV Dye Allergy Intermediate 10/07/17 Yes doxycycline Allergy Intermediate ITCHING 06/06/17 Yes iodine Allergy Intermediate "shiver", N/V 06/06/17 Yes morphine Allergy Intermediate itching 08/28/18 Yes Physical Exam Physical Exam Constitutional: Well developed, well nourished, no acute distress, non-toxic appearance. [] HENT: Normocephalic, atraumatic, bilateral external ears normal, oropharynx moist, no oral exudates, nose normal. [] Eyes: PERRLA, EOMI, conjunctiva normal, no discharge. [] Neck: Normal range of motion, no tenderness, supple, no stridor. [] Cardiovascular:Heart rate regular rhythm, no murmur, peripheral edema, extending from feet to proximal, [] Lungs & Thorax: Respirations however, coarse diminished breath sounds bilaterally,[] Abdomen: Bowel sounds normal, soft, no tenderness, no masses, no pulsatile masses. [] Skin: Warm, dry, no erythema, no rash. [] Back: No tenderness, no CVA tenderness. [] Extremities: No tenderness. [] Neurologic: Alert and oriented X 3, normal motor function, normal sensory function, no focal deficits noted. [] Psychologic: Affect normal, judgement normal, mood normal. [] Current Patient Data Vital Signs Vital Signs Date Time Temp Pulse Resp B/P (MAP) Pulse Ox O2 Delivery O2 Flow Rate FiO2 04/16/19 11:14 56 158/77 04/16/19 10:12 99.0 24 100 Room Air 99.0 Lab Values Laboratory Tests Test 04/16/19 10:33 White Blood Count 3.6 x10^3/uL (4.0-11.0) L Red Blood Count 3.92 x10^6/uL (3.50-5.40) Hemoglobin 10.7 g/dL (12.0-15.5) L Hematocrit 32.3 % (36.0-47.0) L Mean Corpuscular Volume 83 fL (79-100) Mean Corpuscular Hemoglobin 27 pg (25-35) Mean Corpuscular Hemoglobin Concent 33 g/dL (31-37) Red Cell Distribution Width 14.7 % (11.5-14.5) H Platelet Count 176 x10^3/uL (140-400) Neutrophils (%) (Auto) 44 % (31-73) Lymphocytes (%) (Auto) 36 % (24-48) Monocytes (%) (Auto) 19 % (0-9) H Eosinophils (%) (Auto) 2 % (0-3) Basophils (%) (Auto) 0 % (0-3) Neutrophils # (Auto) 1.6 x10^3/uL (1.8-7.7) L Lymphocytes # (Auto) 1.3 x10^3/uL (1.0-4.8) Monocytes # (Auto) 0.7 x10^3/uL (0.0-1.1) Eosinophils # (Auto) 0.1 x10^3/uL (0.0-0.7) Basophils # (Auto) 0.0 x10^3/uL (0.0-0.2) Segmented Neutrophils % 42 % (35-66) Band Neutrophils % 3 % (0-9) Lymphocytes % 38 % (24-48) Atypical Lymphocytes % (Manual) 2 % (0-0) H Monocytes % 13 % (0-10) H Eosinophils % 1 % (0-5) Myelocytes % 1 % (0-0) H Platelet Estimate Adequate (ADEQUATE) Large Platelets Few Sodium Level 143 mmol/L (136-145) Potassium Level 4.4 mmol/L (3.5-5.1) Chloride Level 106 mmol/L (98-107) Carbon Dioxide Level 25 mmol/L (21-32) Anion Gap 12 (6-14) Blood Urea Nitrogen 17 mg/dL (7-20) Creatinine 2.0 mg/dL (0.6-1.0) H Estimated GFR (Cockcroft-Gault) 31.4 BUN/Creatinine Ratio 9 (6-20) Glucose Level 305 mg/dL (70-99) H Calcium Level 8.9 mg/dL (8.5-10.1) Total Bilirubin 0.4 mg/dL (0.2-1.0) Aspartate Amino Transferase (AST) 11 U/L (15-37) L Alanine Aminotransferase (ALT) 18 U/L (14-59) Alkaline Phosphatase 54 U/L (46-116) Troponin I Quantitative 0.018 ng/mL (0.000-0.055) YT-Wgm-R-Type Natriuretic Peptide 348 pg/mL (0-124) H Total Protein 6.8 g/dL (6.4-8.2) Albumin 3.3 g/dL (3.4-5.0) L Albumin/Globulin Ratio 0.9 (1.0-1.7) L Laboratory Tests 04/16/19 10:33 Laboratory Tests 04/16/19 10:33 EKG EKG [EKG: Reviewed] Radiology/Procedures Radiology/Procedures [CXR: reviewed. ] Course & Med Decision Making Course & Med Decision Making Pertinent Labs and Imaging studies reviewed. (See chart for details) [Atypical chest pain, and setting of known coronary disease, CHF and increased anxiety state due to grieving. No improvement nitroglycerin. Ativan given. Symptoms persist. Dr. Bird in the ED for admission and orders.] Dragon Disclaimer Dragon Disclaimer This electronic medical record was generated, in whole or in part, using a voice recognition dictation system. Departure Departure Impression: Primary Impression: Dyspnea Additional Impression: Chest pressure Disposition: ADMITTED INPATIENT Condition: STABLE Referrals: MELANIE OCHOA (PCP) Problem Qualifiers RENAY JAMES DO Apr 16, 2019 11:35
[2019-04-16 12:12] LABS: % ATYL 2 % (0-0); % BANDS 3 % (0-9); % EOS 1 % (0-5); % LYMPHS 38 % (24-48); % MONOS 13 % (0-10); % MYELOS 1 % (0-0); % SEGS 42 % (35-66); PLT ESTIMATE ADEQUATE (ADEQUATE)
[2019-04-16] MEDS ORDERED: FUROSEMIDE 40 MG/4 ML VIAL. IVP ONE (12:30)
--- NOTE | 2019-04-16 12:49 | EKG ---
[facility] [address] [place] [address] Test Date: 2019-04-16 Test Time: 10:13:00 Pat Name: JAXSON BORJAS Department: Room: 208 1 Gender: F Tissue Coordinator: MADI : 1965 Requested By: RENAY JAMES Order Number: [id number] Reading MD: Fausto Osborne MD Measurements Intervals [place] Rate: 59 P: 56 DE: 144 QRS: 30 QRSD: 114 T: 21 QT: 402 QTc: 398 Interpretive Statements SINUS RHYTHM NON-SPECIFIC ST/T CHANGES Electronically Signed On 04-22-2019 9:44:03 CDT by Fausto Osborne MD
[2019-04-16 15:00] VITALS: BP 159/74
--- NOTE | 2019-04-16 15:26 | HP ---
ADMIT DATE: 04/16/2019 CHIEF COMPLAINT: Chest pain. HISTORY OF PRESENT ILLNESS: The patient is a pleasant 53-year-old female, who has 2 previous myocardial infarctions and has 5 coronary stents. She presents with chest pain rated 7/10, has been occurring off and on for 3 days. She increased her home meds that did not work, describes as agonizing. I discussed the case with ER physician. We are going to admit the patient and consult Cardiology. PAST MEDICAL HISTORY: CAD with 5 stents, CHF, depression, diabetes, DVT, hyperlipidemia, hypertension, neuropathy, , left first toe amputation, right first and second toe amputation. ALLERGIES: IV CONTRAST, PENICILLIN, DOXYCYCLINE, LATEX, MORPHINE, PHENERGAN. FAMILY HISTORY: Coronary artery disease. 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 She does not drink, smoke or take any drugs. MEDICATIONS: Reviewed, please refer to the MRAD. REVIEW OF SYSTEMS: GENERAL: No history of weight change, weakness or fevers. SKIN: No bruising, hair changes or rashes. EYES: No blurred, double or loss of vision. NOSE AND THROAT: No history of nosebleeds, hoarseness or sore throat. HEART: She complains of chest pain. LUNGS: Denies cough, hemoptysis, wheezing or shortness of breath. GASTROINTESTINAL: Denies changes in appetite, nausea, vomiting, diarrhea or constipation. GENITOURINARY: No history of frequency, urgency, hesitancy or nocturia. NEUROLOGIC: Denies history of numbness, tingling, tremor or weakness. PSYCHIATRIC: No history of panic, anxiety or depression. ENDOCRINE: No history of heat or cold intolerance, polyuria or polydipsia. EXTREMITIES: Denies muscle weakness, joint pain, pain on walking or stiffness. PHYSICAL EXAMINATION: VITALS: Within normal limits and are stable. GENERAL: No apparent distress. Alert and oriented. HEENT: Head is normocephalic, atraumatic, pupils were equally round and reactive to light and accommodation. NECK: Supple, no JVD, no thyromegaly was noted. LUNGS: Clear to auscultation in all lung grant without rhonchi or wheezing. HEART: RRR, S1, S2 present. Peripheral pulses intact, no obvious murmurs were noted. ABDOMEN: Soft, nontender. Positive bowel sounds no organomegaly, normal bowel sounds. EXTREMITIES: Without any cyanosis, clubbing, or edema. Pedal pulses intact, Homans sign is negative. NEUROLOGIC: Normal speech, normal tone. A and O x 3, moves all extremities, no obvious focal deficits. PSYCHIATRIC: Normal affect, normal mood. Stable. SKIN: No ulcerations or rashes, good skin turgor, no jaundice. VASCULAR: Good capillary refill, neurovascular bundle appears to be intact. LABORATORY DATA: Troponin is 0. White count is 3.6. BNP slightly high at 340. ASSESSMENT AND PLAN: Chest pain with known coronary artery disease. The patient has been admitted. We will check serial enzymes, serial EKGs. Consult Cardiology. DVT prophylaxis, home meds. PROGNOSIS: Guarded. SIMIN PECK DO DR: RAEGAN/sanjeev JOB#: [id number] / [id number]
[2019-04-16] MEDS ORDERED: NON FORMULARY ITEM (Fluticasone/Salmeterol (Advair 250-50 Diskus) 1 PUFF) IH PRN (15:45)
[2019-04-16] MEDS ORDERED: SENNOSIDES 8.6 MG TABLET PO PRN (15:45)
[2019-04-16] MEDS ORDERED: ALPRAZolam 1 MG TABLET PO PRN (15:45)
[2019-04-16] MEDS ORDERED: ALBUTEROL SULFATE 2.5 MG/3 ML NEBU. NEB PRN (15:45)
[2019-04-16] MEDS ORDERED: POLYETHYLENE GLYCOL 3350 17 GM PACKET. PO PRN (15:45)
[2019-04-16] MEDS ORDERED: NON FORMULARY ITEM (Albuterol Sulfate (Albuterol Sulfate Hfa Inhaler) 2 PUFF) INH PRN (15:45)
[2019-04-16] MEDS ORDERED: ALBUTEROL SULFATE 2.5 MG/3 ML NEBU. NEB SCH (16:00)
[2019-04-16] MEDS ORDERED: CARVEDILOL 6.25 MG TABLET. PO SCH (17:00)
[2019-04-16] MEDS ORDERED: ZOLPIDEM 5 MG TABLET. PO PRN ×2 (17:15→18:15)
[2019-04-16] MEDS: FUROSEMIDE 40 MG TABLET. PO SCH (18:00)
[2019-04-16] MEDS: guaiFENesin ORAL 200 MG/10 ML LIQUID. PO PRN (18:07)
[2019-04-16] MEDS: PREGABALIN 75 MG CAPSULE PO SCH (18:08)
--- NOTE | 2019-04-16 18:20 | NUR ---
The patient, JAXSON ROJAS, 53 y/o, F admitted by SIMIN PECK III, DO, was given written information regarding hospital policies, unit procedures and contact persons. Valuables were checked and logged. Meds reconciled and restarted. [facility] Tele monitoring initiated. Pt c/o pain 10/10 r/t pain in her chest from force of coughing. Oriented to unit and routines.
[2019-04-16] MEDS: IPRATRPIUM/ALBUTEROL 0.5/2.5MG 3 ML NEBU. NEB SCH (18:21)
[2019-04-16] MEDS: BUDESONIDE 0.5 MG/2 ML NEBU. NEB SCH (18:21)
[2019-04-16 19:50] VITALS: BP 142/68
[2019-04-16] MEDS: ATORVASTATIN CALCIUM 40 MG TABLET. PO SCH (21:01)
[2019-04-16] MEDS: ZOLPIDEM 5 MG TABLET. PO SCH (21:01)
[2019-04-16] MEDS: METHOCARBAMOL 750 MG TABLET PO SCH (21:02)
[2019-04-16] MEDS: ALPRAZolam 1 MG TABLET PO PRN (21:03)
[2019-04-16] MEDS: INSULIN GLARGINE 300 UNITS/3 ML INSULN.PEN. SQ SCH (21:13)
[2019-04-16] MEDS ORDERED: BENZONATATE 100 MG CAPSULE. PO PRN (21:30)
[2019-04-16] MEDS: HYDROcodone/APAP 5/325MG 1 TAB TABLET PO PRN (22:41)
[2019-04-16 23:45] VITALS: BP 159/71
[2019-04-17] MEDS: HYDROcodone/APAP 5/325MG 1 TAB TABLET PO PRN ×5 (02:44→20:58)
[2019-04-17] MEDS: diphenhydrAMINE HCL 25 MG CAPSULE PO PRN (02:48)
[2019-04-17 03:05] VITALS: BP 142/69
[2019-04-17 07:00] VITALS: BP 143/64
[2019-04-17] MEDS: IPRATRPIUM/ALBUTEROL 0.5/2.5MG 3 ML NEBU. NEB SCH ×4 (07:48→19:42)
[2019-04-17] MEDS: BUDESONIDE 0.5 MG/2 ML NEBU. NEB SCH ×2 (07:48→19:42)
[2019-04-17] MEDS: PREGABALIN 75 MG CAPSULE PO SCH ×2 (08:47→20:58)
[2019-04-17] MEDS: CLOPIDOGREL BISULFATE 75 MG TABLET PO SCH (08:47)
[2019-04-17] MEDS: ISOSORBIDE MONONITRATE ER 30 MG TAB.ER.24H PO SCH (08:47)
[2019-04-17] MEDS: FUROSEMIDE 40 MG TABLET. PO SCH ×2 (08:48→14:40)
[2019-04-17] MEDS: ASPIRIN ENTERIC COATED 81 MG TABLET.DR. PO SCH (08:48)
[2019-04-17] MEDS: LOSARTAN POTASSIUM 25 MG TABLET. PO SCH (08:48)
[2019-04-17] MEDS: PANTOPRAZOLE 40 MG TABLET.DR. PO SCH (08:48)
[2019-04-17] MEDS: METHOCARBAMOL 750 MG TABLET PO SCH ×2 (08:48→20:57)
[2019-04-17] MEDS: INSULIN GLARGINE 300 UNITS/3 ML INSULN.PEN. SQ SCH ×2 (08:55→21:05)
[2019-04-17 11:00] VITALS: BP 154/72
[2019-04-17] MEDS ORDERED: hydrALAZINE 20 MG/ML VIAL. IVP PRN (12:00)
[2019-04-17] MEDS ORDERED: IV DEXTROSE 5% 250 ML BAG. IV PRN (12:00)
[2019-04-17] MEDS ORDERED: ONDANSETRON PF 4 MG/2 ML VIAL. IV PRN (12:00)
[2019-04-17] MEDS ORDERED: traMADol 50 MG TABLET PO PRN (12:00)
[2019-04-17] MEDS ORDERED: DEXTROSE 50% 25 GM / 50ML DISP.SYRIN. IV PRN (12:00)
[2019-04-17] MEDS ORDERED: INSULIN LISPRO 300 UNITS/3 ML VIAL. SQ SCH (12:00)
[2019-04-17] MEDS ORDERED: ACETAMINOPHEN 500 MG TABLET PO PRN (12:00)
--- NOTE | 2019-04-17 12:41 | PDOC ---
PROGRESS NOTES Chief Complaint Chief Complaint NIMISHA possibly on CKD Recent diarrhea, emesis Obesity BMI 45 Chest pain Accel HTN DM 2 uncontrolled hgba1c 11 History of Present Illness History of Present Illness CAme in for CP She has risk factors: UNCONTROLLED DM and HTN , as evidenced by her kidney fcn She also relays some GI losses since thursday Seen by cards, planned for mPI thursday PLAn: IVF hydrate, recheck BMP tmr (creat 2) MPI tmr NPO post mn SSI high dose resume home insulin regimen: 60 BID and 15 TID with meals hgba1c ordered again - she relays 11 prn for BP pushes NEed to control BP and DM - i dw her- she understands Vitals Vitals Vital Signs Date Time Temp Pulse Resp B/P (MAP) Pulse Ox O2 Delivery O2 Flow Rate FiO2 04/17/19 11:00 98.3 56 16 154/72 (99) 96 Room Air 98.3 Physical Exam General: Alert, Oriented X3, Cooperative, No acute distress Heart: Regular rate, Normal S1, Normal S2 Lungs: Wheezing Abdomen: Normal bowel sounds, Soft, No tenderness Extremities: No clubbing, No cyanosis, No edema Skin: No rashes, No breakdown, No significant lesion Labs LABS Laboratory Tests Test 04/16/19 17:22 04/16/19 21:10 04/17/19 08:15 04/17/19 12:22 Glucose (Fingerstick) 304 mg/dL (70-99) 254 mg/dL (70-99) 230 mg/dL (70-99) 226 mg/dL (70-99) Review of Systems Review of Systems no cp, no soa, no abd pain, no emesis today, no fever, rest 14 pt neg Assessment and Plan Assessmemt and Plan Problems Medical Problems: (1) Chest pressure Status: Acute (2) Dyspnea Status: Acute Comment Review of Relevant I have reviewed the following items crista (where applicable) has been applied. Labs Laboratory Tests Test 04/16/19 10:33 04/16/19 17:22 04/16/19 21:10 04/17/19 08:15 White Blood Count 3.6 x10^3/uL (4.0-11.0) Red Blood Count 3.92 x10^6/uL (3.50-5.40) Hemoglobin 10.7 g/dL (12.0-15.5) Hematocrit 32.3 % (36.0-47.0) Mean Corpuscular Volume 83 fL (79-100) Mean Corpuscular Hemoglobin 27 pg (25-35) Mean Corpuscular Hemoglobin Concent 33 g/dL (31-37) Red Cell Distribution Width 14.7 % (11.5-14.5) Platelet Count 176 x10^3/uL (140-400) Neutrophils (%) (Auto) 44 % (31-73) Lymphocytes (%) (Auto) 36 % (24-48) Monocytes (%) (Auto) 19 % (0-9) Eosinophils (%) (Auto) 2 % (0-3) Basophils (%) (Auto) 0 % (0-3) Neutrophils # (Auto) 1.6 x10^3/uL (1.8-7.7) Lymphocytes # (Auto) 1.3 x10^3/uL (1.0-4.8) Monocytes # (Auto) 0.7 x10^3/uL (0.0-1.1) Eosinophils # (Auto) 0.1 x10^3/uL (0.0-0.7) Basophils # (Auto) 0.0 x10^3/uL (0.0-0.2) Segmented Neutrophils % 42 % (35-66) Band Neutrophils % 3 % (0-9) Lymphocytes % 38 % (24-48) Atypical Lymphocytes % (Manual) 2 % (0-0) Monocytes % 13 % (0-10) Eosinophils % 1 % (0-5) Myelocytes % 1 % (0-0) Platelet Estimate Adequate (ADEQUATE) Large Platelets Few Sodium Level 143 mmol/L (136-145) Potassium Level 4.4 mmol/L (3.5-5.1) Chloride Level 106 mmol/L (98-107) Carbon Dioxide Level 25 mmol/L (21-32) Anion Gap 12 (6-14) Blood Urea Nitrogen 17 mg/dL (7-20) Creatinine 2.0 mg/dL (0.6-1.0) Estimated GFR (Cockcroft-Gault) 31.4 BUN/Creatinine Ratio 9 (6-20) Glucose Level 305 mg/dL (70-99) Calcium Level 8.9 mg/dL (8.5-10.1) Total Bilirubin 0.4 mg/dL (0.2-1.0) Aspartate Amino Transf (AST/SGOT) 11 U/L (15-37) Alanine Aminotransferase (ALT/SGPT) 18 U/L (14-59) Alkaline Phosphatase 54 U/L (46-116) Troponin I Quantitative 0.018 ng/mL (0.000-0.055) SB-Szf-V-Type Natriuretic Peptide 348 pg/mL (0-124) Total Protein 6.8 g/dL (6.4-8.2) Albumin 3.3 g/dL (3.4-5.0) Albumin/Globulin Ratio 0.9 (1.0-1.7) Glucose (Fingerstick) 304 mg/dL (70-99) 254 mg/dL (70-99) 230 mg/dL (70-99) Test 04/17/19 12:22 Glucose (Fingerstick) 226 mg/dL (70-99) Laboratory Tests Test 04/16/19 17:22 04/16/19 21:10 04/17/19 08:15 04/17/19 12:22 Glucose (Fingerstick) 304 mg/dL (70-99) 254 mg/dL (70-99) 230 mg/dL (70-99) 226 mg/dL (70-99) Medications Current Medications Nitroglycerin (Nitrostat) 0.4 mg PRN Q5MIN PRN SL CHEST PAIN Last administered on 04/16/19at 11:14; Start 04/16/19 at 11:00; Stop 04/17/19 at 08:31; Status DC Lorazepam (Ativan Inj) 1 mg 1X ONCE IV Last administered on 04/16/19at 11:53; Start 04/16/19 at 11:45; Stop 04/16/19 at 11:46; Status DC Furosemide (Lasix) 40 mg 1X ONCE IVP Last administered on 04/16/19at 12:57; Start 04/16/19 at 12:30; Stop 04/16/19 at 12:31; Status DC Albuterol Sulfate (Ventolin Neb Soln) 2.5 mg PRN Q4HRS PRN NEB SHORTNESS OF BREATH; Start 04/16/19 at 15:45 Alprazolam (Xanax) 1 mg PRN BID PRN PO ANXIETY / AGITATION; Start 04/16/19 at 15:45; Stop 04/16/19 at 17:22; Status DC Aspirin (Ecotrin) 81 mg DAILYWBKFT PO Last administered on 04/17/19at 08:56; Start 04/17/19 at 08:00 Carvedilol (Coreg) 6.25 mg BIDWMEALS PO ; Start 04/16/19 at 17:00; Stop 04/16/19 at 17:22; Status DC Diphenhydramine HCl (Benadryl) 25 mg PRN Q6HRS PRN PO ALLERGIES Last administered on 04/17/19at 02:48; Start 04/16/19 at 15:45 Albuterol/ Ipratropium (Duoneb) 3 ml QID NEB Last administered on 04/17/19at 07:48; Start 04/16/19 at 17:00 Nitroglycerin (Nitrostat) 0.4 mg PRN Q5MIN PRN SL CHEST PAIN; Start 04/16/19 at 15:45 Pantoprazole Sodium (Protonix) 40 mg DAILY PO Last administered on 04/17/19at 08:56; Start 04/17/19 at 09:00 Polyethylene Glycol (miraLAX PACKET) 17 gm PRN DAILY PRN PO CONSTIPATION; Start 04/16/19 at 15:45 Sennosides (Senna) 8.6 mg PRN DAILY PRN PO CONSTIPATION; Start 04/16/19 at 15:45 Non-Formulary Medication (Albuterol Sulfate (Albuterol Sulfate Hfa Inhaler)) 2 puff PRN Q4HRS PRN INH SHORTNESS OF BREATH; Start 04/16/19 at 15:45; Status UNV Atorvastatin Calcium (Lipitor) 80 mg QHS PO Last administered on 04/16/19at 21:04; Start 04/16/19 at 21:00 Non-Formulary Medication (Fluticasone/ Salmeterol (Advair 250-50 Diskus)) 1 puff PRN BID PRN IH SHORTNESS OF BREATH; Start 04/16/19 at 15:45; Stop 04/16/19 at 15:57; Status DC Albuterol Sulfate (Ventolin Neb Soln) 2.5 mg RTQID NEB ; Start 04/16/19 at 16:0 0; Status UNV Budesonide (Pulmicort) 0.5 mg RTBID NEB Last administered on 04/17/19 07:48; Start 04/16/19 at 20:00 Furosemide (Lasix) 40 mg BID92 PO Last administered on 04/17/19 08:56; Start 04/16/19 at 18:00 Insulin Glargine (Lantus) 60 units BID SQ Last administered on 04/17/19 08:56; Start 04/16/19 at 21:00 Isosorbide Mononitrate (Imdur) 60 mg DAILY PO Last administered on 04/17/19 08:56; Start 04/17/19 at 09:00 Losartan Potassium (Cozaar) 50 mg DAILY PO Last administered on 04/17/19 08:56; Start 04/17/19 at 09:00 Methocarbamol (Robaxin) 750 mg BID PO Last administered on 04/17/19 08:56; Start 04/16/19 at 21:00 Zolpidem Tartrate (Ambien) 5 mg PRN QHS PRN PO INSOMNIA; Start 04/16/19 at 17:15; Stop 04/16/19 at 18:11; Status DC Alprazolam (Xanax) 2 mg PRN BID PRN PO ANXIETY / AGITATION Last administered on 04/16/19 21:04; Start 04/16/19 at 17:30 Clopidogrel Bisulfate (Plavix) 75 mg DAILYWBKFT PO Last administered on 04/17/19 08:56; Start 04/17/19 at 08:00 Pregabalin (Lyrica) 75 mg BID PO Last administered on 04/17/19 08:56; Start 04/16/19 at 17:30 Guaifenesin (Robitussin) 200 mg PRN Q4HRS PRN PO COUGH Last administered on 04/16/19 18:08; Start 04/16/19 at 17:30 Zolpidem Tartrate (Ambien) 5 mg QHS PO Last administered on 04/16/19 21:04; Start 04/16/19 at 21:00 Zolpidem Tartrate (Ambien) 5 mg PRN QHS PRN PO INSOMNIA Last administered on 04/17/19 00:22; Start 04/16/19 at 18:15 Acetaminophen/ Hydrocodone Bitart (Lortab 5/325) 1 tab PRN Q4HRS PRN PO PAIN MODERATE Last administered on 04/17/19at 10:47; Start 04/16/19 at 21:30; Stop 04/17/19 at 12:03; Status DC Benzonatate (Tessalon Perle) 100 mg PRN TID PRN PO COUGH 1ST CHOICE Last administered on 04/16/19at 22:44; Start 04/16/19 at 21:30 Hydralazine HCl (Apresoline Inj) 10 mg PRN Q4HRS PRN IVP ELEVATED BP, SEE COMMENTS; Start 04/17/19 at 12:00 Insulin Human Lispro (HumaLOG) 0-9 UNITS TIDWMEALS SQ ; Start 04/17/19 at 12:00 Dextrose (Dextrose 50%-Water Syringe) 12.5 gm PRN Q15MIN PRN IV SEE COMMENTS; Start 04/17/19 at 12:00 Dextrose 250 ml PRN Q15MIN PRN IV SEE COMMENTS; Start 04/17/19 at 12:00 Insulin Human Lispro (HumaLOG) 10 units TIDWMEALS SQ ; Start 04/17/19 at 12:00; Stop 04/17/19 at 12:03; Status DC Acetaminophen (Tylenol) 500 mg PRN Q6HRS PRN PO HEADACHE / TEMP; Start 04/17/19 at 12:00 Tramadol HCl (Ultram) 50 mg PRN Q6HRS PRN PO PAIN MILD; Start 04/17/19 at 12:00 Ondansetron HCl (Zofran) 4 mg PRN Q6HRS PRN IV NAUSEA/VOMITING; Start 04/17/19 at 12:00 Acetaminophen/ Hydrocodone Bitart (Lortab 5/325) 2 tab PRN Q6HRS PRN PO PAIN M ODERATE; Start 04/17/19 at 12:15 Insulin Human Lispro (HumaLOG) 15 units TIDWMEALS SQ ; Start 04/17/19 at 17:00 Active Scripts Active Humalog (Insulin Lispro) 100 Unit/1 Ml Insuln.pen 40 Units SQ TIDWMEALS MDD 1 Lantus Solostar (Insulin Glargine,Hum.rec.anlog) 100 Unit/1 Ml Insuln.pen 60 Units SQ BID MDD 1 Azithromycin Tablet (Azithromycin) 250 Mg Tablet 250 Mg PO DAILY MDD 1 Promethazine Hcl 12.5 Mg Tablet 12.5 Mg PO PRN Q6HRS PRN MDD 1 Hydrocodone-Apap 5-325 (Hydrocodone Bit/Acetaminophen) 1 Tab Tablet 1 Tab PO PRN Q4HRS PRN Aspirin Ec (Aspirin) 81 Mg Tablet.dr 81 Mg PO DAILYWBKFT 30 Days Carvedilol (Carvedilol) 6.25 Mg Tablet 6.25 Mg PO BIDWMEALS 30 Days Isosorbide Mononitrate Er (Isosorbide Mononitrate) 30 Mg Tab.er.24h 60 Mg PO DAILY 30 Days Lasix (Furosemide) 40 Mg Tablet 40 Mg PO BID Ultram (Tramadol Hcl) 50 Mg Tablet 1 Tab PO Q6HRS PRN Reported Ambien (Zolpidem Tartrate) 5 Mg Tablet 5 Mg PO PRN QHS PRN Miralax (Polyethylene Glycol 3350) 17 Gm Powd.pack 1 Packet PO DAILY PRN Alprazolam 1 Mg Tablet 1 Tab PO BID PRN Advair 250-50 Diskus (Fluticasone/Salmeterol) 1 Each Disk.w.dev 1 Puff IH PRN BID PRN Senokot (Sennosides) 8.6 Mg Tablet 1 Tab PO PRN DAILY PRN Gabapentin 800 Mg Tablet 800 Mg PO TID Robaxin-750 (Methocarbamol) 750 Mg Tablet 1 Tab PO BID Benadryl (Diphenhydramine Hcl) 25 Mg Capsule 25 Mg PO PRN Q6HRS PRN Pantoprazole Sodium (Pantoprazole Sodium) 40 Mg Tablet.dr 40 Mg PO DAILY Duoneb 0.5-3(2.5) Mg/3 Ml (Albuterol/Ipratropium) 3 Ml Ampul.neb 3 Ml NEB QID Albuterol Sulfate Neb Soln (Albuterol Sulfate) 2.5 Mg/3 Ml Vial.neb 2.5 Mg NEB PRN Q4HRS PRN NITROGLYCERIN SubLingual (Nitroglycerin) 0.4 Mg Tab.subl 0.4 Mg SL PRN Q5MIN PRN Potassium Chloride 20 Meq Tablet.er 20 Meq PO BID Losartan Potassium (Losartan Potassium) 25 Mg Tablet 50 Mg PO DAILY Lipitor (Atorvastatin Calcium) 80 Mg Tablet 1 Tab PO QHS Albuterol Sulfate Hfa Inhaler (Albuterol Sulfate) 8.5 Gm Hfa.aer.ad 2 Puff INH PRN Q4HRS PRN Vitals/I & O Vital Sign - Last 24 Hours 04/16/19 04/16/19 04/16/19 04/16/19 15:00 18:21 19:50 22:44 Temp 98.5 99.1 98.5 99.1 Pulse 53 62 Resp 16 22 18 B/P (MAP) 159/74 (102) 142/68 (92) Pulse Ox 92 98 93 93 O2 Delivery Room Air Room Air Room Air Room Air 04/16/19 04/17/19 04/17/19 04/17/19 23:45 00:24 02:48 03:05 Temp 99.9 98.9 99.9 98.9 Pulse 53 54 Resp 20 16 20 17 B/P (MAP) 159/71 (100) 142/69 (93) Pulse Ox 94 94 94 92 O2 Delivery Room Air Room Air Room Air Room Air 04/17/19 04/17/19 04/17/19 04/17/19 06:40 06:50 07:00 07:48 Temp 98.5 98.5 Pulse 54 Resp 18 20 16 B/P (MAP) 143/64 (90) Pulse Ox 92 92 90 O2 Delivery Room Air Room Air Room Air Room Air 04/17/19 04/17/19 04/17/19 04/17/19 08:56 08:56 08:56 10:47 Pulse 54 54 Resp 18 B/P (MAP) 143/64 143/64 04/17/19 11:00 Temp 98.3 98.3 Pulse 56 Resp 16 B/P (MAP) 154/72 (99) Pulse Ox 96 O2 Delivery Room Air Intake and Output 04/16/19 04/16/19 04/17/19 15:00 23:00 07:00 Intake Total 180 ml Balance 180 ml PHILL MORENO MD Apr 17, 2019 12:41
[2019-04-17] MEDS: INSULIN LISPRO 300 UNITS/3 ML VIAL. SQ SCH ×3 (12:42→17:31)
[2019-04-17] MEDS: IV NORMAL SALINE 1000ML BAG 1,000 ML IV SCH ×2 (13:07→23:50)
[2019-04-17] MEDS: ALPRAZolam 1 MG TABLET PO PRN ×2 (13:15→20:57)
--- NOTE | 2019-04-17 13:49 | PDOC2 ---
CONSULT Date of Consult Date of Consult DATE: 04/17/19 TIME: 13:42 Reason for Consult Reason for Consult: chest pain Referring Physician Referring Physician: Dr. Bird Identification/Chief Complaint Chief Complaint chest pain Source Source: Chart review, Patient History of Present Illness Reason for Visit: The patient is a 53 year old female admitted for chest pain over several days. She has a history of CAD, HLD, HTN and DM. Troponin of 0.01 and no acute ischemic EKG changes. Pain has largely resolved. Past Medical History Cardiovascular: CAD, CHF, HTN, Hyperlipidemia Pulmonary: Asthma, COPD CENTRAL NERVOUS SYSTEM: Periperal neuropathy GI: GERD Heme/Onc: No pertinent hx Hepatobiliary: No pertinent hx Psych: Anxiety, Addictions, Depression Musculoskeletal: Osteoarthritis Rheumatologic: No pertinent hx Infectious disease: No pertinent hx Renal/: No pertinent hx Endocrine: Diabetes Past Surgical History Past Surgical History: Other (coronary stents) Family History Family History: Diabetes, Stroke Social History Social History: Parent No ALCOHOL: none Drugs: Other Lives: with Family Domestic Violence: Neg Current Problem List Problem List Problems Medical Problems: (1) Chest pressure Status: Acute (2) Dyspnea Status: Acute Current Medications Current Medications Current Medications Nitroglycerin (Nitrostat) 0.4 mg PRN Q5MIN PRN SL CHEST PAIN Last administered on 04/16/19at 11:14; Start 04/16/19 at 11:00; Stop 04/17/19 at 08:31; Status DC Lorazepam (Ativan Inj) 1 mg 1X ONCE IV Last administered on 04/16/19at 11:53; Start 04/16/19 at 11:45; Stop 04/16/19 at 11:46; Status DC Furosemide (Lasix) 40 mg 1X ONCE IVP Last administered on 04/16/19at 12:57; Start 04/16/19 at 12:30; Stop 04/16/19 at 12:31; Status DC Albuterol Sulfate (Ventolin Neb Soln) 2.5 mg PRN Q4HRS PRN NEB SHORTNESS OF BREATH; Start 04/16/19 at 15:45 Alprazolam (Xanax) 1 mg PRN BID PRN PO ANXIETY / AGITATION; Start 04/16/19 at 15:45; Stop 04/16/19 at 17:22; Status DC Aspirin (Ecotrin) 81 mg DAILYWBKFT PO Last administered on 04/17/19at 08:56; Start 04/17/19 at 08:00 Carvedilol (Coreg) 6.25 mg BIDWMEALS PO ; Start 04/16/19 at 17:00; Stop 04/16/19 at 17:22; Status DC Diphenhydramine HCl (Benadryl) 25 mg PRN Q6HRS PRN PO ALLERGIES Last administered on 04/17/19at 02:48; Start 04/16/19 at 15:45 Albuterol/ Ipratropium (Duoneb) 3 ml QID NEB Last administered on 04/17/19at 12:51; Start 04/16/19 at 17:00 Nitroglycerin (Nitrostat) 0.4 mg PRN Q5MIN PRN SL CHEST PAIN; Start 04/16/19 at 15:45 Pantoprazole Sodium (Protonix) 40 mg DAILY PO Last administered on 04/17/19at 08 :56; Start 04/17/19 at 09:00 Polyethylene Glycol (miraLAX PACKET) 17 gm PRN DAILY PRN PO CONSTIPATION; Start 04/16/19 at 15:45 Sennosides (Senna) 8.6 mg PRN DAILY PRN PO CONSTIPATION; Start 04/16/19 at 15:45 Non-Formulary Medication (Albuterol Sulfate (Albuterol Sulfate Hfa Inhaler)) 2 puff PRN Q4HRS PRN INH SHORTNESS OF BREATH; Start 04/16/19 at 15:45; Status UNV Atorvastatin Calcium (Lipitor) 80 mg QHS PO Last administered on 04/16/19at 21:04; Start 04/16/19 at 21:00 Non-Formulary Medication (Fluticasone/ Salmeterol (Advair 250-50 Diskus)) 1 puff PRN BID PRN IH SHORTNESS OF BREATH; Start 04/16/19 at 15:45; Stop 04/16/19 at 15:57; Status DC Albuterol Sulfate (Ventolin Neb Soln) 2.5 mg RTQID NEB ; Start 04/16/19 at 16:00; Status UNV Budesonide (Pulmicort) 0.5 mg RTBID NEB Last administered on 04/17/19at 07:48; Start 04/16/19 at 20:00 Furosemide (Lasix) 40 mg BID92 PO Last administered on 04/17/19 08:56; Start 04/16/19 at 18:00 Insulin Glargine (Lantus) 60 units BID SQ Last administered on 04/17/19 08:56; Start 04/16/19 at 21:00 Isosorbide Mononitrate (Imdur) 60 mg DAILY PO Last administered on 04/17/19 08:56; Start 04/17/19 at 09:00 Losartan Potassium (Cozaar) 50 mg DAILY PO Last administered on 04/17/19 08:56; Start 04/17/19 at 09:00 Methocarbamol (Robaxin) 750 mg BID PO Last administered on 04/17/19 08:56; Start 04/16/19 at 21:00 Zolpidem Tartrate (Ambien) 5 mg PRN QHS PRN PO INSOMNIA; Start 04/16/19 at 17:15; Stop 04/16/19 at 18:11; Status DC Alprazolam (Xanax) 2 mg PRN BID PRN PO ANXIETY / AGITATION Last administered on 04/17/19 13:15; Start 04/16/19 at 17:30 Clopidogrel Bisulfate (Plavix) 75 mg DAILYWBKFT PO Last administered on 04/17/19 08:56; Start 04/17/19 at 08:00 Pregabalin (Lyrica) 75 mg BID PO Last administered on 04/17/19 08:56; Start 04/16/19 at 17:30 Guaifenesin (Robitussin) 200 mg PRN Q4HRS PRN PO COUGH Last administered on 04/16/19 18:08; Start 04/16/19 at 17:30 Zolpidem Tartrate (Ambien) 5 mg QHS PO Last administered on 04/16/19 21:04; Start 04/16/19 at 21:00 Zolpidem Tartrate (Ambien) 5 mg PRN QHS PRN PO INSOMNIA Last administered on 04/17/19 00:22; Start 04/16/19 at 18:15 Acetaminophen/ Hydrocodone Bitart (Lortab 5/325) 1 tab PRN Q4HRS PRN PO PAIN MODERATE Last administered on 8/18/19at 10:47; Start 04/16/19 at 21:30; Stop 04/17/19 at 12:03; Status DC Benzonatate (Tessalon Perle) 100 mg PRN TID PRN PO COUGH 1ST CHOICE Last administered on 04/16/19at 22:44; Start 04/16/19 at 21:30 Hydralazine HCl (Apresoline Inj) 10 mg PRN Q4HRS PRN IVP ELEVATED BP, SEE COMMENTS; Start 04/17/19 at 12:00 Insulin Human Lispro (HumaLOG) 0-9 UNITS TIDWMEALS SQ Last administered on 04/17/19at 12:42; Start 04/17/19 at 12:00 Dextrose (Dextrose 50%-Water Syringe) 12.5 gm PRN Q15MIN PRN IV SEE COMMENTS; Start 04/17/19 at 12:00 Dextrose 250 ml PRN Q15MIN PRN IV SEE COMMENTS; Start 04/17/19 at 12:00 Insulin Human Lispro (HumaLOG) 10 units TIDWMEALS SQ ; Start 04/17/19 at 12:00; Stop 04/17/19 at 12:03; Status DC Acetaminophen (Tylenol) 500 mg PRN Q6HRS PRN PO HEADACHE / TEMP; Start 04/17/19 at 12:00 Tramadol HCl (Ultram) 50 mg PRN Q6HRS PRN PO PAIN MILD; Start 04/17/19 at 12:00 Ondansetron HCl (Zofran) 4 mg PRN Q6HRS PRN IV NAUSEA/VOMITING; Start 04/17/19 at 12:00 Acetaminophen/ Hydrocodone Bitart (Lortab 5/325) 2 tab PRN Q6HRS PRN PO PAIN MODERATE; Start 04/17/19 at 12:15 Insulin Human Lispro (HumaLOG) 15 units TIDWMEALS SQ ; Start 04/17/19 at 17:00 Sodium Chloride 1,000 ml @ 100 mls/hr Q10H IV Last administered on 04/17/19at 13:07; Start 04/17/19 at 12:45 Active Scripts Active Humalog (Insulin Lispro) 100 Unit/1 Ml Insuln.pen 40 Units SQ TIDWMEALS MDD 1 Lantus Solostar (Insulin Glargine,Hum.rec.anlog) 100 Unit/1 Ml Insuln.pen 60 Units SQ BID MDD 1 Azithromycin Tablet (Azithromycin) 250 Mg Tablet 250 Mg PO DAILY MDD 1 Promethazine Hcl 12.5 Mg Tablet 12.5 Mg PO PRN Q6HRS PRN MDD 1 Hydrocodone-Apap 5-325 (Hydrocodone Bit/Acetaminophen) 1 Tab Tablet 1 Tab PO PRN Q4HRS PRN Aspirin Ec (Aspirin) 81 Mg Tablet.dr 81 Mg PO DAILYWBKFT 30 Days Carvedilol (Carvedilol) 6.25 Mg Tablet 6.25 Mg PO BIDWMEALS 30 Days Isosorbide Mononitrate Er (Isosorbide Mononitrate) 30 Mg Tab.er.24h 60 Mg PO DAILY 30 Days Lasix (Furosemide) 40 Mg Tablet 40 Mg PO BID Ultram (Tramadol Hcl) 50 Mg Tablet 1 Tab PO Q6HRS PRN Reported Ambien (Zolpidem Tartrate) 5 Mg Tablet 5 Mg PO PRN QHS PRN Miralax (Polyethylene Glycol 3350) 17 Gm Powd.pack 1 Packet PO DAILY PRN Alprazolam 1 Mg Tablet 1 Tab PO BID PRN Advair 250-50 Diskus (Fluticasone/Salmeterol) 1 Each Disk.w.dev 1 Puff IH PRN BID PRN Senokot (Sennosides) 8.6 Mg Tablet 1 Tab PO PRN DAILY PRN Gabapentin 800 Mg Tablet 800 Mg PO TID Robaxin-750 (Methocarbamol) 750 Mg Tablet 1 Tab PO BID Benadryl (Diphenhydramine Hcl) 25 Mg Capsule 25 Mg PO PRN Q6HRS PRN Pantoprazole Sodium (Pantoprazole Sodium) 40 Mg Tablet.dr 40 Mg PO DAILY Duoneb 0.5-3(2.5) Mg/3 Ml (Albuterol/Ipratropium) 3 Ml Ampul.neb 3 Ml NEB QID Albuterol Sulfate Neb Soln (Albuterol Sulfate) 2.5 Mg/3 Ml Vial.neb 2.5 Mg NEB PRN Q4HRS PRN NITROGLYCERIN SubLingual (Nitroglycerin) 0.4 Mg Tab.subl 0.4 Mg SL PRN Q5MIN PRN Potassium Chloride 20 Meq Tablet.er 20 Meq PO BID Losartan Potassium (Losartan Potassium) 25 Mg Tablet 50 Mg PO DAILY Lipitor (Atorvastatin Calcium) 80 Mg Tablet 1 Tab PO QHS Albuterol Sulfate Hfa Inhaler (Albuterol Sulfate) 8.5 Gm Hfa.aer.ad 2 Puff INH PRN Q4HRS PRN Allergies Allergies: Coded Allergies: Penicillins (Verified Allergy, Severe, tongue swelling, HIVES, ANGIOEDEMA, 06/06/17) latex (Verified Allergy, Severe, Hives, N/V, 06/06/17) prochlorperazine (Verified Allergy, Severe, tongue swelling, ANGIOEDEMA, 06/06/17) Iodinated Contrast- Oral and IV Dye (Verified Allergy, Intermediate, 10/07/17) doxycycline (Verified Allergy, Intermediate, ITCHING, 06/06/17) iodine (Verified Allergy, Intermediate, "shiver", N/V, 06/06/17) morphine (Verified Allergy, Intermediate, itching, 08/28/18) Tolerates oxycodone and tramadol ROS Respiratory: YES: SOB with excertion Cardiovascular: yes Chest Pain Physical Exam General: mild distress HEENT: Atraumatic Lungs: Clear to auscultation Heart: Regular rate Abdomen: Normal bowel sounds Vitals VITALS Vital Signs Date Time Temp Pulse Resp B/P (MAP) Pulse Ox O2 Delivery O2 Flow Rate FiO2 04/17/19 12:54 98 Room Air 04/17/19 11:00 98.3 56 16 154/72 (99) 98.3 Labs Labs Laboratory Tests Test 04/16/19 10:33 04/16/19 17:22 04/16/19 21:10 04/17/19 08:15 White Blood Count 3.6 x10^3/uL (4.0-11.0) Red Blood Count 3.92 x10^6/uL (3.50-5.40) Hemoglobin 10.7 g/dL (12.0-15.5) Hematocrit 32.3 % (36.0-47.0) Mean Corpuscular Volume 83 fL (79-100) Mean Corpuscular Hemoglobin 27 pg (25-35) Mean Corpuscular Hemoglobin Concent 33 g/dL (31-37) Red Cell Distribution Width 14.7 % (11.5-14.5) Platelet Count 176 x10^3/uL (140-400) Neutrophils (%) (Auto) 44 % (31-73) Lymphocytes (%) (Auto) 36 % (24-48) Monocytes (%) (Auto) 19 % (0-9) Eosinophils (%) (Auto) 2 % (0-3) Basophils (%) (Auto) 0 % (0-3) Neutrophils # (Auto) 1.6 x10^3/uL (1.8-7.7) Lymphocytes # (Auto) 1.3 x10^3/uL (1.0-4.8) Monocytes # (Auto) 0.7 x10^3/uL (0.0-1.1) Eosinophils # (Auto) 0.1 x10^3/uL (0.0-0.7) Basophils # (Auto) 0.0 x10^3/uL (0.0-0.2) Segmented Neutrophils % 42 % (35-66) Band Neutrophils % 3 % (0-9) Lymphocytes % 38 % (24-48) Atypical Lymphocytes % (Manual) 2 % (0-0) Monocytes % 13 % (0-10) Eosinophils % 1 % (0-5) Myelocytes % 1 % (0-0) Platelet Estimate Adequate (ADEQUATE) Large Platelets Few Sodium Level 143 mmol/L (136-145) Potassium Level 4.4 mmol/L (3.5-5.1) Chloride Level 106 mmol/L (98-107) Carbon Dioxide Level 25 mmol/L (21-32) Anion Gap 12 (6-14) Blood Urea Nitrogen 17 mg/dL (7-20) Creatinine 2.0 mg/dL (0.6-1.0) Estimated GFR (Cockcroft-Gault) 31.4 BUN/Creatinine Ratio 9 (6-20) Glucose Level 305 mg/dL (70-99) Calcium Level 8.9 mg/dL (8.5-10.1) Total Bilirubin 0.4 mg/dL (0.2-1.0) Aspartate Amino Transf (AST/SGOT) 11 U/L (15-37) Alanine Aminotransferase (ALT/SGPT) 18 U/L (14-59) Alkaline Phosphatase 54 U/L (46-116) Troponin I Quantitative 0.018 ng/mL (0.000-0.055) AI-Hxs-X-Type Natriuretic Peptide 348 pg/mL (0-124) Total Protein 6.8 g/dL (6.4-8.2) Albumin 3.3 g/dL (3.4-5.0) Albumin/Globulin Ratio 0.9 (1.0-1.7) Glucose (Fingerstick) 304 mg/dL (70-99) 254 mg/dL (70-99) 230 mg/dL (70-99) Test 04/17/19 12:22 Glucose (Fingerstick) 226 mg/dL (70-99) Laboratory Tests Test 04/16/19 17:22 04/16/19 21:10 04/17/19 08:15 04/17/19 12:22 Glucose (Fingerstick) 304 mg/dL (70-99) 254 mg/dL (70-99) 230 mg/dL (70-99) 226 mg/dL (70-99) Images Images CXR. No acute changes Assessment/Plan Assessment/Plan 1. Chest pain. History of CAD. No acute changes on EKG or troponin. [place] to I. Creat 2.0. Continue medications. Lexiscan to evaluated. 2. HTN. Improved. Continue meds. 3. HLD. Check lab and continue meds. 4. DM. As per the primary service. Thank you for allowing us to participate in the care of your patient. NOY MAURICIO MD Apr 17, 2019 13:49
[2019-04-17 15:00] VITALS: BP 118/69
[2019-04-17] MEDS ORDERED: POTASSIUM CHLORIDE 20 MEQ TABLET.ER. PO ONE (15:15)
[2019-04-17 19:45] VITALS: BP 140/66
[2019-04-17] MEDS: guaiFENesin ORAL 200 MG/10 ML LIQUID. PO PRN (20:56)
[2019-04-17] MEDS: ATORVASTATIN CALCIUM 40 MG TABLET. PO SCH (20:57)
[2019-04-17] MEDS: ZOLPIDEM 5 MG TABLET. PO SCH (20:59)
[2019-04-17 23:07] LABS: HEMOGLOBIN A1C 10.4 % (4.8-5.6)
[2019-04-17 23:20] VITALS: BP 144/70
[2019-04-18] MEDS: diphenhydrAMINE HCL 25 MG CAPSULE PO PRN (03:11)
[2019-04-18] MEDS: HYDROcodone/APAP 5/325MG 1 TAB TABLET PO PRN ×4 (03:11→21:57)
[2019-04-18 03:30] VITALS: BP 155/71
[2019-04-18 05:15] LABS: CALCIUM 8.5 mg/dL (8.5-10.1); CREATININE 1.4 mg/dL (0.6-1.0); GFR 47.4
[2019-04-18 05:18] LABS: CHOLESTEROL/HDL RATIO 3.3
[2019-04-18 07:27] VITALS: BP 151/77
[2019-04-18] MEDS: BUDESONIDE 0.5 MG/2 ML NEBU. NEB SCH ×2 (07:29→20:07)
[2019-04-18] MEDS: IPRATRPIUM/ALBUTEROL 0.5/2.5MG 3 ML NEBU. NEB SCH ×4 (07:30→20:07)
[2019-04-18] MEDS ORDERED: REGADENOSON 0.4 MG/5 ML DISP.SYRIN. IV ONE (08:30)
--- NOTE | 2019-04-18 08:33 | PDOC ---
PROGRESS NOTES Chief Complaint Chief Complaint NIMISHA Leukopenia Recent diarrhea, emesis Cough - acute bronchitis Obesity BMI 45 Chest pain Accel HTN DM 2 uncontrolled hgba1c 11 History of Present Illness History of Present Illness Ms Camacho is a 53 year old female w/ PMHx CAD, CHF, HTN, HLD, COPD, DM2 with pe ripheral neuropathy, anxiety/depression who was admitted for chest pain over several days as well as diarrhea and NIMISHA. Troponin of 0.01 and no acute ischemic EKG changes. Pain has largely resolved. Seen by cards, MPI now and tomorrow. She endorses a cough productive of greenish sputum the past 48 hours that is persistent at this point. PLAn: IVF hydrate, recheck BMP tmr (creat 2) MPI today NPO post mn Add cough medication, doxycycline for green sputum SSI high dose resume home insulin regimen: 60 BID and 15 TID with meals hgba1c ordered again - she relays 11 prn for BP pushes NEed to control BP and DM - i dw her- she understands Vitals Vitals Vital Signs Date Time Temp Pulse Resp B/P (MAP) Pulse Ox O2 Delivery O2 Flow Rate FiO2 04/18/19 07:27 99.2 62 20 151/77 (101) 100 Room Air 99.2 Physical Exam General: mild distress Heart: Regular rate Lungs: Wheezing Abdomen: Normal bowel sounds Extremities: No clubbing, No cyanosis, No edema Skin: No rashes, No breakdown, No significant lesion Labs LABS Laboratory Tests Test 04/17/19 12:22 04/17/19 17:25 04/17/19 21:02 04/18/19 03:15 Glucose (Fingerstick) 226 mg/dL (70-99) 267 mg/dL (70-99) 294 mg/dL (70-99) Sodium Level 139 mmol/L (136-145) Potassium Level 4.0 mmol/L (3.5-5.1) Chloride Level 103 mmol/L (98-107) Carbon Dioxide Level 24 mmol/L (21-32) Anion Gap 12 (6-14) Blood Urea Nitrogen 20 mg/dL (7-20) Creatinine 1.4 mg/dL (0.6-1.0) Estimated GFR (Cockcroft-Gault) 47.4 Glucose Level 287 mg/dL (70-99) Calcium Level 8.5 mg/dL (8.5-10.1) Triglycerides Level 132 mg/dL (0-150) Cholesterol Level 104 mg/dL (0-200) LDL Cholesterol, Calculated 46 mg/dL (0-100) VLDL Cholesterol, Calculated 26 mg/dL (0-40) Non-HDL Cholesterol Calculated 72 mg/dL (0-129) HDL Cholesterol 32 mg/dL (40-60) Cholesterol/HDL Ratio 3.3 Test 04/18/19 07:06 Glucose (Fingerstick) 175 mg/dL (70-99) Assessment and Plan Assessmemt and Plan Problems Medical Problems: (1) CAD (coronary artery disease) Status: Chronic (2) Chest pressure Status: Acute (3) DM2 (diabetes mellitus, type 2) Status: Chronic (4) Dyspnea Status: Acute (5) HLD (hyperlipidemia) Status: Chronic (6) HTN (hypertension) Status: Chronic Comment Review of Relevant I have reviewed the following items crista (where applicable) has been applied. Labs Laboratory Tests Test 04/16/19 10:33 04/16/19 17:22 04/16/19 21:10 04/17/19 08:15 White Blood Count 3.6 x10^3/uL (4.0-11.0) Red Blood Count 3.92 x10^6/uL (3.50-5.40) Hemoglobin 10.7 g/dL (12.0-15.5) Hematocrit 32.3 % (36.0-47.0) Mean Corpuscular Volume 83 fL (79-100) Mean Corpuscular Hemoglobin 27 pg (25-35) Mean Corpuscular Hemoglobin Concent 33 g/dL (31-37) Red Cell Distribution Width 14.7 % (11.5-14.5) Platelet Count 176 x10^3/uL (140-400) Neutrophils (%) (Auto) 44 % (31-73) Lymphocytes (%) (Auto) 36 % (24-48) Monocytes (%) (Auto) 19 % (0-9) Eosinophils (%) (Auto) 2 % (0-3) Basophils (%) (Auto) 0 % (0-3) Neutrophils # (Auto) 1.6 x10^3/uL (1.8-7.7) Lymphocytes # (Auto) 1.3 x10^3/uL (1.0-4.8) Monocytes # (Auto) 0.7 x10^3/uL (0.0-1.1) Eosinophils # (Auto) 0.1 x10^3/uL (0.0-0.7) Basophils # (Auto) 0.0 x10^3/uL (0.0-0.2) Segmented Neutrophils % 42 % (35-66) Band Neutrophils % 3 % (0-9) Lymphocytes % 38 % (24-48) Atypical Lymphocytes % (Manual) 2 % (0-0) Monocytes % 13 % (0-10) Eosinophils % 1 % (0-5) Myelocytes % 1 % (0-0) Platelet Estimate Adequate (ADEQUATE) Large Platelets Few Sodium Level 143 mmol/L (136-145) Potassium Level 4.4 mmol/L (3.5-5.1) Chloride Level 106 mmol/L (98-107) Carbon Dioxide Level 25 mmol/L (21-32) Anion Gap 12 (6-14) Blood Urea Nitrogen 17 mg/dL (7-20) Creatinine 2.0 mg/dL (0.6-1.0) Estimated GFR (Cockcroft-Gault) 31.4 BUN/Creatinine Ratio 9 (6-20) Glucose Level 305 mg/dL (70-99) Hemoglobin A1c 10.4 % (4.8-5.6) Calcium Level 8.9 mg/dL (8.5-10.1) Total Bilirubin 0.4 mg/dL (0.2-1.0) Aspartate Amino Transf (AST/SGOT) 11 U/L (15-37) Alanine Aminotransferase (ALT/SGPT) 18 U/L (14-59) Alkaline Phosphatase 54 U/L (46-116) Troponin I Quantitative 0.018 ng/mL (0.000-0.055) EF-Wlf-Q-Type Natriuretic Peptide 348 pg/mL (0-124) Total Protein 6.8 g/dL (6.4-8.2) Albumin 3.3 g/dL (3.4-5.0) Albumin/Globulin Ratio 0.9 (1.0-1.7) Glucose (Fingerstick) 304 mg/dL (70-99) 254 mg/dL (70-99) 230 mg/dL (70-99) Test 04/17/19 12:22 04/17/19 17:25 04/17/19 21:02 04/18/19 03:15 Glucose (Fingerstick) 226 mg/dL (70-99) 267 mg/dL (70-99) 294 mg/dL (70-99) Sodium Level 139 mmol/L (136-145) Potassium Level 4.0 mmol/L (3.5-5.1) Chloride Level 103 mmol/L (98-107) Carbon Dioxide Level 24 mmol/L (21-32) Anion Gap 12 (6-14) Blood Urea Nitrogen 20 mg/dL (7-20) Creatinine 1.4 mg/dL (0.6-1.0) Estimated GFR (Cockcroft-Gault) 47.4 Glucose Level 287 mg/dL (70-99) Calcium Level 8.5 mg/dL (8.5-10.1) Triglycerides Level 132 mg/dL (0-150) Cholesterol Level 104 mg/dL (0-200) LDL Cholesterol, Calculated 46 mg/dL (0-100) VLDL Cholesterol, Calculated 26 mg/dL (0-40) Non-HDL Cholesterol Calculated 72 mg/dL (0-129) HDL Cholesterol 32 mg/dL (40-60) Cholesterol/HDL Ratio 3.3 Test 04/18/19 07:06 Glucose (Fingerstick) 175 mg/dL (70-99) Laboratory Tests Test 04/17/19 12:22 04/17/19 17:25 04/17/19 21:02 04/18/19 03:15 Glucose (Fingerstick) 226 mg/dL (70-99) 267 mg/dL (70-99) 294 mg/dL (70-99) Sodium Level 139 mmol/L (136-145) Potassium Level 4.0 mmol/L (3.5-5.1) Chloride Level 103 mmol/L (98-107) Carbon Dioxide Level 24 mmol/L (21-32) Anion Gap 12 (6-14) Blood Urea Nitrogen 20 mg/dL (7-20) Creatinine 1.4 mg/dL (0.6-1.0) Estimated GFR (Cockcroft-Gault) 47.4 Glucose Level 287 mg/dL (70-99) Calcium Level 8.5 mg/dL (8.5-10.1) Triglycerides Level 132 mg/dL (0-150) Cholesterol Level 104 mg/dL (0-200) LDL Cholesterol, Calculated 46 mg/dL (0-100) VLDL Cholesterol, Calculated 26 mg/dL (0-40) Non-HDL Cholesterol Calculated 72 mg/dL (0-129) HDL Cholesterol 32 mg/dL (40-60) Cholesterol/HDL Ratio 3.3 Test 04/18/19 07:06 Glucose (Fingerstick) 175 mg/dL (70-99) Medications Current Medications Nitroglycerin (Nitrostat) 0.4 mg PRN Q5MIN PRN SL CHEST PAIN Last administered on 04/16/19at 11:14; Start 04/16/19 at 11:00; Stop 04/17/19 at 08:31; Status DC Lorazepam (Ativan Inj) 1 mg 1X ONCE IV Last administered on 04/16/19at 11:53; Start 04/16/19 at 11:45; Stop 04/16/19 at 11:46; Status DC Furosemide (Lasix) 40 mg 1X ONCE IVP Last administered on 04/16/19at 12:57; Start 04/16/19 at 12:30; Stop 04/16/19 at 12:31; Status DC Albuterol Sulfate (Ventolin Neb Soln) 2.5 mg PRN Q4HRS PRN NEB SHORTNESS OF BREATH; Start 04/16/19 at 15:45 Alprazolam (Xanax) 1 mg PRN BID PRN PO ANXIETY / AGITATION; Start 04/16/19 at 15:45; Stop 04/16/19 at 17:22; Status DC Aspirin (Ecotrin) 81 mg DAILYWBKFT PO Last administered on 04/17/19at 08:56; S tart 04/17/19 at 08:00 Carvedilol (Coreg) 6.25 mg BIDWMEALS PO ; Start 04/16/19 at 17:00; Stop 04/16/19 at 17:22; Status DC Diphenhydramine HCl (Benadryl) 25 mg PRN Q6HRS PRN PO ALLERGIES Last administered on 04/18/19at 03:13; Start 04/16/19 at 15:45 Albuterol/ Ipratropium (Duoneb) 3 ml QID NEB Last administered on 04/17/19at 19:42; Start 04/16/19 at 17:00 Nitroglycerin (Nitrostat) 0.4 mg PRN Q5MIN PRN SL CHEST PAIN; Start 04/16/19 at 15:45 Pantoprazole Sodium (Protonix) 40 mg DAILY PO Last administered on 04/17/19at 08:56; Start 04/17/19 at 09:00 Polyethylene Glycol (miraLAX PACKET) 17 gm PRN DAILY PRN PO CONSTIPATION; Start 04/16/19 at 15:45 Sennosides (Senna) 8.6 mg PRN DAILY PRN PO CONSTIPATION; Start 04/16/19 at 15:45 Non-Formulary Medication (Albuterol Sulfate (Albuterol Sulfate Hfa Inhaler)) 2 puff PRN Q4HRS PRN INH SHORTNESS OF BREATH; Start 04/16/19 at 15:45; Status UNV Atorvastatin Calcium (Lipitor) 80 mg QHS PO Last administered on 04/17/19at 21:06; Start 04/16/19 at 21:00 Non-Formulary Medication (Fluticasone/ Salmeterol (Advair 250-50 Diskus)) 1 puff PRN BID PRN IH SHORTNESS OF BREATH; Start 04/16/19 at 15:45; Stop 04/16/19 at 15:57; Status DC Albuterol Sulfate (Ventolin Neb Soln) 2.5 mg RTQID NEB ; Start 04/16/19 at 16:00; Status UNV Budesonide (Pulmicort) 0.5 mg RTBID NEB Last administered on 04/17/19at 19:42; Start 04/16/19 at 20:00 Furosemide (Lasix) 40 mg BID92 PO Last administered on 04/17/19at 14:40; Start 04/16/19 at 18:00 Insulin Glargine (Lantus) 60 units BID SQ Last administered on 04/17/19at 21:06; Start 04/16/19 at 21:00 Isosorbide Mononitrate (Imdur) 60 mg DAILY PO Last administered on 04/17/19at 08:56; Start 04/17/19 at 09:00 Losartan Potassium (Cozaar) 50 mg DAILY PO Last administered on 04/17/19at 08:56; Start 04/17/19 at 09:00 Methocarbamol (Robaxin) 750 mg BID PO Last administered on 04/17/19 21:06; Start 04/16/19 at 21:00 Zolpidem Tartrate (Ambien) 5 mg PRN QHS PRN PO INSOMNIA; Start 04/16/19 at 17:15; Stop 04/16/19 at 18:11; Status DC Alprazolam (Xanax) 2 mg PRN BID PRN PO ANXIETY / AGITATION Last administered on 04/17/19 21:06; Start 04/16/19 at 17:30 Clopidogrel Bisulfate (Plavix) 75 mg DAILYWBKFT PO Last administered on 04/17/19at 08:56; Start 04/17/19 at 08:00 Pregabalin (Lyrica) 75 mg BID PO Last administered on 04/17/19 21:06; Start 04/16/19 at 17:30 Guaifenesin (Robitussin) 200 mg PRN Q4HRS PRN PO COUGH Last administered on 04/17/19at 21:06; Start 04/16/19 at 17:30 Zolpidem Tartrate (Ambien) 5 mg QHS PO Last administered on 04/17/19 21:06; Start 04/16/19 at 21:00 Zolpidem Tartrate (Ambien) 5 mg PRN QHS PRN PO INSOMNIA Last administered on 04/17/19 00:22; Start 04/16/19 at 18:15 Acetaminophen/ Hydrocodone Bitart (Lortab 5/325) 1 tab PRN Q4HRS PRN PO PAIN MODERATE Last administered on 04/17/19at 10:47; Start 04/16/19 at 21:30; Stop 04/17/19 at 12:03; Status DC Benzonatate (Tessalon Perle) 100 mg PRN TID PRN PO COUGH 1ST CHOICE Last administered on 04/16/19at 22:44; Start 04/16/19 at 21:30 Hydralazine HCl (Apresoline Inj) 10 mg PRN Q4HRS PRN IVP ELEVATED BP, SEE COMMENTS; Start 04/17/19 at 12:00 Insulin Human Lispro (HumaLOG) 0-9 UNITS TIDWMEALS SQ Last administered on 04/17/19at 17:32; Start 04/17/19 at 12:00 Dextrose (Dextrose 50%-Water Syringe) 12.5 gm PRN Q15MIN PRN IV SEE COMMENTS; Start 04/17/19 at 12:00 Dextrose 250 ml PRN Q15MIN PRN IV SEE COMMENTS; Start 04/17/19 at 12:00 Insulin Human Lispro (HumaLOG) 10 units TIDWMEALS SQ ; Start 04/17/19 at 12:00; Stop 04/17/19 at 12:03; Status DC Acetaminophen (Tylenol) 500 mg PRN Q6HRS PRN PO HEADACHE / TEMP; Start 04/17/19 at 12:00 Tramadol HCl (Ultram) 50 mg PRN Q6HRS PRN PO PAIN MILD; Start 04/17/19 at 12:00 Ondansetron HCl (Zofran) 4 mg PRN Q6HRS PRN IV NAUSEA/VOMITING; Start 04/17/19 at 12:00 Acetaminophen/ Hydrocodone Bitart (Lortab 5/325) 2 tab PRN Q6HRS PRN PO PAIN MODERATE Last administered on 04/18/19at 03:13; Start 04/17/19 at 12:15 Insulin Human Lispro (HumaLOG) 15 units TIDWMEALS SQ Last administered on 04/17/19at 17:32; Start 04/17/19 at 17:00 Sodium Chloride 1,000 ml @ 100 mls/hr Q10H IV Last administered on 04/18/19at 02:13; Start 04/17/19 at 12:45 Potassium Chloride (Klor-Con) 40 meq 1X ONCE PO ; Start 04/17/19 at 15:15; Stop 04/17/19 at 15:16; Status UNV Regadenoson (Lexiscan) 0.4 mg 1X ONCE IV ; Start 04/18/19 at 08:30; Stop 04/18/19 at 08:31; Status DC Active Scripts Active Humalog (Insulin Lispro) 100 Unit/1 Ml Insuln.pen 40 Units SQ TIDWMEALS MDD 1 Lantus Solostar (Insulin Glargine,Hum.rec.anlog) 100 Unit/1 Ml Insuln.pen 60 Units SQ BID MDD 1 Azithromycin Tablet (Azithromycin) 250 Mg Tablet 250 Mg PO DAILY MDD 1 Promethazine Hcl 12.5 Mg Tablet 12.5 Mg PO PRN Q6HRS PRN MDD 1 Hydrocodone-Apap 5-325 (Hydrocodone Bit/Acetaminophen) 1 Tab Tablet 1 Tab PO PRN Q4HRS PRN Aspirin Ec (Aspirin) 81 Mg Tablet.dr 81 Mg PO DAILYWBKFT 30 Days Carvedilol (Carvedilol) 6.25 Mg Tablet 6.25 Mg PO BIDWMEALS 30 Days Isosorbide Mononitrate Er (Isosorbide Mononitrate) 30 Mg Tab.er.24h 60 Mg PO DAILY 30 Days Lasix (Furosemide) 40 Mg Tablet 40 Mg PO BID Ultram (Tramadol Hcl) 50 Mg Tablet 1 Tab PO Q6HRS PRN Reported Ambien (Zolpidem Tartrate) 5 Mg Tablet 5 Mg PO PRN QHS PRN Miralax (Polyethylene Glycol 3350) 17 Gm Powd.pack 1 Packet PO DAILY PRN Alprazolam 1 Mg Tablet 1 Tab PO BID PRN Advair 250-50 Diskus (Fluticasone/Salmeterol) 1 Each Disk.w.dev 1 Puff IH PRN BID PRN Senokot (Sennosides) 8.6 Mg Tablet 1 Tab PO PRN DAILY PRN Gabapentin 800 Mg Tablet 800 Mg PO TID Robaxin-750 (Methocarbamol) 750 Mg Tablet 1 Tab PO BID Benadryl (Diphenhydramine Hcl) 25 Mg Capsule 25 Mg PO PRN Q6HRS PRN Pantoprazole Sodium (Pantoprazole Sodium) 40 Mg Tablet.dr 40 Mg PO DAILY Duoneb 0.5-3(2.5) Mg/3 Ml (Albuterol/Ipratropium) 3 Ml Ampul.neb 3 Ml NEB QID Albuterol Sulfate Neb Soln (Albuterol Sulfate) 2.5 Mg/3 Ml Vial.neb 2.5 Mg NEB PRN Q4HRS PRN NITROGLYCERIN SubLingual (Nitroglycerin) 0.4 Mg Tab.subl 0.4 Mg SL PRN Q5MIN PRN Potassium Chloride 20 Meq Tablet.er 20 Meq PO BID Losartan Potassium (Losartan Potassium) 25 Mg Tablet 50 Mg PO DAILY Lipitor (Atorvastatin Calcium) 80 Mg Tablet 1 Tab PO QHS Albuterol Sulfate Hfa Inhaler (Albuterol Sulfate) 8.5 Gm Hfa.aer.ad 2 Puff INH PRN Q4HRS PRN Vitals/I & O Vital Sign - Last 24 Hours 04/17/19 04/17/19 04/17/19 04/17/19 08:56 08:56 08:56 10:47 Pulse 54 54 Resp 22 18 B/P (MAP) 143/64 143/64 04/17/19 04/17/19 04/17/19 04/17/19 11:00 12:54 14:40 15:00 Temp 98.3 98.4 98.3 98.4 Pulse 56 63 Resp 16 18 16 B/P (MAP) 154/72 (99) 118/69 (85) Pulse Ox 96 98 98 94 O2 Delivery Room Air Room Air Room Air 04/17/19 04/17/19 04/17/19 04/17/19 15:44 16:01 19:42 19:45 Temp 98.2 98.2 Pulse 60 Resp 18 18 B/P (MAP) 140/66 (90) Pulse Ox 98 98 93 O2 Delivery Room Air Room Air Room Air 04/17/19 04/17/19 04/17/19 04/18/19 21:06 23:20 23:55 03:13 Temp 97.8 97.8 Pulse 72 Resp 18 18 18 20 B/P (MAP) 144/70 (94) Pulse Ox 93 95 93 95 O2 Delivery Room Air Room Air Room Air Room Air 04/18/19 04/18/19 04/18/19 03:30 06:44 07:27 Temp 98.8 99.2 98.8 99.2 Pulse 65 62 Resp 20 18 20 B/P (MAP) 155/71 (99) 151/77 (101) Pulse Ox 97 97 100 O2 Delivery Room Air Room Air Room Air Intake and Output 04/17/19 04/17/19 04/18/19 14:59 22:59 06:59 Intake Total 300 ml 900 ml 1430 ml Balance 300 ml 900 ml 1430 ml CATE PAVON MD Apr 18, 2019 08:33
[2019-04-18] MEDS: LOSARTAN POTASSIUM 25 MG TABLET. PO SCH (08:47)
[2019-04-18] MEDS: ISOSORBIDE MONONITRATE ER 30 MG TAB.ER.24H PO SCH (08:47)
[2019-04-18] MEDS: INSULIN GLARGINE 300 UNITS/3 ML INSULN.PEN. SQ SCH ×2 (09:00→21:12)
[2019-04-18] MEDS: PANTOPRAZOLE 40 MG TABLET.DR. PO SCH (10:10)
[2019-04-18] MEDS: PREGABALIN 75 MG CAPSULE PO SCH ×2 (10:10→21:08)
[2019-04-18] MEDS: CLOPIDOGREL BISULFATE 75 MG TABLET PO SCH (10:11)
[2019-04-18] MEDS: METHOCARBAMOL 750 MG TABLET PO SCH ×2 (10:11→21:08)
[2019-04-18] MEDS: ASPIRIN ENTERIC COATED 81 MG TABLET.DR. PO SCH (10:11)
[2019-04-18] MEDS: FUROSEMIDE 40 MG TABLET. PO SCH ×2 (10:12→15:51)
[2019-04-18] MEDS: INSULIN LISPRO 300 UNITS/3 ML VIAL. SQ SCH ×6 (10:19→17:00)
[2019-04-18] MEDS: ALPRAZolam 1 MG TABLET PO PRN ×2 (10:22→21:14)
--- NOTE | 2019-04-18 10:25 | CARD ---
MR#: [id number] Date of Study: 04/18/2019 Ordering Physician: NOY ORDOÑEZ, Referring Physician: NOY ORDOÑEZ, Tech: Dafne Pereira RDCS APPROVED REPORT EXAM: Two-dimensional and M-mode echocardiogram with Doppler and color Doppler. Other Information Quality : Good INDICATION Congestive Heart Failure 2D DIMENSIONS RVDd2.9 (2.9-3.5cm)Left Atrium(2D)4.2 (1.6-4.0cm) IVSd1.3 (0.7-1.1cm)Aortic Root(2D)3.1 (2.0-3.7cm) LVDd6.1 (3.9-5.9cm)LVOT Diameter2.1 (1.8-2.4cm) PWd0.7 (0.7-1.1cm)LVDs4.6 (2.5-4.0cm) FS (%) 24.8 %SV89.4 ml LVEF(%)50.0 (>50%) Aortic Valve AoV Peak Diomedes.153.4cm/sAoV VTI31.7cm AO Peak GR.9.4mmHgLVOT Peak Diomedes.126.1cm/s LVOT VTI 28.52cmAO Mean GR.5mmHg GIN (VMAX)2.88qo6OSE (VTI)3.10cm2 Mitral Valve MV E Mhxdfztt90.0cm/sMV DECEL [id number] MV A Zuphafzr066.9cm/sMV LBB77se E/A Ratio1.0MVA (PHT)2.59cm2 TDI E/Lateral E'14.0E/Medial E'18.7 Tricuspid Valve TR P. [id number]/sRAP [id number] TR Peak Gr.00naCtVULO52gmYh Pulmonary Vein S1 Funxcpuc75.5cm/sD2 Kjuqnzlv38.0cm/s LEFT VENTRICLE The left ventricle is normal size. There is normal left ventricular wall thickness. Left ventricle sy stolic function is low normal. The Ejection Fraction is 50-55%. There is normal LV segmental wall mot ion. Transmitral Doppler flow pattern is Grade I-abnormal relaxation pattern. RIGHT VENTRICLE The right ventricle is normal size. The right ventricular systolic function is normal. ATRIA The left atrium is mildly dilated. The right atrium size is normal. The interatrial septum is intact with no evidence for an atrial septal defect or patent foramen ovale as noted on 2-D or Doppler imagi ng. AORTIC VALVE The aortic valve is calcified but opens well. Doppler and Color Flow revealed no significant aortic r egurgitation. There is no significant aortic valvular stenosis. MITRAL VALVE The mitral valve is normal in structure and function. There is no evidence of mitral valve prolapse. There is no mitral valve stenosis. Doppler and Color-flow revealed trace mitral regurgitation. TRICUSPID VALVE The tricuspid valve is normal in structure and function. Doppler and Color Flow revealed trace tricus pid regurgitation. The PA pressure was estimated at 27 mmHg. There is no tricuspid valve stenosis. PULMONIC VALVE The pulmonic valve is not well visualized. Doppler and Color Flow revealed no pulmonic valvular regur gitation. There is no pulmonic valvular stenosis. GREAT VESSELS The aortic root is normal in size. The ascending aorta is normal in size. The IVC is normal in size a nd collapses >50% with inspiration. PERICARDIAL EFFUSION There is no evidence of significant pericardial effusion. Critical Notification Critical Value: No <Conclusion> The left ventricle is normal size. Left ventricle systolic function is low normal. The Ejection Fraction is 50-55%. There is no significant aortic valvular stenosis. Doppler and Color Flow revealed no significant aortic regurgitation. Doppler and Color-flow revealed trace mitral regurgitation. Doppler and Color Flow revealed trace tricuspid regurgitation. The PA pressure was estimated at 27 mmHg. Signed by : Noy Ordoñez MD Electronically Approved : 04/18/2019 10:24:47
[2019-04-18 10:49] VITALS: BP 143/68
[2019-04-18] MEDS: guaiFENesin DM 600/30MG 1 TAB TAB.ER.12H PO SCH ×2 (11:59→21:08)
[2019-04-18 14:49] VITALS: BP 126/66
[2019-04-18] MEDS: AZITHROMYCIN 500 MG in IV NORMAL SALINE 250ML 250 ML IV SCH (15:28)
--- NOTE | 2019-04-18 16:02 | NUR ---
SS following for discharge planning. SS reviewed pt chart. Pt is from home and is currently on room air. No discharge needs noted at this time. SS will continue to follow for discharge planning.
--- NOTE | 2019-04-18 16:43 | PDOC ---
PROGRESS NOTES Subjective Subjective Patient seen and examined. She reports feeling better today. Objective Objective Vital Signs Date Time Temp Pulse Resp B/P (MAP) Pulse Ox O2 Delivery O2 Flow Rate FiO2 04/18/19 15:52 Room Air 04/18/19 14:49 98.4 63 20 126/66 (86) 100 98.4 Intake and Output 04/18/19 06:59 Intake Total 2630 ml Balance 2630 ml Intake Oral 700 ml IV Total 1430 ml Blood Product IV Normal Saline Flush 500 ml # Voids 3 Physical Exam Abdomen: Normal bowel sounds Heart: Regular rate General: No acute distress Lungs: Clear to auscultation Assessment Assessment Problems Medical Problems: (1) CAD (coronary artery disease) Status: Chronic (2) Chest pressure Status: Acute (3) DM2 (diabetes mellitus, type 2) Status: Chronic (4) Dyspnea Status: Acute (5) HLD (hyperlipidemia) Status: Chronic (6) HTN (hypertension) Status: Chronic 1. Chest pain. History of CAD. No acute changes on EKG or troponin. Allegy to Mariusz. Crereagan 2.0. Feeling better today. Echocardiogram with normal LV systolic function. 2 day Lexiscan test in progress. 2. HTN. Improved. Continue meds. 3. HLD. Check lab and continue meds. 4. DM. As per the primary service. Comment Review of Relevant I have reviewed the following items crista (where applicable) has been applied. Labs Laboratory Tests Test 04/16/19 17:22 04/16/19 21:10 04/17/19 08:15 04/17/19 12:22 Glucose (Fingerstick) 304 mg/dL (70-99) 254 mg/dL (70-99) 230 mg/dL (70-99) 226 mg/dL (70-99) Test 04/17/19 17:25 04/17/19 21:02 04/18/19 03:15 04/18/19 07:06 Glucose (Fingerstick) 267 mg/dL (70-99) 294 mg/dL (70-99) 175 mg/dL (70-99) Sodium Level 139 mmol/L (136-145) Potassium Level 4.0 mmol/L (3.5-5.1) Chloride Level 103 mmol/L (98-107) Carbon Dioxide Level 24 mmol/L (21-32) Anion Gap 12 (6-14) Blood Urea Nitrogen 20 mg/dL (7-20) Creatinine 1.4 mg/dL (0.6-1.0) Estimated GFR (Cockcroft-Gault) 47.4 Glucose Level 287 mg/dL (70-99) Calcium Level 8.5 mg/dL (8.5-10.1) Triglycerides Level 132 mg/dL (0-150) Cholesterol Level 104 mg/dL (0-200) LDL Cholesterol, Calculated 46 mg/dL (0-100) VLDL Cholesterol, Calculated 26 mg/dL (0-40) Non-HDL Cholesterol Calculated 72 mg/dL (0-129) HDL Cholesterol 32 mg/dL (40-60) Cholesterol/HDL Ratio 3.3 Test 04/18/19 11:46 Glucose (Fingerstick) 160 mg/dL (70-99) Laboratory Tests Test 04/17/19 17:25 04/17/19 21:02 04/18/19 03:15 04/18/19 07:06 Glucose (Fingerstick) 267 mg/dL (70-99) 294 mg/dL (70-99) 175 mg/dL (70-99) Sodium Level 139 mmol/L (136-145) Potassium Level 4.0 mmol/L (3.5-5.1) Chloride Level 103 mmol/L (98-107) Carbon Dioxide Level 24 mmol/L (21-32) Anion Gap 12 (6-14) Blood Urea Nitrogen 20 mg/dL (7-20) Creatinine 1.4 mg/dL (0.6-1.0) Estimated GFR (Cockcroft-Gault) 47.4 Glucose Level 287 mg/dL (70-99) Calcium Level 8.5 mg/dL (8.5-10.1) Triglycerides Level 132 mg/dL (0-150) Cholesterol Level 104 mg/dL (0-200) LDL Cholesterol, Calculated 46 mg/dL (0-100) VLDL Cholesterol, Calculated 26 mg/dL (0-40) Non-HDL Cholesterol Calculated 72 mg/dL (0-129) HDL Cholesterol 32 mg/dL (40-60) Cholesterol/HDL Ratio 3.3 Test 04/18/19 11:46 Glucose (Fingerstick) 160 mg/dL (70-99) Medications Current Medications Nitroglycerin (Nitrostat) 0.4 mg PRN Q5MIN PRN SL CHEST PAIN Last administered on 04/16/19at 11:14; Start 04/16/19 at 11:00; Stop 04/17/19 at 08:31; Status DC Lorazepam (Ativan Inj) 1 mg 1X ONCE IV Last administered on 04/16/19at 11:53; Start 04/16/19 at 11:45; Stop 04/16/19 at 11:46; Status DC Furosemide (Lasix) 40 mg 1X ONCE IVP Last administered on 04/16/19at 12:57; Start 04/16/19 at 12:30; Stop 04/16/19 at 12:31; Status DC Albuterol Sulfate (Ventolin Neb Soln) 2.5 mg PRN Q4HRS PRN NEB SHORTNESS OF BREATH; Start 04/16/19 at 15:45 Alprazolam (Xanax) 1 mg PRN BID PRN PO ANXIETY / AGITATION; Start 04/16/19 at 15:45; Stop 04/16/19 at 17:22; Status DC Aspirin (Ecotrin) 81 mg DAILYWBKFT PO Last administered on 04/18/19at 10:22; Start 04/17/19 at 08:00 Carvedilol (Coreg) 6.25 mg BIDWMEALS PO ; Start 04/16/19 at 17:00; Stop 04/16/19 at 17:22; Status DC Diphenhydramine HCl (Benadryl) 25 mg PRN Q6HRS PRN PO ALLERGIES Last administered on 04/18/19at 03:13; Start 04/16/19 at 15:45 Albuterol/ Ipratropium (Duoneb) 3 ml QID NEB Last administered on 04/18/19at 12:18; Start 04/16/19 at 17:00 Nitroglycerin (Nitrostat) 0.4 mg PRN Q5MIN PRN SL CHEST PAIN; Start 04/16/19 at 15:45 Pantoprazole Sodium (Protonix) 40 mg DAILY PO Last administered on 04/18/19at 10:22; Start 04/17/19 at 09:00 Polyethylene Glycol (miraLAX PACKET) 17 gm PRN DAILY PRN PO CONSTIPATION; Start 04/16/19 at 15:45 Sennosides (Senna) 8.6 mg PRN DAILY PRN PO CONSTIPATION; Start 04/16/19 at 15:45 Non-Formulary Medication (Albuterol Sulfate (Albuterol Sulfate Hfa Inhaler)) 2 puff PRN Q4HRS PRN INH SHORTNESS OF BREATH; Start 04/16/19 at 15:45; Status UNV Atorvastatin Calcium (Lipitor) 80 mg QHS PO Last administered on 04/17/19at 21:06; Start 04/16/19 at 21:00 Non-Formulary Medication (Fluticasone/ Salmeterol (Advair 250-50 Diskus)) 1 puff PRN BID PRN IH SHORTNESS OF BREATH; Start 04/16/19 at 15:45; Stop 04/16/19 at 15:57; Status DC Albuterol Sulfate (Ventolin Neb Soln) 2.5 mg RTQID NEB ; Start 04/16/19 at 16:00; Status UNV Budesonide (Pulmicort) 0.5 mg RTBID NEB Last administered on 04/17/19at 19:42; Start 04/16/19 at 20:00 Furosemide (Lasix) 40 mg BID92 PO Last administered on 04/18/19 15:52; Start 04/16/19 at 18:00 Insulin Glargine (Lantus) 60 units BID SQ Last administered on 04/17/19at 21:06; Start 04/16/19 at 21:00 Isosorbide Mononitrate (Imdur) 60 mg DAILY PO Last administered on 04/18/19at 08:48; Start 04/17/19 at 09:00 Losartan Potassium (Cozaar) 50 mg DAILY PO Last administered on 04/18/19at 08:48; Start 04/17/19 at 09:00 Methocarbamol (Robaxin) 750 mg BID PO Last administered on 04/18/19at 10:22; Start 04/16/19 at 21:00 Zolpidem Tartrate (Ambien) 5 mg PRN QHS PRN PO INSOMNIA; Start 04/16/19 at 17:15; Stop 04/16/19 at 18:11; Status DC Alprazolam (Xanax) 2 mg PRN BID PRN PO ANXIETY / AGITATION Last administered on 04/18/19at 10:22; Start 04/16/19 at 17:30 Clopidogrel Bisulfate (Plavix) 75 mg DAILYWBKFT PO Last administered on 04/18/19at 10:22; Start 04/17/19 at 08:00 Pregabalin (Lyrica) 75 mg BID PO Last administered on 04/18/19at 10:22; Start 04/16/19 at 17:30 Guaifenesin (Robitussin) 200 mg PRN Q4HRS PRN PO COUGH Last administered on 04/17/19at 21:06; Start 04/16/19 at 17:30 Zolpidem Tartrate (Ambien) 5 mg QHS PO Last administered on 04/17/19at 21:06; Start 04/16/19 at 21:00 Zolpidem Tartrate (Ambien) 5 mg PRN QHS PRN PO INSOMNIA Last administered on 04/17/19at 00:22; Start 04/16/19 at 18:15 Acetaminophen/ Hydrocodone Bitart (Lortab 5/325) 1 tab PRN Q4HRS PRN PO PAIN MODERATE Last administered on 04/17/19at 10:47; Start 04/16/19 at 21:30; Stop 04/17/19 at 12:03; Status DC Benzonatate (Tessalon Perle) 100 mg PRN TID PRN PO COUGH 1ST CHOICE Last administered on 04/16/19at 22:44; Start 04/16/19 at 21:30 Hydralazine HCl (Apresoline Inj) 10 mg PRN Q4HRS PRN IVP ELEVATED BP, SEE COMMENTS; Start 04/17/19 at 12:00 Insulin Human Lispro (HumaLOG) 0-9 UNITS TIDWMEALS SQ Last administered on 04/18/19at 10:22; Start 04/17/19 at 12:00 Dextrose (Dextrose 50%-Water Syringe) 12.5 gm PRN Q15MIN PRN IV SEE COMMENTS; Start 04/17/19 at 12:00 Dextrose 250 ml PRN Q15MIN PRN IV SEE COMMENTS; Start 04/17/19 at 12:00 Insulin Human Lispro (HumaLOG) 10 units TIDWMEALS SQ ; Start 04/17/19 at 12:00; Stop 04/17/19 at 12:03; Status DC Acetaminophen (Tylenol) 500 mg PRN Q6HRS PRN PO HEADACHE / TEMP; Start 04/17/19 at 12:00 Tramadol HCl (Ultram) 50 mg PRN Q6HRS PRN PO PAIN MILD; Start 04/17/19 at 12:00 Ondansetron HCl (Zofran) 4 mg PRN Q6HRS PRN IV NAUSEA/VOMITING; Start 04/17/19 at 12:00 Acetaminophen/ Hydrocodone Bitart (Lortab 5/325) 2 tab PRN Q6HRS PRN PO PAIN MODERATE Last administered on 04/18/19 15:52; Start 04/17/19 at 12:15 Insulin Human Lispro (HumaLOG) 15 units TIDWMEALS SQ Last administered on 04/18/19 13:50; Start 04/17/19 at 17:00 Sodium Chloride 1,000 ml @ 100 mls/hr Q10H IV Last administered on 04/18/19 02:13; Start 04/17/19 at 12:45; Stop 04/18/19 at 11:18; Status DC Potassium Chloride (Klor-Con) 40 meq 1X ONCE PO ; Start 04/17/19 at 15:15; Stop 04/17/19 at 15:16; Status UNV Regadenoson (Lexiscan) 0.4 mg 1X ONCE IV Last administered on 04/18/19 09:01; Start 04/18/19 at 08:30; Stop 04/18/19 at 08:31; Status DC Guaifenesin (MUCINEX ER with DM) 1 tab BID PO Last administered on 04/18/19 12:00; Start 04/18/19 at 12:00 Azithromycin 500 mg/Sodium Chloride 250 ml @ 250 mls/hr Q24H IV Last administered on 04/18/19at 15:42; Start 04/18/19 at 13:00 Active Scripts Active Humalog (Insulin Lispro) 100 Unit/1 Ml Insuln.pen 40 Units SQ TIDWMEALS MDD 1 Lantus Solostar (Insulin Glargine,Hum.rec.anlog) 100 Unit/1 Ml Insuln.pen 60 Units SQ BID MDD 1 Azithromycin Tablet (Azithromycin) 250 Mg Tablet 250 Mg PO DAILY MDD 1 Promethazine Hcl 12.5 Mg Tablet 12.5 Mg PO PRN Q6HRS PRN MDD 1 Hydrocodone-Apap 5-325 (Hydrocodone Bit/Acetaminophen) 1 Tab Tablet 1 Tab PO PRN Q4HRS PRN Aspirin Ec (Aspirin) 81 Mg Tablet.dr 81 Mg PO DAILYWBKFT 30 Days Carvedilol (Carvedilol) 6.25 Mg Tablet 6.25 Mg PO BIDWMEALS 30 Days Isosorbide Mononitrate Er (Isosorbide Mononitrate) 30 Mg Tab.er.24h 60 Mg PO DAILY 30 Days Lasix (Furosemide) 40 Mg Tablet 40 Mg PO BID Ultram (Tramadol Hcl) 50 Mg Tablet 1 Tab PO Q6HRS PRN Reported Ambien (Zolpidem Tartrate) 5 Mg Tablet 5 Mg PO PRN QHS PRN Miralax (Polyethylene Glycol 3350) 17 Gm Powd.pack 1 Packet PO DAILY PRN Alprazolam 1 Mg Tablet 1 Tab PO BID PRN Advair 250-50 Diskus (Fluticasone/Salmeterol) 1 Each Disk.w.dev 1 Puff IH PRN BID PRN Senokot (Sennosides) 8.6 Mg Tablet 1 Tab PO PRN DAILY PRN Gabapentin 800 Mg Tablet 800 Mg PO TID Robaxin-750 (Methocarbamol) 750 Mg Tablet 1 Tab PO BID Benadryl (Diphenhydramine Hcl) 25 Mg Capsule 25 Mg PO PRN Q6HRS PRN Pantoprazole Sodium (Pantoprazole Sodium) 40 Mg Tablet. 40 Mg PO DAILY Duoneb 0.5-3(2.5) Mg/3 Ml (Albuterol/Ipratropium) 3 Ml Ampul.neb 3 Ml NEB QID Albuterol Sulfate Neb Soln (Albuterol Sulfate) 2.5 Mg/3 Ml Vial.neb 2.5 Mg NEB PRN Q4HRS PRN NITROGLYCERIN SubLingual (Nitroglycerin) 0.4 Mg Tab.subl 0.4 Mg SL PRN Q5MIN PRN Potassium Chloride 20 Meq Tablet.er 20 Meq PO BID Losartan Potassium (Losartan Potassium) 25 Mg Tablet 50 Mg PO DAILY Lipitor (Atorvastatin Calcium) 80 Mg Tablet 1 Tab PO QHS Albuterol Sulfate Hfa Inhaler (Albuterol Sulfate) 8.5 Gm Hfa.aer.ad 2 Puff INH PRN Q4HRS PRN Vitals/I & O Vital Sign - Last 24 Hours 04/17/19 04/17/19 04/17/19 04/17/19 19:42 19:45 21:06 23:20 Temp 98.2 97.8 98.2 97.8 Pulse 60 72 Resp 18 18 18 B/P (MAP) 140/66 (90) 144/70 (94) Pulse Ox 98 93 93 95 O2 Delivery Room Air Room Air Room Air Room Air 04/17/19 04/18/19 04/18/19 04/18/19 23:55 03:13 03:30 06:44 Temp 98.8 98.8 Pulse 65 Resp 18 18 B/P (MAP) 155/71 (99) Pulse Ox 93 95 97 97 O2 Delivery Room Air Room Air Room Air Room Air 04/18/19 04/18/19 04/18/19 04/18/19 07:27 08:48 08:48 10:22 Temp 99.2 99.2 Pulse 62 60 61 Resp 20 B/P (MAP) 151/77 (101) 151/76 151/76 Pulse Ox 100 O2 Delivery Room Air Room Air 04/18/19 04/18/19 04/18/19 04/18/19 10:49 12:02 12:19 14:49 Temp 98.7 98.4 98.7 98.4 Pulse 73 63 Resp 20 20 B/P (MAP) 143/68 (93) 126/66 (86) Pulse Ox 99 98 100 O2 Delivery Room Air Room Air Room Air Room Air 04/18/19 15:52 O2 Delivery Room Air Intake and Output 04/17/19 04/17/19 04/18/19 14:59 22:59 06:59 Intake Total 300 ml 900 ml 1430 ml Balance 300 ml 900 ml 1430 ml NOY MAURICIO MD Apr 18, 2019 16:43
[2019-04-18 19:59] VITALS: BP 152/66
[2019-04-18] MEDS: ZOLPIDEM 5 MG TABLET. PO SCH (21:08)
[2019-04-18] MEDS: ATORVASTATIN CALCIUM 40 MG TABLET. PO SCH (21:08)
[2019-04-18 22:31] VITALS: BP 143/65
[2019-04-19] VITALS (8 sets, daily range): BP systolic 133–152; BP diastolic 67–77
[2019-04-19] MEDS: HYDROcodone/APAP 5/325MG 1 TAB TABLET PO PRN ×4 (03:51→22:53)
[2019-04-19] MEDS: BUDESONIDE 0.5 MG/2 ML NEBU. NEB SCH ×2 (07:50→19:50)
[2019-04-19] MEDS: PANTOPRAZOLE 40 MG TABLET.DR. PO SCH (08:40)
[2019-04-19] MEDS: METHOCARBAMOL 750 MG TABLET PO SCH ×2 (08:40→21:39)
[2019-04-19] MEDS: CLOPIDOGREL BISULFATE 75 MG TABLET PO SCH (08:41)
[2019-04-19] MEDS: guaiFENesin DM 600/30MG 1 TAB TAB.ER.12H PO SCH ×2 (08:41→21:40)
[2019-04-19] MEDS: ASPIRIN ENTERIC COATED 81 MG TABLET.DR. PO SCH (08:41)
[2019-04-19] MEDS: PREGABALIN 75 MG CAPSULE PO SCH ×2 (08:42→21:39)
--- NOTE | 2019-04-19 08:42 | PDOC ---
PROGRESS NOTES Chief Complaint Chief Complaint NIMISHA Leukopenia Recent diarrhea, emesis Cough - acute bronchitis Obesity BMI 45 Chest pain Accel HTN DM 2 uncontrolled hgba1c 11 History of Present Illness History of Present Illness Ms Camacho is a 53 year old female w/ PMHx CAD, CHF, HTN, HLD, COPD, DM2 with pe ripheral neuropathy, anxiety/depression who was admitted for chest pain over several days as well as diarrhea and NIMISHA. Troponin of 0.01 and no acute ischemic EKG changes. Pain has largely resolved. Seen by cards, MPI finishing today. She endorses a cough productive of greenish sputum the past 48 hours that is persistent at this point but improving with respiratory treatments Plan: IVF hydrate, recheck BMP today (creat improving) MPI today NPO post mn Added cough medication, doxycycline for green sputum SSI high dose resume home insulin regimen: 60 BID and 15 TID with meals hgba1c ordered again - she relays 11 prn for BP pushes Need to control BP and DM - i dw her- she understands Vitals Vitals Vital Signs Date Time Temp Pulse Resp B/P (MAP) Pulse Ox O2 Delivery O2 Flow Rate FiO2 04/19/19 07:53 97 Room Air 04/19/19 07:00 98.2 51 18 152/73 (99) 98.2 Physical Exam General: No acute distress Heart: Regular rate Lungs: Wheezing Abdomen: Normal bowel sounds Extremities: No clubbing, No cyanosis, No edema Skin: No rashes, No breakdown, No significant lesion Labs LABS Laboratory Tests Test 04/18/19 11:46 04/18/19 17:10 04/18/19 20:56 04/19/19 07:37 Glucose (Fingerstick) 160 mg/dL (70-99) 120 mg/dL (70-99) 137 mg/dL (70-99) 155 mg/dL (70-99) Assessment and Plan Assessmemt and Plan Problems Medical Problems: (1) CAD (coronary artery disease) Status: Chronic (2) Chest pressure Status: Acute (3) DM2 (diabetes mellitus, type 2) Status: Chronic (4) Dyspnea Status: Acute (5) HLD (hyperlipidemia) Status: Chronic (6) HTN (hypertension) Status: Chronic Comment Review of Relevant I have reviewed the following items crista (where applicable) has been applied. Labs Laboratory Tests Test 04/17/19 12:22 04/17/19 17:25 04/17/19 21:02 04/18/19 03:15 Glucose (Fingerstick) 226 mg/dL (70-99) 267 mg/dL (70-99) 294 mg/dL (70-99) Sodium Level 139 mmol/L (136-145) Potassium Level 4.0 mmol/L (3.5-5.1) Chloride Level 103 mmol/L (98-107) Carbon Dioxide Level 24 mmol/L (21-32) Anion Gap 12 (6-14) Blood Urea Nitrogen 20 mg/dL (7-20) Creatinine 1.4 mg/dL (0.6-1.0) Estimated GFR (Cockcroft-Gault) 47.4 Glucose Level 287 mg/dL (70-99) Calcium Level 8.5 mg/dL (8.5-10.1) Triglycerides Level 132 mg/dL (0-150) Cholesterol Level 104 mg/dL (0-200) LDL Cholesterol, Calculated 46 mg/dL (0-100) VLDL Cholesterol, Calculated 26 mg/dL (0-40) Non-HDL Cholesterol Calculated 72 mg/dL (0-129) HDL Cholesterol 32 mg/dL (40-60) Cholesterol/HDL Ratio 3.3 Test 04/18/19 07:06 04/18/19 11:46 04/18/19 17:10 04/18/19 20:56 Glucose (Fingerstick) 175 mg/dL (70-99) 160 mg/dL (70-99) 120 mg/dL (70-99) 137 mg/dL (70-99) Test 04/19/19 07:37 Glucose (Fingerstick) 155 mg/dL (70-99) Laboratory Tests Test 04/18/19 11:46 04/18/19 17:10 04/18/19 20:56 04/19/19 07:37 Glucose (Fingerstick) 160 mg/dL (70-99) 120 mg/dL (70-99) 137 mg/dL (70-99) 155 mg/dL (70-99) Medications Current Medications Nitroglycerin (Nitrostat) 0.4 mg PRN Q5MIN PRN SL CHEST PAIN Last administered on 04/16/19at 11:14; Start 04/16/19 at 11:00; Stop 04/17/19 at 08:31; Status DC Lorazepam (Ativan Inj) 1 mg 1X ONCE IV Last administered on 04/16/19at 11:53; Start 04/16/19 at 11:45; Stop 04/16/19 at 11:46; Status DC Furosemide (Lasix) 40 mg 1X ONCE IVP Last administered on 04/16/19at 12:57; Start 04/16/19 at 12:30; Stop 04/16/19 at 12:31; Status DC Albuterol Sulfate (Ventolin Neb Soln) 2.5 mg PRN Q4HRS PRN NEB SHORTNESS OF BREATH Last administered on 04/19/19at 07:50; Start 04/16/19 at 15:45 Alprazolam (Xanax) 1 mg PRN BID PRN PO ANXIETY / AGITATION; Start 04/16/19 at 15:45; Stop 04/16/19 at 17:22; Status DC Aspirin (Ecotrin) 81 mg DAILYWBKFT PO Last administered on 04/18/19at 10:22; Start 04/17/19 at 08:00 Carvedilol (Coreg) 6.25 mg BIDWMEALS PO ; Start 04/16/19 at 17:00; Stop 04/16/19 at 17:22; Status DC Diphenhydramine HCl (Benadryl) 25 mg PRN Q6HRS PRN PO ALLERGIES Last admin istered on 04/18/19at 03:13; Start 04/16/19 at 15:45 Albuterol/ Ipratropium (Duoneb) 3 ml QID NEB Last administered on 04/18/19at 20:07; Start 04/16/19 at 17:00 Nitroglycerin (Nitrostat) 0.4 mg PRN Q5MIN PRN SL CHEST PAIN; Start 04/16/19 at 15:45 Pantoprazole Sodium (Protonix) 40 mg DAILY PO Last administered on 04/18/19at 10:22; Start 04/17/19 at 09:00 Polyethylene Glycol (miraLAX PACKET) 17 gm PRN DAILY PRN PO CONSTIPATION; Start 04/16/19 at 15:45 Sennosides (Senna) 8.6 mg PRN DAILY PRN PO CONSTIPATION; Start 04/16/19 at 15:45 Non-Formulary Medication (Albuterol Sulfate (Albuterol Sulfate Hfa Inhaler)) 2 puff PRN Q4HRS PRN INH SHORTNESS OF BREATH; Start 04/16/19 at 15:45; Status UNV Atorvastatin Calcium (Lipitor) 80 mg QHS PO Last administered on 04/18/19at 21:08; Start 04/16/19 at 21:00 Non-Formulary Medication (Fluticasone/ Salmeterol (Advair 250-50 Diskus)) 1 puff PRN BID PRN IH SHORTNESS OF BREATH; Start 04/16/19 at 15:45; Stop 04/16/19 at 15:57; Status DC Albuterol Sulfate (Ventolin Neb Soln) 2.5 mg RTQID NEB ; Start 04/16/19 at 16:00; Status UNV Budesonide (Pulmicort) 0.5 mg RTBID NEB Last administered on 04/19/19at 07:50; Start 04/16/19 at 20:00 Furosemide (Lasix) 40 mg BID92 PO Last administered on 04/18/19at 15:52; Start 04/16/19 at 18:00 Insulin Glargine (Lantus) 60 units BID SQ Last administered on 04/18/19 21:12; Start 04/16/19 at 21:00 Isosorbide Mononitrate (Imdur) 60 mg DAILY PO Last administered on 04/18/19 08:48; Start 04/17/19 at 09:00 Losartan Potassium (Cozaar) 50 mg DAILY PO Last administered on 04/18/19 08:48; Start 04/17/19 at 09:00 Methocarbamol (Robaxin) 750 mg BID PO Last administered on 04/18/19at 21:08; Start 04/16/19 at 21:00 Zolpidem Tartrate (Ambien) 5 mg PRN QHS PRN PO INSOMNIA; Start 04/16/19 at 17:15; Stop 04/16/19 at 18:11; Status DC Alprazolam (Xanax) 2 mg PRN BID PRN PO ANXIETY / AGITATION Last administered on 04/18/19at 21:14; Start 04/16/19 at 17:30 Clopidogrel Bisulfate (Plavix) 75 mg DAILYWBKFT PO Last administered on 04/18/19at 10:22; Start 04/17/19 at 08:00 Pregabalin (Lyrica) 75 mg BID PO Last administered on 04/18/19 21:08; Start 04/16/19 at 17:30 Guaifenesin (Robitussin) 200 mg PRN Q4HRS PRN PO COUGH Last administered on 04/17/19 21:06; Start 04/16/19 at 17:30 Zolpidem Tartrate (Ambien) 5 mg QHS PO Last administered on 04/18/19 21:08; Start 04/16/19 at 21:00 Zolpidem Tartrate (Ambien) 5 mg PRN QHS PRN PO INSOMNIA Last administered on 04/17/19 00:22; Start 04/16/19 at 18:15 Acetaminophen/ Hydrocodone Bitart (Lortab 5/325) 1 tab PRN Q4HRS PRN PO PAIN MODERATE Last administered on 04/17/19at 10:47; Start 04/16/19 at 21:30; Stop 04/17/19 at 12:03; Status DC Benzonatate (Tessalon Perle) 100 mg PRN TID PRN PO COUGH 1ST CHOICE Last administered on 04/16/19at 22:44; Start 04/16/19 at 21:30 Hydralazine HCl (Apresoline Inj) 10 mg PRN Q4HRS PRN IVP ELEVATED BP, SEE COMMENTS; Start 04/17/19 at 12:00 Insulin Human Lispro (HumaLOG) 0-9 UNITS TIDWMEALS SQ Last administered on 04/18/19at 10:22; Start 04/17/19 at 12:00 Dextrose (Dextrose 50%-Water Syringe) 12.5 gm PRN Q15MIN PRN IV SEE COMMENTS; Start 04/17/19 at 12:00 Dextrose 250 ml PRN Q15MIN PRN IV SEE COMMENTS; Start 04/17/19 at 12:00 Insulin Human Lispro (HumaLOG) 10 units TIDWMEALS SQ ; Start 04/17/19 at 12:00; Stop 04/17/19 at 12:03; Status DC Acetaminophen (Tylenol) 500 mg PRN Q6HRS PRN PO HEADACHE / TEMP; Start 04/17/19 at 12:00 Tramadol HCl (Ultram) 50 mg PRN Q6HRS PRN PO PAIN MILD; Start 04/17/19 at 12:00 Ondansetron HCl (Zofran) 4 mg PRN Q6HRS PRN IV NAUSEA/VOMITING; Start 04/17/19 at 12:00 Acetaminophen/ Hydrocodone Bitart (Lortab 5/325) 2 tab PRN Q6HRS PRN PO PAIN MODERATE Last administered on 04/19/19at 03:51; Start 04/17/19 at 12:15 Insulin Human Lispro (HumaLOG) 15 units TIDWMEALS SQ Last administered on 04/18/19 13:50; Start 04/17/19 at 17:00 Sodium Chloride 1,000 ml @ 100 mls/hr Q10H IV Last administered on 04/18/19 02:13; Start 04/17/19 at 12:45; Stop 04/18/19 at 11:18; Status DC Potassium Chloride (Klor-Con) 40 meq 1X ONCE PO ; Start 04/17/19 at 15:15; Stop 04/17/19 at 15:16; Status UNV Regadenoson (Lexiscan) 0.4 mg 1X ONCE IV Last administered on 04/18/19at 09:01; Start 04/18/19 at 08:30; Stop 04/18/19 at 08:31; Status DC Guaifenesin (MUCINEX ER with DM) 1 tab BID PO Last administered on 04/18/19at 21:08; Start 04/18/19 at 12:00 Azithromycin 500 mg/Sodium Chloride 250 ml @ 250 mls/hr Q24H IV Last administered on 04/18/19at 15:42; Start 04/18/19 at 13:00 Active Scripts Active Humalog (Insulin Lispro) 100 Unit/1 Ml Insuln.pen 40 Units SQ TIDWMEALS MDD 1 Lantus Solostar (Insulin Glargine,Hum.rec.anlog) 100 Unit/1 Ml Insuln.pen 60 Units SQ BID MDD 1 Azithromycin Tablet (Azithromycin) 250 Mg Tablet 250 Mg PO DAILY MDD 1 Promethazine Hcl 12.5 Mg Tablet 12.5 Mg PO PRN Q6HRS PRN MDD 1 Hydrocodone-Apap 5-325 (Hydrocodone Bit/Acetaminophen) 1 Tab Tablet 1 Tab PO PRN Q4HRS PRN Aspirin Ec (Aspirin) 81 Mg Tablet.dr 81 Mg PO DAILYWBKFT 30 Days Carvedilol (Carvedilol) 6.25 Mg Tablet 6.25 Mg PO BIDWMEALS 30 Days Isosorbide Mononitrate Er (Isosorbide Mononitrate) 30 Mg Tab.er.24h 60 Mg PO DAILY 30 Days Lasix (Furosemide) 40 Mg Tablet 40 Mg PO BID Ultram (Tramadol Hcl) 50 Mg Tablet 1 Tab PO Q6HRS PRN Reported Ambien (Zolpidem Tartrate) 5 Mg Tablet 5 Mg PO PRN QHS PRN Miralax (Polyethylene Glycol 3350) 17 Gm Powd.pack 1 Packet PO DAILY PRN Alprazolam 1 Mg Tablet 1 Tab PO BID PRN Advair 250-50 Diskus (Fluticasone/Salmeterol) 1 Each Disk.w.dev 1 Puff IH PRN BID PRN Senokot (Sennosides) 8.6 Mg Tablet 1 Tab PO PRN DAILY PRN Gabapentin 800 Mg Tablet 800 Mg PO TID Robaxin-750 (Methocarbamol) 750 Mg Tablet 1 Tab PO BID Benadryl (Diphenhydramine Hcl) 25 Mg Capsule 25 Mg PO PRN Q6HRS PRN Pantoprazole Sodium (Pantoprazole Sodium) 40 Mg Tablet.dr 40 Mg PO DAILY Duoneb 0.5-3(2.5) Mg/3 Ml (Albuterol/Ipratropium) 3 Ml Ampul.neb 3 Ml NEB QID Albuterol Sulfate Neb Soln (Albuterol Sulfate) 2.5 Mg/3 Ml Vial.neb 2.5 Mg NEB PRN Q4HRS PRN NITROGLYCERIN SubLingual (Nitroglycerin) 0.4 Mg Tab.subl 0.4 Mg SL PRN Q5MIN PRN Potassium Chloride 20 Meq Tablet.er 20 Meq PO BID Losartan Potassium (Losartan Potassium) 25 Mg Tablet 50 Mg PO DAILY Lipitor (Atorvastatin Calcium) 80 Mg Tablet 1 Tab PO QHS Albuterol Sulfate Hfa Inhaler (Albuterol Sulfate) 8.5 Gm Hfa.aer.ad 2 Puff INH PRN Q4HRS PRN Vitals/I & O Vital Sign - Last 24 Hours 8/19/04/18/19 04/18/19 04/18/19 08:48 08:48 10:22 10:49 Temp 98.7 98.7 Pulse 60 61 73 Resp 20 B/P (MAP) 151/76 151/76 143/68 (93) Pulse Ox 99 O2 Delivery Room Air Room Air 04/18/19 04/18/19 04/18/19 04/18/19 12:02 12:19 14:49 15:52 Temp 98.4 98.4 Pulse 63 Resp 20 B/P (MAP) 126/66 (86) Pulse Ox 98 100 O2 Delivery Room Air Room Air Room Air Room Air 04/18/19 04/18/19 04/18/19 04/18/19 18:07 19:59 20:07 21:57 Temp 98.2 98.2 Pulse 59 Resp 18 B/P (MAP) 152/66 (94) Pulse Ox 98 97 97 O2 Delivery Room Air Room Air Room Air 04/18/19 04/18/19 04/19/19 04/19/19 22:31 23:10 02:47 03:51 Temp 98.4 98.2 98.4 98.2 Pulse 70 57 Resp 20 18 18 18 B/P (MAP) 143/65 (91) 151/72 (98) Pulse Ox 99 99 95 95 O2 Delivery Room Air Room Air Room Air 04/19/19 04/19/19 04/19/19 04/19/19 04:53 07:00 07:52 07:53 Temp 98.2 98.2 Pulse 51 Resp 18 18 B/P (MAP) 152/73 (99) Pulse Ox 95 100 97 97 O2 Delivery Room Air Room Air Room Air Room Air Intake and Output 04/18/19 04/18/19 04/19/19 15:00 23:00 07:00 Intake Total 1220 ml 200 ml Output Total 200 ml Balance 1220 ml 0 ml CATE PAVON MD Apr 19, 2019 08:42
[2019-04-19] MEDS: ISOSORBIDE MONONITRATE ER 30 MG TAB.ER.24H PO SCH (08:43)
[2019-04-19] MEDS: LOSARTAN POTASSIUM 25 MG TABLET. PO SCH (08:44)
[2019-04-19] MEDS: INSULIN LISPRO 300 UNITS/3 ML VIAL. SQ SCH ×6 (08:51→18:27)
[2019-04-19] MEDS: INSULIN GLARGINE 300 UNITS/3 ML INSULN.PEN. SQ SCH ×2 (08:52→21:44)
[2019-04-19 09:25] LABS: BASO % 0 % (0-3); EOS # 0.1 x10^3/uL (0.0-0.7); EOS % 3 % (0-3); HEMATOCRIT 32.2 % (36.0-47.0); HEMOGLOBIN 10.5 g/dL (12.0-15.5); LYMPH # 1.5 x10^3/uL (1.0-4.8); LYMPH % 36 % (24-48); MEAN CORPUSCULAR HEMOGLOBIN 27 pg (25-35); MEAN CORPUSCULAR HGB CONC 33 g/dL (31-37); MEAN CORPUSCULAR VOLUME 83 fL (79-100); MONO # 0.5 x10^3/uL (0.0-1.1); MONO % 11 % (0-9); NEUT % 50 % (31-73); PLATELET COUNT 171 x10^3/uL (140-400); RED BLOOD COUNT 3.89 x10^6/uL (3.50-5.40); RED CELL DISTRIBUTION WIDTH 14.8 % (11.5-14.5); WHITE BLOOD COUNT 4.1 x10^3/uL (4.0-11.0)
[2019-04-19 09:42] LABS: CALCIUM 8.6 mg/dL (8.5-10.1); CREATININE 1.4 mg/dL (0.6-1.0); GFR 47.4; PHOSPHORUS 3.5 mg/dL (2.6-4.7)
[2019-04-19] MEDS: FUROSEMIDE 40 MG TABLET. PO SCH ×2 (10:24→14:45)
[2019-04-19] MEDS: ALPRAZolam 1 MG TABLET PO PRN (10:24)
[2019-04-19] MEDS: AZITHROMYCIN 500 MG in IV NORMAL SALINE 250ML 250 ML IV SCH (13:01)
[2019-04-19] MEDS: IPRATRPIUM/ALBUTEROL 0.5/2.5MG 3 ML NEBU. NEB SCH ×3 (13:12→19:51)
[2019-04-19] MEDS ORDERED: AZIT250T6 PO (13:40)
[2019-04-19] MEDS ORDERED: PRED20TA PO (13:40)
--- NOTE | 2019-04-19 13:43 | PDOC3 ---
Discharge Summary Visit Information Date of Admission: Apr 16, 2019 Date of Discharge: Apr 20, 2019 Admitting Diagnosis: Chest pain Final Diagnosis Problems Medical Problems: (1) CAD (coronary artery disease) Status: Chronic (2) Chest pressure Status: Acute (3) DM2 (diabetes mellitus, type 2) Status: Chronic (4) Dyspnea Status: Acute (5) HLD (hyperlipidemia) Status: Chronic (6) HTN (hypertension) Status: Chronic Brief Hospital Course Allergies Allergies Coded Allergies Type Severity Reaction Last Updated Verified Penicillins Allergy Severe tongue swelling, HIVES, ANGIOEDEMA 06/06/17 Yes latex Allergy Severe Hives, N/V 06/06/17 Yes prochlorperazine Allergy Severe tongue swelling, ANGIOEDEMA 06/06/17 Yes Iodinated Contrast- Oral and IV Dye Allergy Intermediate 10/07/17 Yes doxycycline Allergy Intermediate ITCHING 06/06/17 Yes iodine Allergy Intermediate "shiver", N/V 06/06/17 Yes morphine Allergy Intermediate itching 08/28/18 Yes Vital Signs Vital Signs Date Time Temp Pulse Resp B/P (MAP) Pulse Ox O2 Delivery O2 Flow Rate FiO2 04/19/19 13:13 Room Air 04/19/19 11:00 97.8 60 18 133/70 (91) 100 97.8 Lab Results Laboratory Tests Test 04/17/19 17:25 04/17/19 21:02 04/18/19 03:15 04/18/19 07:06 Glucose (Fingerstick) 267 mg/dL (70-99) 294 mg/dL (70-99) 175 mg/dL (70-99) Sodium Level 139 mmol/L (136-145) Potassium Level 4.0 mmol/L (3.5-5.1) Chloride Level 103 mmol/L (98-107) Carbon Dioxide Level 24 mmol/L (21-32) Anion Gap 12 (6-14) Blood Urea Nitrogen 20 mg/dL (7-20) Creatinine 1.4 mg/dL (0.6-1.0) Estimated GFR (Cockcroft-Gault) 47.4 Glucose Level 287 mg/dL (70-99) Calcium Level 8.5 mg/dL (8.5-10.1) Triglycerides Level 132 mg/dL (0-150) Cholesterol Level 104 mg/dL (0-200) LDL Cholesterol, Calculated 46 mg/dL (0-100) VLDL Cholesterol, Calculated 26 mg/dL (0-40) Non-HDL Cholesterol Calculated 72 mg/dL (0-129) HDL Cholesterol 32 mg/dL (40-60) Cholesterol/HDL Ratio 3.3 Test 04/18/19 11:46 04/18/19 17:10 04/18/19 20:56 04/19/19 07:37 Glucose (Fingerstick) 160 mg/dL (70-99) 120 mg/dL (70-99) 137 mg/dL (70-99) 155 mg/dL (70-99) Test 04/19/19 09:05 04/19/19 11:52 White Blood Count 4.1 x10^3/uL (4.0-11.0) Red Blood Count 3.89 x10^6/uL (3.50-5.40) Hemoglobin 10.5 g/dL (12.0-15.5) Hematocrit 32.2 % (36.0-47.0) Mean Corpuscular Volume 83 fL (79-100) Mean Corpuscular Hemoglobin 27 pg (25-35) Mean Corpuscular Hemoglobin Concent 33 g/dL (31-37) Red Cell Distribution Width 14.8 % (11.5-14.5) Platelet Count 171 x10^3/uL (140-400) Neutrophils (%) (Auto) 50 % (31-73) Lymphocytes (%) (Auto) 36 % (24-48) Monocytes (%) (Auto) 11 % (0-9) Eosinophils (%) (Auto) 3 % (0-3) Basophils (%) (Auto) 0 % (0-3) Neutrophils # (Auto) 2.0 x10^3/uL (1.8-7.7) Lymphocytes # (Auto) 1.5 x10^3/uL (1.0-4.8) Monocytes # (Auto) 0.5 x10^3/uL (0.0-1.1) Eosinophils # (Auto) 0.1 x10^3/uL (0.0-0.7) Basophils # (Auto) 0.0 x10^3/uL (0.0-0.2) Sodium Level 144 mmol/L (136-145) Potassium Level 4.0 mmol/L (3.5-5.1) Chloride Level 106 mmol/L (98-107) Carbon Dioxide Level 28 mmol/L (21-32) Anion Gap 10 (6-14) Blood Urea Nitrogen 16 mg/dL (7-20) Creatinine 1.4 mg/dL (0.6-1.0) Estimated GFR (Cockcroft-Gault) 47.4 Glucose Level 203 mg/dL (70-99) Calcium Level 8.6 mg/dL (8.5-10.1) Phosphorus Level 3.5 mg/dL (2.6-4.7) Albumin 3.0 g/dL (3.4-5.0) Thyroid Stimulating Hormone (TSH) 0.777 uIU/mL (0.358-3.74) Glucose (Fingerstick) 200 mg/dL (70-99) Laboratory Tests Test 04/18/19 17:10 04/18/19 20:56 04/19/19 07:37 04/19/19 09:05 Glucose (Fingerstick) 120 mg/dL (70-99) 137 mg/dL (70-99) 155 mg/dL (70-99) White Blood Count 4.1 x10^3/uL (4.0-11.0) Red Blood Count 3.89 x10^6/uL (3.50-5.40) Hemoglobin 10.5 g/dL (12.0-15.5) Hematocrit 32.2 % (36.0-47.0) Mean Corpuscular Volume 83 fL (79-100) Mean Corpuscular Hemoglobin 27 pg (25-35) Mean Corpuscular Hemoglobin Concent 33 g/dL (31-37) Red Cell Distribution Width 14.8 % (11.5-14.5) Platelet Count 171 x10^3/uL (140-400) Neutrophils (%) (Auto) 50 % (31-73) Lymphocytes (%) (Auto) 36 % (24-48) Monocytes (%) (Auto) 11 % (0-9) Eosinophils (%) (Auto) 3 % (0-3) Basophils (%) (Auto) 0 % (0-3) Neutrophils # (Auto) 2.0 x10^3/uL (1.8-7.7) Lymphocytes # (Auto) 1.5 x10^3/uL (1.0-4.8) Monocytes # (Auto) 0.5 x10^3/uL (0.0-1.1) Eosinophils # (Auto) 0.1 x10^3/uL (0.0-0.7) Basophils # (Auto) 0.0 x10^3/uL (0.0-0.2) Sodium Level 144 mmol/L (136-145) Potassium Level 4.0 mmol/L (3.5-5.1) Chloride Level 106 mmol/L (98-107) Carbon Dioxide Level 28 mmol/L (21-32) Anion Gap 10 (6-14) Blood Urea Nitrogen 16 mg/dL (7-20) Creatinine 1.4 mg/dL (0.6-1.0) Estimated GFR (Cockcroft-Gault) 47.4 Glucose Level 203 mg/dL (70-99) Calcium Level 8.6 mg/dL (8.5-10.1) Phosphorus Level 3.5 mg/dL (2.6-4.7) Albumin 3.0 g/dL (3.4-5.0) Thyroid Stimulating Hormone (TSH) 0.777 uIU/mL (0.358-3.74) Test 04/19/19 11:52 Glucose (Fingerstick) 200 mg/dL (70-99) Brief Hospital Course Ms Camacho is a 53 year old female w/ PMHx CAD, CHF, HTN, HLD, COPD, DM2 with peripheral neuropathy, anxiety/depression who was admitted for chest pain over several days as well as diarrhea and NIMISHA. Troponin of 0.01 and no acute ischemic EKG changes. Pain has largely resolved. Seen by cards, MPI finished. She endorses a cough productive of greenish sputum the past 48 hours that is persistent at this point but improving with respiratory treatments. NIMISHA Leukopenia Recent diarrhea, emesis Cough - acute bronchitis Obesity BMI 45 Accel HTN DM 2 uncontrolled hgba1c 11 Chest pain. History of CAD. No acute changes on EKG or troponin. Continues to feel better. 2 day MPI test shows no reversible ischemia and an EF of 49%. Discussed with the patient. Continue medical treatment. Plan: Added cough medication, azithromycin for green sputum SSI high dose resume home insulin regimen: 60 BID and 15 TID with meals hgba1c ordered again - she relays 11 prn for BP pushes Need to control BP and DM - i dw her- she understands Greater than 30 minutes spent on d/c Discharge Information Condition at Discharge: Improved Follow Up: Weeks (1) Disposition/Orders: D/C to Home Scheduled Aspirin (Aspirin Ec) 81 Mg Tablet.dr, 81 MG PO DAILYWBKFT for htn for 30 Days, #30 Prescribed by: KAREN VELASQUEZ MD on 08/30/18 1211 Last Action: Continued on 04/16/19 154 by HERMINIA TREVIÑO RN Atorvastatin Calcium (Lipitor) 80 Mg Tablet, 1 TAB PO QHS, #30 Ref 5 (Reported) Entered as Reported by: BEBETO TOLEDO on 05/15/14 1520 Last Action: Converted on 04/16/191539 by HERMINIA TREVIÑO RN Azithromycin (Azithromycin Tablet) 250 Mg Tablet, 250 MG PO DAILY for bronchitis MDD 1 for 4 Days, #4 Prescribed by: CATE PAVON MD on 04/19/19 1340 Azithromycin (Azithromycin Tablet) 250 Mg Tablet, 1 PKG PO DAILY for infection for 4 Days, #4 (Reported) Entered as Reported by: SHERRELL MORTON on 04/20/19 1229 Carvedilol (Carvedilol ) 6.25 Mg Tablet, 6.25 MG PO BIDWMEALS for htn for 30 Days, #60 Prescribed by: KAREN VELASQUEZ MD on 08/30/181210 Last Action: Continued on 04/16/191539 by HERMINIA TREVIÑO RN Furosemide (Lasix) 40 Mg Tablet, 40 MG PO BID for chf, #30 Prescribed by: KAREN VELASQUEZ MD on 08/30/18 1211 Last Action: Continued on 04/16/191715 by HERMINIA TREVIÑO RN Gabapentin (Gabapentin) 800 Mg Tablet, 800 MG PO TID, (Reported) Entered as Reported by: ALLYN WATERS on 02/01/18 1309 Insulin Glargine,Hum.rec.anlog (Lantus Solostar) 100 Unit/1 Ml Insuln.pen, 60 UNITS SQ BID for dm2 MDD 1, #1 Prescribed by: PHILL MORENO on 09/21/18 1116 Last Action: Continued on 04/16/191715 by HERMINIA TREVIÑO RN Insulin Lispro (Humalog) 100 Unit/1 Ml Insuln.pen, 40 UNITS SQ TIDWMEALS for dm2 MDD 1, #1 Prescribed by: PHILL MORENO on 09/21/18 1116 Ipratropium/Albuterol Sulfate (Duoneb 0.5-3(2.5) Mg/3 Ml) 3 Ml Ampul.neb, 3 ML NEB QID, (Reported) Entered as Reported by: ALLYN WATERS on 06/06/17 1838 Last Action: Continued on 04/16/19 154 by HERMINIA TREVIÑO RN Isosorbide Mononitrate (Isosorbide Mononitrate Er) 30 Mg Tab.er.24h, 60 MG PO DAILY for htn for 30 Days, #60 Prescribed by: KAREN VELASQUEZ MD on 08/30/18 1211 Last Action: Continued on 04/16/191715 by HERMINIA TREVIÑO RN Losartan Potassium (Losartan Potassium ) 25 Mg Tablet, 50 MG PO DAILY, (Reported) Entered as Reported by: BEBETO TOLEDO on 05/15/14 1520 Last Action: Continued on 04/16/191715 by HERMINIA TREVIÑO RN Methocarbamol (Robaxin-750) 750 Mg Tablet, 1 TAB PO BID, #60 (Reported) Entered as Reported by: ALLYN WATERS on 02/01/18 1305 Last Action: Continued on 04/16/191715 by HERMINIA TREVIÑO RN Pantoprazole Sodium (Pantoprazole Sodium ) 40 Mg Tablet.dr, 40 MG PO DAILY, (Reported) Entered as Reported by: KAL CORTÉS on 07/17/17 1629 Last Action: Continued on 04/16/19 154 by HERMINIA TREVIÑO RN Potassium Chloride (Potassium Chloride) 20 Meq Tablet.er, 20 MEQ PO BID, (Reported) Entered as Reported by: BEBETO TOELDO on 05/15/14 1520 Prednisone (Prednisone) 20 Mg Tablet, 1 TAB PO DAILY for COPD for 5 Days, #5 Prescribed by: CATE PAVON MD on 04/19/19 1340 Scheduled PRN Albuterol Sulfate (Albuterol Sulfate Hfa Inhaler) 8.5 Gm Hfa.aer.ad, 2 PUFF INH PRN Q4HRS PRN for SHORTNESS OF BREATH, #2 Ref 0 (Reported) Entered as Reported by: BEBETO TOLEDO on 05/15/14 1520 Last Action: Converted on 04/16/191539 by HERMINIA TREVIÑO RN Albuterol Sulfate (Albuterol Sulfate Neb Soln) 2.5 Mg/3 Ml Vial.neb, 2.5 MG NEB PRN Q4HRS PRN for SHORTNESS OF BREATH, Ref 0 (Reported) Entered as Reported by: NASEEM DOWNS [facility] on 07/09/15 1251 Last Action: Continued on 04/16/191539 by HERMINIA TREVIÑO RN Alprazolam (Alprazolam) 1 Mg Tablet, 1 TAB PO BID PRN for ANXIETY / AGITATION, #60 (Reported) Entered as Reported by: JUAQUIN BERRY on 09/18/18 0957 Last Action: Continued on 04/16/191539 by HERMINIA TREVIÑO RN Diphenhydramine Hcl (Benadryl) 25 Mg Capsule, 25 MG PO PRN Q6HRS PRN for ALLERGIES, (Reported) Entered as Reported by: ALLYN WATERS on 02/01/18 1305 Last Action: Continued on 04/16/191539 by HERMINIA TREVIÑO RN Fluticasone/Salmeterol (Advair 250-50 Diskus) 1 Each Disk.w.dev, 1 PUFF IH PRN BID PRN for SHORTNESS OF BREATH, #3 Ref 3 (Reported) Entered as Reported by: ALLYN WATERS on 02/01/18 1317 Last Action: Converted on 04/16/191539 by HERMINIA TREVIÑO RN Hydrocodone Bit/Acetaminophen (Hydrocodone-Apap 5-325 ) 1 Tab Tablet, 1 TAB PO PRN Q4HRS PRN for PAIN MODERATE, #10 Prescribed by: PHILL MORENO on 09/21/18 1116 Last Action: Continued on 04/16/192120 by LAITH JAQUEZ Nitroglycerin (NITROGLYCERIN SubLingual) 0.4 Mg Tab.subl, 0.4 MG SL PRN Q5MIN PRN for CHEST PAIN, (Reported) Entered as Reported by: Reynold Aquino on 10/25/14 1756 Last Action: Continued on 04/16/191539 by HERMINIA TREVIÑO RN Polyethylene Glycol 3350 (Miralax) 17 Gm Powd.pack, 1 PACKET PO DAILY PRN for CONSTIPATION, #30 Ref 3 (Reported) Entered as Reported by: JUAQUIN BERRY on 09/18/18956 Last Action: Continued on 04/16/191539 by HERMINIA TREVIÑO RN Promethazine Hcl (Promethazine Hcl) 12.5 Mg Tablet, 12.5 MG PO PRN Q6HRS PRN for NAUSEA/VOMITING 2ND CHOICE MDD 1, #30 Prescribed by: PHILL MORENO on 09/21/18 1116 Sennosides (Senokot) 8.6 Mg Tablet, 1 TAB PO PRN DAILY PRN for CONSTIPATION, #40 (Reported) Entered as Reported by: ALLYN WATERS on 02/01/18 1317 Last Action: Continued on 04/16/191539 by HERMINIA TREVIÑO RN Tramadol Hcl (Ultram) 50 Mg Tablet, 1 TAB PO Q6HRS PRN for PAIN, #14 Prescribed by: Milena Kat APRN on 10/03/17 1229 Zolpidem Tartrate (Ambien) 5 Mg Tablet, 5 MG PO PRN QHS PRN for INSOMNIA, Ref 0 (Reported) Entered as Reported by: JUAQUIN BERRY on 09/18/1857 Last Action: Continued on 04/16/191715 by SILVIA RAMIREZ CHRISTOPHER S MD Apr 19, 2019 13:43
--- NOTE | 2019-04-19 14:16 | RAD ---
MR#: [id number] Date of Study: 04/18/2019 Ordering Physician: NOY ORDOÑEZ, Referring Physician: AMANDA CROWLEY Tech: RT Jeremy (Adeel) (N) APPROVED REPORT Test Type: Pharmacological Stress Nurse/Tech: Opal Street R.N. Test Indications: cad, cp Cardiac History: hx of 5 stents, htn, dm, asthma Medications: see ehr Medical History: see ehr Resting ECG: SR Resting Heart Rate: 68 bpm Resting Blood Pressure: 142/68mmHg Pretest Chest Pain: Atypical angina Nurse/Tech Notes lungs coarse, no wheezes, heart tones regular Consent: The procedure was explained to the patient in lay terms. Informed consent was witnessed. Vikash eout was entered into [employer]. History and Stress Test performed by RT Jeremy (R) (N) Pharm. Details Pharmacologic stress testing was performed using 0.4mg per 5ml of regadenoson given intravenously ove r 7-10 seconds. Stress Symptoms pt states CP prior to starting stress test 6/10, 9/10 with test, improved to 6/10 by end of test POST EXERCISE Reason for Termination: Infusion complete Target HR: No Max HR: 87 bpm Max Blood Pressure: 154/60mmHg Chest Pain: Yes. Arrhythmia: No. INTERPRETATION Stress EKG Conclusion: The resting EKG shows a sinus rhythm with nonspecific ST-T wave changes. The stress EKG showed continued nonspecific ST-T wave changes. Abnormal baseline EKG but no definitive EKG evidence of stressed induced ischemia. Imaging Protocol IMAGE PROTOCOL: Stress Tc-99m/rest Tc-99m 2 days Rest: Stress: Viability: Radiopharm.Tc99m Sestamibi [id number] Duration 15min. Img Date 04/18/2019 Inj-Img [id number]. STRESS DATA End Diast. Vol.186.0mlAv. Heart Rate61.0bpm LVEDV index BSA70.0mlCardiac Output2.1L/min End Syst. Vol.94.0mlCO Index BSA5.6L/min LVESV index BSA36.0mlMyocardial Acpi822.0g Eject. Xxnjdkzy92.0% Stress Scores Regional WT0.00Summed WT6.00 Regional WM0.00Summed WM3.00 LV Perfusion The stress scans show a mild defect in the inferior wall and the anterior septal wall. The rest scans show a mild defect in the inferior wall in the anterior septal wall. Nuclear imaging shows no significant reversible ischemia. Nuclear imaging shows a fixed defects most consistent with attenuation. Wall Motion Ventricular wall function is normal with no regional wall motion abnormalities and a slightly decreas ed ejection fraction 49%. LV Perf. Quant 17 Seg. SSS12.00 Stress Defect Extent (% LAD)25.60Rest Defect Extent (% LAD)Rev. Defect Extent (% LAD)0.00 Stress Defect Extent (% LCX) 8.80Rest Defect Extent (% LCX)Rev. Defect Extent (% LCX)0.00 Stress Defect Extent (% RCA)51.10Rest Defect Extent (% RCA)Rev. Defect Extent (% RCA)0.00 Stress Defect Extent (% PORFIRIO)26.70Rest Defect Extent (% PORFIRIO)Rev. Defect Extent (% PORFIRIO)0.00 IMPRESSION LV Perfusion Summary: Normal, Equivocal, Abnormal Conclusion 1. Mildly abnormal baseline EKG but no EKG evidence of stressed induced ischemia. 2. Nuclear imaging shows no reversible ischemia. 3. Nuclear imaging shows relatively small fixed defects in the inferior and anterior unger most consi stent with attenuation defects. 4. Intact LV systolic function with no regional wall motion abnormalities. 5. Moderately low risk Lexiscan nuclear stress test with no evidence of reversible ischemia and no si gnificant decrease in LV function. Signed by : Noy Ordoñez MD Electronically Approved : 04/19/2019 14:16:12
--- NOTE | 2019-04-19 17:00 | NUR ---
Patient wanting to stay tonight & see doctor again in the morning. Talked to Dr. Baker & he will discharge patient first thing in the morning.
--- NOTE | 2019-04-19 17:56 | PDOC ---
PROGRESS NOTES Subjective Subjective Patient seen and examined She is feeling better today. Objective Objective Vital Signs Date Time Temp Pulse Resp B/P (MAP) Pulse Ox O2 Delivery O2 Flow Rate FiO2 04/19/19 16:50 Room Air 04/19/19 15:00 98.7 63 18 134/70 (91) 100 98.7 Intake and Output 04/19/19 07:00 Intake Total 1420 ml Output Total 200 ml Balance 1220 ml Intake Oral 1420 ml Output Urine Total 200 ml # Voids 2 Physical Exam Abdomen: Normal bowel sounds Heart: Regular rate General: mild distress Lungs: Clear to auscultation Assessment Assessment Problems Medical Problems: (1) CAD (coronary artery disease) Status: Chronic (2) Chest pressure Status: Acute (3) DM2 (diabetes mellitus, type 2) Status: Chronic (4) Dyspnea Status: Acute (5) HLD (hyperlipidemia) Status: Chronic (6) HTN (hypertension) Status: Chronic 1. Chest pain. History of CAD. No acute changes on EKG or troponin. Continues to feel better. 2 day MPI test shows no reversible ischemia and an EF of 49%. Discussed with the patient. Continue medical treatment. 2. HTN. Improved. Continue meds. 3. HLD. Continue meds. 4. DM. As per the primary service. Comment Review of Relevant I have reviewed the following items crista (where applicable) has been applied. Labs Laboratory Tests Test 04/17/19 21:02 04/18/19 03:15 04/18/19 07:06 04/18/19 11:46 Glucose (Fingerstick) 294 mg/dL (70-99) 175 mg/dL (70-99) 160 mg/dL (70-99) Sodium Level 139 mmol/L (136-145) Potassium Level 4.0 mmol/L (3.5-5.1) Chloride Level 103 mmol/L (98-107) Carbon Dioxide Level 24 mmol/L (21-32) Anion Gap 12 (6-14) Blood Urea Nitrogen 20 mg/dL (7-20) Creatinine 1.4 mg/dL (0.6-1.0) Estimated GFR (Cockcroft-Gault) 47.4 Glucose Level 287 mg/dL (70-99) Calcium Level 8.5 mg/dL (8.5-10.1) Triglycerides Level 132 mg/dL (0-150) Cholesterol Level 104 mg/dL (0-200) LDL Cholesterol, Calculated 46 mg/dL (0-100) VLDL Cholesterol, Calculated 26 mg/dL (0-40) Non-HDL Cholesterol Calculated 72 mg/dL (0-129) HDL Cholesterol 32 mg/dL (40-60) Cholesterol/HDL Ratio 3.3 Test 04/18/19 17:10 04/18/19 20:56 04/19/19 07:37 04/19/19 09:05 Glucose (Fingerstick) 120 mg/dL (70-99) 137 mg/dL (70-99) 155 mg/dL (70-99) White Blood Count 4.1 x10^3/uL (4.0-11.0) Red Blood Count 3.89 x10^6/uL (3.50-5.40) Hemoglobin 10.5 g/dL (12.0-15.5) Hematocrit 32.2 % (36.0-47.0) Mean Corpuscular Volume 83 fL (79-100) Mean Corpuscular Hemoglobin 27 pg (25-35) Mean Corpuscular Hemoglobin Concent 33 g/dL (31-37) Red Cell Distribution Width 14.8 % (11.5-14.5) Platelet Count 171 x10^3/uL (140-400) Neutrophils (%) (Auto) 50 % (31-73) Lymphocytes (%) (Auto) 36 % (24-48) Monocytes (%) (Auto) 11 % (0-9) Eosinophils (%) (Auto) 3 % (0-3) Basophils (%) (Auto) 0 % (0-3) Neutrophils # (Auto) 2.0 x10^3/uL (1.8-7.7) Lymphocytes # (Auto) 1.5 x10^3/uL (1.0-4.8) Monocytes # (Auto) 0.5 x10^3/uL (0.0-1.1) Eosinophils # (Auto) 0.1 x10^3/uL (0.0-0.7) Basophils # (Auto) 0.0 x10^3/uL (0.0-0.2) Sodium Level 144 mmol/L (136-145) Potassium Level 4.0 mmol/L (3.5-5.1) Chloride Level 106 mmol/L (98-107) Carbon Dioxide Level 28 mmol/L (21-32) Anion Gap 10 (6-14) Blood Urea Nitrogen 16 mg/dL (7-20) Creatinine 1.4 mg/dL (0.6-1.0) Estimated GFR (Cockcroft-Gault) 47.4 Glucose Level 203 mg/dL (70-99) Calcium Level 8.6 mg/dL (8.5-10.1) Phosphorus Level 3.5 mg/dL (2.6-4.7) Albumin 3.0 g/dL (3.4-5.0) Thyroid Stimulating Hormone (TSH) 0.777 uIU/mL (0.358-3.74) Test 04/19/19 11:52 04/19/19 16:56 Glucose (Fingerstick) 200 mg/dL (70-99) 134 mg/dL (70-99) Laboratory Tests Test 04/18/19 20:56 04/19/19 07:37 04/19/19 09:05 04/19/19 11:52 Glucose (Fingerstick) 137 mg/dL (70-99) 155 mg/dL (70-99) 200 mg/dL (70-99) White Blood Count 4.1 x10^3/uL (4.0-11.0) Red Blood Count 3.89 x10^6/uL (3.50-5.40) Hemoglobin 10.5 g/dL (12.0-15.5) Hematocrit 32.2 % (36.0-47.0) Mean Corpuscular Volume 83 fL (79-100) Mean Corpuscular Hemoglobin 27 pg (25-35) Mean Corpuscular Hemoglobin Concent 33 g/dL (31-37) Red Cell Distribution Width 14.8 % (11.5-14.5) Platelet Count 171 x10^3/uL (140-400) Neutrophils (%) (Auto) 50 % (31-73) Lymphocytes (%) (Auto) 36 % (24-48) Monocytes (%) (Auto) 11 % (0-9) Eosinophils (%) (Auto) 3 % (0-3) Basophils (%) (Auto) 0 % (0-3) Neutrophils # (Auto) 2.0 x10^3/uL (1.8-7.7) Lymphocytes # (Auto) 1.5 x10^3/uL (1.0-4.8) Monocytes # (Auto) 0.5 x10^3/uL (0.0-1.1) Eosinophils # (Auto) 0.1 x10^3/uL (0.0-0.7) Basophils # (Auto) 0.0 x10^3/uL (0.0-0.2) Sodium Level 144 mmol/L (136-145) Potassium Level 4.0 mmol/L (3.5-5.1) Chloride Level 106 mmol/L (98-107) Carbon Dioxide Level 28 mmol/L (21-32) Anion Gap 10 (6-14) Blood Urea Nitrogen 16 mg/dL (7-20) Creatinine 1.4 mg/dL (0.6-1.0) Estimated GFR (Cockcroft-Gault) 47.4 Glucose Level 203 mg/dL (70-99) Calcium Level 8.6 mg/dL (8.5-10.1) Phosphorus Level 3.5 mg/dL (2.6-4.7) Albumin 3.0 g/dL (3.4-5.0) Thyroid Stimulating Hormone (TSH) 0.777 uIU/mL (0.358-3.74) Test 04/19/19 16:56 Glucose (Fingerstick) 134 mg/dL (70-99) Medications Current Medications Nitroglycerin (Nitrostat) 0.4 mg PRN Q5MIN PRN SL CHEST PAIN Last administered on 04/16/19at 11:14; Start 04/16/19 at 11:00; Stop 04/17/19 at 08:31; Status DC Lorazepam (Ativan Inj) 1 mg 1X ONCE IV Last administered on 04/16/19at 11:53; Start 04/16/19 at 11:45; Stop 04/16/19 at 11:46; Status DC Furosemide (Lasix) 40 mg 1X ONCE IVP Last administered on 04/16/19at 12:57; Start 04/16/19 at 12:30; Stop 04/16/19 at 12:31; Status DC Albuterol Sulfate (Ventolin Neb Soln) 2.5 mg PRN Q4HRS PRN NEB SHORTNESS OF BREATH Last administered on 04/19/19at 07:50; Start 04/16/19 at 15:45 Alprazolam (Xanax) 1 mg PRN BID PRN PO ANXIETY / AGITATION; Start 04/16/19 at 15:45; Stop 04/16/19 at 17:22; Status DC Aspirin (Ecotrin) 81 mg DAILYWBKFT PO Last administered on 04/19/19at 08:52; Start 04/17/19 at 08:00 Carvedilol (Coreg) 6.25 mg BIDWMEALS PO ; Start 04/16/19 at 17:00; Stop 04/16/19 at 17:22; Status DC Diphenhydramine HCl (Benadryl) 25 mg PRN Q6HRS PRN PO ALLERGIES Last administered on 04/18/19at 03:13; Start 04/16/19 at 15:45 Albuterol/ Ipratropium (Duoneb) 3 ml QID NEB Last administered on 04/19/19at 13:12; Start 04/16/19 at 17:00 Nitroglycerin (Nitrostat) 0.4 mg PRN Q5MIN PRN SL CHEST PAIN; Start 04/16/19 at 15:45 Pantoprazole Sodium (Protonix) 40 mg DAILY PO Last administered on 04/19/19at 08:52; Start 04/17/19 at 09:00 Polyethylene Glycol (miraLAX PACKET) 17 gm PRN DAILY PRN PO CONSTIPATION; Start 04/16/19 at 15:45 Sennosides (Senna) 8.6 mg PRN DAILY PRN PO CONSTIPATION; Start 04/16/19 at 15:45 Non-Formulary Medication (Albuterol Sulfate (Albuterol Sulfate Hfa Inhaler)) 2 puff PRN Q4HRS PRN INH SHORTNESS OF BREATH; Start 04/16/19 at 15:45; Status UNV Atorvastatin Calcium (Lipitor) 80 mg QHS PO Last administered on 04/18/19at 21:08; Start 04/16/19 at 21:00 Non-Formulary Medication (Fluticasone/ Salmeterol (Advair 250-50 Diskus)) 1 puff PRN BID PRN IH SHORTNESS OF BREATH; Start 04/16/19 at 15:45; Stop 04/16/19 at 15:57; Status DC Albuterol Sulfate (Ventolin Neb Soln) 2.5 mg RTQID NEB ; Start 04/16/19 at 16:00; Status UNV Budesonide (Pulmicort) 0.5 mg RTBID NEB Last administered on 04/19/19 07:50; Start 04/16/19 at 20:00 Furosemide (Lasix) 40 mg BID92 PO Last administered on 04/19/19 14:46; Start 04/16/19 at 18:00 Insulin Glargine (Lantus) 60 units BID SQ Last administered on 04/18/19 21:12; Start 04/16/19 at 21:00 Isosorbide Mononitrate (Imdur) 60 mg DAILY PO Last administered on 04/19/19 08:52; Start 04/17/19 at 09:00 Losartan Potassium (Cozaar) 50 mg DAILY PO Last administered on 04/19/19 08:52; Start 04/17/19 at 09:00 Methocarbamol (Robaxin) 750 mg BID PO Last administered on 04/19/19 08:52; Start 04/16/19 at 21:00 Zolpidem Tartrate (Ambien) 5 mg PRN QHS PRN PO INSOMNIA; Start 04/16/19 at 17:15; Stop 04/16/19 at 18:11; Status DC Alprazolam (Xanax) 2 mg PRN BID PRN PO ANXIETY / AGITATION Last administered on 04/19/19 10:25; Start 04/16/19 at 17:30 Clopidogrel Bisulfate (Plavix) 75 mg DAILYWBKFT PO Last administered on 04/19/19 08:52; Start 04/17/19 at 08:00 Pregabalin (Lyrica) 75 mg BID PO Last administered on 04/19/19 08:52; Start 04/16/19 at 17:30 Guaifenesin (Robitussin) 200 mg PRN Q4HRS PRN PO COUGH Last administered on 04/17/19 21:06; Start 04/16/19 at 17:30 Zolpidem Tartrate (Ambien) 5 mg QHS PO Last administered on 04/18/19 21:08; Start 04/16/19 at 21:00 Zolpidem Tartrate (Ambien) 5 mg PRN QHS PRN PO INSOMNIA Last administered on 04/17/19 00:22; Start 04/16/19 at 18:15 Acetaminophen/ Hydrocodone Bitart (Lortab 5/325) 1 tab PRN Q4HRS PRN PO PAIN MODERATE Last administered on 04/17/19at 10:47; Start 04/16/19 at 21:30; Stop 04/17/19 at 12:03; Status DC Benzonatate (Tessalon Perle) 100 mg PRN TID PRN PO COUGH 1ST CHOICE Last administered on 04/16/19at 22:44; Start 04/16/19 at 21:30 Hydralazine HCl (Apresoline Inj) 10 mg PRN Q4HRS PRN IVP ELEVATED BP, SEE COMMENTS; Start 04/17/19 at 12:00 Insulin Human Lispro (HumaLOG) 0-9 UNITS TIDWMEALS SQ Last administered on 04/19/19at 13:12; Start 04/17/19 at 12:00 Dextrose (Dextrose 50%-Water Syringe) 12.5 gm PRN Q15MIN PRN IV SEE COMMENTS; Start 04/17/19 at 12:00 Dextrose 250 ml PRN Q15MIN PRN IV SEE COMMENTS; Start 04/17/19 at 12:00 Insulin Human Lispro (HumaLOG) 10 units TIDWMEALS SQ ; Start 04/17/19 at 12:00; Stop 04/17/19 at 12:03; Status DC Acetaminophen (Tylenol) 500 mg PRN Q6HRS PRN PO HEADACHE / TEMP; Start 04/17/19 at 12:00 Tramadol HCl (Ultram) 50 mg PRN Q6HRS PRN PO PAIN MILD; Start 04/17/19 at 12:00 Ondansetron HCl (Zofran) 4 mg PRN Q6HRS PRN IV NAUSEA/VOMITING; Start 04/17/19 at 12:00 Acetaminophen/ Hydrocodone Bitart (Lortab 5/325) 2 tab PRN Q6HRS PRN PO PAIN MODERATE Last administered on 04/19/19at 16:50; Start 04/17/19 at 12:15 Insulin Human Lispro (HumaLOG) 15 units TIDWMEALS SQ Last administered on 04/19/19at 13:12; Start 04/17/19 at 17:00 Sodium Chloride 1,000 ml @ 100 mls/hr Q10H IV Last administered on 04/18/19at 02:13; Start 04/17/19 at 12:45; Stop 04/18/19 at 11:18; Status DC Potassium Chloride (Klor-Con) 40 meq 1X ONCE PO ; Start 04/17/19 at 15:15; Stop 04/17/19 at 15:16; Status UNV Regadenoson (Lexiscan) 0.4 mg 1X ONCE IV Last administered on 04/18/19at 09:01; Start 04/18/19 at 08:30; Stop 04/18/19 at 08:31; Status DC Guaifenesin (MUCINEX ER with DM) 1 tab BID PO Last administered on 04/19/19at 08:52; Start 04/18/19 at 12:00 Azithromycin 500 mg/Sodium Chloride 250 ml @ 250 mls/hr Q24H IV Last administered on 04/19/19at 13:12; Start 04/18/19 at 13:00 Active Scripts Active Prednisone 20 Mg Tablet 1 Tab PO DAILY 5 Days Azithromycin Tablet (Azithromycin) 250 Mg Tablet 250 Mg PO DAILY MDD 1 4 Days Humalog (Insulin Lispro) 100 Unit/1 Ml Insuln.pen 40 Units SQ TIDWMEALS MDD 1 Lantus Solostar (Insulin Glargine,Hum.rec.anlog) 100 Unit/1 Ml Insuln.pen 60 Units SQ BID MDD 1 Promethazine Hcl 12.5 Mg Tablet 12.5 Mg PO PRN Q6HRS PRN MDD 1 Hydrocodone-Apap 5-325 (Hydrocodone Bit/Acetaminophen) 1 Tab Tablet 1 Tab PO PRN Q4HRS PRN Aspirin Ec (Aspirin) 81 Mg Tablet.dr 81 Mg PO DAILYWBKFT 30 Days Carvedilol (Carvedilol) 6.25 Mg Tablet 6.25 Mg PO BIDWMEALS 30 Days Isosorbide Mononitrate Er (Isosorbide Mononitrate) 30 Mg Tab.er.24h 60 Mg PO DAILY 30 Days Lasix (Furosemide) 40 Mg Tablet 40 Mg PO BID Ultram (Tramadol Hcl) 50 Mg Tablet 1 Tab PO Q6HRS PRN Reported Ambien (Zolpidem Tartrate) 5 Mg Tablet 5 Mg PO PRN QHS PRN Miralax (Polyethylene Glycol 3350) 17 Gm Powd.pack 1 Packet PO DAILY PRN Alprazolam 1 Mg Tablet 1 Tab PO BID PRN Advair 250-50 Diskus (Fluticasone/Salmeterol) 1 Each Disk.w.dev 1 Puff IH PRN BID PRN Senokot (Sennosides) 8.6 Mg Tablet 1 Tab PO PRN DAILY PRN Gabapentin 800 Mg Tablet 800 Mg PO TID Robaxin-750 (Methocarbamol) 750 Mg Tablet 1 Tab PO BID Benadryl (Diphenhydramine Hcl) 25 Mg Capsule 25 Mg PO PRN Q6HRS PRN Pantoprazole Sodium (Pantoprazole Sodium) 40 Mg Tablet.dr 40 Mg PO DAILY Duoneb 0.5-3(2.5) Mg/3 Ml (Albuterol/Ipratropium) 3 Ml Ampul.neb 3 Ml NEB QID Albuterol Sulfate Neb Soln (Albuterol Sulfate) 2.5 Mg/3 Ml Vial.neb 2.5 Mg NEB PRN Q4HRS PRN NITROGLYCERIN SubLingual (Nitroglycerin) 0.4 Mg Tab.subl 0.4 Mg SL PRN Q5MIN PRN Potassium Chloride 20 Meq Tablet.er 20 Meq PO BID Losartan Potassium (Losartan Potassium) 25 Mg Tablet 50 Mg PO DAILY Lipitor (Atorvastatin Calcium) 80 Mg Tablet 1 Tab PO QHS Albuterol Sulfate Hfa Inhaler (Albuterol Sulfate) 8.5 Gm Hfa.aer.ad 2 Puff INH PRN Q4HRS PRN Vitals/I & O Vital Sign - Last 24 Hours 04/18/19 04/18/19 04/18/19 04/18/19 18:07 19:59 20:07 21:57 Temp 98.2 98.2 Pulse 59 Resp 18 B/P (MAP) 152/66 (94) Pulse Ox 98 97 97 O2 Delivery Room Air Room Air Room Air 04/18/19 04/18/19 04/19/19 04/19/19 22:31 23:10 02:47 03:51 Temp 98.4 98.2 98.4 98.2 Pulse 70 57 Resp 20 18 18 18 B/P (MAP) 143/65 (91) 151/72 (98) Pulse Ox 99 99 95 95 O2 Delivery Room Air Room Air Room Air 04/19/19 04/19/19 04/19/19 04/19/19 04:53 07:00 07:52 07:53 Temp 98.2 98.2 Pulse 51 Resp 18 18 B/P (MAP) 152/73 (99) Pulse Ox 95 100 97 97 O2 Delivery Room Air Room Air Room Air Room Air 04/19/19 04/19/19 04/19/19 04/19/19 08:52 08:52 10:22 10:25 Pulse 59 61 B/P (MAP) 152/73 152/73 144/77 (99) O2 Delivery Room Air 04/19/19 04/19/19 04/19/19 04/19/19 11:00 13:13 14:44 15:00 Temp 97.8 98.7 97.8 98.7 Pulse 60 63 Resp 18 18 B/P (MAP) 133/70 (91) 137/70 (92) 134/70 (91) Pulse Ox 100 100 O2 Delivery Room Air Room Air Room Air 04/19/19 04/19/19 15:05 16:50 O2 Delivery Room Air Room Air Intake and Output 04/18/19 04/18/19 04/19/19 15:00 23:00 07:00 Intake Total 1220 ml 200 ml Output Total 200 ml Balance 1220 ml 0 ml NOY MAURICIO MD Apr 19, 2019 17:56
[2019-04-19] MEDS: ATORVASTATIN CALCIUM 40 MG TABLET. PO SCH (21:39)
[2019-04-19] MEDS: ZOLPIDEM 5 MG TABLET. PO SCH (21:39)
[2019-04-20 03:41] VITALS: BP 146/70
[2019-04-20] MEDS: HYDROcodone/APAP 5/325MG 1 TAB TABLET PO PRN ×2 (05:27→11:34)
[2019-04-20] MEDS: IPRATRPIUM/ALBUTEROL 0.5/2.5MG 3 ML NEBU. NEB SCH ×2 (07:33→11:09)
[2019-04-20] MEDS: BUDESONIDE 0.5 MG/2 ML NEBU. NEB SCH (07:33)
[2019-04-20 07:45] VITALS: BP 152/68
[2019-04-20] MEDS: METHOCARBAMOL 750 MG TABLET PO SCH (08:12)
[2019-04-20] MEDS: guaiFENesin DM 600/30MG 1 TAB TAB.ER.12H PO SCH (08:12)
[2019-04-20] MEDS: ASPIRIN ENTERIC COATED 81 MG TABLET.DR. PO SCH (08:12)
[2019-04-20] MEDS: PANTOPRAZOLE 40 MG TABLET.DR. PO SCH (08:12)
[2019-04-20] MEDS: CLOPIDOGREL BISULFATE 75 MG TABLET PO SCH (08:12)
[2019-04-20] MEDS: PREGABALIN 75 MG CAPSULE PO SCH (08:13)
[2019-04-20] MEDS: LOSARTAN POTASSIUM 25 MG TABLET. PO SCH (08:13)
[2019-04-20] MEDS: ISOSORBIDE MONONITRATE ER 30 MG TAB.ER.24H PO SCH (08:17)
[2019-04-20] MEDS: FUROSEMIDE 40 MG TABLET. PO SCH (08:17)
[2019-04-20] MEDS: INSULIN LISPRO 300 UNITS/3 ML VIAL. SQ SCH ×2 (08:23→08:24)
[2019-04-20] MEDS: INSULIN GLARGINE 300 UNITS/3 ML INSULN.PEN. SQ SCH (08:24)
[2019-04-20 10:40] VITALS: BP 135/65
[2019-04-20] MEDS ORDERED: AZIT250T6 PO (12:29)
--- NOTE | 2019-04-20 12:30 | PDOC ---
PROGRESS NOTES Chief Complaint Chief Complaint NIMISHA Leukopenia Recent diarrhea, emesis Cough - acute bronchitis Obesity BMI 45 Accel HTN DM 2 uncontrolled hgba1c 11 Chest pain. History of CAD. No acute changes on EKG or troponin. Continues to feel better. 2 day MPI test shows no reversible ischemia and an EF of 49%. Discussed with the patient. Continue medical treatment. History of Present Illness History of Present Illness Ms Camacho is a 53 year old female w/ PMHx CAD, CHF, HTN, HLD, COPD, DM2 with peripheral neuropathy, anxiety/depression who was admitted for chest pain over several days as well as diarrhea and NIMISHA. Troponin of 0.01 and no acute ischemic EKG changes. Pain has largely resolved. Seen by cards, MPI finished. She endorses a cough productive of greenish sputum the past 48 hours that is persistent at this point but improving with respiratory treatments. Plan: Added cough medication, azithromycin for green sputum SSI high dose resume home insulin regimen: 60 BID and 15 TID with meals hgba1c ordered again - she relays 11 prn for BP pushes Need to control BP and DM - i dw her- she understands Vitals Vitals Vital Signs Date Time Temp Pulse Resp B/P (MAP) Pulse Ox O2 Delivery O2 Flow Rate FiO2 04/20/19 11:34 94 04/20/19 10:40 98.8 64 18 135/65 (88) Room Air 98.8 Physical Exam General: Alert, mild distress Heart: Regular rate Lungs: Wheezing Abdomen: Normal bowel sounds Extremities: No clubbing, No cyanosis, No edema Skin: No rashes, No breakdown, No significant lesion Labs LABS Laboratory Tests Test 04/19/19 16:56 04/19/19 20:49 04/20/19 08:12 04/20/19 11:34 Glucose (Fingerstick) 134 mg/dL (70-99) 150 mg/dL (70-99) 151 mg/dL (70-99) 137 mg/dL (70-99) Assessment and Plan Assessmemt and Plan Problems Medical Problems: (1) CAD (coronary artery disease) Status: Chronic (2) Chest pressure Status: Acute (3) DM2 (diabetes mellitus, type 2) Status: Chronic (4) Dyspnea Status: Acute (5) HLD (hyperlipidemia) Status: Chronic (6) HTN (hypertension) Status: Chronic Comment Review of Relevant I have reviewed the following items crista (where applicable) has been applied. Labs Laboratory Tests Test 04/18/19 17:10 04/18/19 20:56 04/19/19 07:37 04/19/19 09:05 Glucose (Fingerstick) 120 mg/dL (70-99) 137 mg/dL (70-99) 155 mg/dL (70-99) White Blood Count 4.1 x10^3/uL (4.0-11.0) Red Blood Count 3.89 x10^6/uL (3.50-5.40) Hemoglobin 10.5 g/dL (12.0-15.5) Hematocrit 32.2 % (36.0-47.0) Mean Corpuscular Volume 83 fL (79-100) Mean Corpuscular Hemoglobin 27 pg (25-35) Mean Corpuscular Hemoglobin Concent 33 g/dL (31-37) Red Cell Distribution Width 14.8 % (11.5-14.5) Platelet Count 171 x10^3/uL (140-400) Neutrophils (%) (Auto) 50 % (31-73) Lymphocytes (%) (Auto) 36 % (24-48) Monocytes (%) (Auto) 11 % (0-9) Eosinophils (%) (Auto) 3 % (0-3) Basophils (%) (Auto) 0 % (0-3) Neutrophils # (Auto) 2.0 x10^3/uL (1.8-7.7) Lymphocytes # (Auto) 1.5 x10^3/uL (1.0-4.8) Monocytes # (Auto) 0.5 x10^3/uL (0.0-1.1) Eosinophils # (Auto) 0.1 x10^3/uL (0.0-0.7) Basophils # (Auto) 0.0 x10^3/uL (0.0-0.2) Sodium Level 144 mmol/L (136-145) Potassium Level 4.0 mmol/L (3.5-5.1) Chloride Level 106 mmol/L (98-107) Carbon Dioxide Level 28 mmol/L (21-32) Anion Gap 10 (6-14) Blood Urea Nitrogen 16 mg/dL (7-20) Creatinine 1.4 mg/dL (0.6-1.0) Estimated GFR (Cockcroft-Gault) 47.4 Glucose Level 203 mg/dL (70-99) Calcium Level 8.6 mg/dL (8.5-10.1) Phosphorus Level 3.5 mg/dL (2.6-4.7) Albumin 3.0 g/dL (3.4-5.0) Thyroid Stimulating Hormone (TSH) 0.777 uIU/mL (0.358-3.74) Test 04/19/19 11:52 04/19/19 16:56 04/19/19 20:49 04/20/19 08:12 Glucose (Fingerstick) 200 mg/dL (70-99) 134 mg/dL (70-99) 150 mg/dL (70-99) 151 mg/dL (70-99) Test 04/20/19 11:34 Glucose (Fingerstick) 137 mg/dL (70-99) Laboratory Tests Test 04/19/19 16:56 04/19/19 20:49 04/20/19 08:12 04/20/19 11:34 Glucose (Fingerstick) 134 mg/dL (70-99) 150 mg/dL (70-99) 151 mg/dL (70-99) 137 mg/dL (70-99) Medications Current Medications Nitroglycerin (Nitrostat) 0.4 mg PRN Q5MIN PRN SL CHEST PAIN Last administered on 04/16/19at 11:14; Start 04/16/19 at 11:00; Stop 04/17/19 at 08:31; Status DC Lorazepam (Ativan Inj) 1 mg 1X ONCE IV Last administered on 04/16/19at 11:53; Start 04/16/19 at 11:45; Stop 04/16/19 at 11:46; Status DC Furosemide (Lasix) 40 mg 1X ONCE IVP Last administered on 04/16/19at 12:57; Start 04/16/19 at 12:30; Stop 04/16/19 at 12:31; Status DC Albuterol Sulfate (Ventolin Neb Soln) 2.5 mg PRN Q4HRS PRN NEB SHORTNESS OF BREATH Last administered on 04/19/19at 07:50; Start 04/16/19 at 15:45 Alprazolam (Xanax) 1 mg PRN BID PRN PO ANXIETY / AGITATION; Start 04/16/19 at 15:45; Stop 04/16/19 at 17:22; Status DC Aspirin (Ecotrin) 81 mg DAILYWBKFT PO Last administered on 04/20/19at 08:25; Start 04/17/19 at 08:00 Carvedilol (Coreg) 6.25 mg BIDWMEALS PO ; Start 04/16/19 at 17:00; Stop 04/16/19 at 17:22; Status DC Diphenhydramine HCl (Benadryl) 25 mg PRN Q6HRS PRN PO ALLERGIES Last administered on 04/18/19at 03:13; Start 04/16/19 at 15:45 Albuterol/ Ipratropium (Duoneb) 3 ml QID NEB Last administered on 04/20/19at 07:33; Start 04/16/19 at 17:00 Nitroglycerin (Nitrostat) 0.4 mg PRN Q5MIN PRN SL CHEST PAIN; Start 04/16/19 at 15:45 Pantoprazole Sodium (Protonix) 40 mg DAILY PO Last administered on 04/20/19at 08:25; Start 04/17/19 at 09:00 Polyethylene Glycol (miraLAX PACKET) 17 gm PRN DAILY PRN PO CONSTIPATION; Start 04/16/19 at 15:45 Sennosides (Senna) 8.6 mg PRN DAILY PRN PO CONSTIPATION; Start 04/16/19 at 15:45 Non-Formulary Medication (Albuterol Sulfate (Albuterol Sulfate Hfa Inhaler)) 2 puff PRN Q4HRS PRN INH SHORTNESS OF BREATH; Start 04/16/19 at 15:45; Status UNV Atorvastatin Calcium (Lipitor) 80 mg QHS PO Last administered on 04/19/19at 21:40; Start 04/16/19 at 21:00 Non-Formulary Medication (Fluticasone/ Salmeterol (Advair 250-50 Diskus)) 1 puff PRN BID PRN IH SHORTNESS OF BREATH; Start 04/16/19 at 15:45; Stop 04/16/19 at 15:57; Status DC Albuterol Sulfate (Ventolin Neb Soln) 2.5 mg RTQID NEB ; Start 04/16/19 at 16:00; Status UNV Budesonide (Pulmicort) 0.5 mg RTBID NEB Last administered on 04/20/19 07:33; Start 04/16/19 at 20:00 Furosemide (Lasix) 40 mg BID92 PO Last administered on 04/20/19 08:25; Start 04/16/19 at 18:00 Insulin Glargine (Lantus) 60 units BID SQ Last administered on 04/20/19 08:25; Start 04/16/19 at 21:00 Isosorbide Mononitrate (Imdur) 60 mg DAILY PO Last administered on 04/20/19 08:25; Start 04/17/19 at 09:00 Losartan Potassium (Cozaar) 50 mg DAILY PO Last administered on 04/20/19 08:25; Start 04/17/19 at 09:00 Methocarbamol (Robaxin) 750 mg BID PO Last administered on 04/20/19 08:25; Start 04/16/19 at 21:00 Zolpidem Tartrate (Ambien) 5 mg PRN QHS PRN PO INSOMNIA; Start 04/16/19 at 17:15; Stop 04/16/19 at 18:11; Status DC Alprazolam (Xanax) 2 mg PRN BID PRN PO ANXIETY / AGITATION Last administered on 04/19/19 10:25; Start 04/16/19 at 17:30 Clopidogrel Bisulfate (Plavix) 75 mg DAILYWBKFT PO Last administered on 04/20/19 08:25; Start 04/17/19 at 08:00 Pregabalin (Lyrica) 75 mg BID PO Last administered on 04/20/19 08:25; Start 04/16/19 at 17:30 Guaifenesin (Robitussin) 200 mg PRN Q4HRS PRN PO COUGH Last administered on 04/17/19 21:06; Start 04/16/19 at 17:30 Zolpidem Tartrate (Ambien) 5 mg QHS PO Last administered on 04/19/19 21:40; Start 04/16/19 at 21:00 Zolpidem Tartrate (Ambien) 5 mg PRN QHS PRN PO INSOMNIA Last administered on 04/17/19 00:22; Start 04/16/19 at 18:15 Acetaminophen/ Hydrocodone Bitart (Lortab 5/325) 1 tab PRN Q4HRS PRN PO PAIN MODERATE Last administered on 04/17/19at 10:47; Start 04/16/19 at 21:30; Stop 04/17/19 at 12:03; Status DC Benzonatate (Tessalon Perle) 100 mg PRN TID PRN PO COUGH 1ST CHOICE Last administered on 04/16/19at 22:44; Start 04/16/19 at 21:30 Hydralazine HCl (Apresoline Inj) 10 mg PRN Q4HRS PRN IVP ELEVATED BP, SEE COMMENTS; Start 04/17/19 at 12:00 Insulin Human Lispro (HumaLOG) 0-9 UNITS TIDWMEALS SQ Last administered on 04/20at 08:25; Start 04/17/19 at 12:00 Dextrose (Dextrose 50%-Water Syringe) 12.5 gm PRN Q15MIN PRN IV SEE COMMENTS; Start 04/17/19 at 12:00 Dextrose 250 ml PRN Q15MIN PRN IV SEE COMMENTS; Start 04/17/19 at 12:00 Insulin Human Lispro (HumaLOG) 10 units TIDWMEALS SQ ; Start 04/17/19 at 12:00; Stop 04/17/19 at 12:03; Status DC Acetaminophen (Tylenol) 500 mg PRN Q6HRS PRN PO HEADACHE / TEMP; Start 04/17/19 at 12:00 Tramadol HCl (Ultram) 50 mg PRN Q6HRS PRN PO PAIN MILD; Start 04/17/19 at 12:00 Ondansetron HCl (Zofran) 4 mg PRN Q6HRS PRN IV NAUSEA/VOMITING; Start 04/17/19 at 12:00 Acetaminophen/ Hydrocodone Bitart (Lortab 5/325) 2 tab PRN Q6HRS PRN PO PAIN MODERATE Last administered on 04/20/19at 11:34; Start 04/17/19 at 12:15 Insulin Human Lispro (HumaLOG) 15 units TIDWMEALS SQ Last administered on 04/20/19at 08:25; Start 04/17/19 at 17:00 Sodium Chloride 1,000 ml @ 100 mls/hr Q10H IV Last administered on 8/19/19at 02:13; Start 04/17/19 at 12:45; Stop 04/18/19 at 11:18; Status DC Potassium Chloride (Klor-Con) 40 meq 1X ONCE PO ; Start 04/17/19 at 15:15; Stop 04/17/19 at 15:16; Status UNV Regadenoson (Lexiscan) 0.4 mg 1X ONCE IV Last administered on 04/18/19at 09:01; Start 04/18/19 at 08:30; Stop 04/18/19 at 08:31; Status DC Guaifenesin (MUCINEX ER with DM) 1 tab BID PO Last administered on 04/20/19at 08:25; Start 04/18/19 at 12:00 Azithromycin 500 mg/Sodium Chloride 250 ml @ 250 mls/hr Q24H IV Last administered on 04/19/19at 13:12; Start 04/18/19 at 13:00 Active Scripts Active Prednisone 20 Mg Tablet 1 Tab PO DAILY 5 Days Azithromycin Tablet (Azithromycin) 250 Mg Tablet 250 Mg PO DAILY MDD 1 4 Days Humalog (Insulin Lispro) 100 Unit/1 Ml Insuln.pen 40 Units SQ TIDWMEALS MDD 1 Lantus Solostar (Insulin Glargine,Hum.rec.anlog) 100 Unit/1 Ml Insuln.pen 60 Units SQ BID MDD 1 Promethazine Hcl 12.5 Mg Tablet 12.5 Mg PO PRN Q6HRS PRN MDD 1 Hydrocodone-Apap 5-325 (Hydrocodone Bit/Acetaminophen) 1 Tab Tablet 1 Tab PO PRN Q4HRS PRN Aspirin Ec (Aspirin) 81 Mg Tablet.dr 81 Mg PO DAILYWBKFT 30 Days Carvedilol (Carvedilol) 6.25 Mg Tablet 6.25 Mg PO BIDWMEALS 30 Days Isosorbide Mononitrate Er (Isosorbide Mononitrate) 30 Mg Tab.er.24h 60 Mg PO DAILY 30 Days Lasix (Furosemide) 40 Mg Tablet 40 Mg PO BID Ultram (Tramadol Hcl) 50 Mg Tablet 1 Tab PO Q6HRS PRN Reported Ambien (Zolpidem Tartrate) 5 Mg Tablet 5 Mg PO PRN QHS PRN Miralax (Polyethylene Glycol 3350) 17 Gm Powd.pack 1 Packet PO DAILY PRN Alprazolam 1 Mg Tablet 1 Tab PO BID PRN Advair 250-50 Diskus (Fluticasone/Salmeterol) 1 Each Disk.w.dev 1 Puff IH PRN BID PRN Senokot (Sennosides) 8.6 Mg Tablet 1 Tab PO PRN DAILY PRN Gabapentin 800 Mg Tablet 800 Mg PO TID Robaxin-750 (Methocarbamol) 750 Mg Tablet 1 Tab PO BID Benadryl (Diphenhydramine Hcl) 25 Mg Capsule 25 Mg PO PRN Q6HRS PRN Pantoprazole Sodium (Pantoprazole Sodium) 40 Mg Tablet.dr 40 Mg PO DAILY Duoneb 0.5-3(2.5) Mg/3 Ml (Albuterol/Ipratropium) 3 Ml Ampul.neb 3 Ml NEB QID Albuterol Sulfate Neb Soln (Albuterol Sulfate) 2.5 Mg/3 Ml Vial.neb 2.5 Mg NEB PRN Q4HRS PRN NITROGLYCERIN SubLingual (Nitroglycerin) 0.4 Mg Tab.subl 0.4 Mg SL PRN Q5MIN PRN Potassium Chloride 20 Meq Tablet.er 20 Meq PO BID Losartan Potassium (Losartan Potassium) 25 Mg Tablet 50 Mg PO DAILY Lipitor (Atorvastatin Calcium) 80 Mg Tablet 1 Tab PO QHS Albuterol Sulfate Hfa Inhaler (Albuterol Sulfate) 8.5 Gm Hfa.aer.ad 2 Puff INH PRN Q4HRS PRN Vitals/I & O Vital Sign - Last 24 Hours 04/19/19 04/19/19 04/19/19 04/19/19 13:13 14:44 15:00 15:05 Temp 98.7 98.7 Pulse 63 Resp 18 B/P (MAP) 137/70 (92) 134/70 (91) Pulse Ox 100 O2 Delivery Room Air Room Air Room Air 04/19/19 04/19/19 04/19/19 04/19/19 16:50 19:20 21:34 22:53 Temp 98.6 98.6 Pulse 66 Resp 17 18 18 B/P (MAP) 140/67 (91) Pulse Ox 99 99 99 O2 Delivery Room Air Room Air Nasal Cannula Room Air 8/20/19 8/21/19 8/21/19 8/21/19 23:36 01:07 03:41 05:27 Temp 98.6 98.4 98.6 98.4 Pulse 62 60 Resp 17 18 18 18 B/P (MAP) 140/69 (92) 146/70 (95) Pulse Ox 100 100 95 95 O2 Delivery Room Air Room Air Room Air Room Air 04/20/19 04/20/19 04/20/19 04/20/19 06:40 07:34 07:45 08:25 Temp 98.8 98.8 Pulse 66 66 Resp 20 20 B/P (MAP) 152/68 (96) 152/68 Pulse Ox 95 97 96 O2 Delivery Room Air Room Air Room Air 04/20/19 04/20/19 04/20/19 08:25 10:40 11:34 Temp 98.8 98.8 Pulse 66 64 Resp 18 B/P (MAP) 152/68 135/65 (88) Pulse Ox 94 94 O2 Delivery Room Air Intake and Output 04/19/19 04/19/19 04/20/19 14:59 22:59 06:59 Intake Total 500 ml Balance 500 ml CATE PAVON MD Apr 20, 2019 12:30
--- NOTE | 2019-04-20 13:30 | NUR ---
Discharge Note: MIKE BORJAS BINGEN Discharge instructions and discharge home medications reviewed with Patient and a copy given. All questions have been answered and understanding verbalized. The following instructions and handouts were given: prednisone, azithromycin, pain script given
== END 2019-04-20 13:30 | disposition home or self-care (01) | DRG 190 ==
LOC: ER 10:06 → 2 NORTH 12:18
PROVIDERS: ADMIT Internal Medicine; ATTEND Internal Medicine
DX: J44.0 Chronic obstructive pulmonary disease with (acute) lower respiratory infection (principal); N17.0 Acute kidney failure with tubular necrosis; Z68.42 Body mass index [BMI] 45.0-49.9, adult; J20.9 Acute bronchitis, unspecified; D72.819 Decreased white blood cell count, unspecified; E11.42 Type 2 diabetes mellitus with diabetic polyneuropathy; E11.65 Type 2 diabetes mellitus with hyperglycemia; E78.00 Pure hypercholesterolemia, unspecified; E78.5 Hyperlipidemia, unspecified; I11.0 Hypertensive heart disease with heart failure; E66.9 Obesity, unspecified; I25.10 Atherosclerotic heart disease of native coronary artery without angina pectoris; I50.9 Heart failure, unspecified; I25.2 Old myocardial infarction; K21.9 Gastro-esophageal reflux disease without esophagitis; Z82.3 Family history of stroke; Z82.49 Family history of ischemic heart disease and other diseases of the circulatory system; Z83.3 Family history of diabetes mellitus; Z95.5 Presence of coronary angioplasty implant and graft; F12.90 Cannabis use, unspecified, uncomplicated; F32.9 Major depressive disorder, single episode, unspecified; F41.9 Anxiety disorder, unspecified; G62.9 Polyneuropathy, unspecified; M19.90 Unspecified osteoarthritis, unspecified site; Z88.0 Allergy status to penicillin; Z88.8 Allergy status to other drugs, medicaments and biological substances; Z91.040 Latex allergy status
CPT/HCPCS: 36415; 71045; 78452; 80048; 80053; 80061; 80069; 82962; 83036; 83880; 84443; 84484; 85007; 85025; 93005; 93017; 93306; 94640; 94760; 96374; 96375; A9500; J0456; J1815; J1940; J2060; J2785; J7030; J7050; J7613; J7620; J7626; Q0163; 99285-25; G0378

== ENCOUNTER 2019-05-18 21:49 | Inpatient (IN) | payer OTHER ==
[~2019-05-18] VITALS: Ht 165.1 cm; Wt 163.4 kg
[2019-05-18] MEDS ORDERED: ASPIRIN 325 MG TABLET PO ONE (22:15)
[2019-05-18] MEDS ORDERED: IV NORMAL SALINE 1000ML BAG 1,000 ML IV ONE (22:15)
--- NOTE | 2019-05-18 22:16 | PHYS DOC ---
Past Medical History Past Medical History: CAD, CHF, Depression, Diabetes-Type II, DVT, High Cholesterol, Hypertension, Other Additional Past Medical Histor: NEUROPATHY Past Surgical History: Angioplasty, , Other Additional Past Surgical Histo: CARDIAC STENTS X5, left great toe amputation, R great & 2nd toe amputation Additional Information: Nonsmoker Alcohol Use: Occasionally Drug Use: Marijuana Adult General Chief Complaint Chief Complaint: CHEST PAIN HPI HPI 53-year-old female presents with report of chest pain which is been ongoing sin ce 1500. Patient reports at that time she had walked up 3 flights of stairs to visit a friend. Reports his had chest discomfort ever since. Denies leg swelling or calf tenderness. Reports associated shortness of air. Patient reports she also became very sweaty. Denies trauma. Review of Systems Review of Systems Constitutional: Denies fever or chills Eyes: Denies redness or eye pain HENT: Denies nasal congestion or sore throat Respiratory: Denies cough; reports dyspnea with exertion and shortness of breath Cardiovascular: Reports chest pain; denies palpitations GI: Denies abdominal pain, nausea, or vomiting : Denies dysuria or hematuria Musculoskeletal: Denies back pain or joint pain Integument: Denies rash or skin lesions Neurologic: Reports headache; denies focal weakness or sensory changes Complete systems were reviewed and found to be within normal limits, except as documented in this note. Current Medications Current Medications Current Medications Medications (Trade) Dose Ordered Sig/Justin Start Time Stop Time Status Last Admin Dose Admin Albuterol/ Ipratropium (Duoneb) 3 ml 1X ONCE 05/19/19 00:15 05/19/19 00:16 DC 05/19/19 00:24 3 ML Aspirin (Orlin Aspirin) 325 mg 1X ONCE 05/18/19 22:15 05/18/19 22:16 DC 05/18/19 23:01 325 MG Fentanyl Citrate (Fentanyl 2ml Vial) 50 mcg 1X ONCE 05/19/19 00:15 05/19/19 00:16 DC 05/19/19 01:54 50 MCG Ketorolac Tromethamine (Toradol 15mg Vial) 15 mg 1X ONCE 05/18/19 22:45 05/18/19 22:46 DC 05/18/19 23:01 15 MG Magnesium Sulfate 50 ml @ 25 mls/hr 1X ONCE 05/19/19 00:15 05/19/19 02:14 DC 05/19/19 01:54 25 MLS/HR Ondansetron HCl (Zofran) 4 mg 1X ONCE 05/18/19 22:45 05/18/19 22:46 DC 05/18/19 23:01 4 MG Sodium Chloride 1,000 ml @ 1,000 mls/hr 1X ONCE 05/18/19 22:15 05/18/19 23:14 DC 05/18/19 22:42 1,000 MLS/HR Allergies Allergies Allergies Coded Allergies Type Severity Reaction Last Updated Verified Penicillins Allergy Severe tongue swelling, HIVES, ANGIOEDEMA 06/06/17 Yes latex Allergy Severe Hives, N/V 06/06/17 Yes prochlorperazine Allergy Severe tongue swelling, ANGIOEDEMA 06/06/17 Yes Iodinated Contrast Media Allergy Intermediate 10/07/17 Yes doxycycline Allergy Intermediate ITCHING 06/06/17 Yes iodine Allergy Intermediate "shiver", N/V 06/06/17 Yes morphine Allergy Intermediate itching 08/28/18 Yes Physical Exam Physical Exam Constitutional: Well developed, well nourished, obese, non-toxic appearance HENT: Normocephalic, atraumatic, oropharynx moist Eyes: Conjunctiva normal, no discharge Neck: Normal range of motion, no tenderness, supple Cardiovascular: Heart rate normal, regular rhythm Lungs & Thorax: Bilateral breath sounds diminished at bases, no wheezing Abdomen: Soft, no tenderness Skin: Warm, dry, no erythema Extremities: No tenderness, ROM intact, 2+ lower extremity edema, right great toe and second toe amputation noted, Neurologic: Alert and oriented X 3, no focal deficits noted Psychologic: Affect anxious, judgement normal Current Patient Data Vital Signs Vital Signs Date Time Temp Pulse Resp B/P (MAP) Pulse Ox O2 Delivery O2 Flow Rate FiO2 05/18/19 23:51 60 23 121/56 (77) 97 Room Air 05/18/19 21:56 98.0 98.0 Lab Values Laboratory Tests Test 05/18/19 22:24 05/18/19 23:50 White Blood Count 7.3 x10^3/uL (4.0-11.0) Red Blood Count 3.72 x10^6/uL (3.50-5.40) Hemoglobin 10.2 g/dL (12.0-15.5) L Hematocrit 30.6 % (36.0-47.0) L Mean Corpuscular Volume 82 fL (79-100) Mean Corpuscular Hemoglobin 27 pg (25-35) Mean Corpuscular Hemoglobin Concent 33 g/dL (31-37) Red Cell Distribution Width 15.5 % (11.5-14.5) H Platelet Count 214 x10^3/uL (140-400) Neutrophils (%) (Auto) 62 % (31-73) Lymphocytes (%) (Auto) 29 % (24-48) Monocytes (%) (Auto) 7 % (0-9) Eosinophils (%) (Auto) 2 % (0-3) Basophils (%) (Auto) 1 % (0-3) Neutrophils # (Auto) 4.5 x10^3/uL (1.8-7.7) Lymphocytes # (Auto) 2.1 x10^3/uL (1.0-4.8) Monocytes # (Auto) 0.5 x10^3/uL (0.0-1.1) Eosinophils # (Auto) 0.1 x10^3/uL (0.0-0.7) Basophils # (Auto) 0.1 x10^3/uL (0.0-0.2) Prothrombin Time 14.1 SEC (11.7-14.0) H Prothrombin Time INR 1.1 (0.8-1.1) Activated Partial Thromboplast Time 24 SEC (24-38) D-Dimer (Soha) 0.84 ug/mlFEU (0.00-0.50) H Sodium Level 144 mmol/L (136-145) Potassium Level 3.6 mmol/L (3.5-5.1) Chloride Level 108 mmol/L (98-107) H Carbon Dioxide Level 27 mmol/L (21-32) Anion Gap 9 (6-14) Blood Urea Nitrogen 22 mg/dL (7-20) H Creatinine 1.5 mg/dL (0.6-1.0) H Estimated GFR (Cockcroft-Gault) 43.8 BUN/Creatinine Ratio 15 (6-20) Glucose Level 179 mg/dL (70-99) H Lactic Acid Level 2.0 mmol/L (0.4-2.0) Calcium Level 9.4 mg/dL (8.5-10.1) Magnesium Level 1.6 mg/dL (1.8-2.4) L Total Bilirubin 0.3 mg/dL (0.2-1.0) Aspartate Amino Transferase (AST) 7 U/L (15-37) L Alanine Aminotransferase (ALT) 11 U/L (14-59) L Alkaline Phosphatase 52 U/L (46-116) Creatine Kinase 48 U/L (26-192) Creatine Kinase MB (Mass) 0.5 ng/mL (0.0-3.6) Creatine Kinase MB Relative Index % (0-4) Troponin I Quantitative < 0.017 ng/mL (0.000-0.055) WM-Uyu-Y-Type Natriuretic Peptide 486 pg/mL (0-124) H Total Protein 7.1 g/dL (6.4-8.2) Albumin 3.2 g/dL (3.4-5.0) L Albumin/Globulin Ratio 0.8 (1.0-1.7) L Lipase 109 U/L (73-393) Urine Collection Type Unknown Urine Color Yellow Urine Clarity Clear Urine pH 5.0 Urine Specific [place] 1.020 Urine Protein 30 mg/dL (NEG-TRACE) Urine Glucose (UA) 100 mg/dL (NEG) Urine Ketones (Stick) Negative mg/dL (NEG) Urine Blood Negative (NEG) Urine Nitrite Negative (NEG) Urine Bilirubin Negative (NEG) Urine Urobilinogen Dipstick 0.2 mg/dL (0.2 mg/dL) Urine Leukocyte Esterase Trace (NEG) Urine RBC 0 /HPF (0-2) Urine WBC 5-10 /HPF (0-4) Urine Squamous Epithelial Cells Mod /LPF Urine Bacteria Many /HPF (0-FEW) Urine Mucus Mod /LPF Urine Opiates Screen Neg (NEG) Urine Methadone Screen Neg (NEG) Urine Barbiturates Neg (NEG) Urine Phencyclidine Screen Neg (NEG) Urine Amphetamine/Methamphetamine Neg (NEG) Urine Benzodiazepines Screen Neg (NEG) Urine Cocaine Screen Pos (NEG) Urine Cannabinoids Screen Pos (NEG) Urine Ethyl Alcohol Neg (NEG) Laboratory Tests 05/18/19 22:24 Laboratory Tests 05/18/19 22:24 EKG EKG @2158 NSR at 64bpm, NO ST elevation, t wave inversion V5-V6, QRS 116ms, QT/QTc 398/410ms, compared to prior EKG per [facility] from 04/16/19 without significant change. Radiology/Procedures Radiology/Procedures PROCEDURE: CT HEAD WO CONTRAST Examination: CT HEAD WO CONTRAST History: Headache, hypertension Comparison/Correlation: None Findings: Axial images of the head were obtained without contrast. Ventricles are normal size. Bony structures are unremarkable. No definite intracranial hemorrhage. Punctate 0.3 cm density involving the right frontoparietal deep white matter on axial image 18 is of indeterminate significance. No surrounding edema. No midline shift or mass effect. This may represent a small focus of calcification. Bony structures are unremarkable. Bilateral proptosis is noted. Impression: Bilateral proptosis. No definite intracranial hemorrhage. PQRS Compliance Statement: One or more of the following individualized dose reduction techniques were utilized for this examination: 1. Automated exposure control 2. Adjustment of the mA and/or kV according to patient size 3. Use of iterative reconstruction technique Electronically signed by: Fracisco Mendoza MD (05/18/2019 11:48 PM) [facility] CXR AP (preliminary interpretation by ED Physician): No acute process Course & Med Decision Making Course & Med Decision Making Pertinent Labs and Imaging studies reviewed. (See chart for details) Patient presents with report of chest pain with associated shortness of breath/dyspnea on exertion combined with headache. Patient has history of hypertension. Reports her blood pressure has been elevated today. Patient neurologically intact. No meningeal signs appreciated. EKG stable. Labs obtained and posted to chart. Chest x-ray stable. Headache addressed. Patient with considerable cardiac risk factors. Heart score 4. D-dimer elevated. Patient with past medical history of DVT. Lung V/Q scan ordered for a.m. Patient requiring admission for further evaluation and treatment. Hypomagnesemia addressed. Discussed with Dr. Andrade (hospitalist) who is in agreement with admission. Discussed findings and plan with patient and family, who acknowledge understanding and agreement. Dragon Disclaimer Dragon Disclaimer This electronic medical record was generated, in whole or in part, using a voice recognition dictation system. Departure Departure Impression: Primary Impression: Chest pain Additional Impressions: Elevated d-dimer Hypomagnesemia Shortness of breath Headache Disposition: ADMITTED INPATIENT Admitting Physician: ROHINI (Reyes) Condition: STABLE Referrals: MELANIE OCHOA (PCP) The HEART Score for CP Pts HEART Score for Chest Pain: HEART Score for Chest Pain Response (Comments) Value History Moderately Suspicious 1 ECG Normal 0 Age >45 - < 65 1 Risk Factors >3 Risk Factors or Hx CAD 2 Troponin < Normal Limit 0 Total 4 Risk Factors: Risk Factors: DM, Current or recent (<one month) smoker, HTN, HLP, family history of CAD, obesity. Risk Scores: Score 0 - 3: 2.5% MACE over next 6 weeks - Discharge Home Score 4 - 6: 20.3% MACE over next 6 weeks - Admit for Clinical Observation Score 7 - 10: 72.7% MACE over next 6 weeks - Early Invasive Strategies Problem Qualifiers Primary Impression: Chest pain Chest pain type: unspecified Qualified Codes: R07.9 - Chest pain, unspecified Additional Impressions: Headache Headache type: unspecified Headache chronicity pattern: acute headache Intractability: not intractable Qualified Codes: R51 - Headache ROBEL CHADWICK DO May 18, 2019 22:16
[2019-05-18 22:31] LABS: BASO # 0.1 x10^3/uL (0.0-0.2); BASO % 1 % (0-3); EOS # 0.1 x10^3/uL (0.0-0.7); EOS % 2 % (0-3); HEMATOCRIT 30.6 % (36.0-47.0); HEMOGLOBIN 10.2 g/dL (12.0-15.5); LYMPH # 2.1 x10^3/uL (1.0-4.8); LYMPH % 29 % (24-48); MEAN CORPUSCULAR HEMOGLOBIN 27 pg (25-35); MEAN CORPUSCULAR HGB CONC 33 g/dL (31-37); MEAN CORPUSCULAR VOLUME 82 fL (79-100); MONO # 0.5 x10^3/uL (0.0-1.1); MONO % 7 % (0-9); NEUT # 4.5 x10^3/uL (1.8-7.7); NEUT % 62 % (31-73); PLATELET COUNT 214 x10^3/uL (140-400); RED BLOOD COUNT 3.72 x10^6/uL (3.50-5.40); RED CELL DISTRIBUTION WIDTH 15.5 % (11.5-14.5); WHITE BLOOD COUNT 7.3 x10^3/uL (4.0-11.0)
[2019-05-18 22:41] LABS: PROTHROMBIN TIME PATIENT 14.1 SEC (11.7-14.0)
[2019-05-18 22:43] LABS: CALCIUM 9.4 mg/dL (8.5-10.1); CREATININE 1.5 mg/dL (0.6-1.0); GFR 43.8; POTASSIUM 3.6 mmol/L (3.5-5.1)
[2019-05-18 22:44] LABS: D-DIMER 0.84 ug/mlFEU (0.00-0.50)
[2019-05-18] MEDS ORDERED: ONDANSETRON PF 4 MG/2 ML VIAL. IV ONE (22:45)
[2019-05-18] MEDS ORDERED: KETOROLAC 15 MG/ML VIAL. IV ONE (22:45)
[2019-05-18 22:50] LABS: ALBUMIN 3.2 g/dL (3.4-5.0); ALBUMIN/GLOBULIN RATIO 0.8 (1.0-1.7); MAGNESIUM 1.6 mg/dL (1.8-2.4); TOTAL BILIRUBIN 0.3 mg/dL (0.2-1.0); TOTAL PROTEIN 7.1 g/dL (6.4-8.2)
[2019-05-18 23:11] LABS: CREATINE KINASE 48 U/L (26-192)
--- NOTE | 2019-05-18 23:52 | RAD ---
Examination: CT HEAD WO CONTRAST History: Headache, hypertension Comparison/Correlation: None Findings: Axial images of the head were obtained without contrast. Ventricles are normal size. Bony structures are unremarkable. No definite intracranial hemorrhage. Punctate 0.3 cm density involving the right frontoparietal deep white matter on axial image 18 is of indeterminate significance. No surrounding edema. No midline shift or mass effect. This may represent a small focus of calcification. Bony structures are unremarkable. Bilateral proptosis is noted. Impression: Bilateral proptosis. No definite intracranial hemorrhage. PQRS Compliance Statement: One or more of the following individualized dose reduction techniques were utilized for this examination: 1. Automated exposure control 2. Adjustment of the mA and/or kV according to patient size 3. Use of iterative reconstruction technique Electronically signed by: Fracisco Mendoza MD (05/18/2019 11:48 PM) [facility]
[2019-05-19 00:02] LABS: BILIRUBIN,URINE NEGATIVE (NEG); CLARITY,URINE CLEAR; COLOR,URINE YELLOW; NITRITE,URINE NEGATIVE (NEG); PROTEIN,URINE 30 mg/dL (NEG-TRACE); UROBILINOGEN,URINE 0.2 mg/dL (0.2 mg/dL)
[2019-05-19 00:13] LABS: BARBITURATES NEG (NEG); BENZODIAZEPINES NEG (NEG); CANNABINOIDS POS (NEG); COCAINE POS (NEG); METHADONE NEG (NEG); OPIATES NEG (NEG); PHENCYCLIDINE NEG (NEG)
--- NOTE | 2019-05-19 00:14 | EKG ---
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
[2019-05-19] MEDS ORDERED: MAGNESIUM SULFATE 2GM 50 ML IV ONE (00:15)
[2019-05-19] MEDS ORDERED: IPRATRPIUM/ALBUTEROL 0.5/2.5MG 3 ML NEBU. NEB ONE (00:15)
[2019-05-19] MEDS ORDERED: fentaNYL PF VIAL 100 MCG/2 ML VIAL IV ONE (00:15)
[2019-05-19 00:18] LABS: AMPHETAMINE/METHAMPHETAMINE NEG (NEG)
[2019-05-19 00:21] LABS: BACTERIA,URINE MANY /HPF (0-FEW); RBC,URINE 0 /HPF (0-2); SQUAMOUS EPITHELIAL CELL,UR MOD /LPF
[2019-05-19] MEDS ORDERED: fentaNYL PF VIAL 100 MCG/2 ML VIAL IV PRN (00:45)
[2019-05-19] MEDS ORDERED: DEXTROSE 50% 25 GM / 50ML DISP.SYRIN. IV PRN (00:45)
[2019-05-19] MEDS ORDERED: ONDANSETRON PF 4 MG/2 ML VIAL. IV PRN (00:45)
[2019-05-19] MEDS ORDERED: IV DEXTROSE 5% 250 ML BAG. IV PRN (00:45)
[2019-05-19 03:00] VITALS: BP 131/58
[2019-05-19 07:00] VITALS: BP 124/59
[2019-05-19] MEDS: IPRATRPIUM/ALBUTEROL 0.5/2.5MG 3 ML NEBU. NEB SCH ×2 (07:30→11:50)
[2019-05-19] MEDS: INSULIN LISPRO 300 UNITS/3 ML VIAL. SQ SCH ×2 (08:00→12:21)
--- NOTE | 2019-05-19 08:17 | RAD ---
EXAM: AP View of the chest DATE: 05/18/2019 9:58 PM INDICATION: Chest pain, shortness of air COMPARISON: 04/16/2019, 2719 FINDINGS: Mild cardiomegaly. Cardiomediastinal silhouette is stable. No lobar consolidation. No pleural effusion or pneumothorax. IMPRESSION: Essentially stable examination without lobar consolidation. Electronically signed by: Freddie Bernstein MD (05/19/2019 8:14 AM) [facility]
--- NOTE | 2019-05-19 09:58 | PDOC2 ---
CARDIAC CONSULT DATE OF CONSULT Date of Consult DATE: 05/19/19 TIME: 09:33 REASON FOR CONSULT Reason for Consult: Chest pain REFERRING PHYSICIAN Referring Physician: Geronimo SOURCE Source: Chart review, Patient HISTORY OF PRESENT ILLNESS HISTORY OF PRESENT ILLNESS This is a pleasant 53 yo femlae admitted for complains of chest pain. Reports this occurred yesterday. She was going up the stairs and felt under her left b reast burning and sharp and nonradiating discomfort. She was a little nauseated at that time but no vomiting. No significant SOA and no complains of palpitations. She did note her SBP in the 180s at that time and presently her BP has been controlled. She is significant for CAD and verbalized compliance with her meds. She admits using marijuana but was angered when asked about smoking and cocaine and did not end up answering my question. Presently she is comfortable and denies any discomfort. PAST MEDICAL HISTORY Past Medical History Cardiovascular: CAD, CHF, HTN, Hyperlipidemia Pulmonary: Asthma, COPD CENTRAL NERVOUS SYSTEM: Peripheral neuropathy GI: GERD Heme/Onc: No pertinent hx Hepatobiliary: No pertinent hx Psych: Anxiety, Addictions, Depression Musculoskeletal: Osteoarthritis Rheumatologic: No pertinent hx Infectious disease: No pertinent hx Renal/: No pertinent hx Endocrine: Diabetes PAST SURGICAL HISTORY Past Surgical History: Other (PCI/stents) FAMILY HISTORY Family History: Diabetes, Stroke SOCIAL HISTORY ALCOHOL: occassional Drugs: Cocaine, Marijuana Lives: with Family CURRENT MEDICATIONS CURRENT MEDICATIONS Current Medications Medications (Trade) Dose Ordered Sig/Justin Route PRN Reason Start Time Stop Time Status Last Admin Dose Admin Sodium Chloride 1,000 ml @ 1,000 mls/hr 1X ONCE IV 05/18/19 22:15 05/18/19 23:14 DC 05/18/19 22:42 Aspirin (Orlin Aspirin) 325 mg 1X ONCE PO 05/18/19 22:15 05/18/19 22:16 DC 05/18/19 23:01 Ketorolac Tromethamine (Toradol 15mg Vial) 15 mg 1X ONCE IV 05/18/19 22:45 05/18/19 22:46 DC 05/18/19 23:01 Ondansetron HCl (Zofran) 4 mg 1X ONCE IV 05/18/19 22:45 05/18/19 22:46 DC 05/18/19 23:01 Magnesium Sulfate 50 ml @ 25 mls/hr 1X ONCE IV 05/19/19 00:15 05/19/19 02:14 DC 05/19/19 01:54 Albuterol/ Ipratropium (Duoneb) 3 ml 1X ONCE NEB 05/19/19 00:15 05/19/19 00:16 DC 05/19/19 00:24 Fentanyl Citrate (Fentanyl 2ml Vial) 50 mcg 1X ONCE IV 05/19/19 00:15 05/19/19 00:16 DC 05/19/19 01:54 Ondansetron HCl (Zofran) 4 mg PRN Q8HRS PRN IV NAUSEA/VOMITING 05/19/19 00:45 05/20/19 00:44 05/19/19 01:54 Albuterol/ Ipratropium (Duoneb) 3 ml RTQID NEB 05/19/19 08:00 05/20/19 07:59 05/19/19 07:30 ALLERGIES ALLERGIES: Coded Allergies: Penicillins (Verified Allergy, Severe, tongue swelling, HIVES, ANGIOEDEMA, 06/06/17) latex (Verified Allergy, Severe, Hives, N/V, 06/06/17) prochlorperazine (Verified Allergy, Severe, tongue swelling, ANGIOEDEMA, 06/06/17) Iodinated Contrast Media (Verified Allergy, Intermediate, 10/07/17) doxycycline (Verified Allergy, Intermediate, ITCHING, 06/06/17) iodine (Verified Allergy, Intermediate, "shiver", N/V, 06/06/17) morphine (Verified Allergy, Intermediate, itching, 08/28/18) Tolerates oxycodone and tramadol ROS Review of System 14 point ROS evaluated with pertinent positives noted per HPI PHYSICAL EXAM General: Alert, Oriented X3, Cooperative, No acute distress HEENT: Atraumatic, Mucous membr. moist/pink Lungs: Clear to auscultation, Normal air movement Heart: Regular rate (SR/SB), Normal S1, Normal S2, No murmurs Abdomen: Soft, No tenderness Extremities: No cyanosis, No edema Skin: No breakdown, No significant lesion Neuro: Normal speech, Sensation intact Psych/Mental Status: Mental status NL, Mood NL MUSCULOSKELETAL: Osteoarthritic changes both hands VITALS/I&O VITALS/I&O: Vital Signs Date Time Temp Pulse Resp B/P (MAP) Pulse Ox O2 Delivery O2 Flow Rate FiO2 05/19/19 07:30 96 Room Air 05/19/19 07:00 98.0 53 18 124/59 (80) 98.0 I & O 05/18/19 05/18/19 05/19/19 15:00 23:00 07:00 Intake Total 50 ml 150 ml Balance 50 ml 150 ml LABS Lab: Laboratory Tests Test 05/18/19 22:24 05/18/19 23:50 05/19/19 03:30 05/19/19 07:59 White Blood Count 7.3 x10^3/uL (4.0-11.0) Red Blood Count 3.72 x10^6/uL (3.50-5.40) Hemoglobin 10.2 g/dL (12.0-15.5) L Hematocrit 30.6 % (36.0-47.0) L Mean Corpuscular Volume 82 fL (79-100) Mean Corpuscular Hemoglobin 27 pg (25-35) Mean Corpuscular Hemoglobin Concent 33 g/dL (31-37) Red Cell Distribution Width 15.5 % (11.5-14.5) H Platelet Count 214 x10^3/uL (140-400) Neutrophils (%) (Auto) 62 % (31-73) Lymphocytes (%) (Auto) 29 % (24-48) Monocytes (%) (Auto) 7 % (0-9) Eosinophils (%) (Auto) 2 % (0-3) Basophils (%) (Auto) 1 % (0-3) Neutrophils # (Auto) 4.5 x10^3/uL (1.8-7.7) Lymphocytes # (Auto) 2.1 x10^3/uL (1.0-4.8) Monocytes # (Auto) 0.5 x10^3/uL (0.0-1.1) Eosinophils # (Auto) 0.1 x10^3/uL (0.0-0.7) Basophils # (Auto) 0.1 x10^3/uL (0.0-0.2) Prothrombin Time 14.1 SEC (11.7-14.0) H Prothrombin Time INR 1.1 (0.8-1.1) Activated Partial Thromboplast Time 24 SEC (24-38) D-Dimer (Soha) 0.84 ug/mlFEU (0.00-0.50) H Sodium Level 144 mmol/L (136-145) Potassium Level 3.6 mmol/L (3.5-5.1) Chloride Level 108 mmol/L (98-107) H Carbon Dioxide Level 27 mmol/L (21-32) Anion Gap 9 (6-14) Blood Urea Nitrogen 22 mg/dL (7-20) H Creatinine 1.5 mg/dL (0.6-1.0) H Estimated GFR (Cockcroft-Gault) 43.8 BUN/Creatinine Ratio 15 (6-20) Glucose Level 179 mg/dL (70-99) H Lactic Acid Level 2.0 mmol/L (0.4-2.0) Calcium Level 9.4 mg/dL (8.5-10.1) Magnesium Level 1.6 mg/dL (1.8-2.4) L Total Bilirubin 0.3 mg/dL (0.2-1.0) Aspartate Amino Transferase (AST) 7 U/L (15-37) L Alanine Aminotransferase (ALT) 11 U/L (14-59) L Alkaline Phosphatase 52 U/L (46-116) Creatine Kinase 48 U/L (26-192) Creatine Kinase MB (Mass) 0.5 ng/mL (0.0-3.6) Creatine Kinase MB Relative Index % (0-4) Troponin I Quantitative < 0.017 ng/mL (0.000-0.055) < 0.017 ng/mL (0.000-0.055) AI-Xem-N-Type Natriuretic Peptide 486 pg/mL (0-124) H Total Protein 7.1 g/dL (6.4-8.2) Albumin 3.2 g/dL (3.4-5.0) L Albumin/Globulin Ratio 0.8 (1.0-1.7) L Lipase 109 U/L (73-393) Urine Collection Type Unknown Urine Color Yellow Urine Clarity Clear Urine pH 5.0 Urine Specific [place] 1.020 Urine Protein 30 mg/dL (NEG-TRACE) Urine Glucose (UA) 100 mg/dL (NEG) Urine Ketones (Stick) Negative mg/dL (NEG) Urine Blood Negative (NEG) Urine Nitrite Negative (NEG) Urine Bilirubin Negative (NEG) Urine Urobilinogen Dipstick 0.2 mg/dL (0.2 mg/dL) Urine Leukocyte Esterase Trace (NEG) Urine RBC 0 /HPF (0-2) Urine WBC 5-10 /HPF (0-4) Urine Squamous Epithelial Cells Mod /LPF Urine Bacteria Many /HPF (0-FEW) Urine Mucus Mod /LPF Urine Opiates Screen Neg (NEG) Urine Methadone Screen Neg (NEG) Urine Barbiturates Neg (NEG) Urine Phencyclidine Screen Neg (NEG) Urine Amphetamine/Methamphetamine Neg (NEG) Urine Benzodiazepines Screen Neg (NEG) Urine Cocaine Screen Pos (NEG) Urine Cannabinoids Screen Pos (NEG) Urine Ethyl Alcohol Neg (NEG) Glucose (Fingerstick) 171 mg/dL (70-99) H Test 05/19/19 08:05 Troponin I Quantitative < 0.017 ng/mL (0.000-0.055) Laboratory Tests 05/18/19 22:24 Laboratory Tests 05/18/19 22:24 ECHOCARDIOGRAM ECHOCARDIOGRAM <Conclusion> The left ventricle is normal size. Left ventricle systolic function is low normal. The Ejection Fraction is 50-55%. There is no significant aortic valvular stenosis. Doppler and Color Flow revealed no significant aortic regurgitation. Doppler and Color-flow revealed trace mitral regurgitation. Doppler and Color Flow revealed trace tricuspid regurgitation. The PA pressure was estimated at 27 mmHg. DATE: 04/18/19 1020 STRESS TEST STRESS TEST Conclusion 1. Mildly abnormal baseline EKG but no EKG evidence of stressed induced ischemia. 2. Nuclear imaging shows no reversible ischemia. 3. Nuclear imaging shows relatively small fixed defects in the inferior and anterior unger most consistent with attenuation defects. 4. Intact LV systolic function with no regional wall motion abnormalities. 5. Moderately low risk Lexiscan nuclear stress test with no evidence of reversible ischemia and no significant decrease in LV function. DATE: 04/18/19 0935 HEART CATH HEART CATH Conclusion 1. Normal left ventricular filling pressure 2. Patent LAD, LCx and RCA stents. 3. Mid RCA 50% ostial stent edge ISR, negative for ischemia by iFR testing. Recommendations Aggressive medical therapy Stop ASA 81mg daily, Start Plavix 75mg daily and continue Xarelto BP mgmt and weight loss program. Follow up with Dr. Veras at [facility]. DATE: 02/02/18 6936 ASSESSMENT/PLAN ASSESSMENT/PLAN 1. Atypical Chest pain: possible vasospasm with cocaine use. 2. Chronic diastolic CHF: compensated 3. HTN urgency: [id number] at home likely from cocaine use 4. CAD:s/p previous PCI/stent. Clinically stable 5. DM2 6. HLP 7. CKD3 9. UDS+ marijuana and cocaine: started getting irritated when asked about cocaine 10. Asymptomatic SB: no pauses. lowest in mid40s 11. Morbid obesity Recommendations 1. Continue with home regimen. Recent cardiac workup reviewed as above 2. Would reinforce recreational drug cessation but was angered by the discussion. May DC per cardiac standpoint. Follow up with Dr. Veras as scheduled in 05/31/2019 NYA ALBERTS APRN May 19, 2019 09:58
--- NOTE | 2019-05-19 10:09 | PDOC ---
[facility] [facility] PROGRESS NOTE Chief Complaint Chief Complaint Chest pain, hypomagnesemia History of Present Illness History of Present Illness 05/19/19 Pt was seen and examined at bedside No acute distress Was annoyed when nurse asked about cocaine usage Being discharged today 05/18/19 Pt is a 53 year old female who reported chest pain after climbing stairs to visit her friend. Was seen in the ED. Vitals/I&O Vitals/I&O: Vital Signs Date Time Temp Pulse Resp B/P (MAP) Pulse Ox O2 Delivery O2 Flow Rate FiO2 05/19/19 08:00 Room Air 05/19/19 07:30 96 05/19/19 07:00 98.0 53 18 124/59 (80) 98.0 I & O 0 05/18/19 05/18/19 05/19/19 15:00 23:00 07:00 Intake Total 50 ml 150 ml Balance 50 ml 150 ml Physical Exam Physical Exam: General: Alert, Oriented X3, Cooperative, No acute distress HEENT: Atraumatic, Mucous membranes. moist/pink Lungs: Clear to auscultation, Normal air movement Heart: Regular rate (SR/SB), Normal S1, Normal S2, No murmurs Abdomen: Soft, No tenderness Extremities: No cyanosis, No edema Skin: No breakdown, No significant lesion Neuro: Normal speech, Sensation intact Psych/Mental Status: Mental status NL, Mood NL MUSCULOSKELETAL: Osteoarthritic changes both hand General: Alert, Oriented X3, Cooperative, No acute distress Heart: Regular rate (SR/SB), Normal S1, Normal S2, No murmurs Lungs: Clear, Wheezing Abdomen: Soft, No tenderness Extremities: No cyanosis, No edema Skin: No breakdown, No significant lesion Labs Labs: Laboratory Tests Test 05/18/19 22:24 05/18/19 23:50 05/19/19 03:30 05/19/19 07:59 White Blood Count 7.3 x10^3/uL (4.0-11.0) Red Blood Count 3.72 x10^6/uL (3.50-5.40) Hemoglobin 10.2 g/dL (12.0-15.5) Hematocrit 30.6 % (36.0-47.0) Mean Corpuscular Volume 82 fL (79-100) Mean Corpuscular Hemoglobin 27 pg (25-35) Mean Corpuscular Hemoglobin Concent 33 g/dL (31-37) Red Cell Distribution Width 15.5 % (11.5-14.5) Platelet Count 214 x10^3/uL (140-400) Neutrophils (%) (Auto) 62 % (31-73) Lymphocytes (%) (Auto) 29 % (24-48) Monocytes (%) (Auto) 7 % (0-9) Eosinophils (%) (Auto) 2 % (0-3) Basophils (%) (Auto) 1 % (0-3) Neutrophils # (Auto) 4.5 x10^3/uL (1.8-7.7) Lymphocytes # (Auto) 2.1 x10^3/uL (1.0-4.8) Monocytes # (Auto) 0.5 x10^3/uL (0.0-1.1) Eosinophils # (Auto) 0.1 x10^3/uL (0.0-0.7) Basophils # (Auto) 0.1 x10^3/uL (0.0-0.2) Prothrombin Time 14.1 SEC (11.7-14.0) Prothromb Time International Ratio 1.1 (0.8-1.1) Activated Partial Thromboplast Time 24 SEC (24-38) D-Dimer (Soha) 0.84 ug/mlFEU (0.00-0.50) Sodium Level 144 mmol/L (136-145) Potassium Level 3.6 mmol/L (3.5-5.1) Chloride Level 108 mmol/L (98-107) Carbon Dioxide Level 27 mmol/L (21-32) Anion Gap 9 (6-14) Blood Urea Nitrogen 22 mg/dL (7-20) Creatinine 1.5 mg/dL (0.6-1.0) Estimated GFR (Cockcroft-Gault) 43.8 BUN/Creatinine Ratio 15 (6-20) Glucose Level 179 mg/dL (70-99) Lactic Acid Level 2.0 mmol/L (0.4-2.0) Calcium Level 9.4 mg/dL (8.5-10.1) Magnesium Level 1.6 mg/dL (1.8-2.4) Total Bilirubin 0.3 mg/dL (0.2-1.0) Aspartate Amino Transf (AST/SGOT) 7 U/L (15-37) Alanine Aminotransferase (ALT/SGPT) 11 U/L (14-59) Alkaline Phosphatase 52 U/L (46-116) Creatine Kinase 48 U/L (26-192) Creatine Kinase MB (Mass) 0.5 ng/mL (0.0-3.6) Creatine Kinase MB Relative Index % (0-4) Troponin I Quantitative < 0.017 ng/mL (0.000-0.055) < 0.017 ng/mL (0.000-0.055) UY-Jzk-H-Type Natriuretic Peptide 486 pg/mL (0-124) Total Protein 7.1 g/dL (6.4-8.2) Albumin 3.2 g/dL (3.4-5.0) Albumin/Globulin Ratio 0.8 (1.0-1.7) Lipase 109 U/L (73-393) Urine Collection Type Unknown Urine Color Yellow Urine Clarity Clear Urine pH 5.0 Urine Specific [place] 1.020 Urine Protein 30 mg/dL (NEG-TRACE) Urine Glucose (UA) 100 mg/dL (NEG) Urine Ketones (Stick) Negative mg/dL (NEG) Urine Blood Negative (NEG) Urine Nitrite Negative (NEG) Urine Bilirubin Negative (NEG) Urine Urobilinogen Dipstick 0.2 mg/dL (0.2 mg/dL) Urine Leukocyte Esterase Trace (NEG) Urine RBC 0 /HPF (0-2) Urine WBC 5-10 /HPF (0-4) Urine Squamous Epithelial Cells Mod /LPF Urine Bacteria Many /HPF (0-FEW) Urine Mucus Mod /LPF Urine Opiates Screen Neg (NEG) Urine Methadone Screen Neg (NEG) Urine Barbiturates Neg (NEG) Urine Phencyclidine Screen Neg (NEG) Urine Amphetamine/Methamphetamine Neg (NEG) Urine Benzodiazepines Screen Neg (NEG) Urine Cocaine Screen Pos (NEG) Urine Cannabinoids Screen Pos (NEG) Urine Ethyl Alcohol Neg (NEG) Glucose (Fingerstick) 171 mg/dL (70-99) Test 05/19/19 08:05 Troponin I Quantitative < 0.017 ng/mL (0.000-0.055) Review of Systems Review of Systems: No chest pain, no palpitations No nausea, no vomiting No shortness of breath, no wheezing Assessment and Plan Assessmemt and Plan Problems Medical Problems: (1) Chest pain Status: Acute (2) Headache Status: Acute (3) Hypomagnesemia Status: Acute (4) Shortness of breath Status: Acute Assessment Atypical Chest pain: possible vasospasm with cocaine use. Chronic diastolic CHF HTN urgency: [id number] at home likely from cocaine use CAD:s/p previous PCI/stent. Clinically stable DM2 HLP CKD3 UDS+ marijuana and cocaine: started getting irritated when asked about cocaine Asymptomatic SB: no pauses. lowest in mid40s Morbid obesity Plan Recreational drug cessation Weight loss Discharge Home meds Comment Review of Relevant I have reviewed the following items crista (where applicable) has been applied. Medications: Current Medications Medications (Trade) Dose Ordered Sig/Justin Route PRN Reason Start Time Stop Time Status Last Admin Dose Admin Sodium Chloride 1,000 ml @ 1,000 mls/hr 1X ONCE IV 05/18/19 22:15 05/18/19 23:14 DC 05/18/19 22:42 Aspirin (Orlin Aspirin) 325 mg 1X ONCE PO 05/18/19 22:15 05/18/19 22:16 DC 05/18/19 23:01 Ketorolac Tromethamine (Toradol 15mg Vial) 15 mg 1X ONCE IV 05/18/19 22:45 05/18/19 22:46 DC 05/18/19 23:01 Ondansetron HCl (Zofran) 4 mg 1X ONCE IV 05/18/19 22:45 05/18/19 22:46 DC 05/18/19 23:01 Magnesium Sulfate 50 ml @ 25 mls/hr 1X ONCE IV 05/19/19 00:15 05/19/19 02:14 DC 05/19/19 01:54 Albuterol/ Ipratropium (Duoneb) 3 ml 1X ONCE NEB 05/19/19 00:15 05/19/19 00:16 DC 05/19/19 00:24 Fentanyl Citrate (Fentanyl 2ml Vial) 50 mcg 1X ONCE IV 05/19/19 00:15 05/19/19 00:16 DC 05/19/19 01:54 Ondansetron HCl (Zofran) 4 mg PRN Q8HRS PRN IV NAUSEA/VOMITING 05/19/19 00:45 05/20/19 00:44 05/19/19 01:54 Albuterol/ Ipratropium (Duoneb) 3 ml RTQID NEB 05/19/19 08:00 05/20/19 07:59 05/19/19 07:30 SIMIN PECK III DO May 19, 2019 10:09
[2019-05-19 11:08] VITALS: BP 137/62
--- NOTE | 2019-05-19 14:55 | NUR ---
Discharge Note: MIKE BORJAS LIMON Discharge instructions and discharge home medications reviewed with Patient and a copy given. All questions have been answered and understanding verbalized. The following instructions and handouts were given: Chest pain Patient discharged to home or self care with transport via wheelchair
--- NOTE | 2019-05-19 15:22 | RAD ---
PULMONARY PERFUSION IMG PARTIC Clinical Indication: Dyspnea on exertion, elevated d-dimer. Comparison: AP chest, prior day. TECHNIQUE: Patient refused ventilation portion of study. Patient is injected with 5.5 mCi of technetium 99m MAA and multiple projection static images of the lungs are acquired. Findings: Lungs are clear on prior day chest radiograph. The perfusion images are moderately heterogeneous. There are areas of relative photopenia. A wedge shaped segmental defect at the periphery of the lungs is not identified. This finding would be most suspicious for a true segmental defect. IMPRESSION: Ventilation imaging not performed at patient request. Perfusion only images are not overly suspicious for pulmonary embolus. Electronically signed by: Indio Anaya MD (05/19/2019 3:19 PM) [id number]
--- NOTE | 2019-05-19 18:10 | SSS ---
ADMIT DATE: 05/19/2019 CHIEF COMPLAINT: Chest pain. HISTORY OF PRESENT ILLNESS: The patient is a pleasant 53-year-old female who presented to the ER with chest pain. She had a slightly bumped and elevated D-dimer. She was also cocaine positive. We admitted her overnight for observation. This morning, she is being examined and she has been cleared for discharge. PAST MEDICAL HISTORY: Cocaine abuse. ALLERGIES: None. FAMILY HISTORY: Coronary artery disease. SOCIAL HISTORY: She smokes and takes drugs. I think she drinks socially. MEDICATIONS: Reviewed, please refer to the MRAD. REVIEW OF SYSTEMS: GENERAL: No history of weight change, weakness or fevers. SKIN: No bruising, hair changes or rashes. EYES: No blurred, double or loss of vision. NOSE AND THROAT: No history of nosebleeds, hoarseness or sore throat. HEART: No history of palpitations, chest pain or shortness of breath on exertion. LUNGS: Denies cough, hemoptysis, wheezing or shortness of breath. GASTROINTESTINAL: Denies changes in appetite, nausea, vomiting, diarrhea or constipation. GENITOURINARY: No history of frequency, urgency, hesitancy or nocturia. NEUROLOGIC: Denies history of numbness, tingling, tremor or weakness. PSYCHIATRIC: No history of panic, anxiety or depression. ENDOCRINE: No history of heat or cold intolerance, polyuria or polydipsia. EXTREMITIES: Denies muscle weakness, joint pain, pain on walking or stiffness. PHYSICAL EXAMINATION: VITALS: Within normal limits and are stable. GENERAL: No apparent distress. Alert and oriented. HEENT: Head is normocephalic, atraumatic, pupils were equally round and reactive to light and accommodation. NECK: Supple, no JVD, no thyromegaly was noted. LUNGS: Clear to auscultation in all lung grant without rhonchi or wheezing. HEART: RRR, S1, S2 present. Peripheral pulses intact, no obvious murmurs were noted. ABDOMEN: Soft, nontender. Positive bowel sounds no organomegaly, normal bowel sounds. EXTREMITIES: Without any cyanosis, clubbing, or edema. Pedal pulses intact, Homans sign is negative. NEUROLOGIC: Normal speech, normal tone. A & O x3, moves all extremities, no obvious focal deficits. PSYCHIATRIC: Normal affect, normal mood. Stable. SKIN: No ulcerations or rashes, good skin turgor, no jaundice. VASCULAR: Good capillary refill, neurovascular bundle appears to be intact. ASSESSMENT AND PLAN: Resolving atypical chest pain and cocaine abuse. The patient was observed overnight. She looks great. We plan to discharge. DISPOSITION: Home. ACTIVITY: As tolerated. DIET: Low sodium. MEDICATIONS: Please see the MRAD. TOTAL TIME: 32 minutes. SIMIN PECK DO DR: RAEGAN/sanjeev JOB#: [id number] / [id number]
== END 2019-05-19 14:57 | disposition home or self-care (01) | DRG 313 ==
LOC: ER 21:49 → 2 NORTH 05-19 00:20
PROVIDERS: ADMIT Internal Medicine; ATTEND Internal Medicine
DX: R07.89 Other chest pain (principal); I50.32 Chronic diastolic (congestive) heart failure; I13.0 Hypertensive heart and chronic kidney disease with heart failure and stage 1 through stage 4 chronic kidney disease, or unspecified chronic kidney disease; Z68.43 Body mass index [BMI] 50.0-59.9, adult; E83.42 Hypomagnesemia; M19.90 Unspecified osteoarthritis, unspecified site; F41.9 Anxiety disorder, unspecified; F32.9 Major depressive disorder, single episode, unspecified; I25.10 Atherosclerotic heart disease of native coronary artery without angina pectoris; E78.00 Pure hypercholesterolemia, unspecified; F14.10 Cocaine abuse, uncomplicated; E78.5 Hyperlipidemia, unspecified; J44.9 Chronic obstructive pulmonary disease, unspecified; K21.9 Gastro-esophageal reflux disease without esophagitis; E11.42 Type 2 diabetes mellitus with diabetic polyneuropathy; F17.200 Nicotine dependence, unspecified, uncomplicated; N18.3 Chronic kidney disease, stage 3 (moderate); E11.22 Type 2 diabetes mellitus with diabetic chronic kidney disease; E66.01 Morbid (severe) obesity due to excess calories; I16.0 Hypertensive urgency; H05.20 Unspecified exophthalmos; Z89.411 Acquired absence of right great toe; Z95.5 Presence of coronary angioplasty implant and graft; Z88.5 Allergy status to narcotic agent; Z88.0 Allergy status to penicillin; Z88.8 Allergy status to other drugs, medicaments and biological substances; Z91.041 Radiographic dye allergy status; Z91.040 Latex allergy status; Z82.3 Family history of stroke; Z83.3 Family history of diabetes mellitus; Z82.49 Family history of ischemic heart disease and other diseases of the circulatory system
CPT/HCPCS: 36415; 70450; 71045; 78580; 80053; 80307; 81001; 82553; 82962; 83605; 83690; 83735; 83880; 84484; 85025; 85379; 85610; 85730; 87086; 93005; 94640; 94760; 96361; 96374; 96375; 96376; A9540; J1815; J1885; J2405; J3010; J3475; J7030; J7620; 99285-25; G0378

== ENCOUNTER 2020-03-11 11:13 | Inpatient (IN) | payer OTHER ==
[~2020-03-11] VITALS: Ht 182.9 cm; Wt 170.2 kg
[~2020-03-11 11:13] MED LIST changes: +ALBU2.5V14 NEB; +AMLO10TA8 PO; -ASPI-612 PO; +ASPI-886 PO; +BENZ-8 PO; +BUDE0.5A NEB; +CETI10TA16 PO; -DICL100G18 TP; +DICL100G54 TP; +FLUO20CA20 PO; -FLUO20CA8 PO; +GUAI5SYR PO; +HYDR-2759 PO; +INSU100C4 SQ; +LACT1CAP19 PO; +LIDO700A21 TP; +NALO4SPR NS; -OXYC-411 PO; +OXYC1TAB20 PO; +POTA20TA4 PO; -POTA20TA82 PO; +PRED-220 PO; +SENN-182 PO; -SENN-80 PO; -TERB250T11 PO; +TERB250T84 PO; +TRAZ-118 PO; +UMEC1DIS IH; +VENTOLIN HFA18 GM INH
--- NOTE | 2020-03-11 12:03 | PHYS DOC ---
Past Medical History Past Medical History: CAD, CHF, Depression, Diabetes-Type II, DVT, High C holesterol, Hypertension, Other Additional Past Medical Histor: NEUROPATHY,OBESITY (ROBEL GUERRERO APRN) Past Surgical History: Angioplasty, , Other Additional Past Surgical Histo: CARDIAC STENTS X5, left great toe amputation, R great & 2nd toe amputation (ROBEL GUERRERO APRN) Smoking Status: Former Smoker Alcohol Use: Occasionally Drug Use: Marijuana (ROBEL GUERRERO APRN) General Adult EDM: Chief Complaint: FOOT INJURY PAIN HPI: HPI: Patient is a 54 year old female who presents with complaints of a darkened area on her left #2 toe that she describes as a diabetic toe she noticed last night prior to going to bed. Patient states her concern as the last time she had something that looked like this she had her toe removed here at [facility]. Patient states that she has no pain to the toe because of her diabetic neuropathy, indicating that she cannot feel anything from her ankle to her toes on either foot. Patient denies any fever or chills, any recent vision changes. Denies nasal congestion or sore throat. Patient denies any cough or shortness of breath. Patient denies any chest pain or extremity swelling. Patient denies any abdominal pain, nausea, vomiting, diarrhea. Patient states her last normal bowel movement was this morning with normal stool consistency. Patient denies any problems urinating. Patient does however state that she urinates a lot and drinks a lot that she attributes to her diabetes. Patient states her blood sugars have been running high lately of greater than 300, however patient also states her primary care provider is aware and is currently treating her for her diabetes. Patient denies any new back pains or joint pains that are different from her normal neuropathy pains that she is being currently treated with fentanyl patches. Patient denies any new skin rashes. Patient denies any headache or focal weaknesses or new/recent sensory changes. Patient denies any swollen glands. Patient states that because of the COVID virus she has been having to live inside and fear of contacting the virus and this has brought on some depression and some anxiety. Patient was tearful when discussin g this today. Patient states that she lives at home with her son. Patient denies anybody else in her family or home with the same symptoms that brought her into the emergency department today. (ROBEL GUERRERO APRN) Review of Systems: Review of Systems: Constitutional: Denies fever or chills. Eyes: Denies change in visual acuity. HENT: Denies nasal congestion or sore throat. Respiratory: Denies cough or shortness of breath. Cardiovascular: Denies chest pain or edema. GI: Denies abdominal pain, nausea, vomiting, bloody stools, constipation or diarrhea. : Denies dysuria. Musculoskeletal: Denies back pain or joint pain. Integument: Denies rash. Complains of darkened area on left #2 toe without pain or drainage. Neurologic: Denies headache, focal weakness or sensory changes. Endocrine: Reports ongoing polyuria and polydipsia currently being treated by her primary care provider. Lymphatic: Denies swollen glands. Psychiatric: Complains of recent depression and anxiety feelings related to fear of contacting the COVID virus. (ROBEL GUERRERO APRN) Heart Score: HEART Score for Chest Pain: HEART Score for Chest Pain Response (Comments) Value History Slighlty/Non-Suspicious 0 ECG Normal 0 Age >45 - < 65 1 Risk Factors >3 Risk Factors or Hx CAD 2 Troponin < Normal Limit 0 Total 3 Risk Factors: Risk Factors: DM, Current or recent (<one month) smoker, HTN, HLP, family history of CAD, obesity. Risk Scores: Score 0 - 3: 2.5% MACE over next 6 weeks - Discharge Home Score 4 - 6: 20.3% MACE over next 6 weeks - Admit for Clinical Observation Score 7 - 10: 72.7% MACE over next 6 weeks - Early Invasive Strategies (ROBEL GUERRERO APRN) Family History: Family History: Patient has a family history of hypertension coronary artery disease type 2 diabetes congestive heart failure and hyperlipidemia and ESRD. (ROBEL GUERRERO APRN) Current Medications: Patient reports taking albuterol nebulized solution, albuterol MDI, MIMA nebulized solution/DuoNeb, alprazolam 2 mg tablet, amlodipine 10 mg tablet daily, 81 mg EC ASA daily, atorvastatin 80 mg p.o. daily, sector zine 10 mg daily, clopidogrel gel 75 mg p.o. daily, diclofenac 1% topical gel 4 times daily, furosemide 40 mg p.o. twice daily, isosorbide SR 30 mg daily, ketotifen 0.025% ophthalmic 1 drop right eye daily, loperamide 2 mg 2 daily, losartan 100 mg daily, Robaxin 750 mg 3 times daily, Narcan nasal spray each nostril as needed, 500 mg Naprosyn 1 tablet twice daily, 0.4 mg nitroglycerin as needed sublingual, NovoLog insulin pen 30 units subcu 3 times daily with meals, nystatin cream topical to affected area twice daily, Protonix DR 40 mg tablet every morning, MiraLAX up to 3 times daily, potassium chloride 20 mEq 1 tablet daily, Zanaflex 4 mg every 6 hours as needed, ANORO ELLIPTA 62.5-25 MCG 1 puff by mouth daily. (ROBEL GUERRERO APRN) Allergies: Allergies: Allergies Coded Allergies Type Severity Reaction Last Updated Verified Penicillins Allergy Severe tongue swelling, HIVES, ANGIOEDEMA 06/06/17 Yes latex Allergy Severe Hives, N/V 06/06/17 Yes prochlorperazine Allergy Severe tongue swelling, ANGIOEDEMA 06/06/17 Yes Iodinated Contrast Media Allergy Intermediate 10/07/17 Yes doxycycline Adverse Reaction Intermediate ITCHING 09/01/19 Yes iodine Adverse Reaction Intermediate "shiver", N/V 09/01/19 Yes morphine Adverse Reaction Intermediate itching 09/01/19 Yes cyclobenzaprine Adverse Reaction Mild cough 09/01/19 Yes (ROBEL GUERRERO APRN) Physical Exam: PE: Constitutional: Well developed, well nourished, morbidly obese, no acute distress, non-toxic appearance. HENT: Normocephalic, atraumatic, bilateral external ears normal, oropharynx moist, no oral exudates, nose normal. Eyes: PERRLA, EOMI, conjunctiva normal, no discharge. 4 mm. Neck: Normal range of motion, no tenderness, supple, no stridor. Cardiovascular:Heart rate regular rhythm, no murmur heart sounds S1-S2 without abnormalities per auscultation. Lungs & Thorax: Bilateral breath sounds clear to auscultation all lung grant. Abdomen: Bowel sounds normal all 4 quadrants, soft, no tenderness, no masses, no pulsatile masses. Skin: Warm, dry, no erythema, no rash. 1.5 cm in diameter eschar appearing hard nonfluctuating nonpainful lesion to left foot second toe MIP joint dorsal aspect without drainage. Back: No tenderness, no CVA tenderness. Extremities: No tenderness, no cyanosis, no clubbing, ROM intact, no edema. Neurologic: Alert and oriented X 3, normal motor function, normal sensory function, no focal deficits noted. Psychologic: Affect normal, judgement normal, mood normal. Patient became tearful during examination worry about charlene COVID-19. (ROBEL GUERRERO APRN) EKG: EKG: EKG shows sinus bradycardia without ectopy, no STEMI noted, reviewed by ER attending Dr. Chadwick. EKG performed at 1452. (ROBEL GUERRERO APRN) Radiology/Procedures: Radiology/Procedures: Pending chest x-ray. (ROBEL GUERRERO APRN) Course & Med Decision Making: Course & Med Decision Making Pertinent Labs and Imaging studies reviewed. (See chart for details) [54-year-old female presents emergency department today complaining of dark area on her left #2 toe dorsal aspect, worried it may be a diabetic toe. Patient states that every time she has showed up to this hospital with this type of presentation she has had her toe removed. Patient states she is a longstanding diabetic with poor sugar control. Patient states that she cannot feel her toes because of diabetic neuropathy. Patient indicates that she has no feeling from her ankle distal full circumferential foot. Patient states she noticed the black area on her toe last night while getting ready for bed. Patient states that she has a caregiver that does daily care to include all ADLs, but the caregiver is taking a 5-week vacation and the patient does not know how she will be able to take care of herself at home while her son is at work. Patient is worried that she will catch COVID virus that she has come out of her house. Patient states she wishes to be admitted to the hospital to have her diabetic toe further evaluated. Vital signs were reviewed laboratory results were reviewed. [facility] Dr. Palencia was contacted for patient admission, lab results were reviewed with Dr. Palencia, patient admission was recommended by Dr. Palencia who agreed to assume care with admission to the telemetry unit related to patient's recent complaint of chest pain. A chest x-ray and cardiac enzymes/markers were ordered and obtained at time of admission and discussion with Dr. Palencia, labs and x-ray are pending at time of admission. Discussed with patient plan to admit, patient is amenable to admission. (ROBEL GUERRERO APRN) José Disclaimer: José Disclaimer: This electronic medical record was generated, in whole or in part, using a voice recognition dictation system. (ROBEL GUERRERO APRN) Departure Departure Impression: Primary Impression: Diabetic foot infection Additional Impression: Chest pain Qualified Codes: R07.9 - Chest pain, unspecified Disposition: 09 ADMITTED INPATIENT Admitting Physician: ROHINI (Dr. Palencia) (ROBEL GUERRERO APRN) Condition: GUARDED Referrals: MELANIE OCHOA (PCP) Justicifation of Admission Dx: Justifications for Admission: Justification of Admission Dx: Yes Angina: New-Onset Comments: DIABETIC TOE INFECTION (ROBEL GUERRERO APRN) Attending Signature Attending Signature I have reviewed the PA/VALVE STEAMER's note and plan of care. I was available for consultation as needed during the patient's visit in the emergency department. I agree with the clinical impression, plan, and disposition. (ROBEL CHADWICK DO) ROBEL GUERRERO APRN Mar 11, 2020 12:03 ROBEL CHADWICK DO Mar 12, 2020 06:34
[2020-03-11 12:09] LABS: BILIRUBIN,URINE NEGATIVE (NEG); CLARITY,URINE CLEAR; COLOR,URINE YELLOW; NITRITE,URINE NEGATIVE (NEG); PROTEIN,URINE 100 mg/dL (NEG-TRACE); UROBILINOGEN,URINE 0.2 mg/dL (0.2 mg/dL)
[2020-03-11 12:16] LABS: SQUAMOUS EPITHELIAL CELL,UR MOD /LPF
[2020-03-11 12:17] LABS: BACTERIA,URINE MANY /HPF (0-FEW); RBC,URINE OCC /HPF (0-2)
[2020-03-11 13:44] LABS: BASO % 1 % (0-3); EOS # 0.2 x10^3/uL (0.0-0.7); EOS % 3 % (0-3); HEMATOCRIT 33.3 % (36.0-47.0); HEMOGLOBIN 11.1 g/dL (12.0-15.5); LYMPH # 1.7 x10^3/uL (1.0-4.8); LYMPH % 28 % (24-48); MEAN CORPUSCULAR HEMOGLOBIN 27 pg (25-35); MEAN CORPUSCULAR HGB CONC 33 g/dL (31-37); MEAN CORPUSCULAR VOLUME 81 fL (79-100); MONO # 0.4 x10^3/uL (0.0-1.1); MONO % 7 % (0-9); NEUT # 3.7 x10^3/uL (1.8-7.7); NEUT % 62 % (31-73); PLATELET COUNT 231 x10^3/uL (140-400); RED BLOOD COUNT 4.11 x10^6/uL (3.50-5.40)
[2020-03-11 13:53] LABS: PROTHROMBIN TIME PATIENT 12.9 SEC (11.7-14.0)
[2020-03-11 13:59] LABS: CALCIUM 9.1 mg/dL (8.5-10.1); CREATININE 1.4 mg/dL (0.6-1.0); GFR 47.2; POTASSIUM 4.6 mmol/L (3.5-5.1)
[2020-03-11 14:02] LABS: ALBUMIN 3.1 g/dL (3.4-5.0); ALBUMIN/GLOBULIN RATIO 0.8 (1.0-1.7); C-REACTIVE PROTEIN 20.3 mg/L (0-3.3); TOTAL BILIRUBIN 0.1 mg/dL (0.2-1.0); TOTAL PROTEIN 6.9 g/dL (6.4-8.2)
[2020-03-11] MEDS ORDERED: fentaNYL PF VIAL 100 MCG/2 ML VIAL IVP ONE (14:15)
[2020-03-11 15:18] LABS: CREATINE KINASE 66 U/L (26-192)
[2020-03-11] MEDS ORDERED: ONDANSETRON PF 4 MG/2 ML VIAL. IV PRN (15:45)
--- NOTE | 2020-03-11 16:35 | RAD ---
EXAM: CHEST 1 VIEW History: Chest pain COMPARISON: 09/12/2019 TECHNIQUE: Single portable radiograph of the chest FINDINGS: The cardiac silhouette is unremarkable. Mild prominent bilateral interstitial lung markings. Mild bibasilar lung airspace opacities. IMPRESSION: 1. Mild bibasilar lung airspace opacities likely atelectasis or infiltrates. 2. Mild congestive changes. Electronically signed by: Audi Jacob MD (03/11/2020 4:32 PM) [id number]
[2020-03-11] MEDS ORDERED: DEXTROSE 50% 25 GM / 50ML DISP.SYRIN. IV PRN (19:00)
[2020-03-11 19:15] VITALS: BP 158/64
[2020-03-11] MEDS ORDERED: BENZ-8 PO (19:54)
[2020-03-11] MEDS ORDERED: [UNRECOGNIZED DRUG - CODE] PO (19:54)
[2020-03-11] MEDS ORDERED: ALPR1TAB6 PO (19:54)
[2020-03-11] MEDS ORDERED: LIDO1ADH63 TP (19:54)
[2020-03-11] MEDS ORDERED: FLUC150T PO (19:54)
[2020-03-11] MEDS ORDERED: TRAZ-123 PO (19:54)
[2020-03-11] MEDS ORDERED: NYST15CR2 TP (19:54)
[2020-03-11] MEDS ORDERED: LOPE2CAP PO (19:54)
[2020-03-11] MEDS ORDERED: HYDR-2761 PO (19:55)
[2020-03-11] MEDS ORDERED: diphenhydrAMINE HCL 25 MG CAPSULE PO PRN (20:15)
[2020-03-11] MEDS ORDERED: LOPERAMIDE 2 MG CAPSULE PO PRN (20:15)
[2020-03-11] MEDS ORDERED: LIDOCAINE (700MG/PATCH) PATCH. TP PRN (20:15)
[2020-03-11] MEDS ORDERED: NON FORMULARY ITEM (Fluconazole (Diflucan) 1 TAB) PO SCH (20:15)
[2020-03-11] MEDS ORDERED: BENZONATATE 100 MG CAPSULE. PO PRN (20:15)
[2020-03-11] MEDS ORDERED: POLYETHYLENE GLYCOL 3350 17 GM PACKET. PO PRN (20:15)
[2020-03-11] MEDS ORDERED: HYDROcodone/APAP 5/325MG 1 TAB TABLET PO PRN (20:15)
[2020-03-11] MEDS ORDERED: ALBUTEROL SULFATE 2.5 MG/3 ML NEBU. NEB PRN (20:30)
[2020-03-11] MEDS ORDERED: guaiFENesin DM 200MG/20MG 10 ML SYRUP PO PRN (20:30)
[2020-03-11] MEDS ORDERED: TRIAMCINOLONE ACETONIDE 0.1% TOPICAL CREAM 15GM TUBE. TP SCH (21:00)
[2020-03-11] MEDS ORDERED: NYSTATIN 100,000 UNIT/GM TOPICAL CREAM 15GM TUBE. TP SCH (21:00)
[2020-03-11] MEDS: CLOPIDOGREL BISULFATE 75 MG TABLET PO SCH (21:25)
[2020-03-11] MEDS: ATORVASTATIN CALCIUM 40 MG TABLET. PO SCH (21:26)
[2020-03-11] MEDS: CETIRIZINE HCL 10 MG TABLET. PO SCH (21:26)
[2020-03-11] MEDS: DICYCLOMINE HCL 10 MG CAPSULE PO SCH (21:26)
[2020-03-11] MEDS: traZODone 100 MG TABLET. PO PRN (21:26)
[2020-03-11] MEDS: ISOSORBIDE MONONITRATE ER 30 MG TAB.ER.24H PO SCH (21:28)
[2020-03-11] MEDS: LOSARTAN POTASSIUM 50 MG TABLET. PO SCH (21:28)
[2020-03-11] MEDS: INSULIN GLARGINE SYRINGE. SQ SCH (21:29)
[2020-03-11 22:22] VITALS: BP 154/60
[2020-03-11] MEDS ORDERED: HYDROcodone/APAP 5/325MG 1 TAB TABLET PO ONE (22:30)
[2020-03-11] MEDS: ALPRAZolam 1 MG TABLET PO PRN (22:44)
[2020-03-12] VITALS (7 sets, daily range): BP systolic 110–140; BP diastolic 48–63
[2020-03-12] MEDS: HYDROcodone/APAP 5/325MG 1 TAB TABLET PO PRN ×4 (04:36→22:24)
[2020-03-12 05:23] LABS: BASO % 0 % (0-3); EOS # 0.2 x10^3/uL (0.0-0.7); EOS % 3 % (0-3); HEMATOCRIT 29.8 % (36.0-47.0); LYMPH # 1.9 x10^3/uL (1.0-4.8); LYMPH % 34 % (24-48); MEAN CORPUSCULAR HEMOGLOBIN 27 pg (25-35); MEAN CORPUSCULAR HGB CONC 34 g/dL (31-37); MEAN CORPUSCULAR VOLUME 81 fL (79-100); MONO # 0.4 x10^3/uL (0.0-1.1); MONO % 7 % (0-9); NEUT # 3.1 x10^3/uL (1.8-7.7); NEUT % 55 % (31-73); PLATELET COUNT 207 x10^3/uL (140-400); RED BLOOD COUNT 3.67 x10^6/uL (3.50-5.40); RED CELL DISTRIBUTION WIDTH 15.1 % (11.5-14.5); WHITE BLOOD COUNT 5.7 x10^3/uL (4.0-11.0)
[2020-03-12 05:43] LABS: ALBUMIN 2.7 g/dL (3.4-5.0); ALBUMIN/GLOBULIN RATIO 0.7 (1.0-1.7); CALCIUM 8.3 mg/dL (8.5-10.1); CREATININE 1.5 mg/dL (0.6-1.0); GFR 43.6; POTASSIUM 3.8 mmol/L (3.5-5.1); TOTAL BILIRUBIN 0.2 mg/dL (0.2-1.0); TOTAL PROTEIN 6.4 g/dL (6.4-8.2)
[2020-03-12] MEDS: ISOSORBIDE MONONITRATE ER 30 MG TAB.ER.24H PO SCH (08:31)
[2020-03-12] MEDS: PANTOPRAZOLE 40 MG TABLET.DR. PO SCH (08:31)
[2020-03-12] MEDS: LOSARTAN POTASSIUM 50 MG TABLET. PO SCH (08:31)
[2020-03-12] MEDS: POTASSIUM CHLORIDE 20 MEQ TABLET.ER. PO SCH (08:31)
[2020-03-12] MEDS: ASPIRIN ENTERIC COATED 81 MG TABLET.DR. PO SCH (08:32)
[2020-03-12] MEDS: amLODIPine BESYLATE 10 MG TABLET PO SCH (08:32)
[2020-03-12] MEDS: FUROSEMIDE 40 MG TABLET. PO SCH ×2 (08:32→15:13)
[2020-03-12] MEDS: DICYCLOMINE HCL 10 MG CAPSULE PO SCH ×4 (08:32→22:23)
[2020-03-12] MEDS: CETIRIZINE HCL 10 MG TABLET. PO SCH (08:32)
[2020-03-12] MEDS: CLOPIDOGREL BISULFATE 75 MG TABLET PO SCH (08:33)
[2020-03-12] MEDS: INSULIN GLARGINE SYRINGE. SQ SCH ×2 (08:35→22:25)
[2020-03-12] MEDS: INSULIN LISPRO 300 UNITS/3 ML VIAL. SQ SCH ×6 (08:35→16:32)
[2020-03-12] MEDS ORDERED: METH-38 PO (10:42)
[2020-03-12] MEDS: METHOCARBAMOL 750 MG TABLET PO PRN (12:23)
--- NOTE | 2020-03-12 17:03 | NUR ---
SW following. Spoke with RN and reviewed chart. Spoke with pt. Pt from home with her son. Pt on 1l 02 and stated she has 02 at home. Pt stated she has HCBS through [employer] with her Medicaid. Pt on oral medications. Pt COVID pending. Pt stated no concerns at this time. SW to follow as needed.
--- NOTE | 2020-03-12 17:49 | PDOC1 ---
History and Physical Date of Admission: Date of Admission DATE: 03/12/20 TIME: 17:37 Chief Complaint: Problems: (1) Dry gangrene (2) Diabetes mellitus, type II, insulin dependent (3) CAD (coronary artery disease) (4) Diabetes mellitus with neuropathy (5) HLD (hyperlipidemia) (6) HTN (hypertension) Chief Complain: Lower extremity wound History of Present Illness: Reason for Visit: Left toe pain HPI: 54-year-old female arrives to the ED with complaints of black toes on the left f oot. This is on the second and third digit with history of diabetes with neuropathy patient states that home health aide is off for the 5 weeks and she is dependent on a walker at home for her daily activities of living. Past Medical/Surgical History: PMH/PSH: Past Medical History * CAD * CHF * COPD * Depression * Diabetes-Type II * DVT * High Cholesterol * Hypertension Past Surgical History * Angioplasty * CARDIAC STENTS X5, left great toe amputation, R great & 2nd toe amputation Allergies: Allergies: Coded Allergies: Penicillins (Verified Allergy, Severe, tongue swelling, HIVES, ANGIOEDEMA, 06/06/17) latex (Verified Allergy, Severe, Hives, N/V, 06/06/17) prochlorperazine (Verified Allergy, Severe, tongue swelling, ANGIOEDEMA, 06/06/17) Iodinated Contrast Media (Verified Allergy, Intermediate, 10/07/17) doxycycline (Verified Adverse Reaction, Intermediate, ITCHING, 09/01/19) iodine (Verified Adverse Reaction, Intermediate, "shiver", N/V, 09/01/19) morphine (Verified Adverse Reaction, Intermediate, itching, 09/01/19) Tolerates oxycodone and tramadol cyclobenzaprine (Verified Adverse Reaction, Mild, cough, 09/01/19) Family History: Family History: None Social History: Social History: History of marijuana use. Current Medications: Current Medications Current Medications Fentanyl Citrate (Fentanyl 2ml Vial) 50 mcg 1X ONCE IVP Last administered on 03/11/20at 13:43; Start 03/11/20 at 14:15; Stop 03/11/20 at 14:16; Status DC Ondansetron HCl (Zofran) 4 mg PRN Q8HRS PRN IV NAUSEA/VOMITING; Start 03/11/20 at 15:45; Stop 03/12/20 at 15:44; Status DC Insulin Human Lispro (HumaLOG) 0-7 UNITS TIDWMEALS SQ Last administered on 03/12/20at 08:36; Start 03/12/20 at 08:00 Dextrose (Dextrose 50%-Water Syringe) 12.5 gm PRN Q15MIN PRN IV SEE COMMENTS; Start 03/11/20 at 19:00 Alprazolam (Xanax) 1 mg PRN BID PRN PO ANXIETY / AGITATION Last administered on 03/11/20at 22:44; Start 03/11/20 at 20:15 Amlodipine Besylate (Norvasc) 10 mg DAILY PO Last administered on 03/12/20 08:32; Start 03/12/20 at 09:00 Aspirin (Ecotrin) 81 mg DAILYWBKFT PO Last administered on 03/12/20at 08:32; Start 03/12/20 at 08:00 Benzonatate (Tessalon Perle) 100 mg PRN TID PRN PO COUGH; Start 03/11/20 at 20:15 Cetirizine HCl (ZyrTEC) 10 mg DAILY PO Last administered on 03/12/20at 08:32; Start 03/11/20 at 21:00 Clopidogrel Bisulfate (Plavix) 75 mg DAILY PO Last administered on 03/12/20at 08:33; Start 03/11/20 at 21:00 Dicyclomine HCl (Bentyl) 10 mg QID PO Last administered on 03/12/20at 16:32; Start 03/11/20 at 21:00 Diphenhydramine HCl (Benadryl) 25 mg PRN Q6HRS PRN PO ALLERGIES; Start 03/11/20 at 20:15 Furosemide (Lasix) 40 mg BID94 PO Last administered on 03/12/20at 15:13; Start 03/12/20 at 09:00 Acetaminophen/ Hydrocodone Bitart (Lortab 5/325) 1 tab PRN Q8HRS PRN PO MODERATE PAIN Last administered on 03/11/20at 21:26; Start 03/11/20 at 20:15; Stop 03/11/20 at 22:25; Status DC Albuterol Sulfate (Ventolin Neb Soln) 2.5 mg PRN Q6HRS PRN NEB SHORTNESS OF BREATH; Start 03/11/20 at 20:30 Isosorbide Mononitrate (Imdur) 90 mg DAILY PO Last administered on 03/12/20at 08:31; Start 03/11/20 at 21:00 Lidocaine (Lidoderm) 1 patch PRN DAILY PRN TP PAIN; Start 03/11/20 at 20:15 Loperamide HCl (Imodium) 2 mg PRN Q1HR PRN PO DIARRHEA; Start 03/11/20 at 20:15 Losartan Potassium (Cozaar) 100 mg DAILY PO Last administered on 03/12/20 08:31; Start 03/11/20 at 21:00 Pantoprazole Sodium (Protonix) 40 mg DAILYAC PO Last administered on 03/12/20 08:31; Start 03/12/20 at 07:30 Polyethylene Glycol (miraLAX PACKET) 17 gm PRN DAILY PRN PO CONSTIPATION; Start 03/11/20 at 20:15 Potassium Chloride (Klor-Con) 20 meq DAILYWBKFT PO Last administered on 03/12/20 08:31; Start 03/12/20 at 08:00 Trazodone HCl (Desyrel) 100 mg PRN QHS PRN PO INSOMNIA Last administered on 03/11/20 21:26; Start 03/11/20 at 20:15 Atorvastatin Calcium (Lipitor) 80 mg QHS PO Last administered on 03/11/20 21:26; Start 03/11/20 at 21:00 Non-Formulary Medication (Fluconazole (Diflucan)) 1 tab ONCE PO ; Start 03/11/20 at 20:15; Status UNV Guaifenesin (Robitussin Dm) 10 ml PRN TID PRN PO COUGH, 2ND CHOICE; Start 03/11/20 at 20:30 Insulin Human Lispro (HumaLOG) 30 units TIDWMEALS SQ Last administered on 03/12/20at 12:24; Start 03/12/20 at 08:00 Insulin Glargine (Lantus Syringe) 30 unit BID SQ Last administered on 03/12/20at 08:35; Start 03/11/20 at 21:00 Nystatin (Mycostatin) 1 trell BID TP ; Start 03/11/20 at 21:00; Status Cancel Triamcinolone Acetonide (Kenalog 0.1%) 1 trell BID TP ; Start 03/11/20 at 21:00; Status Cancel Acetaminophen/ Hydrocodone Bitart (Lortab 5/325) 2 tab PRN Q6HRS PRN PO MODERAT E PAIN Last administered on 03/12/20at 16:32; Start 03/11/20 at 22:30 Acetaminophen/ Hydrocodone Bitart (Lortab 5/325) 1 tab 1X ONCE PO Last administered on 03/11/20at 22:37; Start 03/11/20 at 22:30; Stop 03/11/20 at 22:32; Status DC Methocarbamol (Robaxin) 750 mg PRN TID PRN PO MUSCLE SPASMS Last administered on 03/12/20at 12:23; Start 03/12/20 at 11:00 Active Scripts Active Aspirin Ec (Aspirin) 81 Mg Tablet.dr 81 Mg PO DAILYWBKFT 30 Days Lasix (Furosemide) 40 Mg Tablet 40 Mg PO BID Reported Robaxin-750 (Methocarbamol) 750 Mg Tablet 750 Mg PO TID PRN Hydrocodone-Apap 5-325 (Hydrocodone Bit/Acetaminophen) 1 Tab Tablet 1 Tab PO PRN Q8HRS PRN Benzonatate 100 Mg Capsule 1 Cap PO TID PRN Guaiasorb Dm Liquid (Guaifenesin/Dextromethorphan) 118 Ml Liquid 118 Ml PO PRN TID PRN Trazodone Hcl 100 Mg Tablet 1 Tab PO QHS PRN Diflucan (Fluconazole) 150 Mg Tablet 1 Tab PO ONCE Alprazolam 1 Mg Tablet 1 Tab PO BID PRN Nystatin-Triamcinolone Cream (Nystatin/Triamcin) 15 Gm Cream..g. 1 Trell TP BID Loperamide (Loperamide Hcl) 2 Mg Capsule 2 Mg PO PRN Q1HR PRN Lidocaine 1 Each Adh..patch 1 Each TP DAILY PRN Anoro Ellipta 62.5-25 Mcg Inh (Umeclidinium Brm/Vilanterol Tr) 1 Each Disk.w.dev 1 Puff IH DAILY Novolog (Insulin Aspart) 100 Unit/1 Ml Cartridge 30 Unit SQ TIDAC Narcan (Naloxone HCl) 4 Mg [place] 1 [place] NS PRN 14 Days Isosorbide Mononitrate Er (Isosorbide Mononitrate) 30 Mg Tab.er.24h 3 Tab PO DAILY Lantus Solostar (Insulin Glargine,Hum.rec.anlog) 100 Unit/1 Ml Insuln.pen 30 Unit SQ BID Dicyclomine Hcl 10 Mg Capsule 10 Mg PO QID Clopidogrel (Clopidogrel Bisulfate) 75 Mg Tablet 1 Tab PO DAILY Cetirizine Hcl 10 Mg Tablet 1 Tab PO DAILY Amlodipine Besylate 10 Mg Tablet 10 Mg PO DAILY Duoneb 0.5-3(2.5) Mg/3 Ml (Albuterol/Ipratropium) 3 Ml Ampul.neb 3 Ml NEB PRN Q6HRS PRN Ventolin Hfa Inhaler (Albuterol Sulfate) 18 Gm Hfa.aer.ad 1 Puff INH PRN Q6HRS PRN Albuterol Sulfate Conc Neb Soln (Albuterol Sulfate) 2.5 Mg/0.5 Ml Vial.neb 1 Vial NEB Q6HRS Miralax (Polyethylene Glycol 3350) 17 Gm Powd.pack 1 Packet PO PRN DAILY PRN Benadryl (Diphenhydramine Hcl) 25 Mg Capsule 25 Mg PO PRN Q6HRS PRN Pantoprazole Sodium (Pantoprazole Sodium) 40 Mg Tablet.dr 40 Mg PO DAILY NITROGLYCERIN SubLingual (Nitroglycerin) 0.4 Mg Tab.subl 0.4 Mg SL PRN Q5MIN PRN Potassium Chloride (Potassium Chloride) 20 Meq Tablet.er 20 Meq PO DAILY Losartan Potassium (Losartan Potassium) 25 Mg Tablet 100 Mg PO DAILY Lipitor (Atorvastatin Calcium) 80 Mg Tablet 1 Tab PO QHS ROS: Review of Systems Review of System REVIEW OF SYSTEMS: GENERAL: Denies weakness SKIN: No bruising, hair changes or rashes. EYES: No blurred, double or loss of vision. NOSE AND THROAT: No history of nosebleeds, hoarseness or sore throat. HEART: No history of palpitations, chest pain or shortness of breath on exertion. LUNGS: Denies cough, hemoptysis, wheezing or shortness of breath. GASTROINTESTINAL: Denies changes in appetite, nausea, vomiting, diarrhea or constipation. GENITOURINARY: No history of frequency, urgency, hesitancy or nocturia. NEUROLOGIC: Denies history of numbness, tingling, or tremor. PSYCHIATRIC: No history of panic, anxiety or depression. ENDOCRINE: No history of heat or cold intolerance, polyuria or polydipsia. EXTREMITIES: + for left digit pain and blackness Physical Exam: Vital Signs: Vital Signs Date Time Temp Pulse Resp B/P (MAP) Pulse Ox O2 Delivery O2 Flow Rate FiO2 03/12/20 15:03 97.7 56 18 110/48 (68) 97 Nasal Cannula 1.0 97.7 Physcial Exam: GEN: No apparent distress. Alert and oriented HEENT: Normal cephalic, atraumatic, external auditory canals are patent EYES: Extraocular muscles are intact, pupil are equally round and reactive to light and accommodation MUSCULOSKELETAL: Well developed , well nourished, good range of motion ENDOCRINE: No thyromegaly was palpated LYMPHATICS: No cervical chain or axillary nodes were noted HEMATOPOIETIC: No bruising NECK: Supple, no JVD, no thyromegaly was noted LUNGS: Clear to auscultation in all lung grant without rhonchi or wheezing HEART: RRR, S!, S2 present. Peripheral pulses intact, no obvious murmurs noted ABDOMEN: Soft, nontender. Positive bowel sounds, no organomegaly, normal dora l sounds EXTREMITIES: Without clubbing, cyanosis, or edema. Pedal pulses intact. Negative Homans sign NEUROLOGIC: Normal speech and tone. A&O x 3, moves all extremities, no obvious focal deficits PSYCHIATRIC: Normal affect, normal mood. Stable SKIN: No ulcerations or rashes, good skin turgor, no jaundice VASCULAR: Good capillary refill, neurovascular bundle appears to be intact Labs: Labs: Laboratory Tests Test 03/11/20 12:00 03/11/20 13:05 03/11/20 18:22 03/11/20 18:50 Urine Collection Type Void Urine Color Yellow Urine Clarity Clear Urine pH 5.0 (<5.0-8.0) Urine Specific [place] 1.025 (1.000-1.030) Urine Protein 100 mg/dL (NEG-TRACE) Urine Glucose (UA) >=1000 mg/dL (NEG) Urine Ketones (Stick) Negative mg/dL (NEG) Urine Blood Negative (NEG) Urine Nitrite Negative (NEG) Urine Bilirubin Negative (NEG) Urine Urobilinogen Dipstick 0.2 mg/dL (0.2 mg/dL) Urine Leukocyte Esterase Negative (NEG) Urine RBC Occ /HPF (0-2) Urine WBC 1-4 /HPF (0-4) Urine Squamous Epithelial Cells Mod /LPF Urine Bacteria Many /HPF (0-FEW) Urine Mucus Slight /LPF White Blood Count 6.0 x10^3/uL (4.0-11.0) Red Blood Count 4.11 x10^6/uL (3.50-5.40) Hemoglobin 11.1 g/dL (12.0-15.5) Hematocrit 33.3 % (36.0-47.0) Mean Corpuscular Volume 81 fL (79-100) Mean Corpuscular Hemoglobin 27 pg (25-35) Mean Corpuscular Hemoglobin Concent 33 g/dL (31-37) Red Cell Distribution Width 15.0 % (11.5-14.5) Platelet Count 231 x10^3/uL (140-400) Neutrophils (%) (Auto) 62 % (31-73) Lymphocytes (%) (Auto) 28 % (24-48) Monocytes (%) (Auto) 7 % (0-9) Eosinophils (%) (Auto) 3 % (0-3) Basophils (%) (Auto) 1 % (0-3) Neutrophils # (Auto) 3.7 x10^3/uL (1.8-7.7) Lymphocytes # (Auto) 1.7 x10^3/uL (1.0-4.8) Monocytes # (Auto) 0.4 x10^3/uL (0.0-1.1) Eosinophils # (Auto) 0.2 x10^3/uL (0.0-0.7) Basophils # (Auto) 0.0 x10^3/uL (0.0-0.2) Prothrombin Time 12.9 SEC (11.7-14.0) Prothromb Time International Ratio 1.0 (0.8-1.1) Activated Partial Thromboplast Time 27 SEC (24-38) Sodium Level 138 mmol/L (136-145) Potassium Level 4.6 mmol/L (3.5-5.1) Chloride Level 101 mmol/L (98-107) Carbon Dioxide Level 27 mmol/L (21-32) Anion Gap 10 (6-14) Blood Urea Nitrogen 20 mg/dL (7-20) Creatinine 1.4 mg/dL (0.6-1.0) Estimated GFR (Cockcroft-Gault) 47.2 BUN/Creatinine Ratio 14 (6-20) Glucose Level 329 mg/dL (70-99) Calcium Level 9.1 mg/dL (8.5-10.1) Total Bilirubin 0.1 mg/dL (0.2-1.0) Aspartate Amino Transf (AST/SGOT) 12 U/L (15-37) Alanine Aminotransferase (ALT/SGPT) 13 U/L (14-59) Alkaline Phosphatase 57 U/L (46-116) Creatine Kinase 66 U/L (26-192) Creatine Kinase MB (Mass) 0.6 ng/mL (0.0-3.6) Creatine Kinase MB Relative Index % (0-4) Troponin I Quantitative < 0.017 ng/mL (0.000-0.055) < 0.017 ng/mL (0.000-0.055) C-Reactive Protein, Quantitative 20.3 mg/L (0-3.3) Total Protein 6.9 g/dL (6.4-8.2) Albumin 3.1 g/dL (3.4-5.0) Albumin/Globulin Ratio 0.8 (1.0-1.7) Acetone Level Neg (NEG) Glucose (Fingerstick) 184 mg/dL (70-99) Test 03/11/20 21:36 03/11/20 21:50 03/12/20 04:12 03/12/20 07:42 Glucose (Fingerstick) 219 mg/dL (70-99) 224 mg/dL (70-99) Troponin I Quantitative < 0.017 ng/mL (0.000-0.055) White Blood Count 5.7 x10^3/uL (4.0-11.0) Red Blood Count 3.67 x10^6/uL (3.50-5.40) Hemoglobin 10.0 g/dL (12.0-15.5) Hematocrit 29.8 % (36.0-47.0) Mean Corpuscular Volume 81 fL (79-100) Mean Corpuscular Hemoglobin 27 pg (25-35) Mean Corpuscular Hemoglobin Concent 34 g/dL (31-37) Red Cell Distribution Width 15.1 % (11.5-14.5) Platelet Count 207 x10^3/uL (140-400) Neutrophils (%) (Auto) 55 % (31-73) Lymphocytes (%) (Auto) 34 % (24-48) Monocytes (%) (Auto) 7 % (0-9) Eosinophils (%) (Auto) 3 % (0-3) Basophils (%) (Auto) 0 % (0-3) Neutrophils # (Auto) 3.1 x10^3/uL (1.8-7.7) Lymphocytes # (Auto) 1.9 x10^3/uL (1.0-4.8) Monocytes # (Auto) 0.4 x10^3/uL (0.0-1.1) Eosinophils # (Auto) 0.2 x10^3/uL (0.0-0.7) Basophils # (Auto) 0.0 x10^3/uL (0.0-0.2) Sodium Level 137 mmol/L (136-145) Potassium Level 3.8 mmol/L (3.5-5.1) Chloride Level 101 mmol/L (98-107) Carbon Dioxide Level 28 mmol/L (21-32) Anion Gap 8 (6-14) Blood Urea Nitrogen 24 mg/dL (7-20) Creatinine 1.5 mg/dL (0.6-1.0) Estimated GFR (Cockcroft-Gault) 43.6 BUN/Creatinine Ratio 16 (6-20) Glucose Level 256 mg/dL (70-99) Calcium Level 8.3 mg/dL (8.5-10.1) Total Bilirubin 0.2 mg/dL (0.2-1.0) Aspartate Amino Transf (AST/SGOT) 9 U/L (15-37) Alanine Aminotransferase (ALT/SGPT) 11 U/L (14-59) Alkaline Phosphatase 49 U/L (46-116) Total Protein 6.4 g/dL (6.4-8.2) Albumin 2.7 g/dL (3.4-5.0) Albumin/Globulin Ratio 0.7 (1.0-1.7) Test 03/12/20 11:07 03/12/20 16:21 03/12/20 16:49 Glucose (Fingerstick) 205 mg/dL (70-99) 67 mg/dL (70-99) 108 mg/dL (70-99) Laboratory Tests Test 03/11/20 18:22 03/11/20 18:50 03/11/20 21:36 03/11/20 21:50 Glucose (Fingerstick) 184 mg/dL (70-99) 219 mg/dL (70-99) Troponin I Quantitative < 0.017 ng/mL (0.000-0.055) < 0.017 ng/mL (0.000-0.055) Test 03/12/20 04:12 03/12/20 07:42 03/12/20 11:07 03/12/20 16:21 White Blood Count 5.7 x10^3/uL (4.0-11.0) Red Blood Count 3.67 x10^6/uL (3.50-5.40) Hemoglobin 10.0 g/dL (12.0-15.5) Hematocrit 29.8 % (36.0-47.0) Mean Corpuscular Volume 81 fL (79-100) Mean Corpuscular Hemoglobin 27 pg (25-35) Mean Corpuscular Hemoglobin Concent 34 g/dL (31-37) Red Cell Distribution Width 15.1 % (11.5-14.5) Platelet Count 207 x10^3/uL (140-400) Neutrophils (%) (Auto) 55 % (31-73) Lymphocytes (%) (Auto) 34 % (24-48) Monocytes (%) (Auto) 7 % (0-9) Eosinophils (%) (Auto) 3 % (0-3) Basophils (%) (Auto) 0 % (0-3) Neutrophils # (Auto) 3.1 x10^3/uL (1.8-7.7) Lymphocytes # (Auto) 1.9 x10^3/uL (1.0-4.8) Monocytes # (Auto) 0.4 x10^3/uL (0.0-1.1) Eosinophils # (Auto) 0.2 x10^3/uL (0.0-0.7) Basophils # (Auto) 0.0 x10^3/uL (0.0-0.2) Sodium Level 137 mmol/L (136-145) Potassium Level 3.8 mmol/L (3.5-5.1) Chloride Level 101 mmol/L (98-107) Carbon Dioxide Level 28 mmol/L (21-32) Anion Gap 8 (6-14) Blood Urea Nitrogen 24 mg/dL (7-20) Creatinine 1.5 mg/dL (0.6-1.0) Estimated GFR (Cockcroft-Gault) 43.6 BUN/Creatinine Ratio 16 (6-20) Glucose Level 256 mg/dL (70-99) Calcium Level 8.3 mg/dL (8.5-10.1) Total Bilirubin 0.2 mg/dL (0.2-1.0) Aspartate Amino Transf (AST/SGOT) 9 U/L (15-37) Alanine Aminotransferase (ALT/SGPT) 11 U/L (14-59) Alkaline Phosphatase 49 U/L (46-116) Total Protein 6.4 g/dL (6.4-8.2) Albumin 2.7 g/dL (3.4-5.0) Albumin/Globulin Ratio 0.7 (1.0-1.7) Glucose (Fingerstick) 224 mg/dL (70-99) 205 mg/dL (70-99) 67 mg/dL (70-99) Test 03/12/20 16:49 Glucose (Fingerstick) 108 mg/dL (70-99) Assessment/Plan Assessment/Plan Assessment and plan Left second and third digit gangrene concerning for osteomyelitis versus trauma versus diabetic foot infection admit to hospitalist group hold on antibiotics as the patient has no fevers or white count Continue home medications Pending left foot x-ray Pending wound care nurse evaluation Pending podiatry evaluation PT OT Justicifation of Admission Dx: Justifications for Admission: Justification of Admission Dx: Yes Angina: New-Onset PREMA DAVILA MD Mar 12, 2020 17:49
[2020-03-12] MEDS: ATORVASTATIN CALCIUM 40 MG TABLET. PO SCH (22:23)
[2020-03-12] MEDS: traZODone 100 MG TABLET. PO PRN (22:31)
[2020-03-12] MEDS: ALPRAZolam 1 MG TABLET PO PRN (22:31)
[2020-03-13 01:08] LABS: HEMOGLOBIN A1C 10.8 % (4.8-5.6)
--- NOTE | 2020-03-13 01:38 | RAD ---
Two-view left foot radiographs 03/12/2020 CLINICAL HISTORY: Left foot infection. Portable AP and lateral digital radiographs left foot were obtained. The Patient is post amputation of the left first toe at the interphalangeal joint. Mild degenerative changes are seen throughout the remaining interphalangeal joints of the left foot. Mild degenerative changes are seen involving the first MTP joint throughout the tarsometatarsal joints. Moderate degenerative changes are seen involving the midtarsal joint along with the calcaneo navicular joint, left ankle joint and subtalar joint. Moderate enthesophyte formation is seen involving the posterior left calcaneus. No fracture or dislocation left foot is seen. There is no definite radiographic evidence of osteomyelitis involving the left foot. IMPRESSION: Degenerative changes are seen involving the left foot as discussed above. No acute osseous abnormality is seen. Electronically signed by: Richie Arreola MD (03/13/2020 1:35 AM) [id number]
[2020-03-13 03:49] VITALS: BP 141/61
[2020-03-13 07:10] VITALS: BP 145/58
[2020-03-13 08:45] LABS: BASO % 0 % (0-3); EOS # 0.2 x10^3/uL (0.0-0.7); EOS % 4 % (0-3); HEMATOCRIT 31.3 % (36.0-47.0); HEMOGLOBIN 10.5 g/dL (12.0-15.5); LYMPH # 1.8 x10^3/uL (1.0-4.8); LYMPH % 29 % (24-48); MEAN CORPUSCULAR HEMOGLOBIN 27 pg (25-35); MEAN CORPUSCULAR HGB CONC 34 g/dL (31-37); MEAN CORPUSCULAR VOLUME 81 fL (79-100); MONO # 0.4 x10^3/uL (0.0-1.1); MONO % 7 % (0-9); NEUT # 3.8 x10^3/uL (1.8-7.7); NEUT % 60 % (31-73); PLATELET COUNT 222 x10^3/uL (140-400); RED BLOOD COUNT 3.84 x10^6/uL (3.50-5.40); RED CELL DISTRIBUTION WIDTH 15.5 % (11.5-14.5); WHITE BLOOD COUNT 6.2 x10^3/uL (4.0-11.0)
[2020-03-13 09:12] LABS: CALCIUM 8.6 mg/dL (8.5-10.1); CREATININE 1.3 mg/dL (0.6-1.0); GFR 51.5; MAGNESIUM 1.7 mg/dL (1.8-2.4); PHOSPHORUS 3.4 mg/dL (2.6-4.7); POTASSIUM 3.7 mmol/L (3.5-5.1)
[2020-03-13] MEDS: CLOPIDOGREL BISULFATE 75 MG TABLET PO SCH (09:28)
[2020-03-13] MEDS: POTASSIUM CHLORIDE 20 MEQ TABLET.ER. PO SCH (09:28)
[2020-03-13] MEDS: amLODIPine BESYLATE 10 MG TABLET PO SCH (09:28)
[2020-03-13] MEDS: ASPIRIN ENTERIC COATED 81 MG TABLET.DR. PO SCH (09:29)
[2020-03-13] MEDS: FUROSEMIDE 40 MG TABLET. PO SCH ×2 (09:29→16:07)
[2020-03-13] MEDS: DICYCLOMINE HCL 10 MG CAPSULE PO SCH ×4 (09:29→21:17)
[2020-03-13] MEDS: ISOSORBIDE MONONITRATE ER 30 MG TAB.ER.24H PO SCH (09:29)
[2020-03-13] MEDS: PANTOPRAZOLE 40 MG TABLET.DR. PO SCH (09:29)
[2020-03-13] MEDS: LOSARTAN POTASSIUM 50 MG TABLET. PO SCH (09:30)
[2020-03-13] MEDS: HYDROcodone/APAP 5/325MG 1 TAB TABLET PO PRN ×3 (09:31→22:22)
[2020-03-13] MEDS: CETIRIZINE HCL 10 MG TABLET. PO SCH (09:31)
[2020-03-13] MEDS: INSULIN GLARGINE SYRINGE. SQ SCH ×2 (09:33→21:16)
[2020-03-13] MEDS: INSULIN LISPRO 300 UNITS/3 ML VIAL. SQ SCH ×6 (09:34→17:00)
[2020-03-13 11:20] VITALS: BP 119/62
[2020-03-13 15:13] VITALS: BP 117/56
--- NOTE | 2020-03-13 15:28 | NUR ---
SW following. Reviewed chart and spoke with RN and CM. Spoke with Dr. Castelan and pt is not ready for discharge. Pt to discharge home with family and HCBS with home 02 when stable. SW to follow as needed. Addendum: 03/13/20 at 1655 by TERRIE JEFFERS Pt asked if this AURY would assist in helping her get incontinence supplies. AURY called [employer] at [phone] at request of pt. AURY provided PCP information, Dr. Lorna Figueroa ([phone]). [employer] verified pt's Medicaid and stated they do cover the briefs and they will be mailed to pt's apartment in [facility]. AURY did confirm pt's address and phone number with pt.
--- NOTE | 2020-03-13 15:35 | NUR ---
Wound Care Assessed photo of pt's L 2nd toe d/t Covid test pending, area appears darkened at knuckle, but does not appear gangrenous. Spoke with SILVIA Conrad who stated there was no drainage, open areas or fluctuance noted and he was not concerned with the toe appearance. D/t pt's iodine allergy, would recommend painting area with skin prep and keeping dry. Will continue to follow.
--- NOTE | 2020-03-13 16:12 | PDOC ---
[facility] [facility] PROGRESS NOTE Chief Complaint Chief Complaint Black toes History of Present Illness History of Present Illness 54-year-old female arrives to the ED with complaints of black toes on the left foot. This is on the second and third digit with history of diabetes with neuropathy patient states that home health aide is off for the 5 weeks and she is dependent on a walker at home for her daily activities of living. 03/13/2020 Patient seen and examined this morning. Her pain in her toe has improved. Left foot x-rays came back and were not significant for bone destruction. Pending wound care and podiatry evaluation Vitals/I&O Vitals/I&O: Vital Signs Date Time Temp Pulse Resp B/P (MAP) Pulse Ox O2 Delivery O2 Flow Rate FiO2 03/13/20 15: 96.8 71 17 117/56 (76) 99 96.8 03/13/20 10:31 Nasal Cannula 1.0 I & O 03/12/20 03/12/20 03/13/20 15:00 23:00 07:00 Intake Total 600 ml 300 ml 480 ml Output Total 1500 ml Balance 600 ml 300 ml -1020 ml Physical Exam Physical Exam: GENERAL: Patient is alert and awake. NAD HEENT: Moist mucous membranes. No scleral icterus or obvious cervical lymphadenopathy CV: RRR. No murmurs rubs or gallops. Unable to appreciate S3 or S4 PULM: Bilaterally clear to auscultation. Chest expanding equally bilaterally without use of accessory muscles. ABD: Soft and nondistended on visualization and palpation. Normoactive bowel sounds heard. EXTREMITIES: No pedal edema seen. Left second and third digit with gangrenous appearance. No malodor. No signs of cellulitis or purulent drainage NEURO: Full ROM in all extremities. normal strength on upper extremities. Lungs: Wheezing Labs Labs: Laboratory Tests Test 03/12/20 16:21 03/12/20 16:49 03/12/20 20:19 03/13/20 04:40 Glucose (Fingerstick) 67 mg/dL (70-99) 108 mg/dL (70-99) 166 mg/dL (70-99) Sodium Level 139 mmol/L (136-145) Potassium Level 3.7 mmol/L (3.5-5.1) Chloride Level 101 mmol/L (98-107) Carbon Dioxide Level 27 mmol/L (21-32) Anion Gap 11 (6-14) Blood Urea Nitrogen 23 mg/dL (7-20) Creatinine 1.3 mg/dL (0.6-1.0) Estimated GFR (Cockcroft-Gault) 51.5 Glucose Level 195 mg/dL (70-99) Calcium Level 8.6 mg/dL (8.5-10.1) Phosphorus Level 3.4 mg/dL (2.6-4.7) Magnesium Level 1.7 mg/dL (1.8-2.4) Test 03/13/20 04:45 03/13/20 07:39 03/13/20 11:10 White Blood Count 6.2 x10^3/uL (4.0-11.0) Red Blood Count 3.84 x10^6/uL (3.50-5.40) Hemoglobin 10.5 g/dL (12.0-15.5) Hematocrit 31.3 % (36.0-47.0) Mean Corpuscular Volume 81 fL (79-100) Mean Corpuscular Hemoglobin 27 pg (25-35) Mean Corpuscular Hemoglobin Concent 34 g/dL (31-37) Red Cell Distribution Width 15.5 % (11.5-14.5) Platelet Count 222 x10^3/uL (140-400) Neutrophils (%) (Auto) 60 % (31-73) Lymphocytes (%) (Auto) 29 % (24-48) Monocytes (%) (Auto) 7 % (0-9) Eosinophils (%) (Auto) 4 % (0-3) Basophils (%) (Auto) 0 % (0-3) Neutrophils # (Auto) 3.8 x10^3/uL (1.8-7.7) Lymphocytes # (Auto) 1.8 x10^3/uL (1.0-4.8) Monocytes # (Auto) 0.4 x10^3/uL (0.0-1.1) Eosinophils # (Auto) 0.2 x10^3/uL (0.0-0.7) Basophils # (Auto) 0.0 x10^3/uL (0.0-0.2) Glucose (Fingerstick) 198 mg/dL (70-99) 207 mg/dL (70-99) Review of Systems Review of Systems: CONSTITUIONAL: Denies weight loss, fever and chills. HEENT: Denies changes in vision and hearing. RESPIRATORY: Denies SOB and cough. CV: Denies palpitations and CP. GI: Denies abdominal pain, nausea, vomiting and diarrhea. : Denies dysuria and urinary frequency. MSK: Left foot pain improved SKIN: Denies rash and pruritus. NEUROLOGICAL: Denies headache and syncope. PSYCHIATRIC: Denies recent changes in mood. Denies anxiety and depression. Assessment and Plan Assessmemt and Plan Left toe pain concerning for gangrene Acute on chronic renal failureATN Normocytic anemia due to possibly CKD Diabetes mellitus type 2 CAD status post 5 stents Dyslipidemia Hypertension Morbid obesity Pending podiatry evaluation Continue PT OT Avoid nephrotoxic medications Comment Review of Relevant I have reviewed the following items crista (where applicable) has been applied. Justicifation of Admission Dx: Justifications for Admission: Justification of Admission Dx: Yes Angina: New-Onset PREMA DAVILA MD Mar 13, 2020 16:12
[2020-03-13] MEDS ORDERED: MAGNESIUM SULFATE 2GM 50 ML IV ONE (17:15)
[2020-03-13 19:00] VITALS: BP 135/69
[2020-03-13] MEDS: ATORVASTATIN CALCIUM 40 MG TABLET. PO SCH (21:17)
[2020-03-13] MEDS: HEPARIN for SUB-Q USE 5,000 UNIT/ML VIAL. SQ SCH (21:17)
[2020-03-13] MEDS: traZODone 100 MG TABLET. PO PRN (22:21)
[2020-03-13] MEDS: ALPRAZolam 1 MG TABLET PO PRN (22:21)
[2020-03-13 23:00] VITALS: BP 130/66
[2020-03-14 03:00] VITALS: BP 142/63
[2020-03-14] MEDS: HYDROcodone/APAP 5/325MG 1 TAB TABLET PO PRN ×2 (04:21→10:35)
[2020-03-14 04:42] LABS: BASO % 1 % (0-3); EOS # 0.2 x10^3/uL (0.0-0.7); EOS % 3 % (0-3); HEMATOCRIT 31.1 % (36.0-47.0); HEMOGLOBIN 10.3 g/dL (12.0-15.5); LYMPH # 1.8 x10^3/uL (1.0-4.8); LYMPH % 29 % (24-48); MEAN CORPUSCULAR HEMOGLOBIN 27 pg (25-35); MEAN CORPUSCULAR HGB CONC 33 g/dL (31-37); MEAN CORPUSCULAR VOLUME 81 fL (79-100); MONO # 0.4 x10^3/uL (0.0-1.1); MONO % 7 % (0-9); NEUT # 3.8 x10^3/uL (1.8-7.7); NEUT % 61 % (31-73); PLATELET COUNT 214 x10^3/uL (140-400); RED BLOOD COUNT 3.85 x10^6/uL (3.50-5.40); RED CELL DISTRIBUTION WIDTH 14.7 % (11.5-14.5); WHITE BLOOD COUNT 6.2 x10^3/uL (4.0-11.0)
[2020-03-14 05:02] LABS: CALCIUM 8.9 mg/dL (8.5-10.1); CREATININE 1.5 mg/dL (0.6-1.0); GFR 43.6; MAGNESIUM 2.2 mg/dL (1.8-2.4)
[2020-03-14 07:28] VITALS: BP 153/83
[2020-03-14] MEDS: PANTOPRAZOLE 40 MG TABLET.DR. PO SCH (08:45)
[2020-03-14] MEDS: amLODIPine BESYLATE 10 MG TABLET PO SCH (08:45)
[2020-03-14] MEDS: ASPIRIN ENTERIC COATED 81 MG TABLET.DR. PO SCH (08:45)
[2020-03-14] MEDS: DICYCLOMINE HCL 10 MG CAPSULE PO SCH (08:46)
[2020-03-14] MEDS: POTASSIUM CHLORIDE 20 MEQ TABLET.ER. PO SCH (08:46)
[2020-03-14] MEDS: CETIRIZINE HCL 10 MG TABLET. PO SCH (08:46)
[2020-03-14] MEDS: CLOPIDOGREL BISULFATE 75 MG TABLET PO SCH (08:46)
[2020-03-14] MEDS: FUROSEMIDE 40 MG TABLET. PO SCH (08:46)
[2020-03-14] MEDS: ISOSORBIDE MONONITRATE ER 30 MG TAB.ER.24H PO SCH (08:49)
[2020-03-14] MEDS ORDERED: MAGNESIUM OXIDE 400 MG TABLET PO SCH (09:00)
[2020-03-14] MEDS: INSULIN GLARGINE SYRINGE. SQ SCH (09:07)
[2020-03-14] MEDS: HEPARIN for SUB-Q USE 5,000 UNIT/ML VIAL. SQ SCH (09:07)
[2020-03-14] MEDS: INSULIN LISPRO 300 UNITS/3 ML VIAL. SQ SCH ×2 (09:08→09:09)
[2020-03-14] MEDS: LOSARTAN POTASSIUM 50 MG TABLET. PO SCH (10:34)
[2020-03-14] MEDS: METHOCARBAMOL 750 MG TABLET PO PRN (10:36)
[2020-03-14] MEDS: ALPRAZolam 1 MG TABLET PO PRN (10:36)
[2020-03-14 11:15] VITALS: BP 159/63
--- NOTE | 2020-03-14 11:32 | DISCH ---
DISCHARGE INSTRUCTIONS Condition on Discharge Condition on Discharge: Stable Activity After Discharge Activity Instructions for Disc: Activity as tolerated Lifting Instructions after Dis: No heavy lifting, No pulling or pushing, Do not lift >10 pounds Exercise Instruction after Dis: Progress as tolerated Driving Instructions after Dis: Do not drive, Do not drive today Weight Bearing Status after Di: As tolerated Diet after Discharge Diet after Discharge: Diabetic No Calorie Level Diet Texture: Regular Liquid Texture: Thin Liquid Swallowing Supervision: None needed Wound Incision Care Wound/Incision Care: Keep wound elevated, Other, see below Checks after Discharge Checks after discharge: Check blood press - daily, Check blood sugar, ac/hs, Check your Temp as needed Contacting the DR. after DC Call your doctor for: If your condition worsens Follow-Up Follow up with: Podiatry - Dr Connor. Follow Up With: You will need to go see your PCP to obtain diabetic shoes Treatment/Equipment after DC Adaptive Equipment Issued: Cane Discharge Respiratory Equipmen: Oxygen PREMA DAVILA MD Mar 14, 2020 11:32
--- NOTE | 2020-03-14 12:03 | NUR ---
SW following. Reviewed chart and spoke with RN and CM. Coordinated care with Dr. Castelan. Pt ready for discharge home today. Pt's 21 yo son lives with her and helps with laundry and other IADLS. Pt has 20 hours of weekly PD services through [employer]. Pt does have home delivered meals as well per her report. Pt stated appreciation of assistance obtaining briefs through her Medicaid. Pt to discharge home on room air and oral medications. No further SW needs at this time.
--- NOTE | 2020-03-14 12:28 | NUR ---
Called in Voltaren Gel 1% 2 gm apply PRN Q6-8 hrs to [place], pharmacist at [facility] per Dr. Castelan.
--- NOTE | 2020-03-14 12:58 | NUR ---
Discharge Note: [facility] Discharge instructions and discharge home medications reviewed with Patient and a copy given. All questions have been answered and understanding verbalized. The following instructions and handouts were given: patient visit report, medication information, education. Discontinued lines and drains: peripheral IV, tip intact. Patient discharged to home with self care via private vehicle. Patient left unit awake, in stable condition, with all personal belongings.
--- NOTE | 2020-03-14 16:10 | PDOC3 ---
[facility]-Discharge Summary Date of Admission: Date of Admission: Mar 11, 2020 Date of Discharge: Date of Discharge: Mar 14, 2020 Admission Diagnosis: Admitting Diagnosis: (1) Dry gangrene (2) Diabetes mellitus, type II, insulin dependent (3) CAD (coronary artery disease) (4) Diabetes mellitus with neuropathy (5) HLD (hyperlipidemia) (6) HTN (hypertension) Discharge Diagnosis: Discharge Diagnosis: Left toe pain secondary to trauma with callus formation Acute on chronic renal failureATN Normocytic anemia due to possibly CKD Diabetes mellitus type 2 CAD status post 5 stents Dyslipidemia Hypertension Morbid obesity Consults: Consults: PodiatryDbright Connor Procedures: Procedures: Bedside callus debridement of the left second digit Hospital Course: Hospital Course: 54-year-old female arrives to the ED with complaints of black toes on the left foot. This is on the second and third digit with history of diabetes with neuropathy patient states that home health aide is off for the 5 weeks and she is dependent on a walker at home for her daily activities of living. Patient was admitted for evaluation from podiatry with concern for osteomyelitis of the left second toe. X-rays were obtained which did not show any bone destruction. Patient's pain had improved during hospital stay. Patient was eventually evaluated by wound care nurse and podiatry. Podiatry recommended nonoperative management and for the patient to obtain diabetic shoes. It was discussed in extensive detail with the patient for greater than 30 minutes about making the home safe for ambulation and clearing walkways from debris and foreign objects on the floor. Patient will also explained to have a better diabetes management and also focused on potentially enrolling in a weight loss program. The rest of her hospital course was uneventful Disposition: Disposition/Orders: D/C to Home Activity: Activity: Resume previous activity Diet: Diet: Consistent Carbohydrate Medications: Home Meds Active Scripts Aspirin (ASPIRIN EC) 81 Mg Tablet.dr, 81 MG PO DAILYWBKFT for htn for 30 Days, #30 TAB.SR Prov:KAREN VELASQUEZ MD 08/30/18 Furosemide (LASIX) 40 Mg Tablet, 40 MG PO BID for chf, #30 TAB Prov:KAREN VELASQUEZ MD 08/30/18 Reported Medications Hydrocodone Bit/Acetaminophen (HYDROCODONE-APAP 5-325 ) 1 Tab Tablet, 1 TAB PO PRN Q8HRS PRN for PAIN, TAB 0 Refills 03/11/20 Fluconazole (DIFLUCAN) 150 Mg Tablet, 1 TAB PO ONCE for per primary physician, #1 TAB 1 Refill 03/11/20 Nystatin/Triamcin (NYSTATIN-TRIAMCINOLONE CREAM) 15 Gm Cream..g., 1 MARIA FERNANDA TP BID for to affected area, #15 GM 1 Refill 03/11/20 Insulin Aspart (NOVOLOG) 100 Unit/1 Ml Cartridge, 30 UNIT SQ TIDAC for DM, EACH 09/01/19 Isosorbide Mononitrate (ISOSORBIDE MONONITRATE ER) 30 Mg Tab.er.24h, 3 TAB PO DAILY for heart, #30 TAB 5 Refills 09/01/19 Insulin Glargine,Hum.rec.anlog (LANTUS SOLOSTAR) 100 Unit/1 Ml Insuln.pen, 30 UNIT SQ BID for DM, #15 ML 3 Refills 09/01/19 Clopidogrel Bisulfate (CLOPIDOGREL) 75 Mg Tablet, 1 TAB PO DAILY for heart, #90 TAB 1 Refill 09/01/19 Amlodipine Besylate (AMLODIPINE BESYLATE) 10 Mg Tablet, 10 MG PO DAILY for HTN, TAB 09/01/19 Ipratropium/Albuterol Sulfate (DUONEB 0.5-3(2.5) MG/3 ML) 3 Ml Ampul.neb, 3 ML NEB PRN Q6HRS PRN for SHORTNESS OF BREATH, EACH 09/01/19 Polyethylene Glycol 3350 (MIRALAX) 17 Gm Powd.pack, 1 PACKET PO PRN DAILY PRN for CONSTIPATION, #30 PACKET 3 Refills 09/18/18 Pantoprazole Sodium (PANTOPRAZOLE SODIUM ) 40 Mg Tablet.dr, 40 MG PO DAILY, TAB 07/17/17 Nitroglycerin (NITROGLYCERIN SubLingual) 0.4 Mg Tab.subl, 0.4 MG SL PRN Q5MIN PRN for CHEST PAIN, BOTTLE 10/25/14 Losartan Potassium (LOSARTAN POTASSIUM ) 25 Mg Tablet, 100 MG PO DAILY for HTN, TAB 05/15/14 Atorvastatin Calcium (LIPITOR) 80 Mg Tablet, 1 TAB PO QHS, #30 TAB 5 Refills 05/15/14 Discontinued Reported Medications Methocarbamol (ROBAXIN-750) 750 Mg Tablet, 750 MG PO TID PRN for MUSCLE SPASMS, TAB 03/12/20 Benzonatate (BENZONATATE) 100 Mg Capsule, 1 CAP PO TID PRN for COUGH, #30 CAP 03/11/20 Guaifenesin/Dextromethorphan (Guaiasorb Dm Liquid) 118 Ml Liquid, 118 ML PO PRN TID PRN for COUGH, LIQUID 03/11/20 Trazodone Hcl (TRAZODONE HCL) 100 Mg Tablet, 1 TAB PO QHS PRN for INSOMNIA, #30 TAB 1 Refill 03/11/20 Alprazolam (ALPRAZOLAM) 1 Mg Tablet, 1 TAB PO BID PRN for ANXIETY / AGITATION, #60 TAB 03/11/20 Loperamide Hcl (LOPERAMIDE) 2 Mg Capsule, 2 MG PO PRN Q1HR PRN for DIARRHEA, CAP 03/11/20 Lidocaine (Lidocaine) 1 Each Adh..patch, 1 EACH TP DAILY PRN for PAIN, PATCH 03/11/20 Umeclidinium Brm/Vilanterol Tr (ANORO ELLIPTA 62.5-25 MCG INH) 1 Each Disk.w.dev, 1 PUFF IH DAILY for shortness of breath, INH 09/01/19 Naloxone HCl (Narcan) 4 Mg [place], 1 SPRAY NS PRN for too much pain med for 14 Days, #1 INHALER 0 Refills 09/01/19 Dicyclomine Hcl (DICYCLOMINE HCL) 10 Mg Capsule, 10 MG PO QID for stomach, CAP 09/01/19 Cetirizine Hcl (CETIRIZINE HCL) 10 Mg Tablet, 1 TAB PO DAILY for allergies, #30 TAB 5 Refills 09/01/19 Albuterol Sulfate (VENTOLIN HFA INHALER) 18 Gm Hfa.aer.ad, 1 PUFF INH PRN Q6HRS PRN for SHORTNESS OF BREATH, INHALER 0 Refills 09/01/19 Albuterol Sulfate (ALBUTEROL SULFATE CONC NEB SOLN) 2.5 Mg/0.5 Ml Vial.neb, 1 VIAL NEB Q6HRS for shortness of breath, #120 VIAL 5 Refills 09/01/19 Diphenhydramine Hcl (BENADRYL) 25 Mg Capsule, 25 MG PO PRN Q6HRS PRN for ALLERGIES, CAP 02/01/18 Potassium Chloride (POTASSIUM CHLORIDE ) 20 Meq Tablet.er, 20 MEQ PO DAILY for supplement, TAB.SR 05/15/14 Scheduled Amlodipine Besylate (Amlodipine Besylate), 10 MG PO DAILY, (Reported) Aspirin (Aspirin Ec), 81 MG PO DAILYWBKFT Atorvastatin Calcium (Lipitor), 1 TAB PO QHS, (Reported) Clopidogrel Bisulfate (Clopidogrel), 1 TAB PO DAILY, (Reported) Fluconazole (Diflucan), 1 TAB PO ONCE, (Reported) Furosemide (Lasix), 40 MG PO BID Insulin Aspart (Novolog), 30 UNIT SQ TIDAC, (Reported) Insulin Glargine,Hum.rec.anlog (Lantus Solostar), 30 UNIT SQ BID, (Reported) Isosorbide Mononitrate (Isosorbide Mononitrate Er), 3 TAB PO DAILY, (Reported) Losartan Potassium (Losartan Potassium ), 100 MG PO DAILY, (Reported) Nystatin/Triamcin (Nystatin-Triamcinolone Cream), 1 MARIA FERNANDA TP BID, (Reported) Pantoprazole Sodium (Pantoprazole Sodium ), 40 MG PO DAILY, (Reported) Scheduled PRN Hydrocodone Bit/Acetaminophen (Hydrocodone-Apap 5-325 ), 1 TAB PO PRN Q8HRS PRN for PAIN, (Reported) Ipratropium/Albuterol Sulfate (Duoneb 0.5-3(2.5) Mg/3 Ml), 3 ML NEB PRN Q6HRS PRN for SHORTNESS OF BREATH, (Reported) Nitroglycerin (NITROGLYCERIN SubLingual), 0.4 MG SL PRN Q5MIN PRN for CHEST PAIN, (Reported) Polyethylene Glycol 3350 (Miralax), 1 PACKET PO PRN DAILY PRN for CONSTIPATION, (Reported) Discontinued Medications Albuterol Sulfate (Albuterol Sulfate Conc Neb Soln), 1 VIAL NEB Q6HRS, (Reported) Albuterol Sulfate (Ventolin Hfa Inhaler), 1 PUFF INH PRN Q6HRS PRN for SHORTNESS OF BREATH, (Reported) Alprazolam (Alprazolam), 1 TAB PO BID PRN for ANXIETY / AGITATION, (Reported) Benzonatate (Benzonatate), 1 CAP PO TID PRN for COUGH, (Reported) Cetirizine Hcl (Cetirizine Hcl), 1 TAB PO DAILY, (Reported) Dicyclomine Hcl (Dicyclomine Hcl), 10 MG PO QID, (Reported) Diphenhydramine Hcl (Benadryl), 25 MG PO PRN Q6HRS PRN for ALLERGIES, (Reported) Guaifenesin/Dextromethorphan (Guaiasorb Dm Liquid), 118 ML PO PRN TID PRN for COUGH, (Reported) Lidocaine (Lidocaine), 1 EACH TP DAILY PRN for PAIN, (Reported) Loperamide Hcl (Loperamide), 2 MG PO PRN Q1HR PRN for DIARRHEA, (Reported) Methocarbamol (Robaxin-750), 750 MG PO TID PRN for MUSCLE SPASMS, (Reported) Naloxone HCl (Narcan), 1 SPRAY NS PRN, (Reported) Potassium Chloride (Potassium Chloride ), 20 MEQ PO DAILY, (Reported) Trazodone Hcl (Trazodone Hcl), 1 TAB PO QHS PRN for INSOMNIA, (Reported) Umeclidinium Brm/Vilanterol Tr (Anoro Ellipta 62.5-25 Mcg Inh), 1 PUFF IH DAILY, (Reported) Total Time: Total Time: Total time spent greater than 35 minutes Justicifation of Admission Dx: Justifications for Admission: Justification of Admission Dx: Yes Angina: New-Onset PREMA DAVILA MD Mar 14, 2020 16:10
== END 2020-03-14 12:30 | disposition home or self-care (01) | DRG 299 ==
LOC: ER 11:13 → ED HOLD 16:28 → 6 SOUTH 16:28 → ED HOLD 16:53 → 6 SOUTH 18:15
PROVIDERS: ADMIT Preventive Medicine Public Health & General Preventive Medicine; ATTEND Preventive Medicine Public Health & General Preventive Medicine
DX: E11.52 Type 2 diabetes mellitus with diabetic peripheral angiopathy with gangrene (principal); N17.0 Acute kidney failure with tubular necrosis; I13.0 Hypertensive heart and chronic kidney disease with heart failure and stage 1 through stage 4 chronic kidney disease, or unspecified chronic kidney disease; Z68.43 Body mass index [BMI] 50.0-59.9, adult; M86.8X7 Other osteomyelitis, ankle and foot; E11.69 Type 2 diabetes mellitus with other specified complication; D64.9 Anemia, unspecified; E11.22 Type 2 diabetes mellitus with diabetic chronic kidney disease; E11.40 Type 2 diabetes mellitus with diabetic neuropathy, unspecified; E11.628 Type 2 diabetes mellitus with other skin complications; E66.01 Morbid (severe) obesity due to excess calories; E78.00 Pure hypercholesterolemia, unspecified; E78.5 Hyperlipidemia, unspecified; I25.119 Atherosclerotic heart disease of native coronary artery with unspecified angina pectoris; I50.9 Heart failure, unspecified; J44.9 Chronic obstructive pulmonary disease, unspecified; L08.9 Local infection of the skin and subcutaneous tissue, unspecified; N18.9 Chronic kidney disease, unspecified; Z79.4 Long term (current) use of insulin; Z82.49 Family history of ischemic heart disease and other diseases of the circulatory system; Z83.3 Family history of diabetes mellitus; Z87.891 Personal history of nicotine dependence; Z95.5 Presence of coronary angioplasty implant and graft; F32.9 Major depressive disorder, single episode, unspecified; E66.9 Obesity, unspecified; Z20.828 Contact with and (suspected) exposure to other viral communicable diseases; Z88.0 Allergy status to penicillin; Z88.8 Allergy status to other drugs, medicaments and biological substances; Z91.040 Latex allergy status; Z86.718 Personal history of other venous thrombosis and embolism; Z79.01 Long term (current) use of anticoagulants
CPT/HCPCS: 36415; 71045; 73620; 80048; 80053; 81001; 82010; 82553; 82962; 83036; 83735; 84100; 84484; 85025; 85610; 85730; 86140; 87086; 96374; 99285; J1644; J1815; J3010; J3475; G0378; U0003-CS

== ENCOUNTER 2020-06-12 11:03 | Emergency (ER) | payer OTHER ==
[~2020-06-12] VITALS: Ht 182.9 cm; Wt 163.0 kg
[~2020-06-12 11:03] MED LIST changes: +AMLO-187 PO; -AMLO10TA8 PO; +FLUC150T PO; +LIDO1ADH63 TP; +LOPE2CAP PO; +NYST15CR2 TP; +TRAZ-123 PO; +[UNRECOGNIZED DRUG - CODE] PO
[2020-06-12] MEDS ORDERED: fentaNYL PF VIAL 100 MCG/2 ML VIAL IV ONE ×2 (11:45→14:15)
[2020-06-12] MEDS ORDERED: ASPIRIN 325 MG TABLET PO ONE (11:45)
[2020-06-12 12:01] LABS: BASO % 0 % (0-3); EOS # 0.1 x10^3/uL (0.0-0.7); EOS % 2 % (0-3); HEMATOCRIT 31.7 % (36.0-47.0); HEMOGLOBIN 10.4 g/dL (12.0-15.5); LYMPH # 1.4 x10^3/uL (1.0-4.8); LYMPH % 20 % (24-48); MEAN CORPUSCULAR HEMOGLOBIN 26 pg (25-35); MEAN CORPUSCULAR HGB CONC 33 g/dL (31-37); MEAN CORPUSCULAR VOLUME 81 fL (79-100); MONO # 0.5 x10^3/uL (0.0-1.1); MONO % 7 % (0-9); NEUT # 5.3 x10^3/uL (1.8-7.7); NEUT % 72 % (31-73); PLATELET COUNT 249 x10^3/uL (140-400); RED BLOOD COUNT 3.93 x10^6/uL (3.50-5.40); RED CELL DISTRIBUTION WIDTH 15.4 % (11.5-14.5); WHITE BLOOD COUNT 7.3 x10^3/uL (4.0-11.0)
--- NOTE | 2020-06-12 12:05 | PHYS DOC ---
Past Medical History Past Medical History: CAD, CHF, COPD, Depression, Diabetes-Type II, DVT, High Cholesterol, Hypertension, Other Additional Past Medical Histor: NEUROPATHY,OBESITY (SAIMA OSCAR APRN) Past Surgical History: Angioplasty, , Other Additional Past Surgical Histo: CARDIAC STENTS X5, left great toe amputation, R great & 2nd toe amputation (SAIMA OSCAR APRN) Smoking Status: Former Smoker Alcohol Use: Occasionally Drug Use: Marijuana (SAIMA OSCAR APRN) General Adult EDM: Chief Complaint: OTHER COMPLAINTS HPI: HPI: Patient is a 54 year old AA female who presents to the emergency department with complaints of substernal chest pain for the last 2 weeks. Patient reports that she went to her primary care doctor this morning was told to go to the emergency room after having an abnormal EKG. She denies any palpitations, nausea, vomiting, diaphoresis, fever, body aches, abdominal pain, sore throat, headache, or fatigue. Patient reports increased shortness of breath, she reports a history of COPD and denies any change in her chronic cough. She reports increased swelling in both of her legs, she denies any injury, or redness to her legs. She currently describes the pain in her chest as a constant pressure. She rates the pain a 10 out of 10 on the pain scale, she denies any alleviating or exacerbating factors. Patient reports she has not taken any aspirin today. (SAIMA OSCAR APRN) Review of Systems: Review of Systems: Constitutional: Denies fever or chills. [] Eyes: Denies change in visual acuity. [] HENT: Denies nasal congestion or sore throat. [] Respiratory: See HPI Cardiovascular: See HPI GI: Denies abdominal pain, nausea, or vomiting; reports one episode of diarrhea yesterday denies any today : Denies dysuria. [] Musculoskeletal: Denies back pain or joint pain. [] Integument: Denies rash. [] Neurologic: Denies headache, focal weakness or sensory changes. [] Endocrine: Denies polyuria or polydipsia; reports well-controlled blood sugars recently. [] Psychiatric: Denies depression or anxiety. [] Complete ROS is negative unless otherwise stated in the HPI. (SAIMA OSCAR APRN) Heart Score: HEART Score for Chest Pain: HEART Score for Chest Pain Response (Comments) Value History Slighlty/Non-Suspicious 0 ECG Normal 0 Age >45 - < 65 1 Risk Factors >3 Risk Factors or Hx CAD 2 Troponin < Normal Limit 0 Total 3 Risk Factors: Risk Factors: DM, Current or recent (<one month) smoker, HTN, HLP, family hi story of CAD, obesity. Risk Scores: Score 0 - 3: 2.5% MACE over next 6 weeks - Discharge Home Score 4 - 6: 20.3% MACE over next 6 weeks - Admit for Clinical Observation Score 7 - 10: 72.7% MACE over next 6 weeks - Early Invasive Strategies (SAIMA OSCAR APRN) Current Medications: Current Medications Medications (Trade) Dose Ordered Sig/Justin Start Time Stop Time Status Last Admin Dose Admin Aspirin (Orlin Aspirin) 325 mg 1X ONCE 06/12/20 11:45 06/12/20 11:48 DC Fentanyl Citrate (Fentanyl 2ml Vial) 50 mcg 1X ONCE 06/12/20 11:45 06/12/20 11:48 DC (SAIMA OSCAR APRN) Allergies: Allergies: Allergies Coded Allergies Type Severity Reaction Last Updated Verified Penicillins Allergy Severe tongue swelling, HIVES, ANGIOEDEMA 06/06/17 Yes latex Allergy Severe Hives, N/V 06/06/17 Yes prochlorperazine Allergy Severe tongue swelling, ANGIOEDEMA 06/06/17 Yes Iodinated Contrast Media Allergy Intermediate 10/07/17 Yes doxycycline Adverse Reaction Intermediate ITCHING 09/01/19 Yes iodine Adverse Reaction Intermediate "shiver", N/V 09/01/19 Yes morphine Adverse Reaction Intermediate itching 09/01/19 Yes cyclobenzaprine Adverse Reaction Mild cough 09/01/19 Yes (SAIMA OSCAR APRN) Physical Exam: PE: Constitutional: Well developed, well nourished, no acute distress, non-toxic appearance, morbidly obese. [] HENT: Normocephalic, atraumatic, bilateral external ears normal, nose normal. [] Eyes: PERRLA, EOMI, conjunctiva normal, no discharge. [] Neck: Normal range of motion, no stridor. [] Cardiovascular:Heart rate regular rhythm, no murmur Lungs & Thorax: Respirations even and unlabored, no retractions, no respiratory distress, lungs CTA Abdomen: soft, no tenderness Skin: Warm, dry, no erythema, no rash. [] Extremities: No cyanosis, ROM intact, 2+ edema bilateral lower extremities Neurologic: Alert and oriented X 3, no focal deficits noted. [] Psychologic: Affect normal, judgement normal, mood normal. [] (SAIMA OSCAR APRN) EKG: EK-sinus bradycardia rhythm, rate of 56, no STEMI, read by Dr. Gilmore [] (SAIMA OSCAR APRN) Radiology/Procedures: Radiology/Procedures: PROCEDURE: CHEST AP ONLY AP chest. HISTORY: Abnormal EKG AP view was taken of the chest. The heart is enlarged. There is no pleural effusion. There is no confluent infiltrate. IMPRESSION: 1. Cardiomegaly. 2. No acute infiltrates.[] (SAIMA OSCAR APRN) Course & Med Decision Making: Course & Med Decision Making Pertinent Labs and Imaging studies reviewed. (See chart for details) 54-year-old female presented to the emergency room for evaluation of substernal chest pain that had been constant for 2 weeks. Patient states her primary care provider sent her for an abnormal EKG. In the ER there was no abnormal findings on the patient's EKG. Chest x-ray revealed no acute findings, cardiomegaly was present. CBC revealed a hemoglobin of 10.4, hematocrit of 31.7, which is normal per [place] ent history; PT/INR within normal limits; CMP revealed a BUN of 21, creatinine of 1.4, glucose of 285, BNP of 222, troponins at 1130 and again at 1415 were less than 0.017.; UA was unremarkable Patient's vital signs were stable throughout her stay. Patient's heart score is a 3. I advised the patient of the above-mentioned results. I advised her that I was not sure what was causing her pain however I did not find any acute reason for her to stay in the hospital. I recommended that she follows up with her primary care doctor in 1-2 days for repeat evaluation, I encouraged her to return to the ER if symptoms worsen. Patient states she is out of her hydrocodone requests a refill of hydrocodone for being discharged. A prescription was written for hydrocodone. Patient verbalized an understanding of home care, medications, follow-up, and return to ED instructions and was in agreement with the plan of care. [] (SAIMA OSCAR APRN) Course & Med Decision Making I have reviewed the PA/EDUCATION ADVISER's note and Plan of Care. I was available for consultation as needed during the patient's visit in the emergency department. I agree with the clinical impression, plans and disposition. (BRIGIDO GILMORE MD) Dragon Disclaimer: Dragon Disclaimer: This electronic medical record was generated, in whole or in part, using a voice recognition dictation system. (SAIMA OSCAR APRN) Departure Departure Impression: Primary Impression: Atypical chest pain Disposition: 01 DC HOME SELF CARE/HOMELESS Condition: STABLE Referrals: NEMO NEWBERRY (PCP) Patient Instructions: Chest Pain (Nonspecific), [id number] Additional Instructions: Take your home medications as prescribed. Follow-up with your primary care doctor or your push connector assembler in 1 to 2 days for repeat evaluation. Return to the ER if your symptoms worsen, you develop a fever, or increased shortness of breath. Scripts Hydrocodone Bit/Acetaminophen (HYDROCODONE-APAP 5-325 ) 1 Tab Tablet 0.5-1 TAB PO PRN Q6HRS PRN for SEVERE PAIN 7-10, #6 TAB 0 Refills Prov: SAIMA OSCAR APRN 06/12/20 SAIMA OSCAR APRN Jun 12, 2020 12:05 BRIGIDO GILMORE MD Jun 13, 2020 19:40
[2020-06-12 12:07] LABS: CREATININE 1.4 mg/dL (0.6-1.0); GFR 47.2; POTASSIUM 4.1 mmol/L (3.5-5.1)
[2020-06-12 12:10] LABS: PROTHROMBIN TIME PATIENT 13.6 SEC (11.7-14.0)
[2020-06-12 12:14] LABS: ALBUMIN 3.2 g/dL (3.4-5.0); ALBUMIN/GLOBULIN RATIO 0.8 (1.0-1.7); MAGNESIUM 1.9 mg/dL (1.8-2.4); TOTAL BILIRUBIN 0.3 mg/dL (0.2-1.0); TOTAL PROTEIN 7.4 g/dL (6.4-8.2)
--- NOTE | 2020-06-12 12:20 | RAD ---
AP chest. HISTORY: Abnormal EKG AP view was taken of the chest. The heart is enlarged. There is no pleural effusion. There is no confluent infiltrate. IMPRESSION: 1. Cardiomegaly. 2. No acute infiltrates. Electronically signed by: Davy Montemayor MD (06/12/2020 12:17 PM) [id number]
[2020-06-12 13:42] LABS: BILIRUBIN,URINE NEGATIVE (NEG); CLARITY,URINE CLEAR; COLOR,URINE YELLOW; NITRITE,URINE NEGATIVE (NEG); PROTEIN,URINE 100 mg/dL (NEG-TRACE); UROBILINOGEN,URINE 0.2 mg/dL (0.2 mg/dL)
[2020-06-12 13:53] LABS: BACTERIA,URINE MANY /HPF (0-FEW); WBC,URINE OCC /HPF (0-4)
[2020-06-12 15:45] VITALS: BP 169/72
[2020-06-12] MEDS ORDERED: HYDR-2761 PO (15:58)
== END 2020-06-12 15:45 | disposition home or self-care (01) ==
LOC: ER 11:03
DX: R07.2 Precordial pain (principal); I11.0 Hypertensive heart disease with heart failure; I50.9 Heart failure, unspecified; J44.9 Chronic obstructive pulmonary disease, unspecified; E11.40 Type 2 diabetes mellitus with diabetic neuropathy, unspecified; E78.00 Pure hypercholesterolemia, unspecified; I25.10 Atherosclerotic heart disease of native coronary artery without angina pectoris; Z86.718 Personal history of other venous thrombosis and embolism; Z95.5 Presence of coronary angioplasty implant and graft; Z87.891 Personal history of nicotine dependence; E66.9 Obesity, unspecified; Z68.42 Body mass index [BMI] 45.0-49.9, adult; Z88.0 Allergy status to penicillin; Z88.1 Allergy status to other antibiotic agents; Z88.5 Allergy status to narcotic agent; Z91.040 Latex allergy status; Z91.041 Radiographic dye allergy status; Z88.8 Allergy status to other drugs, medicaments and biological substances
CPT/HCPCS: 36415; 71045; 80053; 81001; 82553; 83690; 83735; 83880; 84484; 85025; 85610; 85730; 87086; 96374; 96376; 99285; J3010

== ENCOUNTER 2020-08-02 07:57 | Emergency (ER) | payer OTHER ==
[~2020-08-02] VITALS: Ht 182.9 cm; Wt 154.0 kg
[2020-08-02 09:18] LABS: BASO % 1 % (0-3); EOS # 0.2 x10^3/uL (0.0-0.7); EOS % 3 % (0-3); HEMATOCRIT 31.4 % (36.0-47.0); HEMOGLOBIN 10.1 g/dL (12.0-15.5); LYMPH # 1.5 x10^3/uL (1.0-4.8); LYMPH % 28 % (24-48); MEAN CORPUSCULAR HEMOGLOBIN 26 pg (25-35); MEAN CORPUSCULAR HGB CONC 32 g/dL (31-37); MEAN CORPUSCULAR VOLUME 81 fL (79-100); MONO # 0.3 x10^3/uL (0.0-1.1); MONO % 6 % (0-9); NEUT # 3.5 x10^3/uL (1.8-7.7); NEUT % 63 % (31-73); PLATELET COUNT 211 x10^3/uL (140-400); RED BLOOD COUNT 3.87 x10^6/uL (3.50-5.40); RED CELL DISTRIBUTION WIDTH 15.7 % (11.5-14.5); WHITE BLOOD COUNT 5.5 x10^3/uL (4.0-11.0)
[2020-08-02 09:29] LABS: CALCIUM 8.7 mg/dL (8.5-10.1); CREATININE 1.3 mg/dL (0.6-1.0); GFR 51.5; POTASSIUM 4.2 mmol/L (3.5-5.1)
[2020-08-02] MEDS ORDERED: KETOROLAC 30 MG/ML VIAL. IVP ONE (09:30)
[2020-08-02 09:36] LABS: ALBUMIN/GLOBULIN RATIO 0.7 (1.0-1.7); TOTAL BILIRUBIN 0.2 mg/dL (0.2-1.0); TOTAL PROTEIN 7.4 g/dL (6.4-8.2)
--- NOTE | 2020-08-02 09:44 | ED.ADGEN ---
Past Medical History Past Medical History: CAD, CHF, COPD, Depression, Diabetes-Type II, DVT, High Cholesterol, Hypertension, Other Additional Past Medical Histor: NEUROPATHY,OBESITY, acid reflex Past Surgical History: Angioplasty, , Other Additional Past Surgical Histo: CARDIAC STENTS X5, left great toe amputation, R great & 2nd toe amputation Smoking Status: Former Smoker Alcohol Use: Occasionally Drug Use: Marijuana General Adult EDM: Chief Complaint: ABDOMINAL PAIN HPI: HPI: Patient is a 54-year-old female with multiple medical problems who presents to the emergency room complaining of suprapubic abdominal pain and left-sided flank pain. She states that the abdominal pain started 3 days ago and the back pain started last night. She states the abdominal pain comes and goes but the back pain has been constant since it started. She has had some nausea without vomiting. She had diarrhea for 2 days. She has had similar symptoms in the past which is related to pancreatitis. She denies any fevers, chills, sweats, shortness of breath, cough, body aches. She has not had any hematemesis or rectal bleeding. Review of Systems: Review of Systems: Complete ROS is negative unless otherwise documented in HPI Current Medications: Current Medications Medications (Trade) Dose Ordered Sig/Justin Start Time Stop Time Status Last Admin Dose Admin Fentanyl Citrate (Fentanyl 2ml Vial) 50 mcg 1X ONCE 08/02/20 09:45 08/02/20 09:46 DC 08/02/20 09:58 50 MCG Ketorolac Tromethamine (Toradol 30mg Vial) 30 mg 1X ONCE 08/02/20 09:30 08/02/20 09:32 DC 08/02/20 09:57 30 MG Oxycodone/ Acetaminophen (Percocet 5/325) 2 tab 1X ONCE 08/02/20 11:45 08/02/20 11:46 DC 08/02/20 12:00 2 TAB Phenazopyridine HCl (Pyridium) 200 mg 1X ONCE 08/02/20 11:45 08/02/20 11:46 DC 08/02/20 12:00 200 MG Allergies: Allergies: Allergies Coded Allergies Type Severity Reaction Last Updated Verified Penicillins Allergy Severe tongue swelling, HIVES, ANGIOEDEMA 06/06/17 Yes latex Allergy Severe Hives, N/V 06/06/17 Yes prochlorperazine Allergy Severe tongue swelling, ANGIOEDEMA 06/06/17 Yes Iodinated Contrast Media Allergy Intermediate 10/07/17 Yes doxycycline Adverse Reaction Intermediate ITCHING 09/01/19 Yes iodine Adverse Reaction Intermediate "shiver", N/V 09/01/19 Yes morphine Adverse Reaction Intermediate itching 09/01/19 Yes cyclobenzaprine Adverse Reaction Mild cough 09/01/19 Yes Physical Exam: PE: General: Awake, alert, mild distress. Well Nourished, well hydrated. Cooperative HEENT: Atraumatic, EOMI, PERRL, airway patent, moist oral mucosa Neck: Supple, trachea midline Respiratory: CTA bilaterally, normal effort, no wheezing/crackles CV: RRR, no murmur, cap refill <2 GI: Soft, nondistended, lower abdominal tenderness MSK: No obvious deformities Skin: Warm, dry, intact Neuro: A&O x3, speech NL, sensory and motor grossly intact, no focal deficits Psych: Normal affect, normal mood, not suicidal or homicidal Current Patient Data: Labs: Laboratory Tests Test 08/02/20 08:55 08/02/20 11:23 White Blood Count 5.5 x10^3/uL (4.0-11.0) Red Blood Count 3.87 x10^6/uL (3.50-5.40) Hemoglobin 10.1 g/dL (12.0-15.5) L Hematocrit 31.4 % (36.0-47.0) L Mean Corpuscular Volume 81 fL (79-100) Mean Corpuscular Hemoglobin 26 pg (25-35) Mean Corpuscular Hemoglobin Concent 32 g/dL (31-37) Red Cell Distribution Width 15.7 % (11.5-14.5) H Platelet Count 211 x10^3/uL (140-400) Neutrophils (%) (Auto) 63 % (31-73) Lymphocytes (%) (Auto) 28 % (24-48) Monocytes (%) (Auto) 6 % (0-9) Eosinophils (%) (Auto) 3 % (0-3) Basophils (%) (Auto) 1 % (0-3) Neutrophils # (Auto) 3.5 x10^3/uL (1.8-7.7) Lymphocytes # (Auto) 1.5 x10^3/uL (1.0-4.8) Monocytes # (Auto) 0.3 x10^3/uL (0.0-1.1) Eosinophils # (Auto) 0.2 x10^3/uL (0.0-0.7) Basophils # (Auto) 0.0 x10^3/uL (0.0-0.2) Sodium Level 136 mmol/L (136-145) Potassium Level 4.2 mmol/L (3.5-5.1) Chloride Level 101 mmol/L (98-107) Carbon Dioxide Level 26 mmol/L (21-32) Anion Gap 9 (6-14) Blood Urea Nitrogen 15 mg/dL (7-20) Creatinine 1.3 mg/dL (0.6-1.0) H Estimated GFR (Cockcroft-Gault) 51.5 BUN/Creatinine Ratio 12 (6-20) Glucose Level 326 mg/dL (70-99) H Calcium Level 8.7 mg/dL (8.5-10.1) Total Bilirubin 0.2 mg/dL (0.2-1.0) Aspartate Amino Transferase (AST) 10 U/L (15-37) L Alanine Aminotransferase (ALT) 13 U/L (14-59) L Alkaline Phosphatase 54 U/L (46-116) Total Protein 7.4 g/dL (6.4-8.2) Albumin 3.0 g/dL (3.4-5.0) L Albumin/Globulin Ratio 0.7 (1.0-1.7) L Lipase 97 U/L (73-393) Urine Collection Type Unknown Urine Color Yellow Urine Clarity Cloudy Urine pH 5.5 (<5.0-8.0) Urine Specific [place] 1.025 (1.000-1.030) Urine Protein 100 mg/dL (NEG-TRACE) Urine Glucose (UA) >=1000 mg/dL (NEG) Urine Ketones (Stick) Negative mg/dL (NEG) Urine Blood Trace (NEG) Urine Nitrite Negative (NEG) Urine Bilirubin Negative (NEG) Urine Urobilinogen Dipstick 0.2 mg/dL (0.2 mg/dL) Urine Leukocyte Esterase Negative (NEG) Urine RBC 1-2 /HPF (0-2) Urine WBC 5-10 /HPF (0-4) Urine Squamous Epithelial Cells Mod /LPF Urine Bacteria Many /HPF (0-FEW) Laboratory Tests 08/02/20 08:55 Laboratory Tests 08/02/20 08:55 Vital Signs: Vital Signs Date Time Temp Pulse Resp B/P (MAP) Pulse Ox O2 Delivery O2 Flow Rate FiO2 08/02/20 12:00 24 100 Room Air 08/02/20 08:33 98.1 50 151/46 (81) 98.1 EKG: EKG: [] Heart Score: Risk Factors: Risk Factors: DM, Current or recent (<one month) smoker, HTN, HLP, family history of CAD, obesity. Risk Scores: Score 0 - 3: 2.5% MACE over next 6 weeks - Discharge Home Score 4 - 6: 20.3% MACE over next 6 weeks - Admit for Clinical Observation Score 7 - 10: 72.7% MACE over next 6 weeks - Early Invasive Strategies Radiology/Procedures: Radiology/Procedures: [] Course & Med Decision Making: Course & Med Decision Making Pertinent Labs and Imaging studies reviewed. (See chart for details) Patient is a 54 year-old female with a history of diabetes, asthma, high blood pressure who presents to the Emergency Room complaining of abdominal pain, diarrhea, nausea, flank pain. On exam, patient appears to be in pain. Due to patients history, age, and exam work up will need to be done to evaluate for intra-abdominal pathology. Work up ordered includes CBC, CMP, lipase, UA, CT abdomen and pelvis. Patient's pain is not epigastric and a cardiac evaluation will not be needed for atypical pain. Ddx includes kidney stone, pyelonephritis, gastroenteritis, colitis, pancreatitis. Work up was reviewed and is unremarkable. Patient does not have any signs of pancreatitis, kidney stones, pyelonephritis. At this time patient is stable for discharge. Vitals are normal. Patient became upset when she was told she was being discharged. She states she still in pain despite multiple pain medications. I have discussed with the patient that at this time everything appears normal and that while there may be something going on it does not appear to be an emergent condition. I have recommended that she follow-up with her primary care physician. She is very unhappy about this but states that she will follow up with primary care. Patient's test results and vitals while in the ED were fully reviewed and discussed with the patient. Patient is stable and at this time does not need admission to the hospital. We have discussed strict return precautions and the importance of following up with their Primary Care Physician. Patient stated understanding and was given an opportunity to ask any questions. Patient is in agreement with plan. José Disclaimer: José Disclaimer: This electronic medical record was generated, in whole or in part, using a voice recognition dictation system. Departure Departure Impression: Primary Impression: Abdominal pain Disposition: 01 DC HOME SELF CARE/HOMELESS Condition: STABLE Referrals: NEMO NEWBERRY (PCP) Patient Instructions: Abdominal Pain Additional Instructions: Please follow up with your primary care physician for a renal MRI. SARI GUY MD Aug 02, 2020 09:44
[2020-08-02] MEDS ORDERED: fentaNYL PF VIAL 100 MCG/2 ML VIAL IVP ONE (09:45)
--- NOTE | 2020-08-02 09:57 | RAD ---
INDICATION: Reason: left flank pain / Spl. Instructions: / History: . COMPARISON: October 2017 TECHNIQUE: Axial CT images obtained through the abdomen and pelvis without contrast. One or more of the following individualized dose reduction techniques were utilized for this examination: 1. Automated exposure control; 2. Adjustment of the mA and/or kV according to patient size; 3. Use of iterative reconstruction technique. FINDINGS: There is some small nodular foci at the partially visualized left lung base again seen. Mild mosaic attenuation at lung bases could be from small airway inflammation. Coronary artery calcific atherosclerosis. Moderate calcific atherosclerosis. No intrahepatic bile duct dilation. Limited assessment of pancreas without contrast. Spleen unremarkable. There is some fullness of the left kidney anteriorly with contour deformity. There is some mild thickening of the left adrenal gland. No hydronephrosis or radiopaque obstructive ureter stone. Urinary bladder is partially distended. The uterus is visualized. Small fat-containing umbilical hernia. No periappendiceal inflammatory changes. No dilated loops of bowel to suggest obstruction. Degenerative changes of the hips and spine. Multilevel central canal and neural foraminal stenosis. IMPRESSION: * No hydronephrosis. * There is some fullness of the left kidney anteriorly. A left renal mass is not excluded given this finding and would consider obtaining either CT or MRI renal protocol to assess for a lesion. * No evidence of bowel obstruction or appendicitis. * Degenerative changes of the spine and hips with multilevel central canal and neural foraminal stenosis. Electronically signed by: Abdifatah Mcmullen MD (08/02/2020 9:54 AM) [id number]
[2020-08-02 11:31] LABS: BILIRUBIN,URINE NEGATIVE (NEG); CLARITY,URINE CLOUDY; COLOR,URINE YELLOW; NITRITE,URINE NEGATIVE (NEG); PH,URINE 5.5 (<5.0-8.0); PROTEIN,URINE 100 mg/dL (NEG-TRACE); UROBILINOGEN,URINE 0.2 mg/dL (0.2 mg/dL)
[2020-08-02 11:45] LABS: BACTERIA,URINE MANY /HPF (0-FEW)
[2020-08-02] MEDS ORDERED: PHENAZOPYRIDINE 200 MG TABLET. PO ONE (11:45)
[2020-08-02] MEDS ORDERED: oxyCODONE/APAP 5/325 1 TAB TABLET PO ONE (11:45)
[2020-08-02 12:42] VITALS: BP 250/121
== END 2020-08-02 13:20 | disposition home or self-care (01) ==
LOC: ER 07:57
DX: R10.32 Left lower quadrant pain (principal); I11.0 Hypertensive heart disease with heart failure; I50.9 Heart failure, unspecified; E11.40 Type 2 diabetes mellitus with diabetic neuropathy, unspecified; I25.10 Atherosclerotic heart disease of native coronary artery without angina pectoris; E78.00 Pure hypercholesterolemia, unspecified; J44.9 Chronic obstructive pulmonary disease, unspecified; K21.9 Gastro-esophageal reflux disease without esophagitis; Z87.891 Personal history of nicotine dependence; E66.9 Obesity, unspecified; Z68.42 Body mass index [BMI] 45.0-49.9, adult; Z95.5 Presence of coronary angioplasty implant and graft
CPT/HCPCS: 36415; 74176; 80053; 81001; 83690; 85025; 96374; 96375; 99285; J1885; J3010

== ENCOUNTER 2020-10-14 15:25 | Observation (INO) | payer OTHER ==
[~2020-10-14] VITALS: Ht 182.9 cm; Wt 75.5 kg
[~2020-10-14 15:25] MED LIST changes: -CLIN150C14 PO; +CLIN150C15 PO; -ISOS30TA4 PO; +ISOS30TA68 PO; -ISOS60TA2 PO; +ISOS60TA55 PO; +METH-562 PO; -METH750T2 PO
[2020-10-14 16:46] LABS: BASO # 0.1 x10^3/uL (0.0-0.2); BASO % 1 % (0-3); EOS # 0.2 x10^3/uL (0.0-0.7); EOS % 2 % (0-3); HEMATOCRIT 32.3 % (36.0-47.0); HEMOGLOBIN 10.5 g/dL (12.0-15.5); LYMPH # 2.2 x10^3/uL (1.0-4.8); LYMPH % 29 % (24-48); MEAN CORPUSCULAR HEMOGLOBIN 26 pg (25-35); MEAN CORPUSCULAR HGB CONC 32 g/dL (31-37); MEAN CORPUSCULAR VOLUME 80 fL (79-100); MONO # 0.5 x10^3/uL (0.0-1.1); MONO % 7 % (0-9); NEUT # 4.6 x10^3/uL (1.8-7.7); NEUT % 61 % (31-73); PLATELET COUNT 250 x10^3/uL (140-400); RED BLOOD COUNT 4.03 x10^6/uL (3.50-5.40); RED CELL DISTRIBUTION WIDTH 16.3 % (11.5-14.5); WHITE BLOOD COUNT 7.6 x10^3/uL (4.0-11.0)
[2020-10-14 16:48] LABS: BILIRUBIN,URINE NEGATIVE (NEG); CLARITY,URINE CLEAR; COLOR,URINE YELLOW; NITRITE,URINE NEGATIVE (NEG); PROTEIN,URINE 30 mg/dL (NEG-TRACE)
[2020-10-14 16:56] LABS: BACTERIA,URINE MANY /HPF (0-FEW)
[2020-10-14 16:58] LABS: HYALINE CASTS, URINE FEW /HPF; RBC,URINE RARE /HPF (0-2)
[2020-10-14 17:19] LABS: CALCIUM 9.3 mg/dL (8.5-10.1); CREATININE 1.8 mg/dL (0.6-1.0); GFR 35.2; POTASSIUM 4.7 mmol/L (3.5-5.1)
--- NOTE | 2020-10-14 17:20 | RAD ---
Exam: Chest one view INDICATION: Chest pain TECHNIQUE: Frontal view of the chest Comparisons: 06/12/2020 FINDINGS: The cardiomediastinal silhouette and pulmonary vessels are within normal limits. The lung and pleural spaces are clear. IMPRESSION: No acute cardiopulmonary process. Electronically signed by: Sunday Siddiqui MD (10/14/2020 5:17 PM) [facility]
[2020-10-14 17:22] LABS: ALBUMIN 3.4 g/dL (3.4-5.0); ALBUMIN/GLOBULIN RATIO 0.9 (1.0-1.7); MAGNESIUM 1.9 mg/dL (1.8-2.4); TOTAL BILIRUBIN 0.2 mg/dL (0.2-1.0); TOTAL PROTEIN 7.4 g/dL (6.4-8.2)
[2020-10-14 17:25] LABS: CREATINE KINASE 70 U/L (26-192)
--- NOTE | 2020-10-14 17:56 | ED.ADGEN ---
Past Medical History Past Medical History: CAD, CHF, COPD, Depression, Diabetes-Type II, DVT, High Cholesterol, Hypertension, Other Additional Past Medical Histor: NEUROPATHY,OBESITY, acid reflex Past Surgical History: Angioplasty, , Other Additional Past Surgical Histo: CARDIAC STENTS X5, left great toe amputation, R great & 2nd toe amputation Smoking Status: Former Smoker Alcohol Use: Occasionally Drug Use: Marijuana General Adult EDM: Chief Complaint: SHORTNESS OF BREATH HPI: HPI: Patient is a 55 year old AA female who presents to the emergency department with complaints of swelling in both of her lower extremities not improved after taking Bumex for the last few days in addition to her daily Lasix. Patient reports that this problem has been ongoing for greater than a week. She was seen by her primary care doctor who prescribed her the Bumex. Patient reports that earlier today she began to have pain in the left side of her chest that felt like a sensation of tightness that also radiated to her left arm. Patient reports that when the chest pain occurs she also felt short of breath. She states that the chest pain has been intermittent all day. Patient reports that she took 81 mg of aspirin earlier today. She denies any fever, cough, body aches, fatigue, abdominal pain, nausea, vomiting, diarrhea, or diaphoresis. T awa of my HPI the patient denies any chest pain. She did complain of pain in both of her lower extremities that she rated a 10 out of 10 on the pain scale. She denies any alleviating or exacerbating factors. Review of Systems: Review of Systems: Complete ROS is negative unless otherwise noted in HPI. Current Medications: Current Medications Medications (Trade) Dose Ordered Sig/Justin Start Time Stop Time Status Last Admin Dose Admin Aspirin (Aspirin Chewable) 243 mg 1X ONCE 10/14/20 18:15 10/14/20 18:16 DC 10/14/20 19:36 243 MG Allergies: Allergies: Allergies Coded Allergies Type Severity Reaction Last Updated Verified Penicillins Allergy Severe tongue swelling, HIVES, ANGIOEDEMA 06/06/17 Yes latex Allergy Severe Hives, N/V 06/06/17 Yes prochlorperazine Allergy Severe tongue swelling, ANGIOEDEMA 06/06/17 Yes Iodinated Contrast Media Allergy Intermediate 10/07/17 Yes doxycycline Adverse Reaction Intermediate ITCHING 09/01/19 Yes iodine Adverse Reaction Intermediate "shiver", N/V 09/01/19 Yes morphine Adverse Reaction Intermediate itching 09/01/19 Yes cyclobenzaprine Adverse Reaction Mild cough 09/01/19 Yes Physical Exam: PE: See Above Constitutional: Well developed, well nourished, no acute distress, non-toxic appearance, obese. [] HENT: Normocephalic, atraumatic, bilateral external ears normal, nose normal. [] Eyes: PERRLA, EOMI, conjunctiva normal, no discharge. [] Neck: Normal range of motion, no stridor. [] Cardiovascular:Heart rate regular rhythm Lungs & Thorax: Respirations even and unlabored, no retractions, no respiratory distress, 2+ edema BLE Abdomen: soft, no tenderness, no palpable mass, no pulsatile mass Skin: Warm, dry, no erythema, no rash. [] Extremities: BLE: Diffuse tenderness to palpation, no crepitus, no deformity, cap refill less than 2 seconds ,no cyanosis, ROM intact, 2+ edema BLE Neurologic: Alert and oriented X 3, normal motor, normal sensation, no focal deficits noted. [] Psychologic: Affect normal, judgement normal, mood normal. [] Current Patient Data: Labs: Laboratory Tests Test 10/14/20 15:55 10/14/20 16:10 Urine Collection Type Void Urine Color Yellow Urine Clarity Clear Urine pH 5.0 (<5.0-8.0) Urine Specific [place] 1.020 (1.000-1.030) Urine Protein 30 mg/dL (NEG-TRACE) Urine Glucose (UA) Negative mg/dL (NEG) Urine Ketones (Stick) Negative mg/dL (NEG) Urine Blood Negative (NEG) Urine Nitrite Negative (NEG) Urine Bilirubin Negative (NEG) Urine Urobilinogen Dipstick 1.0 mg/dL (0.2 mg/dL) Urine Leukocyte Esterase Trace (NEG) Urine RBC Rare /HPF (0-2) Urine WBC 1-4 /HPF (0-4) Urine Squamous Epithelial Cells Many /LPF Urine Bacteria Many /HPF (0-FEW) Urine Hyaline Casts Few /HPF Urine Mucus Mod /LPF White Blood Count 7.6 x10^3/uL (4.0-11.0) Red Blood Count 4.03 x10^6/uL (3.50-5.40) Hemoglobin 10.5 g/dL (12.0-15.5) L Hematocrit 32.3 % (36.0-47.0) L Mean Corpuscular Volume 80 fL (79-100) Mean Corpuscular Hemoglobin 26 pg (25-35) Mean Corpuscular Hemoglobin Concent 32 g/dL (31-37) Red Cell Distribution Width 16.3 % (11.5-14.5) H Platelet Count 250 x10^3/uL (140-400) Neutrophils (%) (Auto) 61 % (31-73) Lymphocytes (%) (Auto) 29 % (24-48) Monocytes (%) (Auto) 7 % (0-9) Eosinophils (%) (Auto) 2 % (0-3) Basophils (%) (Auto) 1 % (0-3) Neutrophils # (Auto) 4.6 x10^3/uL (1.8-7.7) Lymphocytes # (Auto) 2.2 x10^3/uL (1.0-4.8) Monocytes # (Auto) 0.5 x10^3/uL (0.0-1.1) Eosinophils # (Auto) 0.2 x10^3/uL (0.0-0.7) Basophils # (Auto) 0.1 x10^3/uL (0.0-0.2) Sodium Level 137 mmol/L (136-145) Potassium Level 4.7 mmol/L (3.5-5.1) Chloride Level 102 mmol/L (98-107) Carbon Dioxide Level 27 mmol/L (21-32) Anion Gap 8 (6-14) Blood Urea Nitrogen 27 mg/dL (7-20) H Creatinine 1.8 mg/dL (0.6-1.0) H Estimated GFR (Cockcroft-Gault) 35.2 BUN/Creatinine Ratio 15 (6-20) Glucose Level 227 mg/dL (70-99) H Calcium Level 9.3 mg/dL (8.5-10.1) Magnesium Level 1.9 mg/dL (1.8-2.4) Total Bilirubin 0.2 mg/dL (0.2-1.0) Aspartate Amino Transferase (AST) 14 U/L (15-37) L Alanine Aminotransferase (ALT) 18 U/L (14-59) Alkaline Phosphatase 54 U/L (46-116) Creatine Kinase 70 U/L (26-192) Creatine Kinase MB (Mass) < 0.5 ng/mL (0.0-3.6) Creatine Kinase MB Relative Index % (0-4) Troponin I Quantitative < 0.017 ng/mL (0.000-0.055) MN-Rla-A-Type Natriuretic Peptide 158 pg/mL (0-124) H Total Protein 7.4 g/dL (6.4-8.2) Albumin 3.4 g/dL (3.4-5.0) Albumin/Globulin Ratio 0.9 (1.0-1.7) L Lipase 113 U/L (73-393) Laboratory Tests 10/14/20 16:10 Laboratory Tests 10/14/20 16:10 Vital Signs: Vital Signs Date Time Temp Pulse Resp B/P (MAP) Pulse Ox O2 Delivery O2 Flow Rate FiO2 10/14/20 19:35 56 133/62 (85) 98 Nasal Cannula 1.0 10/14/20 17:35 18 10/14/20 15:34 98.2 98.2 EKG: EK- Sinus troy rate 56, T abnormality has high lateral leads, no STEMI Read by Dr. Chadwick. Heart Score: HEART Score for Chest Pain: HEART Score for Chest Pain Response (Comments) Value History Slighlty/Non-Suspicious 0 ECG Nonspecific Repolarizatio 1 Age >45 - < 65 1 Risk Factors >3 Risk Factors or Hx CAD 2 Troponin < Normal Limit 0 Total 4 Risk Factors: Risk Factors: DM, Current or recent (<one month) smoker, HTN, HLP, family history of CAD, obesity. Risk Scores: Score 0 - 3: 2.5% MACE over next 6 weeks - Discharge Home Score 4 - 6: 20.3% MACE over next 6 weeks - Admit for Clinical Observation Score 7 - 10: 72.7% MACE over next 6 weeks - Early Invasive Strategies Radiology/Procedures: Radiology/Procedures: PROCEDURE: CHEST AP ONLY Exam: Chest one view INDICATION: Chest pain TECHNIQUE: Frontal view of the chest Comparisons: 06/12/2020 FINDINGS: The cardiomediastinal silhouette and pulmonary vessels are within normal limits. The lung and pleural spaces are clear. IMPRESSION: No acute cardiopulmonary process. PROCEDURE: VENOUS LOWER EXTREMITY RIGHT EXAM: Bilateral lower extremity venous Doppler sonogram. HISTORY: Pain and swelling. TECHNIQUE: Alanis scale and color Doppler sonographic evaluation of the bilateral lower extremity veins with spectral waveform analysis was performed. FINDINGS: There is normal color flow, normal compressibility and there are normal spectral waveforms in the common femoral, superficial femoral, popliteal, posterior tibial and greater saphenous veins. IMPRESSION: No Doppler evidence of lower extremity deep venous thrombosis. Electronically signed by: Nicole Fraire MD (10/14/2020 6:38 PM) [facility] [] Course & Med Decision Making: Course & Med Decision Making Pertinent Labs and Imaging studies reviewed. (See chart for details) [id number]-spoke with Dr. Jiménez who is the admitting physician, and care was assumed following discussion of patient. Will admit patient is chest pain observation and bilateral lower extremity edema. Will order bilateral ultrasounds to rule out DVT. Patient's vital signs stable. Patient remains afebrile, appears nontoxic, respirations even and unlabored. Patient will be admitted to the CVC floor. Patient's case and plan of care also discussed with Dr. Geronimo Kumar Disclaimer: José Disclaimer: This electronic medical record was generated, in whole or in part, using a voice recognition dictation system. Departure Departure Impression: Primary Impression: Chest pain Additional Impression: Swelling of both lower extremities Disposition: ADMITTED INPT THIS HOSP Admitting Physician: ROHINI (Jessy) Condition: STABLE Referrals: NEMO NEWBERRY (PCP) Attending Signature Attending Signature I have reviewed the PA/OPERATIONS MGR's note and plan of care. I was available for consultation as needed during the patient's visit in the emergency department. I agree with the clinical impression, plan, and disposition. Problem Qualifiers Primary Impression: Chest pain Chest pain type: unspecified Qualified Codes: R07.9 - Chest pain, unspecified SAIMA OSCAR APRN Oct 14, 2020 17:56 ROBEL CHADWICK DO Oct 15, 2020 07:24
[2020-10-14] MEDS ORDERED: ASPIRIN CHEWABLE 81 MG TABLET. PO ONE (18:15)
--- NOTE | 2020-10-14 18:41 | RAD ---
EXAM: Bilateral lower extremity venous Doppler sonogram. HISTORY: Pain and swelling. TECHNIQUE: Alanis scale and color Doppler sonographic evaluation of the bilateral lower extremity veins with spectral waveform analysis was performed. FINDINGS: There is normal color flow, normal compressibility and there are normal spectral waveforms in the common femoral, superficial femoral, popliteal, posterior tibial and greater saphenous veins. IMPRESSION: No Doppler evidence of lower extremity deep venous thrombosis. Electronically signed by: Nicole Fraire MD (10/14/2020 6:38 PM) [facility]
[2020-10-14] MEDS ORDERED: DICL100G59 TP (19:53)
[2020-10-14] MEDS ORDERED: UMEC1DIS IH (19:53)
[2020-10-14] MEDS ORDERED: OXYC-325 PO (19:53)
[2020-10-14] MEDS ORDERED: LIDO700A21 TP (19:53)
[2020-10-14] MEDS ORDERED: ALPR1TAB6 PO (19:53)
[2020-10-14] MEDS ORDERED: ERGO800010 PO (19:53)
[2020-10-14] MEDS ORDERED: DIPH25CA20 PO (19:53)
[2020-10-14] MEDS ORDERED: CETI10TA16 PO (19:53)
[2020-10-14] MEDS ORDERED: TIZA4TAB2 PO (19:53)
[2020-10-14] MEDS ORDERED: POTA20TA4 PO (19:53)
[2020-10-14] MEDS ORDERED: FLUT9.9S NS (19:53)
[2020-10-14] MEDS ORDERED: METH-38 PO (19:53)
[2020-10-14] MEDS ORDERED: KETO5DRO89 OD (19:53)
[2020-10-14] MEDS ORDERED: DICY10CA3 PO (19:53)
[2020-10-14] MEDS ORDERED: NALO4SPR NS (19:53)
[2020-10-14] MEDS ORDERED: POLYETHYLENE GLYCOL 3350 17 GM PACKET. PO PRN (20:45)
[2020-10-14] MEDS ORDERED: NALOXONE HCL NS SCH (20:45)
[2020-10-14] MEDS ORDERED: DICLOFENAC SODIUM 1% TOPICAL GEL 100GM TUBE. TP PRN (20:45)
[2020-10-14] MEDS ORDERED: NITROGLYCERIN SUBLINGUAL 0.4 MG BOTTLE OF 25. SL PRN (20:45)
[2020-10-14] MEDS ORDERED: diphenhydrAMINE HCL 25 MG CAPSULE PO PRN (20:45)
[2020-10-14] MEDS: oxyCODONE/APAP 5/325 1 TAB TABLET PO PRN (20:59)
[2020-10-14] MEDS ORDERED: NON FORMULARY ITEM (Nystatin/Triamcin (Nystatin-Triamcinolone Cream) 1 APP) TP SCH (21:00)
[2020-10-14] MEDS: DICYCLOMINE HCL 10 MG CAPSULE PO SCH (21:25)
[2020-10-14] MEDS: ATORVASTATIN CALCIUM 40 MG TABLET. PO SCH (21:25)
[2020-10-14] MEDS: INSULIN GLARGINE SYRINGE. SQ SCH (21:41)
[2020-10-14] MEDS ORDERED: ALPRAZolam 0.5 MG TABLET PO ONE (22:00)
[2020-10-14] MEDS: METHOCARBAMOL 750 MG TABLET PO SCH (22:08)
[2020-10-14] MEDS: FUROSEMIDE 40 MG TABLET. PO SCH (22:08)
[2020-10-15 02:30] VITALS: BP 140/63
--- NOTE | 2020-10-15 02:41 | NUR ---
Pt. arrived on unit at 0230 by bed from ED. Pt. is alert and complaining of some pain on her buttocks. Pt. states she does not have any chest pain at this time. Call light is within reach with bed in lowest position and locked. Will continue to monitor.
[2020-10-15] MEDS: tiZANidine 4 MG TABLET. PO PRN (03:04)
[2020-10-15] MEDS: oxyCODONE/APAP 5/325 1 TAB TABLET PO PRN ×4 (03:04→22:44)
--- NOTE | 2020-10-15 03:59 | EKG ---
[facility] [address] [place] [address] Test Date: 2020-10-14 Test Time: 21:23:00 Pat Name: JAXSON BORJAS Department: Room: Gender: F Patient Registration Representative: : 1965 Requested By: SAIMA OSCAR Order Number: [id number] Reading MD: Measurements Intervals [place] Rate: 54 P: 44 HI: 150 QRS: 16 QRSD: 118 T: 87 QT: 544 QTc: 518 Interpretive Statements SINUS RHYTHM T ABNORMALITY IN HIGH LATERAL LEADS PROLONGED QT ABNORMAL ECG RI6.02 No previous ECG available for comparison
[2020-10-15] MEDS: BUDESONIDE 0.5 MG/2 ML NEBU. NEB SCH ×2 (06:23→19:47)
[2020-10-15] MEDS: IPRATRPIUM/ALBUTEROL 0.5/2.5MG 3 ML NEBU. NEB SCH ×2 (06:23→11:35)
[2020-10-15 07:00] VITALS: BP 150/77
--- NOTE | 2020-10-15 07:04 | PDOC1 ---
History and Physical Date of Admission Date of Admission DATE: 10/15/20 TIME: 06:45 Identification/Chief Complaint Chief Complaint Shortness of breath, chest pain, leg swelling Source Source: Chart review, Patient History of Present Illness History of Present Illness Patient is a 55-year-old female with past medical history of CAD with stents x5, who presents with complaints of worsening shortness of breath and worsening bilateral lower extremity swelling for the past week. She has taken her home diuretics without significant improvement. She states her PCP switched her from Lasix 40 mg twice daily to Bumex 1 mg daily. She also reports associated left- sided chest pain that has been intermittent over this time as well. She reports sharp pain 10/10, that feels more like tightness. She has taken aspirin at home without any improvement in her symptoms. Initial evaluation in ER showed troponin <0.017 x 2. Will admit patient for further medical management. Past Medical History Cardiovascular: CAD, CHF, HTN, Hyperlipidemia Pulmonary: Asthma, COPD CENTRAL NERVOUS SYSTEM: Periperal neuropathy GI: GERD Heme/Onc: No pertinent hx Hepatobiliary: No pertinent hx Psych: Anxiety, Addictions, Depression Musculoskeletal: Osteoarthritis Rheumatologic: No pertinent hx Infectious disease: No pertinent hx Renal/: No pertinent hx Endocrine: Diabetes Past Surgical History Past Surgical History Angioplasty, cardiac stents x5, left great toe amputation, right first and second toe amputation Past Surgical History: , Other Family History Family History: Diabetes, Stroke Family History: Parent Social History Smoke: Quit ALCOHOL: occassional Drugs: Cocaine, Marijuana Current Problem List Problem List Problems Medical Problems: (1) Chest pain Status: Acute (2) Swelling of both lower extremities Status: Acute Current Medications Current Medications Current Medications Aspirin (Aspirin Chewable) 243 mg 1X ONCE PO Last administered on 10/14/20at 19:36; Start 10/14/20 at 18:15; Stop 10/14/20 at 18:16; Status DC Alprazolam (Xanax) 1 mg BID PO ; Start 10/15/20 at 09:00; Stop 10/14/20 at 21:35; Status DC Amlodipine Besylate (Norvasc) 10 mg DAILY PO ; Start 10/15/20 at 09:00 Aspirin (Ecotrin) 81 mg DAILYWBKFT PO ; Start 10/15/20 at 08:00 Cetirizine HCl (ZyrTEC) 10 mg DAILY PO ; Start 10/15/20 at 09:00 Clopidogrel Bisulfate (Plavix) 75 mg DAILY PO ; Start 10/15/20 at 09:00 Diclofenac Sodium (Voltaren) 1 trell PRN Q6HRS PRN TP PAIN; Start 10/14/20 at 20:45 Dicyclomine HCl (Bentyl) 10 mg QIDACHS PO Last administered on 10/14/20at 21:25; Start 10/14/20 at 21:00 Diphenhydramine HCl (Benadryl) 25 mg PRN Q6HRS PRN PO ITCHING; Start 10/14/20 at 20:45 Furosemide (Lasix) 40 mg BID PO ; Start 10/15/20 at 09:00; Stop 10/14/20 at 21:35; Status DC Albuterol/ Ipratropium (Duoneb) 3 ml RTQID NEB ; Start 10/15/20 at 08:00 Isosorbide Mononitrate (Imdur) 90 mg DAILY PO ; Start 10/15/20 at 09:00 Ketotifen Fumarate (Zaditor) 1 drop DAILY OD ; Start 10/15/20 at 09:00 Lidocaine (Lidoderm) 1 patch DAILY TP ; Start 10/15/20 at 09:00 Losartan Potassium (Cozaar) 100 mg DAILY PO ; Start 10/15/20 at 09:00 Methocarbamol (Robaxin) 750 mg TID PO ; Start 10/15/20 at 09:00; Stop 10/14/20 at 21:35; Status DC Nitroglycerin (Nitrostat) 0.4 mg PRN Q5MIN PRN SL CHEST PAIN Last administered on 10/14/20at 21:00; Start 10/14/20 at 20:45 Oxycodone/ Acetaminophen (Percocet 5/325) 1 tab PRN Q6HRS PRN PO PAIN Last administered on 10/15/20at 03:04; Start 10/14/20 at 20:45 Pantoprazole Sodium (Protonix) 40 mg DAILY07 PO ; Start 10/15/20 at 07:00 Polyethylene Glycol (miraLAX PACKET) 17 gm PRN DAILY PRN PO CONSTIPATION; Start 10/14/20 at 20:45 Potassium Chloride (Klor-Con) 20 meq DAILY08 PO ; Start 10/15/20 at 08:00 Tizanidine HCl (Zanaflex) 4 mg PRN Q6HRS PRN PO MUSCLE SPASMS Last administered on 10/15/20at 03:04; Start 10/14/20 at 20:45 Atorvastatin Calcium (Lipitor) 80 mg QHS PO Last administered on 10/14/20at 2 1:25; Start 10/14/20 at 21:00 Ergocalciferol (Vitamin D2) 50,000 unit WEEKLY PO ; Start 10/24/20 at 09:00 Fluticasone Propionate (Flonase) 2 spray DAILY NS ; Start 10/15/20 at 09:00 Insulin Human Lispro (HumaLOG) 30 units TIDWMEALS SQ ; Start 10/15/20 at 08:00 Insulin Glargine (Lantus Syringe) 30 unit QHS SQ Last administered on 10/14/20at 21:41; Start 10/14/20 at 21:00 Non-Formulary Medication (Naloxone HCl (Narcan)) 1 spray ONCE NS ; Start 10/14/20 at 20:45; Stop 10/14/20 at 21:00; Status DC Non-Formulary Medication (Nystatin/ Triamcin (Nystatin-Triamcinolone Cream)) 1 trell BID TP ; Start 10/14/20 at 21:00; Stop 10/14/20 at 21:01; Status DC Budesonide (Pulmicort) 0.5 mg RTBID NEB ; Start 10/15/20 at 08:00 Alprazolam (Xanax) 1 mg BID PO ; Start 10/15/20 at 09:00 Furosemide (Lasix) 40 mg BID92 PO Last administered on 10/14/20at 22:08; Start 10/14/20 at 22:00 Methocarbamol (Robaxin) 750 mg TID PO Last administered on 10/14/20at 22:08; Start 10/14/20 at 22:00 Alprazolam (Xanax) 1 mg 1X ONCE PO Last administered on 10/14/20at 22:09; Start 10/14/20 at 22:00; Stop 10/14/20 at 22:01; Status DC Active Scripts Active Aspirin Ec (Aspirin) 81 Mg Tablet.dr 81 Mg PO DAILYWBKFT 30 Days Lasix (Furosemide) 40 Mg Tablet 40 Mg PO BID Reported Ergocalciferol (Ergocalciferol (Vitamin D2)) 200 Mcg/1 Ml Drops 1,250 Mcg PO WEEKLY Anoro Ellipta 62.5-25 Mcg Inh (Umeclidinium Brm/Vilanterol Tr) 1 Each Disk.w.dev 1 Each IH DAILY Tizanidine Hcl 4 Mg Tablet 4 Mg PO Q6HRS PRN Potassium Chloride (Potassium Chloride) 20 Meq Tablet.er 20 Meq PO DAILY Percocet 5-325 mg Tablet (Oxycodone HCl/Acetaminophen) 1 Each Tablet 1 Tab PO PRN Q6HRS PRN MDD 2 Tablet(s) 5 Days Narcan (Naloxone HCl) 4 Mg Eldred 1 Eldred NS ONCE 14 Days Robaxin-750 (Methocarbamol) 750 Mg Tablet 1 Tab PO TID 30 Days Lidocaine PATCH (Lidocaine) 1 Each Adh..patch 1 Each TP DAILY REMOVE AFTER 12 HOURS Ketotifen Fumarate 5 Ml Drops 1 Drop OD DAILY Flonase Allergy Relief (Fluticasone Propionate) 9.9 Ml Eldred.susp 2 Sprays NS DAILY Dicyclomine Hcl 10 Mg Capsule 10 Mg PO QID Arthritis Pain (Diclofenac Sodium) 100 Gm Gel..gram. 100 Gm TP Q6-8HRS PRN Cetirizine Hcl 10 Mg Tablet 1 Tab PO DAILY Banophen (Diphenhydramine Hcl) 25 Mg Capsule 25 Mg PO Q6HRS PRN Alprazolam 1 Mg Tablet 1 Tab PO BID Nystatin-Triamcinolone Cream (Nystatin/Triamcin) 15 Gm Cream..g. 1 Trell TP BID Novolog (Insulin Aspart) 100 Unit/1 Ml Cartridge 30 Unit SQ TIDAC Isosorbide Mononitrate Er (Isosorbide Mononitrate) 30 Mg Tab.er.24h 3 Tab PO DAILY Lantus Solostar (Insulin Glargine,Hum.rec.anlog) 100 Unit/1 Ml Insuln.pen 30 Unit SQ BID Clopidogrel (Clopidogrel Bisulfate) 75 Mg Tablet 1 Tab PO DAILY Amlodipine Besylate 10 Mg Tablet 10 Mg PO DAILY Duoneb 0.5-3(2.5) Mg/3 Ml (Albuterol/Ipratropium) 3 Ml Ampul.neb 3 Ml NEB PRN Q6HRS PRN Miralax (Polyethylene Glycol 3350) 17 Gm Powd.pack 1 Packet PO PRN DAILY PRN Pantoprazole Sodium (Pantoprazole Sodium) 40 Mg Tablet.dr 40 Mg PO DAILY NITROGLYCERIN SubLingual (Nitroglycerin) 0.4 Mg Tab.subl 0.4 Mg SL PRN Q5MIN PRN Losartan Potassium (Losartan Potassium) 25 Mg Tablet 100 Mg PO DAILY Lipitor (Atorvastatin Calcium) 80 Mg Tablet 1 Tab PO QHS Allergies Allergies: Coded Allergies: Penicillins (Verified Allergy, Severe, tongue swelling, HIVES, ANGIOEDEMA, 06/06/17) latex (Verified Allergy, Severe, Hives, N/V, 06/06/17) prochlorperazine (Verified Allergy, Severe, tongue swelling, ANGIOEDEMA, 06/06/17) Iodinated Contrast Media (Verified Allergy, Intermediate, 10/07/17) doxycycline (Verified Adverse Reaction, Intermediate, ITCHING, 09/01/19) iodine (Verified Adverse Reaction, Intermediate, "shiver", N/V, 09/01/19) morphine (Verified Adverse Reaction, Intermediate, itching, 09/01/19) Tolerates oxycodone and tramadol cyclobenzaprine (Verified Adverse Reaction, Mild, cough, 09/01/19) ROS Review of System GENERAL: No history of weight change, weakness or fevers. SKIN: No bruising, hair changes or rashes. EYES: No blurred, double or loss of vision. NOSE AND THROAT: No history of nosebleeds, hoarseness or sore throat. HEART: Chest pain. Denies palpitations. LUNGS: Shortness of breath. Denies cough, hemoptysis, wheezing. GASTROINTESTINAL: Denies nausea, vomiting, abdominal pain. GENITOURINARY: Denies dysuria, frequency, urgency, hematuria. NEUROLOGIC: Denies history of numbness, tingling, tremor or weakness. PSYCHIATRIC: Denies anxiety, denies depression. ENDOCRINE: No history of heat or cold intolerance, polyuria or polydipsia. EXTREMITIES: Bilateral lower extremity swelling. Denies muscle weakness, joint pain, pain on walking or stiffness. Physical Exam Physical Exam General: Morbidly obese. Alert, Oriented X3, Cooperative, mild distress HEENT: Atraumatic, EOMI Lungs: Bibasilar rales, decreased breath sounds. Heart: RRR, no rubs Cardiovascular: S1, S2 Abdomen: Normal bowel sounds, Soft, No tenderness Extremities: +3 Bilateral leg edema Skin: No breakdown, No significant lesion Neuro: Normal speech, Sensation intact Psych/Mental Status: Mental status NL, Mood NL Vitals Vitals Vital Signs Date Time Temp Pulse Resp B/P (MAP) Pulse Ox O2 Delivery O2 Flow Rate FiO2 10/15/20 06:27 98 Room Air 10/15/20 02:30 97.7 54 16 140/63 (88) 1.0 97.7 Labs Labs Laboratory Tests Test 10/14/20 15:55 10/14/20 16:10 10/14/20 21:10 10/14/20 21:40 Urine Collection Type Void Urine Color Yellow Urine Clarity Clear Urine pH 5.0 (<5.0-8.0) Urine Specific [place] 1.020 (1.000-1.030) Urine Protein 30 mg/dL (NEG-TRACE) Urine Glucose (UA) Negative mg/dL (NEG) Urine Ketones (Stick) Negative mg/dL (NEG) Urine Blood Negative (NEG) Urine Nitrite Negative (NEG) Urine Bilirubin Negative (NEG) Urine Urobilinogen Dipstick 1.0 mg/dL (0.2 mg/dL) Urine Leukocyte Esterase Trace (NEG) Urine RBC Rare /HPF (0-2) Urine WBC 1-4 /HPF (0-4) Urine Squamous Epithelial Cells Many /LPF Urine Bacteria Many /HPF (0-FEW) Urine Hyaline Casts Few /HPF Urine Mucus Mod /LPF White Blood Count 7.6 x10^3/uL (4.0-11.0) Red Blood Count 4.03 x10^6/uL (3.50-5.40) Hemoglobin 10.5 g/dL (12.0-15.5) Hematocrit 32.3 % (36.0-47.0) Mean Corpuscular Volume 80 fL (79-100) Mean Corpuscular Hemoglobin 26 pg (25-35) Mean Corpuscular Hemoglobin Concent 32 g/dL (31-37) Red Cell Distribution Width 16.3 % (11.5-14.5) Platelet Count 250 x10^3/uL (140-400) Neutrophils (%) (Auto) 61 % (31-73) Lymphocytes (%) (Auto) 29 % (24-48) Monocytes (%) (Auto) 7 % (0-9) Eosinophils (%) (Auto) 2 % (0-3) Basophils (%) (Auto) 1 % (0-3) Neutrophils # (Auto) 4.6 x10^3/uL (1.8-7.7) Lymphocytes # (Auto) 2.2 x10^3/uL (1.0-4.8) Monocytes # (Auto) 0.5 x10^3/uL (0.0-1.1) Eosinophils # (Auto) 0.2 x10^3/uL (0.0-0.7) Basophils # (Auto) 0.1 x10^3/uL (0.0-0.2) Sodium Level 137 mmol/L (136-145) Potassium Level 4.7 mmol/L (3.5-5.1) Chloride Level 102 mmol/L (98-107) Carbon Dioxide Level 27 mmol/L (21-32) Anion Gap 8 (6-14) Blood Urea Nitrogen 27 mg/dL (7-20) Creatinine 1.8 mg/dL (0.6-1.0) Estimated GFR (Cockcroft-Gault) 35.2 BUN/Creatinine Ratio 15 (6-20) Glucose Level 227 mg/dL (70-99) Calcium Level 9.3 mg/dL (8.5-10.1) Magnesium Level 1.9 mg/dL (1.8-2.4) Total Bilirubin 0.2 mg/dL (0.2-1.0) Aspartate Amino Transf (AST/SGOT) 14 U/L (15-37) Alanine Aminotransferase (ALT/SGPT) 18 U/L (14-59) Alkaline Phosphatase 54 U/L (46-116) Creatine Kinase 70 U/L (26-192) Creatine Kinase MB (Mass) < 0.5 ng/mL (0.0-3.6) Creatine Kinase MB Relative Index % (0-4) Troponin I Quantitative < 0.017 ng/mL (0.000-0.055) < 0.017 ng/mL (0.000-0.055) BA-Hsw-B-Type Natriuretic Peptide 158 pg/mL (0-124) Total Protein 7.4 g/dL (6.4-8.2) Albumin 3.4 g/dL (3.4-5.0) Albumin/Globulin Ratio 0.9 (1.0-1.7) Lipase 113 U/L (73-393) Glucose (Fingerstick) 270 mg/dL (70-99) Laboratory Tests Test 10/14/20 15:55 10/14/20 16:10 10/14/20 21:10 10/14/20 21:40 Urine Collection Type Void Urine Color Yellow Urine Clarity Clear Urine pH 5.0 (<5.0-8.0) Urine Specific [place] 1.020 (1.000-1.030) Urine Protein 30 mg/dL (NEG-TRACE) Urine Glucose (UA) Negative mg/dL (NEG) Urine Ketones (Stick) Negative mg/dL (NEG) Urine Blood Negative (NEG) Urine Nitrite Negative (NEG) Urine Bilirubin Negative (NEG) Urine Urobilinogen Dipstick 1.0 mg/dL (0.2 mg/dL) Urine Leukocyte Esterase Trace (NEG) Urine RBC Rare /HPF (0-2) Urine WBC 1-4 /HPF (0-4) Urine Squamous Epithelial Cells Many /LPF Urine Bacteria Many /HPF (0-FEW) Urine Hyaline Casts Few /HPF Urine Mucus Mod /LPF White Blood Count 7.6 x10^3/uL (4.0-11.0) Red Blood Count 4.03 x10^6/uL (3.50-5.40) Hemoglobin 10.5 g/dL (12.0-15.5) Hematocrit 32.3 % (36.0-47.0) Mean Corpuscular Volume 80 fL (79-100) Mean Corpuscular Hemoglobin 26 pg (25-35) Mean Corpuscular Hemoglobin Concent 32 g/dL (31-37) Red Cell Distribution Width 16.3 % (11.5-14.5) Platelet Count 250 x10^3/uL (140-400) Neutrophils (%) (Auto) 61 % (31-73) Lymphocytes (%) (Auto) 29 % (24-48) Monocytes (%) (Auto) 7 % (0-9) Eosinophils (%) (Auto) 2 % (0-3) Basophils (%) (Auto) 1 % (0-3) Neutrophils # (Auto) 4.6 x10^3/uL (1.8-7.7) Lymphocytes # (Auto) 2.2 x10^3/uL (1.0-4.8) Monocytes # (Auto) 0.5 x10^3/uL (0.0-1.1) Eosinophils # (Auto) 0.2 x10^3/uL (0.0-0.7) Basophils # (Auto) 0.1 x10^3/uL (0.0-0.2) Sodium Level 137 mmol/L (136-145) Potassium Level 4.7 mmol/L (3.5-5.1) Chloride Level 102 mmol/L (98-107) Carbon Dioxide Level 27 mmol/L (21-32) Anion Gap 8 (6-14) Blood Urea Nitrogen 27 mg/dL (7-20) Creatinine 1.8 mg/dL (0.6-1.0) Estimated GFR (Cockcroft-Gault) 35.2 BUN/Creatinine Ratio 15 (6-20) Glucose Level 227 mg/dL (70-99) Calcium Level 9.3 mg/dL (8.5-10.1) Magnesium Level 1.9 mg/dL (1.8-2.4) Total Bilirubin 0.2 mg/dL (0.2-1.0) Aspartate Amino Transf (AST/SGOT) 14 U/L (15-37) Alanine Aminotransferase (ALT/SGPT) 18 U/L (14-59) Alkaline Phosphatase 54 U/L (46-116) Creatine Kinase 70 U/L (26-192) Creatine Kinase MB (Mass) < 0.5 ng/mL (0.0-3.6) Creatine Kinase MB Relative Index % (0-4) Troponin I Quantitative < 0.017 ng/mL (0.000-0.055) < 0.017 ng/mL (0.000-0.055) EA-Loq-B-Type Natriuretic Peptide 158 pg/mL (0-124) Total Protein 7.4 g/dL (6.4-8.2) Albumin 3.4 g/dL (3.4-5.0) Albumin/Globulin Ratio 0.9 (1.0-1.7) Lipase 113 U/L (73-393) Glucose (Fingerstick) 270 mg/dL (70-99) Images Images Exam: Chest one view INDICATION: Chest pain TECHNIQUE: Frontal view of the chest Comparisons: 06/12/2020 FINDINGS: The cardiomediastinal silhouette and pulmonary vessels are within normal limits. The lung and pleural spaces are clear. IMPRESSION: No acute cardiopulmonary process. EXAM: Bilateral lower extremity venous Doppler sonogram. HISTORY: Pain and swelling. TECHNIQUE: Alanis scale and color Doppler sonographic evaluation of the bilateral lower extremity veins with spectral waveform analysis was performed. FINDINGS: There is normal color flow, normal compressibility and there are normal spectral waveforms in the common femoral, superficial femoral, popliteal, posterior tibial and greater saphenous veins. IMPRESSION: No Doppler evidence of lower extremity deep venous thrombosis. VTE Prophylaxis Ordered VTE Prophylaxis Devices: No VTE Pharmacological Prophylaxi: Yes Assessment/Plan Assessment/Plan Unstable angina Acute diastolic CHF Insulin-dependent type 2 diabetes with hyperglycemia CKD 3 Plan: Troponins 0.017x2; continue to trend troponins. Consultation to cardiology Continue to diurese patient; monitor I's & O's. Lipid panel is pending. Resume home medications FEN - Cardiac diet; ADA diet PPX - Lovenox FULL CODE Dispo - inpatient for above Justifications for Admission Other Justification ANTONY EUBANKS MD Oct 15, 2020 07:04
[2020-10-15] MEDS ORDERED: MORPHINE SULFATE 2 MG/ML VIAL. IV PRN (07:15)
[2020-10-15] MEDS ORDERED: CALCIUM CARBONATE 500 MG TAB.CHEW PO PRN (07:15)
[2020-10-15] MEDS ORDERED: BISACODYL 10 MG SUPP.RECT. PR PRN (07:15)
[2020-10-15] MEDS ORDERED: MAG HYDROX/ALUMINUM HYD/SIMETH 30 ML ORAL.SUSP PO PRN (07:15)
[2020-10-15] MEDS ORDERED: ENOXAPARIN 40 MG/0.4 ML SYRINGE. SQ SCH (07:15)
[2020-10-15] MEDS ORDERED: ACETAMINOPHEN 325 MG TABLET. PO PRN (07:15)
[2020-10-15] MEDS ORDERED: ONDANSETRON PF 4 MG/2 ML VIAL. IVP PRN (07:15)
[2020-10-15] MEDS ORDERED: MAGNESIUM HYDROXIDE 2,400 MG/30 ML ORAL.SUSP. PO PRN (07:15)
[2020-10-15] MEDS ORDERED: DEXTROSE 50% 25 GM / 50ML DISP.SYRIN. IV PRN (07:30)
[2020-10-15] MEDS ORDERED: LIDOCAINE (700MG/PATCH) PATCH. TP SCH (09:00)
[2020-10-15] MEDS ORDERED: KETOTIFEN FUMARATE 0.025% OPHTH SOLUTION BOTTLE. OD SCH (09:00)
[2020-10-15] MEDS ORDERED: FLUTICASONE 50MCG/NASAL SPRAY 16GM BOTTLE. NS SCH (09:00)
[2020-10-15] MEDS: FUROSEMIDE 40 MG TABLET. PO SCH (09:00)
[2020-10-15] MEDS ORDERED: METHOCARBAMOL 750 MG TABLET PO SCH (09:00)
[2020-10-15] MEDS ORDERED: FUROSEMIDE 40 MG TABLET. PO SCH (09:00)
[2020-10-15] MEDS ORDERED: ALPRAZolam 1 MG TABLET PO SCH (09:00)
[2020-10-15] MEDS: PANTOPRAZOLE 40 MG TABLET.DR. PO SCH (10:46)
[2020-10-15] MEDS: CETIRIZINE HCL 10 MG TABLET. PO SCH (10:46)
[2020-10-15] MEDS: CLOPIDOGREL BISULFATE 75 MG TABLET PO SCH (10:46)
[2020-10-15] MEDS: DICYCLOMINE HCL 10 MG CAPSULE PO SCH ×4 (10:46→21:09)
[2020-10-15] MEDS: ASPIRIN ENTERIC COATED 81 MG TABLET.DR. PO SCH (10:49)
[2020-10-15] MEDS: amLODIPine BESYLATE 10 MG TABLET PO SCH (10:49)
[2020-10-15] MEDS: LOSARTAN POTASSIUM 50 MG TABLET. PO SCH (10:51)
[2020-10-15] MEDS: METHOCARBAMOL 750 MG TABLET PO SCH ×3 (10:52→21:09)
[2020-10-15] MEDS: ISOSORBIDE MONONITRATE ER 30 MG TAB.ER.24H PO SCH (10:52)
[2020-10-15] MEDS: ALPRAZolam 1 MG TABLET PO SCH ×2 (10:52→21:09)
[2020-10-15] MEDS: POTASSIUM CHLORIDE 20 MEQ TABLET.ER. PO SCH (10:53)
[2020-10-15] MEDS: INSULIN LISPRO 300 UNITS/3 ML VIAL. SQ SCH ×6 (10:59→17:00)
[2020-10-15 11:00] VITALS: BP 130/62
--- NOTE | 2020-10-15 11:54 | NUR ---
SS following for discharge planning. SS reviewed pt chart and discussed with pt RN. Pt is from home with family and is currently on room air. Pt on IV Bumex. Cardiology following. SS will continue to follow for discharge planning.
[2020-10-15] MEDS: BUMETANIDE 1 MG/4 ML VIAL. IV SCH (13:28)
[2020-10-15 14:49] VITALS: BP 131/62
[2020-10-15 19:00] VITALS: BP 108/58
[2020-10-15] MEDS ORDERED: IPRATRPIUM/ALBUTEROL 0.5/2.5MG 3 ML NEBU. NEB SCH (20:00)
[2020-10-15] MEDS: ATORVASTATIN CALCIUM 40 MG TABLET. PO SCH (21:09)
[2020-10-15] MEDS: INSULIN GLARGINE SYRINGE. SQ SCH (21:14)
--- NOTE | 2020-10-15 22:29 | PDOC2 ---
CARDIOLOGY CONSULT NOTE DATE OF SERVICE: DATE: 10/15/20 TIME: 22:24 CHIEF COMPLAINT: SOA HPI: 55 y.o well known to our service presents with heart failure symptoms. Reports compliance with meds. reportedly oral diuretics at home were not improving her symptoms. PMHX: CAd HTN Obesity substance abuse SOCHX: as above FAMHX: NC CURRENT MEDS: Current Medications Medications (Trade) Dose Ordered Sig/Justin Route PRN Reason Start Time Stop Time Status Last Admin Dose Admin Amlodipine Besylate (Norvasc) 10 mg DAILY PO 10/15/20 09:00 10/15/20 10:49 Aspirin (Ecotrin) 81 mg DAILYWBKFT PO 10/15/20 08:00 10/15/20 10:49 Cetirizine HCl (ZyrTEC) 10 mg DAILY PO 10/15/20 09:00 10/15/20 10:46 Clopidogrel Bisulfate (Plavix) 75 mg DAILY PO 10/15/20 09:00 10/15/20 10:46 Albuterol/ Ipratropium (Duoneb) 3 ml RTQID NEB 10/15/20 08:00 10/15/20 11:44 DC 10/15/20 11:35 Isosorbide Mononitrate (Imdur) 90 mg DAILY PO 10/15/20 09:00 10/15/20 10:52 Ketotifen Fumarate (Zaditor) 1 drop DAILY OD 10/15/20 09:00 10/15/20 10:53 Losartan Potassium (Cozaar) 100 mg DAILY PO 10/15/20 09:00 10/15/20 10:51 Pantoprazole Sodium (Protonix) 40 mg DAILY07 PO 10/15/20 07:00 10/15/20 10:46 Potassium Chloride (Klor-Con) 20 meq DAILY08 PO 10/15/20 08:00 10/15/20 10:53 Insulin Human Lispro (HumaLOG) 30 units TIDWMEALS SQ 10/15/20 08:00 10/15/20 17:00 Alprazolam (Xanax) 1 mg BID PO 10/15/20 09:00 10/15/20 21:09 Insulin Human Lispro (HumaLOG) 0-9 UNITS TIDWMEALS SQ 10/15/20 08:00 10/15/20 17:00 Enoxaparin Sodium (Lovenox 60mg Syringe) 60 mg Q12HR SQ 10/15/20 09:00 10/15/20 21:10 Oxycodone/ Acetaminophen (Percocet 5/325) 2 tab PRN Q6HRS PRN PO PAIN 10/15/20 11:30 10/15/20 16:23 Bumetanide (Bumex) 1 mg BID92 IV 10/15/20 14:00 10/15/20 13:28 ALLERGIES: Allergies Coded Allergies Type Severity Reaction Last Updated Verified Penicillins Allergy Severe tongue swelling, HIVES, ANGIOEDEMA 06/06/17 Yes latex Allergy Severe Hives, N/V 06/06/17 Yes prochlorperazine Allergy Severe tongue swelling, ANGIOEDEMA 06/06/17 Yes Iodinated Contrast Media Allergy Intermediate 10/07/17 Yes doxycycline Adverse Reaction Intermediate ITCHING 09/01/19 Yes iodine Adverse Reaction Intermediate "shiver", N/V 09/01/19 Yes morphine Adverse Reaction Intermediate itching 09/01/19 Yes cyclobenzaprine Adverse Reaction Mild cough 09/01/19 Yes ROS: Negative unless noted above in HPi PHYSICAL EXAM: Vital Signs/I&O: Vital Signs Date Time Temp Pulse Resp B/P (MAP) Pulse Ox O2 Delivery O2 Flow Rate FiO2 10/15/20 19:40 Nasal Cannula 1.0 10/15/20 19:00 98.1 63 19 108/58 (75) 96 98.1 I & O 10/14/20 10/14/20 10/15/20 15:00 23:00 07:00 Intake Total 0 ml Balance 0 ml Physical Exam: GEN.: No apparent distress. Alert and oriented. HEENT: Head is normocephalic, atraumatic NECK: Supple. LUNGS: Clear to auscultation. HEART: RRR, S1, S2 present. Peripheral pulses intact ABDOMEN: Soft, nontender. Positive bowel sounds. EXTREMITIES: Without any cyanosis. NEUROLOGIC: Normal speech, normal tone PSYCHIATRIC: Normal affect, normal mood. SKIN: No ulcerations DIAGNOSTIC TESTING: ekg, trop negative Lab Laboratory Tests Test 10/15/20 06:10 10/15/20 07:46 10/15/20 11:37 10/15/20 16:21 Cholesterol Level 124 mg/dL (0-200) LDL Cholesterol, Calculated 43 mg/dL (0-100) VLDL Cholesterol, Calculated 40 mg/dL (0-40) Non-HDL Cholesterol Calculated 83 mg/dL (0-129) Cholesterol/HDL Ratio 3.0 Glucose (Fingerstick) 296 mg/dL (70-99) H 349 mg/dL (70-99) H 155 mg/dL (70-99) H ASSESSMENT: 1. Dyspnea 2. CAD 3. HTN 4. Dyslipidemia 5. Chronic diastolic HF 6. NIMISHA PLAN: 1. Patients presentation does not fit with heart failure. She has no evidence of edema on exam, lungs are clear, she has near normal BNP and has elevated cr. I suspect there isn't any significant heart failure. I discussed with patient about possibility of RHC and she will think about it. Supportive care. Repeat echo to rule out pulm HTN. THanks KARTHIKEYAN COREA MD Oct 15, 2020 22:29
[2020-10-15 23:00] VITALS: BP 138/63
[2020-10-16 02:56] VITALS: BP 126/58
[2020-10-16] MEDS: oxyCODONE/APAP 5/325 1 TAB TABLET PO PRN (04:41)
[2020-10-16] MEDS: ASPIRIN ENTERIC COATED 81 MG TABLET.DR. PO SCH (10:10)
[2020-10-16] MEDS: METHOCARBAMOL 750 MG TABLET PO SCH (10:10)
[2020-10-16] MEDS: PANTOPRAZOLE 40 MG TABLET.DR. PO SCH (10:11)
[2020-10-16] MEDS: CETIRIZINE HCL 10 MG TABLET. PO SCH (10:11)
[2020-10-16] MEDS: tiZANidine 4 MG TABLET. PO PRN (10:11)
[2020-10-16] MEDS: DICYCLOMINE HCL 10 MG CAPSULE PO SCH (10:11)
[2020-10-16] MEDS: CLOPIDOGREL BISULFATE 75 MG TABLET PO SCH (10:11)
[2020-10-16] MEDS: POTASSIUM CHLORIDE 20 MEQ TABLET.ER. PO SCH (10:12)
[2020-10-16] MEDS: ALPRAZolam 1 MG TABLET PO SCH (10:12)
[2020-10-16] MEDS: LOSARTAN POTASSIUM 50 MG TABLET. PO SCH (10:12)
[2020-10-16] MEDS: amLODIPine BESYLATE 10 MG TABLET PO SCH (10:13)
[2020-10-16 10:16] VITALS: BP 126/58
[2020-10-16] MEDS: ISOSORBIDE MONONITRATE ER 30 MG TAB.ER.24H PO SCH (10:16)
[2020-10-16] MEDS: BUMETANIDE 1 MG/4 ML VIAL. IV SCH (10:21)
--- NOTE | 2020-10-16 13:05 | PDOC ---
[employer] PROGRESS NOTE Date of Service DOS: DATE: 10/16/20 TIME: 13:02 Chief Complaint Chief Complaint Assessment/Plan Unstable angina Acute diastolic CHF Insulin-dependent type 2 diabetes with hyperglycemia CKD 3 Plan: Troponins 0.017x2; continue to trend troponins. Consultation to cardiology Continue to diurese patient; monitor I's & O's. Lipid panel is pending. Resume home medications FEN - Cardiac diet; ADA diet PPX - Lovenox FULL CODE Dispo - inpatient for above History of Present Illness History of Present Illness Patient is a 55-year-old female with past medical history of CAD with stents x5, who presents with complaints of worsening shortness of breath and worsening bilateral lower extremity swelling for the past week. She has taken her home diuretics without significant improvement. She states her PCP switched her from Lasix 40 mg twice daily to Bumex 1 mg daily. She also reports associated left- sided chest pain that has been intermittent over this time as well. She reports sharp pain 10/10, that feels more like tightness. She has taken aspirin at home without any improvement in her symptoms. Initial evaluation in ER showed tropon in <0.017 x 2. Will admit patient for further medical management. 10/16/2020 Patient seen and evaluated. She was offered heart catheterization by cardiology but refused. Patient currently denies chest pain or shortness of breath, breathing room air. Discussed with cardiology who is not convinced patient is actually in heart failure. Will discharge patient on her home Lasix 40 twice daily. Greater than 30 minutes spent managing discharge this patient. Vitals/I&O Vitals/I&O: Vital Signs Date Time Temp Pulse Resp B/P (MAP) Pulse Ox O2 Delivery O2 Flow Rate FiO2 10/16/20 10:16 64 126/58 10/16/20 05:41 Room Air 10/16/20 02:56 98.0 19 96 2.0 98.0 I & O 10/15/20 10/15/20 10/16/20 15:00 23:00 07:00 Intake Total 840 ml 1260 ml 200 ml Output Total 2400 ml Balance 840 ml -1140 ml 200 ml Physical Exam General: Alert, No acute distress Heart: Regular rate Lungs: Other (Decreased breath sounds) Abdomen: Normal bowel sounds Extremities: No clubbing, No cyanosis Skin: No rashes Labs Labs: Laboratory Tests Test 10/15/20 16:21 10/16/20 08:19 10/16/20 12:16 Glucose (Fingerstick) 155 mg/dL (70-99) 189 mg/dL (70-99) 192 mg/dL (70-99) Assessment and Plan Assessmemt and Plan Problems Medical Problems: (1) Chest pain Status: Acute (2) Swelling of both lower extremities Status: Acute Comment Review of Relevant I have reviewed the following items crista (where applicable) has been applied. Medications: Current Medications Medications (Trade) Dose Ordered Sig/Justin Route PRN Reason Start Time Stop Time Status Last Admin Dose Admin Bumetanide (Bumex) 1 mg BID92 IV 10/15/20 14:00 10/16/20 10:21 Justifications for Admission Other Justification Unstable angina, acute diastolic CHF ANTONY EUBANKS MD Oct 16, 2020 13:05
--- NOTE | 2020-10-16 13:08 | PDOC3 ---
Discharge Summary Visit Information Date of Admission: Oct 15, 2020 Date of Discharge: Oct 16, 2020 Final Diagnosis Problems Medical Problems: (1) Chest pain Status: Acute (2) Swelling of both lower extremities Status: Acute Brief Hospital Course Allergies Allergies Coded Allergies Type Severity Reaction Last Updated Verified Penicillins Allergy Severe tongue swelling, HIVES, ANGIOEDEMA 06/06/17 Yes latex Allergy Severe Hives, N/V 06/06/17 Yes prochlorperazine Allergy Severe tongue swelling, ANGIOEDEMA 06/06/17 Yes Iodinated Contrast Media Allergy Intermediate 10/07/17 Yes doxycycline Adverse Reaction Intermediate ITCHING 09/01/19 Yes iodine Adverse Reaction Intermediate "shiver", N/V 09/01/19 Yes morphine Adverse Reaction Intermediate itching 09/01/19 Yes cyclobenzaprine Adverse Reaction Mild cough 09/01/19 Yes Vital Signs Vital Signs Date Time Temp Pulse Resp B/P (MAP) Pulse Ox O2 Delivery O2 Flow Rate FiO2 10/16/20 10:16 64 126/58 10/16/20 05:41 Room Air 10/16/20 02:56 98.0 19 96 2.0 98.0 Lab Results Laboratory Tests Test 10/14/20 15:55 10/14/20 16:10 10/14/20 21:10 10/14/20 21:40 Urine Collection Type Void Urine Color Yellow Urine Clarity Clear Urine pH 5.0 (<5.0-8.0) Urine Specific Chapman 1.020 (1.000-1.030) Urine Protein 30 mg/dL (NEG-TRACE) Urine Glucose (UA) Negative mg/dL (NEG) Urine Ketones (Stick) Negative mg/dL (NEG) Urine Blood Negative (NEG) Urine Nitrite Negative (NEG) Urine Bilirubin Negative (NEG) Urine Urobilinogen Dipstick 1.0 mg/dL (0.2 mg/dL) Urine Leukocyte Esterase Trace (NEG) Urine RBC Rare /HPF (0-2) Urine WBC 1-4 /HPF (0-4) Urine Squamous Epithelial Cells Many /LPF Urine Bacteria Many /HPF (0-FEW) Urine Hyaline Casts Few /HPF Urine Mucus Mod /LPF White Blood Count 7.6 x10^3/uL (4.0-11.0) Red Blood Count 4.03 x10^6/uL (3.50-5.40) Hemoglobin 10.5 g/dL (12.0-15.5) Hematocrit 32.3 % (36.0-47.0) Mean Corpuscular Volume 80 fL (79-100) Mean Corpuscular Hemoglobin 26 pg (25-35) Mean Corpuscular Hemoglobin Concent 32 g/dL (31-37) Red Cell Distribution Width 16.3 % (11.5-14.5) Platelet Count 250 x10^3/uL (140-400) Neutrophils (%) (Auto) 61 % (31-73) Lymphocytes (%) (Auto) 29 % (24-48) Monocytes (%) (Auto) 7 % (0-9) Eosinophils (%) (Auto) 2 % (0-3) Basophils (%) (Auto) 1 % (0-3) Neutrophils # (Auto) 4.6 x10^3/uL (1.8-7.7) Lymphocytes # (Auto) 2.2 x10^3/uL (1.0-4.8) Monocytes # (Auto) 0.5 x10^3/uL (0.0-1.1) Eosinophils # (Auto) 0.2 x10^3/uL (0.0-0.7) Basophils # (Auto) 0.1 x10^3/uL (0.0-0.2) Sodium Level 137 mmol/L (136-145) Potassium Level 4.7 mmol/L (3.5-5.1) Chloride Level 102 mmol/L (98-107) Carbon Dioxide Level 27 mmol/L (21-32) Anion Gap 8 (6-14) Blood Urea Nitrogen 27 mg/dL (7-20) Creatinine 1.8 mg/dL (0.6-1.0) Estimated GFR (Cockcroft-Gault) 35.2 BUN/Creatinine Ratio 15 (6-20) Glucose Level 227 mg/dL (70-99) Calcium Level 9.3 mg/dL (8.5-10.1) Magnesium Level 1.9 mg/dL (1.8-2.4) Total Bilirubin 0.2 mg/dL (0.2-1.0) Aspartate Amino Transf (AST/SGOT) 14 U/L (15-37) Alanine Aminotransferase (ALT/SGPT) 18 U/L (14-59) Alkaline Phosphatase 54 U/L (46-116) Creatine Kinase 70 U/L (26-192) Creatine Kinase MB (Mass) < 0.5 ng/mL (0.0-3.6) Creatine Kinase MB Relative Index % (0-4) Troponin I Quantitative < 0.017 ng/mL (0.000-0.055) < 0.017 ng/mL (0.000-0.055) FB-Xoz-I-Type Natriuretic Peptide 158 pg/mL (0-124) Total Protein 7.4 g/dL (6.4-8.2) Albumin 3.4 g/dL (3.4-5.0) Albumin/Globulin Ratio 0.9 (1.0-1.7) Lipase 113 U/L (73-393) Glucose (Fingerstick) 270 mg/dL (70-99) Test 10/15/20 06:10 10/15/20 07:46 10/15/20 11:37 10/15/20 16:21 Troponin I Quantitative < 0.017 ng/mL (0.000-0.055) Triglycerides Level 202 mg/dL (0-150) Cholesterol Level 124 mg/dL (0-200) LDL Cholesterol, Calculated 43 mg/dL (0-100) VLDL Cholesterol, Calculated 40 mg/dL (0-40) Non-HDL Cholesterol Calculated 83 mg/dL (0-129) HDL Cholesterol 41 mg/dL (40-60) Cholesterol/HDL Ratio 3.0 Glucose (Fingerstick) 296 mg/dL (70-99) 349 mg/dL (70-99) 155 mg/dL (70-99) Test 10/16/20 08:19 10/16/20 12:16 Glucose (Fingerstick) 189 mg/dL (70-99) 192 mg/dL (70-99) Laboratory Tests Test 10/15/20 16:21 10/16/20 08:19 10/16/20 12:16 Glucose (Fingerstick) 155 mg/dL (70-99) 189 mg/dL (70-99) 192 mg/dL (70-99) Brief Hospital Course Ms. Boggs is a 55 old female who presented with bilateral lower ext remity edema concerning for acute diastolic CHF. Consultations placed to cardiology. She received IV diuresis. Patient was offered heart catheterization but declined. She was stable for discharge on her home Lasix with PCP follow-up. Discharge Information Condition at Discharge: Stable Disposition/Orders: D/C to Home Scheduled Alprazolam (Alprazolam) 1 Mg Tablet, 1 TAB PO BID for anxiety, #60 (Reported) Entered as Reported by: LANRE HARO on 10/14/201952 Last Action: Continued on 10/14/202034 by LANRE HARO Amlodipine Besylate (Amlodipine Besylate) 10 Mg Tablet, 10 MG PO DAILY for HTN, (Reported) Entered as Reported by: LEAH AYALA on 09/01/191732 Last Action: Continued on 10/14/202034 by LANRE HARO Aspirin (Aspirin Ec) 81 Mg Tablet.dr, 81 MG PO DAILYWBKFT for htn for 30 Days, #30 Prescribed by: KAREN VELASQUEZ MD on 08/30/18 1211 Last Action: Continued on 10/14/202034 by LANRE HARO Atorvastatin Calcium (Lipitor) 80 Mg Tablet, 1 TAB PO QHS, #30 Ref 5 (Reported) Entered as Reported by: BEBETO TOLEDO on 05/15/14 1520 Last Action: Converted on 10/14/202034 by LANRE HARO Cetirizine Hcl (Cetirizine Hcl) 10 Mg Tablet, 1 TAB PO DAILY for ., #30 Ref 5 (Reported) Entered as Reported by: LANRE HARO on 10/14/201952 Last Action: Continued on 10/14/202034 by LANRE HARO Clopidogrel Bisulfate (Clopidogrel) 75 Mg Tablet, 1 TAB PO DAILY for heart, #90 Ref 1 (Reported) Entered as Reported by: LEAH AYALA on 09/01/191732 Last Action: Continued on 10/14/202034 by LANRE HARO Dicyclomine Hcl (Dicyclomine Hcl) 10 Mg Capsule, 10 MG PO QID for ., (Reported) Entered as Reported by: LANRE HARO on 10/14/201952 Last Action: Continued on 10/14/202034 by LANRE HARO Ergocalciferol (Vitamin D2) (Ergocalciferol) 200 Mcg/1 Ml Drops, 1,250 MCG PO WEEKLY for ., (Reported) Entered as Reported by: LANRE HARO on 10/14/201952 Last Action: Converted on 10/14/202034 by LANRE HARO Fluticasone Propionate (Flonase Allergy Relief) 9.9 Ml Brigantine.susp, 2 SPRAYS NS DAILY for ., (Reported) Entered as Reported by: LANRE HARO on 10/14/201952 Last Action: Converted on 10/14/202034 by LANRE HARO Furosemide (Lasix) 40 Mg Tablet, 40 MG PO BID for chf, #30 Prescribed by: KAREN VELASQUEZ MD on 08/30/18 1211 Last Action: Continued on 10/14/202034 by LANRE HARO Insulin Aspart (Novolog) 100 Unit/1 Ml Cartridge, 30 UNIT SQ TIDAC for DM, (Reported) Entered as Reported by: LEAH AYALA on 09/01/19 174 Last Action: Converted on 10/14/202034 by LANRE HARO Insulin Glargine,Hum.rec.anlog (Lantus Solostar) 100 Unit/1 Ml Insuln.pen, 30 UNIT SQ BID for DM, #15 Ref 3 (Reported) Entered as Reported by: LEAH AYALA on 09/01/191732 Last Action: Converted on 10/14/202034 by LANRE HARO Isosorbide Mononitrate (Isosorbide Mononitrate Er) 30 Mg Tab.er.24h, 3 TAB PO DAILY for heart, #30 Ref 5 (Reported) Entered as Reported by: LEAH AYALA on 09/01/191732 Last Action: Continued on 10/14/202034 by LANRE HARO Ketotifen Fumarate (Ketotifen Fumarate) 5 Ml Drops, 1 DROP OD DAILY for ., #5 Re f 0 (Reported) Entered as Reported by: LANRE HARO on 10/14/201952 Last Action: Continued on 10/14/202034 by LANRE HARO Lidocaine (Lidocaine PATCH ) 1 Each Adh..patch, 1 EACH TP DAILY for FOR LOCAL PAIN, (Reported) REMOVE AFTER 12 HOURS Entered as Reported by: LANRE HARO on 10/14/201952 Last Action: Continued on 10/14/202034 by LANRE HARO Losartan Potassium (Losartan Potassium ) 25 Mg Tablet, 100 MG PO DAILY for HTN, (Reported) Entered as Reported by: BEBETO TOLEDO on 05/15/14 1520 Last Action: Continued on 10/14/202034 by LANRE HARO Methocarbamol (Robaxin-750) 750 Mg Tablet, 1 TAB PO TID for . for 30 Days, #90 Ref 0 (Reported) Entered as Reported by: LANRE HARO on 10/14/201952 Last Action: Continued on 10/14/202034 by LANRE HARO Naloxone HCl (Narcan) 4 Mg Brigantine, 1 SPRAY NS ONCE for , for 14 Days, #1 Ref 0 (Reported) Entered as Reported by: LANRE HARO on 10/14/201952 Last Action: Converted on 10/14/202034 by LANRE HARO Nystatin/Triamcin (Nystatin-Triamcinolone Cream) 15 Gm Cream..g., 1 MARIA FERNANDA TP BID for to affected area, #15 Ref 1 (Reported) Entered as Reported by: ARIANNE FOSTER RN on 03/11/201953 Last Action: Converted on 10/14/202034 by LANRE HARO Pantoprazole Sodium (Pantoprazole Sodium ) 40 Mg Tablet.dr, 40 MG PO DAILY, (Reported) Entered as Reported by: KAL CORTÉS on 07/17/17 1629 Last Action: Continued on 10/14/202034 by LANRE HARO Potassium Chloride (Potassium Chloride ) 20 Meq Tablet.er, 20 MEQ PO DAILY for SUPPLEMENT, (Reported) Entered as Reported by: LANRE HARO on 10/14/201952 Last Action: Continued on 10/14/202034 by LANRE HARO Umeclidinium Brm/Vilanterol Tr (Anoro Ellipta 62.5-25 Mcg Inh) 1 Each Disk.w.dev, 1 EACH IH DAILY for ., (Reported) Entered as Reported by: LANRE HARO on 10/14/201952 Last Action: Converted on 10/14/202034 by LANRE HARO Scheduled PRN Diclofenac Sodium (Arthritis Pain) 100 Gm Gel..gram., 100 GM TP Q6-8HRS PRN for PAIN, (Reported) Entered as Reported by: LANRE HARO on 10/14/201952 Last Action: Continued on 10/14/202034 by LANRE HARO Diphenhydramine Hcl (Banophen) 25 Mg Capsule, 25 MG PO Q6HRS PRN for ITCHING, (Reported) Entered as Reported by: LANRE HARO on 10/14/201952 Last Action: Continued on 10/14/202034 by LANRE HARO Ipratropium/Albuterol Sulfate (Duoneb 0.5-3(2.5) Mg/3 Ml) 3 Ml Ampul.neb, 3 ML NEB PRN Q6HRS PRN for SHORTNESS OF BREATH, (Reported) Entered as Reported by: LEAH AYALA on 09/01/191732 Last Action: Continued on 10/14/202034 by LANRE HARO Nitroglycerin (NITROGLYCERIN SubLingual) 0.4 Mg Tab.subl, 0.4 MG SL PRN Q5MIN PRN for CHEST PAIN, (Reported) Entered as Reported by: Reynold Aquino on 10/25/14 175 Last Action: Continued on 10/14/202034 by LANRE HARO Oxycodone HCl/Acetaminophen (Percocet 5-325 mg Tablet) 1 Each Tablet, 1 TAB PO PRN Q6HRS PRN for PAIN MDD 2 Tablet(s) for 5 Days, #10 Ref 0 (Reported) Entered as Reported by: LANRE HARO on 10/14/201952 Last Action: Continued on 10/14/202034 by LANRE HARO Polyethylene Glycol 3350 (Miralax) 17 Gm Powd.pack, 1 PACKET PO PRN DAILY PRN for CONSTIPATION, #30 Ref 3 (Reported) Entered as Reported by: JUAQUIN BERRY on 09/18/18 0957 Last Action: Continued on 10/14/202034 by LANRE HARO Tizanidine Hcl (Tizanidine Hcl) 4 Mg Tablet, 4 MG PO Q6HRS PRN for MUSCLE SPASMS, (Reported) Entered as Reported by: LANRE HARO on 10/14/201952 Last Action: Continued on 10/14/202034 by LANRE HARO Justicifation of Admission Dx: Justifications for Admission: Justification of Admission Dx: Yes Angina: New-Onset ANTONY EUBANKS MD Oct 16, 2020 13:08
[2020-10-16 13:40] LABS: CALCIUM 8.9 mg/dL (8.5-10.1); CREATININE 1.6 mg/dL (0.6-1.0)
[2020-10-16 13:41] LABS: GFR 40.3; POTASSIUM 3.9 mmol/L (3.5-5.1)
--- NOTE | 2020-10-16 17:07 | PDOC ---
NYA ALBERTS [employer] 10/16/20 1707: CARDIO Progress Notes Date and Time Date of Service 10/16/2020 Time of Evaluation 0915 Subjective Subjective: No Chest Pain, No shortness of breath, No Palpitations Vitals Vitals Vital Signs Date Time Temp Pulse Resp B/P (MAP) Pulse Ox O2 Delivery O2 Flow Rate FiO2 10/16/20 10:16 64 126/58 10/16/20 08:00 Room Air 10/16/20 02:56 98.0 19 96 2.0 98.0 Weight Weight [ ] Input and Output Intake and Output Intake and Output 10/16/20 07:00 Intake Total 2300 ml Output Total 2400 ml Balance -100 ml Intake Oral 2300 ml Output Urine Total 2400 ml # Voids 2 Laboratory Labs Laboratory Tests Test 10/16/20 08:19 10/16/20 12:16 10/16/20 13:10 Glucose (Fingerstick) 189 mg/dL (70-99) 192 mg/dL (70-99) Sodium Level 138 mmol/L (136-145) Potassium Level 3.9 mmol/L (3.5-5.1) Chloride Level 100 mmol/L (98-107) Carbon Dioxide Level 29 mmol/L (21-32) Anion Gap 9 (6-14) Blood Urea Nitrogen 26 mg/dL (7-20) Creatinine 1.6 mg/dL (0.6-1.0) Estimated GFR (Cockcroft-Gault) 40.3 Glucose Level 252 mg/dL (70-99) Calcium Level 8.9 mg/dL (8.5-10.1) Microbiology Micro Microbiology 10/14/20 Urine Culture - Final, Complete Physical Exam HEENT: Neck Supple W Full Motion Chest: Symmetric LUNGS: Clear to Auscultation Heart: S1S2, RRR (SR/SB) Abdomen: Soft N/T Extremities: No Calf Tenderness, Other (1+ bilateral LE pitting edema) Neurology: alert, oriented, follow commands Assessment Assessment 1. Dyspnea: possibly from deconditioning. On RA, CXR unremarkable, no acute CHF with low pro NT BNP, clinically compensated 2. CAD: clinically stable. 3. HTN 4. Dyslipidemia 5. Chronic diastolic CHF 6. NIMISHA: per PCP 7. COPD 8. DM2: not on goal Recommendations 1. RHC was discussed but refused. 2. At this time no cardiac symptoms. Her meds are optimized. She does however m ay have issues with med compliance. Reinforced not skipping meds. 3. Will consider TTE/MPI as an outpt if none done recently if pt complies with follow up Justicifation of Admission Dx: Justifications for Admission: Justification of Admission Dx: Yes Angina: New-Onset KARTHIKEYAN COREA MD 10/17/20 0828: CARDIO Progress Notes Plan Plan Pt. seen and examined. Agree with above CLOTH HAULER note. late entry for 10/16/20. Thanks NYA ALBERTS APRN Oct 16, 2020 17:07 KARTHIKEYAN COREA MD Oct 17, 2020 08:28
[2020-10-24] MEDS ORDERED: ERGOCALCIFEROL (VITAMIN D2) 50,000 UNIT CAPSULE. PO SCH (09:00)
== END 2020-10-16 14:08 | disposition home or self-care (01) ==
LOC: ER 15:25 → ED HOLD 19:36 → 2 SOUTH 10-15 02:30
PROVIDERS: ADMIT Family Medicine; ATTEND Family Medicine
DX: R07.89 Other chest pain (principal); M79.89 Other specified soft tissue disorders; I13.0 Hypertensive heart and chronic kidney disease with heart failure and stage 1 through stage 4 chronic kidney disease, or unspecified chronic kidney disease; I50.33 Acute on chronic diastolic (congestive) heart failure; N18.30 Chronic kidney disease, stage 3 unspecified; I25.110 Atherosclerotic heart disease of native coronary artery with unstable angina pectoris; J44.9 Chronic obstructive pulmonary disease, unspecified; N17.9 Acute kidney failure, unspecified; M19.90 Unspecified osteoarthritis, unspecified site; F41.9 Anxiety disorder, unspecified; E11.65 Type 2 diabetes mellitus with hyperglycemia; E66.9 Obesity, unspecified; E78.00 Pure hypercholesterolemia, unspecified; E78.5 Hyperlipidemia, unspecified; F32.9 Major depressive disorder, single episode, unspecified; Z79.02 Long term (current) use of antithrombotics/antiplatelets; Z79.4 Long term (current) use of insulin; Z79.899 Other long term (current) drug therapy; Z95.5 Presence of coronary angioplasty implant and graft; Z87.891 Personal history of nicotine dependence; Z95.1 Presence of aortocoronary bypass graft; Z98.891 History of uterine scar from previous surgery; Z98.890 Other specified postprocedural states; Z79.82 Long term (current) use of aspirin; Z68.22 Body mass index [BMI] 22.0-22.9, adult
CPT/HCPCS: 36415; 71045; 80048; 80053; 80061; 81001; 82553; 82962; 83690; 83735; 83880; 84484; 85025; 87086; 93005; 93971; 94640; 94760; 96372; 96374; 96376; 99285; G0378; J1650; J1815; J3490; G0379